=== PATIENT | female | born 1970 | race Two or more races ===

== ENCOUNTER 2021-01-06 11:42 | Outpatient (REF) | payer OTHER, SELFPAY ==
[2021-01-07 08:59] LABS: BV Int Neg Control Negative (Negative); BV Int Pos Control Positive (Positive)
== END 2021-01-06 11:43 | disposition home or self-care (01) ==
LOC: HO.LAB 11:42
PROVIDERS: PCP Internal Medicine; Visit Provider Advanced Practice Midwife
DX: N89.8 Other specified noninflammatory disorders of vagina (principal)
CPT/HCPCS: 87480; 87510; 87660; 99212

== ENCOUNTER 2021-01-19 13:52 | Outpatient (REF) | payer OTHER, SELFPAY ==
--- NOTE | ~2021-01-19 | XR_ITS ---
EXAMINATION: XR LUMBAR SPINE AND LEFT SHOULDER CLINICAL INFORMATION: Low back pain. COMPARISON: None. TECHNIQUE: 3 views lumbar spine and 4 views left shoulder. FINDINGS: LUMBAR SPINE: There is normal lumbar lordosis. The vertebral heights and alignment is normal. There is loss of L5-S1 disc height. The rest the disc heights are normal. No visible acute fracture, dislocation or lytic process seen. The paramidline soft tissues are normal. There is evidence of previous cholecystectomy. LEFT SHOULDER: The glenohumeral joint space is normal. There is mild reduction in left AC joint. The soft tissues are normal. XR/XR lumbar spine 2-3V IMPRESSION: Unremarkable lumbar spine exam. Mild degenerative changes left AC joint.
--- NOTE | ~2021-01-19 | XR_ITS ---
EXAMINATION: XR LUMBAR SPINE AND LEFT SHOULDER CLINICAL INFORMATION: Low back pain. COMPARISON: None. TECHNIQUE: 3 views lumbar spine and 4 views left shoulder. FINDINGS: LUMBAR SPINE: There is normal lumbar lordosis. The vertebral heights and alignment is normal. There is loss of L5-S1 disc height. The rest the disc heights are normal. No visible acute fracture, dislocation or lytic process seen. The paramidline soft tissues are normal. There is evidence of previous cholecystectomy. LEFT SHOULDER: The glenohumeral joint space is normal. There is mild reduction in left AC joint. The soft tissues are normal. XR/XR shoulder LT min 2V IMPRESSION: Unremarkable lumbar spine exam. Mild degenerative changes left AC joint.
[2021-01-19 14:14] LABS: MANUAL DIFF FLAG NO
[2021-01-19 14:22] LABS: Basophils Absolute Auto 0.1 X10*3/uL (0.0-0.2); Basophils Percent Auto 0.9 % (0-2); Eosinophils Absolute Auto 0.1 X10*3/uL (0.0-0.4); Eosinophils Percent Auto 1.7 % (0-4); Hematocrit 39.2 % (37-47); Hemoglobin 13.2 g/dl (12.0-16.0); Imm Gran Abs Auto 0.01 X10*3/uL (0.00-0.03); Imm Gran Pct Auto 0.1 % (0.0-0.4); Lymphocytes Absolute Auto 2.2 X10*3/uL (1.2-4.9); Lymphocytes Percent Auto 28.5 % (20-40); Mean Corpuscular HGB Conc 33.7 g/dl (31.0-35.0); Mean Corpuscular Hemoglobin 31.4 pg (27.0-33.0); Mean Corpuscular Volume 93.3 fL (80-98); Mean Platelet Volume 10.4 fL (9.4-12.3); Monocytes Absolute Auto 0.6 X10*3/uL (0.1-1.2); Monocytes Percent Auto 7.3 % (2-11); Neutrophils Absolute Auto 4.8 X10*3/uL (2.0-8.3); Neutrophils Percent Auto 61.5 % (45-73); Platelet Count 327 X10*3/uL (160-400); Red Cell Distribution Width 12.5 % (11.0-16.0); White Blood Count 7.8 X10*3/uL (4.8-10.8)
[2021-01-19 14:52] LABS: Alanine Aminotransferase 27 U/L (0-31); Albumin Level 4.4 g/dL (3.5-5.0); Alkaline Phosphatase 106 U/L (39-117); Anion Gap 14 (12-20); Aspartate Amino Transferase 21 U/L (5-31); Bilirubin Total 0.3 mg/dL (0.0-1.0); Blood Urea Nitrogen 20 mg/dL (9-16); Calcium 9.5 mg/dL (8.4-10.2); Carbon Dioxide 25 mmol/L (22-29); Chloride 104 mmol/L (96-108); Estimated Glomerular Filt Rate > 60; Glucose Random 146 mg/dL (60-115); Potassium 4.1 mmol/L (3.3-5.1); Sodium 139 mmol/L (135-145); Total Protein 7.8 g/dL (6.5-8.0)
[2021-01-20 12:01] LABS: CA 27.29 18 U/mL (<38)
== END 2021-01-19 13:53 | disposition home or self-care (01) ==
LOC: HO.LAB 13:52
PROVIDERS: Absent Provider Internal Medicine; PCP Internal Medicine; Visit Provider Internal Medicine
DX: C50.919 Malignant neoplasm of unspecified site of unspecified female breast (principal); M25.512 Pain in left shoulder; M54.5 Low back pain
CPT/HCPCS: 36415; 72100; 73030; 80053; 85025; 86300

== ENCOUNTER → 2021-01-28 10:10 | Outpatient (BNVA) | payer OTHER, SELFPAY | PROVIDERS: PCP Internal Medicine; Visit Provider Physician Assistant | DX: M77.8 Other enthesopathies, not elsewhere classified (principal) | CPT/HCPCS: 99202 ==

== ENCOUNTER → 2021-02-21 13:46 | Outpatient (BNVA) | payer OTHER, SELFPAY | PROVIDERS: PCP Internal Medicine; Visit Provider Nurse Practitioner Family | DX: M54.2 Cervicalgia (principal); M77.8 Other enthesopathies, not elsewhere classified; I89.0 Lymphedema, not elsewhere classified | CPT/HCPCS: 99212 ==

== ENCOUNTER 2021-04-14 16:14 | Outpatient (REF) | payer OTHER, SELFPAY ==
--- NOTE | ~2021-04-14 | MR_ITS ---
EXAMINATION: MR CERVICAL SPINE WITHOUT CONTRAST CLINICAL INFORMATION: Spondylosis. Right upper extremity pain, numbness, and weakness. COMPARISON: Cervical spine radiographs 05/25/2020. TECHNIQUE: MRI of the cervical spine was obtained using routine sequences without contrast. FINDINGS: Alignment is normal. Vertebral heights are preserved. No acute bone marrow signal changes. There is slight loss of intervertebral disc height and T2 signal intensity at multiple levels related to disc degeneration. There is no cord compression or abnormal intramedullary signal changes. The cervicomedullary junction is normal. Limited visualization of the intracranial anatomy reveals no abnormal finding. The occipital condyles and lateral C1 masses are intact. The left dental joint is normal. C1-C2 articular facets are unremarkable. At C2-C3 the annular contour is normal. No canal or neuroforaminal compromise. At C3-C4 there is a shallow central protrusion causing indentation of the thecal sac. No canal stenosis. Asymmetric uncovertebral joint spurring causes mild left neuroforaminal encroachment. At C4-C5 there is a slightly bulging disc. No canal stenosis. Uncovertebral joint spurring and facet degenerative change causes mild bilateral neuroforaminal encroachment. At C5-C6 there is a slightly bulging disc. No canal stenosis. Uncovertebral joint spurring and facet degenerative change causes mild bilateral neuroforaminal encroachment. At C6-C7 there is a slightly bulging disc. No canal stenosis. Uncovertebral joint spurring and facet degenerative change causes mild bilateral neuroforaminal encroachment. At C7-T1 the annular contour is normal. Bilateral facet degenerative change. No canal or neuroforaminal compromise. Visualized soft tissues of the neck are normal. MR/MR cervical spine wo con IMPRESSION: There is multilevel degenerative spondylosis of the cervical spine. No canal compromise or cord compression. No abnormal intramedullary signal changes. There is mild neuroforaminal encroachment at multiple levels as described above.
== END 2021-04-14 16:15 | disposition home or self-care (01) ==
LOC: HO.MRI 16:14
PROVIDERS: Visit Provider Anesthesiology
DX: M47.22 Other spondylosis with radiculopathy, cervical region (principal)
CPT/HCPCS: 72141

== ENCOUNTER 2021-05-15 09:04 | Emergency (ER) | payer OTHER, SELFPAY ==
[2021-05-15 09:08] VITALS: BP 189/87; PULSE 72; RESP 18; TEMP 36.7; O2SAT 100; BMI 28.3
--- NOTE | 2021-05-15 10:02 | ED_ITS ---
HPI - Eye Problem General Chief complaint: Eye Problems Stated complaint: sharp pain on left eye Time Seen by Provider: 05/15/21 09:16 Source: patient Mode of arrival: ambulatory Limitations: no limitations History of Present Illness HPI Narrative: patient presents to ED for left eye pain for the past 2 days. Patient states since waking up 2 days ago she states having left eye pain, blurry vision, and photophobia. Patient denies any headache, nausea, vomiting, dizziness, loss of vision, slurred speech, facial droop, or paralysis of extremities. patient denies any recent trauma to the eye or wearing eye co ntact. Related Data Home Medications Medication Instructions Recorded Confirmed bupropion HCl 150 mg 24 hr tablet, 150 mg PO QAM 10/18/20 04/25/21 extended release clonazepam 0.5 mg tablet 0.5 mg PO BEDTIME 10/18/20 04/25/21 furosemide 20 mg tablet 20 mg PO QAM 10/18/20 04/25/21 multivitamin 1 tab PO DAILY 10/18/20 04/25/21 topiramate 25 mg tablet 25 mg PO DAILY 10/18/20 04/25/21 buspirone 15 mg tablet 15 mg PO TID 01/18/21 04/25/21 trazodone 100 mg tablet 150 mg PO BEDTIME PRN tab 04/25/21 04/25/21 Previous Rx's Medication Instructions Recorded ascorbic acid (vitamin C) 500 mg 500 mg PO DAILY #90 tab 08/31/20 tablet amlodipine 5 mg tablet 5 mg PO DAILY #90 tab 09/29/20 miconazole nitrate 2 % vaginal 1 appful VAGINAL BEDTIME 7 Days 01/18/21 cream #45 g diclofenac sodium 75 mg 75 mg PO BID 30 Days #60 tab 01/28/21 tablet,delayed release halobetasol propionate 0.05 % 1 appl TOPICAL DAILY #50 g 02/25/21 topical cream methocarbamol 500 mg tablet 500 mg PO TID PRN 30 Days #90 tab 02/25/21 tizanidine 4 mg tablet 4 mg PO BEDTIME PRN #30 tab 03/04/21 losartan 25 mg tablet 25 mg PO DAILY #30 tab 04/13/21 omeprazole 20 mg capsule,delayed 20 mg PO DAILY 30 Days #30 cap 04/25/21 release oxycodone-acetaminophen [Percocet] 1 tab PO TID PRN #9 tab 05/15/21 prednisolone acetate [Pred Forte] 1 drp OPHTHALMIC (EYE) QID 4 Days 05/15/21 #10 ml Allergies Allergy/AdvReac Type Severity Reaction Status Date / Time lisinopril Allergy Mild Cough Verified 04/25/21 15:02 zolpidem AdvReac Severe sleepwalkin Verified 04/25/21 15:59 g Review of Systems Review of Systems: Yes all other systems are reviewed and are negative Constitutional: Constitutional: Reports as per HPI and Reports no additional constitutional complaints Eyes: Eyes: Reports as per HPI, Reports no additional eye complaints and Reports eye pain ( Left eye) ENT: Reports system reviewed and no additional complaints, except as documented and Reports as per HPI Cardiovascular: Cardiovascular: Reports as per HPI and Reports no additional cardiovascular complaints Respiratory: Respiratory: Reports as per HPI and Reports no additional respiratory complaints Gastrointestinal: Gastrointestinal: Reports as per HPI and Reports no additional gastrointestinal complaints Genitourinary: Genitourinary: Reports no additional female genitourinary complaints and Reports as per HPI Musculoskeletal: Musculoskeletal: Reports no additional musculoskeletal complaints and Reports as per HPI Neurologic: Reports system reviewed and no additional complaints, except as documented and Reports as per HPI Psychiatric: Psychiatric: Reports no additional psychiatric complaints and Reports as per HPI PMF Past Medical History Medical History (Updated 05/15/21 @ 12:15 by CHAN Bacon) Anxiety Benign essential hypertension Cervical disc disease GERD without esophagitis Insomnia Left shoulder pain Lymphedema Myalgia Overweight (BMI 25.0-29.9) Right low back pain Sleep disorder Surgical History H/O bilateral oophorectomy H/O breast biopsy History of breast implant removal History of breast surgery History of cholecystectomy History of tubal ligation Hx of bilateral mastectomy Family History Family History Father Diabetes Mother Low blood pressure Family/Other Breast cancer Diabetes Social History Social History Housing: Apartment Alcohol intake: current Alcohol intake frequency: holidays/special occasions only Patient Tobacco Use Status: Never used Tobacco Second Hand Smoke Exposure: No Use of substances other than those prescribed or required for medical reasons: No Advance Directives: Yes Advance Directives Information Provided: Yes Advance Directives on File: No Patient : No Current occupational status: employed and disabled Gender identity: female Physical Exam Vital Signs: Vital Signs: Last Vital Signs Temp 97.9 F 05/15/21 12:20 Pulse 79 05/15/21 12:20 Resp 18 05/15/21 12:20 BP 134/60 05/15/21 12:20 Pulse Ox 99 05/15/21 12:20 Body Mass Index 28.3 Const: General: cooperative, healthy appearing, comfortable, no acute distress, well developed, alert and awake; No Physically active Orientation/consciousness: oriented to person, oriented to place and patient oriented x3 HENMT: Head: Yes normal to inspection, Yes No palpable skull fracture present, Yes normocephalic, Yes atraumatic, No abrasion, No Acrocyanosis present, No Bojorquez's sign, No contusion, No cranial bruits, No hematoma, No laceration, No occipital foramen tenderness, No palpable skull fracture, No raccoon eyes, No scalp lesion, No scalp tenderness, No Temporal artery tenderness present and No periorbital ecchymosis General nose exam: Normal external nose present and Normal nares present Eyes: Other: left eye : scleral redness, Tonometry pressure is 15. negative for corneal abrasion, corneal ulcer, or foreign body. visual acuity 20/20 Right eye: negative for redness. tonometry Pressure is 9. negative for corneal abrasion, corneal ulcer, or foreign body. Visual acuity 2020 General: appearance normal, both eyes and all related structures Chest: Chest palpation & inspection: normal inspection of the chest and normal palpation of entire chest wall Resp: Effort & Inspection: normal respiratory effort and able to speak in complete sentences Auscultation: clear to auscultation bilaterally Cardio: Jugular venous distension: no JVD Heart sounds: S1 normal heart sound present and S2 normal heart sound present GI: Inspection: Yes normal to inspection and No abdominal wall ecchymosis Palpation (GI): Soft to palpation, not firm, nontender, no guarding and not rigid : General: No CVA tenderness Back/Spine/Pelvis: Back: no CVA tenderness, No CVA tenderness and No back tenderness Skin: General skin exam: no rashes or lesions noted and elasticity normal Neuro: Other: negative facial droop. Negative slurred speech. Negative pronator drift. All extremities equal strength 5+. [id number] rapid head movement tach. Negative on General: oriented to person, oriented to place, patient oriented x3, gait normal and CN's II-XI intact bilaterally Cranial nerves: Yes CN's II-XII intact bilaterally Extrem: General: Yes normal to inspection and Yes full ROM Psych: Appearance: grossly normal, well kempt and not disheveled Course Course Course Narrative: will use tetracaine for anesthesia. Will use denominator to check eye pressure. Will perform fluorescein dye test to check for corneal abrasion. elevated blood pressure due to eye discomfort Reevaluation(s) Reevaluation #1: history physical exam negative for glaucoma, corneal abrasion, corneal ulcer, dendrites, or foreign body. Contact Dr. Beck of Ophthalmology. DR. Stein, ER Attendant, evaluated patient and agrees that this may be some form of iritis or scleritis. Waiting back from Dr. Beck . not suspecting temporal arthritis. Patient does not have headache or left temporal tenderness on palpation. Time: 11:20 Reevaluation #2: spoke with Dr. Beck of Ophthalmology and he was informed of patient's history, physical exam, and diagnostics. He states differential could be iritis, episcleritis, or scleritis. He recommends giving eye steroid ( perforte) drops 4 times a day regardless. Recommends placing phenylephrine 2.5% in the left eye. He states if redness resolved from phenylephrine that most likely is episcleritis. If redness remains any scleritis recommend p.o. oral NSAID. Time: 11:39 Reevaluation #3: Phenyelphrine was placed in patient's left eye and 5 minutes later redness of left eye resolved. Indicating more episcleritis. Will discharge with pre Forte eyedrops. Patient has follow-up with Dr. Beck for sunday. Time: 12:12 MDM - Eye Problem MDM Narrative Medical decision making narrative: episcleritis versus iritis Discharge Plan Discharge Clinical Impression: Episcleritis, Iritis Patient Disposition: Home, Self-Care Instructions: Iritis (ED) Additional Instructions: please follow-up with Dr. Beck this upcoming Sunday. Return to the ED for loss of vision, worsening eye pain, change in vision, headache, dizziness, slurred speech, facial droop, ear pain, paralysis of extremities, or any other concerning symptoms. Prescriptions: New oxycodone-acetaminophen [Percocet] 5-325 mg tablet 1 tab PO TID PRN (Reason: pain) Qty: 9 RF: 0 prednisolone acetate [Pred Forte] 1 % drops,suspension 1 drp ophthalmic (eye) QID 4 Days Qty: 10 RF: 0 No Action ascorbic acid (vitamin C) [Vitamin C] 500 mg tablet 500 mg PO DAILY Qty: 90 RF: 5 amlodipine 5 mg tablet 5 mg PO DAILY Qty: 90 RF: 2 miconazole nitrate [Monistat 7] 2 % cream 1 appful vaginal BEDTIME 7 Days Qty: 45 RF: 0 methocarbamol 500 mg tablet 500 mg PO TID PRN (Reason: muscle pain/low back pain) 30 Days Qty: 90 RF: 0 halobetasol propionate 0.05 % cream 1 appl topical DAILY Qty: 50 RF: 1 tizanidine 4 mg tablet 4 mg PO BEDTIME PRN (Reason: for muscle spasm) Qty: 30 RF: 1 losartan 25 mg tablet 25 mg PO DAILY Qty: 30 RF: 2 omeprazole 20 mg capsule,delayed release(DR/EC) 20 mg PO DAILY 30 Days Qty: 30 RF: 3 clonazepam 0.5 mg tablet 0.5 mg PO BEDTIME RF: 0 bupropion HCl 150 mg tablet extended release 24 hr 150 mg PO QAM RF: 0 multivitamin Tablet 1 tab PO DAILY RF: 0 topiramate 25 mg tablet 25 mg PO DAILY RF: 0 furosemide 20 mg tablet 20 mg PO QAM RF: 0 trazodone 100 mg tablet 150 mg PO BEDTIME PRN (Reason: Insomnia) RF: 0 buspirone 15 mg tablet 15 mg PO TID RF: 0 diclofenac sodium 75 mg tablet,delayed release (DR/EC) 75 mg PO BID 30 Days Qty: 60 RF: 0 Referrals: Yash Beck [Physician] - 2 days (Episcleritis vs Iritis of left eye. Redness of left eye resolved after phenylephrine was placed.) Interventions: ED Discharge Assessment Last Done: 05/15/21 12:39 Discharge Date/Time: 05/15/21 12:40 Print Language: Nepalese
[2021-05-15] MEDS: Tetracaine HCl/PF 0.5% Oph Sol 4 ML DROPS 3 DROP EYE-LEFT (10:28)
[2021-05-15] MEDS: Fluorescein Sodium STRIP 1 STRIP EYE-RIGHT (10:28)
[2021-05-15] MEDS: Fluorescein Sodium STRIP 1 STRIP EYE-LEFT (10:28)
[2021-05-15] MEDS: Phenylephrine HCL 2.5% Oph SoL 2 ML BOTTLE 1 DROP EYE-LEFT (11:59)
[2021-05-15 12:20] VITALS: BP 134/60; PULSE 79; RESP 18; TEMP 36.6; O2SAT 99
== END 2021-05-15 12:40 | disposition home or self-care (01) ==
PROVIDERS: Emergency Provider Emergency Medicine; PCP Internal Medicine
DX: H15.102 Unspecified episcleritis, left eye (principal); H20.9 Unspecified iridocyclitis; I10 Essential (primary) hypertension; Z79.899 Other long term (current) drug therapy
CPT/HCPCS: 99283; 99284

== ENCOUNTER 2021-06-15 13:38 | Emergency (ER) | payer OTHER, SELFPAY ==
[2021-06-15 13:41] VITALS: BP 136/70; PULSE 64; RESP 16; TEMP 36.7; O2SAT 97; BMI 28.1
== END 2021-06-15 15:55 | disposition left against medical advice (07) ==
PROVIDERS: Emergency Provider Emergency Medicine; PCP Internal Medicine
DX: S09.93XA Unspecified injury of face, initial encounter (principal); W01.0XXA Fall on same level from slipping, tripping and stumbling without subsequent striking against object, initial encounter; Y93.9 Activity, unspecified; Y92.9 Unspecified place or not applicable; Y99.9 Unspecified external cause status
CPT/HCPCS: 99281; 99282

== ENCOUNTER 2021-06-18 13:53 | Emergency (ER) | payer OTHER, SELFPAY ==
[2021-06-18 14:08] VITALS: BP 178/99; PULSE 78; RESP 16; TEMP 36.9; O2SAT 98; BMI 28.1
--- NOTE | 2021-06-18 15:33 | ED.FALL ---
HPI - Fall General Chief Complaint: Fall Stated Complaint: Facial bump Time Seen by Provider: 06/18/21 15:33 Source: patient Mode of arrival: ambulatory Limitations: no limitations History of Present Illness HPI Narrative: 51 y/o female presenting with palpable bump on her face after she fell and hit it on a hard object 2 weeks ago. She initially had bruising to the area but it has since resolved. She reports a residual lump on her right cheek that is slightly tender. It is not red or bruised any longer. She has no dentall pain or trauma. MD complaint: fall Onset (ago): week(s) (2) Fall from: standing Fall witnessed: yes, by family Place fall occurred: home Loss of consciousness: none Prolonged down time: no Symptoms prior to fall: none Context: tripped/slipped Location of injury: face Severity: mild Quality: aching Associated symptoms (after fall): denies Related Data Home Medications Medication Instructions Recorded Confirmed bupropion HCl 150 mg 24 hr tablet, 150 mg PO QAM 10/18/20 04/25/21 extended release clonazepam 0.5 mg tablet 0.5 mg PO BEDTIME 10/18/20 04/25/21 furosemide 20 mg tablet 20 mg PO QAM 10/18/20 04/25/21 multivitamin 1 tab PO DAILY 10/18/20 04/25/21 topiramate 25 mg tablet 25 mg PO DAILY 10/18/20 04/25/21 buspirone 15 mg tablet 15 mg PO TID 01/18/21 04/25/21 trazodone 100 mg tablet 150 mg PO BEDTIME PRN tab 04/25/21 04/25/21 Previous Rx's Medication Instructions Recorded ascorbic acid (vitamin C) 500 mg 500 mg PO DAILY #90 tab 08/31/20 tablet (Vitamin C) amlodipine 5 mg tablet 5 mg PO DAILY #90 tab 09/29/20 miconazole nitrate 2 % vaginal 1 appful VAGINAL BEDTIME 7 Days 01/18/21 cream (Monistat 7) #45 g diclofenac sodium 75 mg 75 mg PO BID 30 Days #60 tab 01/28/21 tablet,delayed release halobetasol propionate 0.05 % 1 appl TOPICAL DAILY #50 g 02/25/21 topical cream methocarbamol 500 mg tablet 500 mg PO TID PRN 30 Days #90 tab 02/25/21 tizanidine 4 mg tablet 4 mg PO BEDTIME PRN #30 tab 03/04/21 losartan 25 mg tablet 25 mg PO DAILY #30 tab 04/13/21 omeprazole 20 mg capsule,delayed 20 mg PO DAILY 30 Days #30 cap 04/25/21 release oxycodone-acetaminophen 5 mg-325 1 tab PO TID PRN #9 tab 05/15/21 mg tablet (Percocet) prednisolone acetate 1 % eye 1 drp OPHTHALMIC (EYE) QID 4 Days 05/15/21 drops,suspension (Pred Forte) #10 ml Allergies Allergy/AdvReac Type Severity Reaction Status Date / Time lisinopril Allergy Mild Cough Verified 06/15/21 13:41 zolpidem AdvReac Severe sleepwalkin Verified 06/15/21 13:41 g Review of Systems Review of Systems: Constitutional: No Fever, No Chills ENT/Mouth: No sore throat, No Rhinorrhea, No Swallowing Difficulty, No dental pain Eyes: No Eye Pain, No Swelling, No Redness Gastrointestinal: No Nausea, No Vomiting Musculoskeletal: No joint pain, No Myalgias Skin: + Skin Lesions, No rash Neuro: No Weakness, No Numbness, No Dizziness, No Headache Psych: + Anxiety/Panic, No Depression Heme/Lymph: No Bruising PMFSH Past Medical History Medical History Anxiety Benign essential hypertension Cervical disc disease GERD without esophagitis Insomnia Left shoulder pain Lymphedema Myalgia Overweight (BMI 25.0-29.9) Right low back pain Sleep disorder Surgical History H/O bilateral oophorectomy H/O breast biopsy History of breast implant removal History of breast surgery History of cholecystectomy History of tubal ligation Hx of bilateral mastectomy Family History Family History Father Diabetes Mother Low blood pressure Family/Other Breast cancer Diabetes Social History Social History Housing: Apartment Alcohol intake: current Alcohol intake frequency: holidays/special occasions only Patient Tobacco Use Status: Never used Tobacco Second Hand Smoke Exposure: No Advance Directives: No Advance Directives Information Provided: No Current occupational status: employed and disabled Gender identity: female Physical Exam Vital Signs: Vital Signs: Last Vital Signs Temp 98.5 F 06/18/21 14:08 Pulse 78 06/18/21 14:08 Resp 16 06/18/21 14:08 BP 178/99 H 06/18/21 14:08 Pulse Ox 98 06/18/21 14:08 Body Mass Index 28.1 Const: General: cooperative, healthy appearing, comfortable and no acute distress Nutritional Appearance: average body habitus Orientation/consciousness: patient oriented x3 Limitations: no limitations HENMT: Head: Yes normal to inspection, Yes normocephalic and Yes atraumatic Ears: hearing grossly normal bilaterally and external ears normal General nose exam: Normal external nose present and Normal nares present Face and sinus: Yes Facial tenderness on exam of face and sinuses (palpable 2 x 1 cm mobile soft tissue mass below right maxilla, no erythema ) Mouth: Normal oral and palatal mucosa present, lip normal, tongue normal, oropharynx normal and moist mucous membranes Teeth and gingiva: dentition normal and gingiva normal Throat: Yes posterior oropharynx normal, Yes tonsils normal and Yes uvula midline Eyes: General: appearance normal, both eyes and all related structures Neck: Neck: Yes normal visual inspection Chest: Chest palpation & inspection: normal inspection of the chest Resp: Effort & Inspection: normal respiratory effort and able to speak in complete sentences Skin: General skin exam: no rashes or lesions noted Trauma: no lacerations or abrasions Wounds: no wounds Hair: normal Neuro: General: patient oriented x3 and gait normal Extrem: General: Yes normal to inspection Course Course Course Narrative: 51 y/o female presenting to the ER 2 weeks s/p fall with trauma to the right side of her face now with a palpable small mass below her right maxilla, slightly tender. No erythema or fluctuance to suggest abscess. Possible hematoma vs cystic lesion. Recommend following up with PCP and possible Dermatology if lesion persists. She was reassured against infection. She is in agreement with watchful waiting and outpatient follow up. Stable for d/c. Discharge Plan Discharge Clinical Impression: Soft tissue mass Patient Disposition: Home, Self-Care Instructions: Superficial Mass Needle Biopsy (ED), Soft Tissue Mass (ED) Additional Instructions: Recommend applying ice to the area to see if this helps with swelling. Follow up with your doctor in the next 2 weeks for follow up. Recommend following up with Dermatology if no improvement or resolution in the next few weeks. Prescriptions: No Action ascorbic acid (vitamin C) [Vitamin C] 500 mg tablet 500 mg PO DAILY Qty: 90 RF: 5 amlodipine 5 mg tablet 5 mg PO DAILY Qty: 90 RF: 2 miconazole nitrate [Monistat 7] 2 % cream 1 appful vaginal BEDTIME 7 Days Qty: 45 RF: 0 methocarbamol 500 mg tablet 500 mg PO TID PRN (Reason: muscle pain/low back pain) 30 Days Qty: 90 RF: 0 halobetasol propionate 0.05 % cream 1 appl topical DAILY Qty: 50 RF: 1 tizanidine 4 mg tablet 4 mg PO BEDTIME PRN (Reason: for muscle spasm) Qty: 30 RF: 1 losartan 25 mg tablet 25 mg PO DAILY Qty: 30 RF: 2 oxycodone-acetaminophen [Percocet] 5-325 mg tablet 1 tab PO TID PRN (Reason: pain) Qty: 9 RF: 0 prednisolone acetate [Pred Forte] 1 % drops,suspension 1 drp ophthalmic (eye) QID 4 Days Qty: 10 RF: 0 omeprazole 20 mg capsule,delayed release(DR/EC) 20 mg PO DAILY 30 Days Qty: 30 RF: 3 clonazepam 0.5 mg tablet 0.5 mg PO BEDTIME RF: 0 bupropion HCl 150 mg tablet extended release 24 hr 150 mg PO QAM RF: 0 multivitamin Tablet 1 tab PO DAILY RF: 0 topiramate 25 mg tablet 25 mg PO DAILY RF: 0 furosemide 20 mg tablet 20 mg PO QAM RF: 0 trazodone 100 mg tablet 150 mg PO BEDTIME PRN (Reason: Insomnia) RF: 0 buspirone 15 mg tablet 15 mg PO TID RF: 0 diclofenac sodium 75 mg tablet,delayed release (DR/EC) 75 mg PO BID 30 Days Qty: 60 RF: 0 Referrals: Cristin Garcia PA-C [Physician Electromedical Service Engineer] - 2 weeks (soft tissue right maxillary mass) Interventions: ED Discharge Assessment Last Done: 06/18/21 15:48 Discharge Date/Time: 06/18/21 15:49
== END 2021-06-18 15:49 | disposition home or self-care (01) ==
PROVIDERS: Emergency Provider Emergency Medicine Emergency Medical Services; PCP Internal Medicine
DX: M79.9 Soft tissue disorder, unspecified (principal)
CPT/HCPCS: 99283

== ENCOUNTER 2021-06-26 20:14 | Emergency (ER) | payer OTHER, SELFPAY ==
--- NOTE | ~2021-06-26 | CT_ITS ---
EXAMINATION: CT FACIAL BONES WITHOUT CONTRAST CLINICAL INFORMATION: Fall 3 weeks ago. Continuing deformity and pain right maxilla. COMPARISON: None TECHNIQUE: Axial images obtained through the facial bones. Coronal and sagittal reformatted images are performed at CT scanner This CT examination was performed using dose optimization techniques as appropriate, variously including the following: *Automated exposure control *Adjustment of mA and/or kV according to patient size (this includes techniques or standardized protocols for targeted exams where dose is matched to indication/reason for exam; i.e. extremities or head) *Use of iterative reconstruction technique DLP: 480 mGy-cm FINDINGS: There is no acute maxillofacial fracture. The pterygoid plates are intact. The zygomatic arches are intact. The lamina papyracea are intact. The orbital rims are intact. The paranasal sinuses are well-aerated. No air-fluid levels are seen. The ostiomeatal complexes are clear. The lamina papyracea are intact. The ethmoid roofs are symmetric. The carotid canals are normally covered by bone. The mastoid air cells and visualized middle ear cavities are well-aerated. The orbits are normal. The TMJs are unremarkable. The imaged portions of the brain demonstrate no acute abnormality. CT/CT facial bones wo con IMPRESSION: No acute intracranial process or discrete facial bone fracture.
[2021-06-26 20:32] VITALS: BP 198/114; PULSE 74; RESP 18; O2SAT 100; BMI 28.1
--- NOTE | 2021-06-26 21:55 | ED_ITS ---
HPI - General Adult General Chief complaint: Dental/Oral Stated complaint: Lump on face Time Seen by Provider: 06/26/21 21:36 Source: patient Mode of arrival: ambulatory History of Present Illness HPI narrative: 51-year-old female with history of hypertension presents with persistent pain/deformity/swelling at the right maxilla after having sustained a fall approximately 3 weeks ago. She states that at the time she was not evaluated and simply treated it with ice, but notes that it has not resolved and she continues to have significant pain at the site. She has had bilateral oophorectomy and denies any associated fever, chills, nausea/vomiting, abdominal pain, dizziness/headache. Related Data Home Medications Medication Instructions Recorded Confirmed bupropion HCl 150 mg 24 hr tablet, 150 mg PO QAM 10/18/20 04/25/21 extended release clonazepam 0.5 mg tablet 0.5 mg PO BEDTIME 10/18/20 04/25/21 furosemide 20 mg tablet 20 mg PO QAM 10/18/20 04/25/21 multivitamin 1 tab PO DAILY 10/18/20 04/25/21 topiramate 25 mg tablet 25 mg PO DAILY 10/18/20 04/25/21 buspirone 15 mg tablet 15 mg PO TID 01/18/21 04/25/21 trazodone 100 mg tablet 150 mg PO BEDTIME PRN tab 04/25/21 04/25/21 Previous Rx's Medication Instructions Recorded ascorbic acid (vitamin C) 500 mg 500 mg PO DAILY #90 tab 08/31/20 tablet (Vitamin C) amlodipine 5 mg tablet 5 mg PO DAILY #90 tab 09/29/20 miconazole nitrate 2 % vaginal 1 appful VAGINAL BEDTIME 7 Days 01/18/21 cream (Monistat 7) #45 g diclofenac sodium 75 mg 75 mg PO BID 30 Days #60 tab 01/28/21 tablet,delayed release halobetasol propionate 0.05 % 1 appl TOPICAL DAILY #50 g 02/25/21 topical cream methocarbamol 500 mg tablet 500 mg PO TID PRN 30 Days #90 tab 02/25/21 tizanidine 4 mg tablet 4 mg PO BEDTIME PRN #30 tab 03/04/21 losartan 25 mg tablet 25 mg PO DAILY #30 tab 04/13/21 omeprazole 20 mg capsule,delayed 20 mg PO DAILY 30 Days #30 cap 04/25/21 release oxycodone-acetaminophen 5 mg-325 1 tab PO TID PRN #9 tab 05/15/21 mg tablet (Percocet) prednisolone acetate 1 % eye 1 drp OPHTHALMIC (EYE) QID 4 Days 05/15/21 drops,suspension (Pred Forte) #10 ml Allergies Allergy/AdvReac Type Severity Reaction Status Date / Time lisinopril Allergy Mild Cough Verified 06/15/21 13:41 zolpidem AdvReac Severe sleepwalkin Verified 06/15/21 13:41 g Review of Systems Review of Systems: Pertinent positives and negatives as stated in HPI 10 point review of systems otherwise negative. PMFSH Past Medical History Source: nursing notes reviewed Medical History Anxiety Benign essential hypertension Cervical disc disease GERD without esophagitis Insomnia Left shoulder pain Lymphedema Myalgia Overweight (BMI 25.0-29.9) Right low back pain Sleep disorder Surgical History H/O bilateral oophorectomy H/O breast biopsy History of breast implant removal History of breast surgery History of cholecystectomy History of tubal ligation Hx of bilateral mastectomy Family History Family History Father Diabetes Mother Low blood pressure Family/Other Breast cancer Diabetes Social History Social History Housing: Apartment Alcohol intake: current Alcohol intake frequency: holidays/special occasions only Patient Tobacco Use Status: Never used Tobacco Second Hand Smoke Exposure: No Advance Directives: No Advance Directives Information Provided: No Patient : No Current occupational status: employed and disabled Gender identity: female Physical Exam Vital Signs: Vital Signs: Last Vital Signs Temp 97.4 F 06/26/21 22:20 Pulse 71 06/26/21 23:50 Resp 20 06/26/21 23:50 BP 149/72 H 06/26/21 23:50 Pulse Ox 99 06/26/21 23:50 Body Mass Index 28.1 VITAL SIGNS: Reviewed. GENERAL: Well developed, well nourished, in no acute distress. HEAD: Normocephalic/atraumatic, mobile non adherent approximately 3 cm lump noted at the right maxilla without demonstration when examined intraorally, bilateral TMJs are intact without clicking EYES: PERRLA, EOMI EARS: Ext canals without abnormality, TMs non-bulging and non-erythematous, no masses noted NOSE: Nares patent bilateral, no masses noted OROPHARYNX: no oral lesions noted, posterior pharynx clear and after removal of partial there is no evidence of gum swelling/erythema LUNGS: Normal breath sounds. No adventitious sounds or accessory muscle use. SpO2<100> CARDIOVASCULAR: Regular rate and rhythm without noted murmurs ABDOMEN: Soft, non-tender, non-distended with bowel sounds. SKIN: Inspection of the skin reveals no rashes NEUROLOGIC: Alert and oriented x 4. Course Course Course Narrative: 51-year-old female with history and clinical presentation consistent with likely underlying hematoma but will evaluate for possible occult fracture due to patient's fall, patient will also be treated here for her hypertension as she has not taken her antihypertensive medications all day and she will receive combination analgesics for her pain. Review of all investigations is otherwise negative and on re-evaluation patient's blood pressure has improved and she will be discharged after discussion of her results in stable condition. Discharge Plan Discharge Clinical Impression: Lump on face, Hypertension Patient Disposition: Home, Self-Care Instructions: Hypertension (ED), DASH Eating Plan (ED) Additional Instructions: 1. Follow-up with your primary care provider in the next 1-2 days for re- evaluation. 2. Continue to take your blood pressure medications as directed, and continue to use [id number]-ilefjua Tylenol/ibuprofen as needed for pain control. Return to the ER for acute worsening of symptoms. Prescriptions: No Action ascorbic acid (vitamin C) [Vitamin C] 500 mg tablet 500 mg PO DAILY Qty: 90 RF: 5 amlodipine 5 mg tablet 5 mg PO DAILY Qty: 90 RF: 2 miconazole nitrate [Monistat 7] 2 % cream 1 appful vaginal BEDTIME 7 Days Qty: 45 RF: 0 methocarbamol 500 mg tablet 500 mg PO TID PRN (Reason: muscle pain/low back pain) 30 Days Qty: 90 RF: 0 halobetasol propionate 0.05 % cream 1 appl topical DAILY Qty: 50 RF: 1 tizanidine 4 mg tablet 4 mg PO BEDTIME PRN (Reason: for muscle spasm) Qty: 30 RF: 1 losartan 25 mg tablet 25 mg PO DAILY Qty: 30 RF: 2 oxycodone-acetaminophen [Percocet] 5-325 mg tablet 1 tab PO TID PRN (Reason: pain) Qty: 9 RF: 0 prednisolone acetate [Pred Forte] 1 % drops,suspension 1 drp ophthalmic (eye) QID 4 Days Qty: 10 RF: 0 omeprazole 20 mg capsule,delayed release(DR/EC) 20 mg PO DAILY 30 Days Qty: 30 RF: 3 clonazepam 0.5 mg tablet 0.5 mg PO BEDTIME RF: 0 bupropion HCl 150 mg tablet extended release 24 hr 150 mg PO QAM RF: 0 multivitamin Tablet 1 tab PO DAILY RF: 0 topiramate 25 mg tablet 25 mg PO DAILY RF: 0 furosemide 20 mg tablet 20 mg PO QAM RF: 0 trazodone 100 mg tablet 150 mg PO BEDTIME PRN (Reason: Insomnia) RF: 0 buspirone 15 mg tablet 15 mg PO TID RF: 0 diclofenac sodium 75 mg tablet,delayed release (DR/EC) 75 mg PO BID 30 Days Qty: 60 RF: 0 Referrals: Rod Mathews MD [Primary Care Provider] - 2 days
[2021-06-26 22:20] VITALS: BP 201/110; PULSE 73; RESP 16; TEMP 36.3; O2SAT 99
--- NOTE | 2021-06-26 22:21 | PC.NURSE ---
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
[2021-06-26] MEDS: amLODIPine Besylate 10 MG TABLET PO (22:37)
[2021-06-26] MEDS: Acetaminophen 325 MG TABLET 975 MG PO (22:37)
[2021-06-26] MEDS: Ketorolac Tromethamine 15 MG/ML VIAL IM (22:38)
[2021-06-26 23:50] VITALS: BP 149/72; PULSE 71; RESP 20; O2SAT 99
== END 2021-06-27 00:30 | disposition home or self-care (01) ==
PROVIDERS: Emergency Provider Student in an Organized Health Care Education/Training Program; PCP Internal Medicine
DX: R22.0 Localized swelling, mass and lump, head (principal); G44.309 Post-traumatic headache, unspecified, not intractable; I10 Essential (primary) hypertension; Z79.899 Other long term (current) drug therapy
CPT/HCPCS: 70486; 96372; 99284; J1885

== ENCOUNTER → 2021-07-19 10:56 | Outpatient (BNVA) | payer OTHER, SELFPAY | PROVIDERS: PCP Internal Medicine; Referring Provider Internal Medicine; Visit Provider Psychiatry & Neurology Neurology | DX: G47.00 Insomnia, unspecified (principal); G47.10 Hypersomnia, unspecified; G25.81 Restless legs syndrome; R06.83 Snoring | CPT/HCPCS: 99202 ==

== ENCOUNTER 2021-07-25 12:50 | Outpatient (REF) | payer OTHER, SELFPAY ==
[2021-07-28 06:17] LABS: HPV mRNA E6/E7 rflx Not Detected (Not Detected)
== END 2021-07-25 12:51 | disposition home or self-care (01) ==
LOC: HO.LAB 12:50
PROVIDERS: PCP Internal Medicine; Visit Provider Advanced Practice Midwife
DX: Z01.411 Encounter for gynecological examination (general) (routine) with abnormal findings (principal); Z11.51 Encounter for screening for human papillomavirus (HPV); N89.8 Other specified noninflammatory disorders of vagina; Z87.42 Personal history of other diseases of the female genital tract
CPT/HCPCS: 87624; 88142

== ENCOUNTER → 2021-10-11 20:04 | Outpatient (REF) | payer OTHER, SELFPAY | LOC: HO.SL 20:04 | PROVIDERS: PCP Internal Medicine; Visit Provider Psychiatry & Neurology Neurology | DX: G25.81 Restless legs syndrome (principal); G47.10 Hypersomnia, unspecified; R06.83 Snoring; G47.00 Insomnia, unspecified | CPT/HCPCS: 95810 ==

== ENCOUNTER 2021-10-18 13:27 | Emergency (ER) | payer OTHER, SELFPAY ==
--- NOTE | ~2021-10-18 | XR_ITS ---
EXAMINATION: XR CHEST CLINICAL INFORMATION: Weakness, chest pain COMPARISON: Chest radiographs 06/01/2016, 06/26/2015 TECHNIQUE: 2 views of the chest were obtained. FINDINGS: The lungs are clear. The vascularity is normal. There is no pneumothorax or pneumomediastinum. No airspace consolidation or groundglass opacity or effusion. The heart is normal in size and the hilar and mediastinal contours and visualized bony structures are unremarkable. XR/XR chest 2V IMPRESSION: Unremarkable examination.
--- NOTE | ~2021-10-18 | US_ITS ---
EXAMINATION: US VENOUS WITH DOPPLER UPPER EXTREMITY, LEFT CLINICAL INFORMATION: Left upper extremity swelling. History of DVT. COMPARISON: Left upper extremity DVT study 06/27/2017 TECHNIQUE: Ultrasound of the upper extremity is performed using compression sonography and color and pulse Doppler flow with assessment of augmentation of flow. There is also imaging and Doppler assessment of the jugular and subclavian veins. Spectral analysis with color-flow imaging is performed. FINDINGS: The left internal jugular vein, subclavian vein and axillary vein all demonstrate normal color and spectral flow consistent with patency. The left basilic, brachial and cephalic veins all demonstrate normal compressibility, color and spectral flow consistent with patency. The left radial and ulnar veins demonstrate normal compressibility and color flow consistent with patency. If the patient's symptoms progress, a followup ultrasound in 5 -7 days might be of value to exclude proximal propagation from a nonvisualized distal arm vein. US/US venous duplex UE LT IMPRESSION: No DVT demonstrated in the left upper extremity
[2021-10-18 13:30] VITALS: BP 189/116; PULSE 76; RESP 18; TEMP 36.6; O2SAT 100; BMI 28.1
[2021-10-18 14:23] LABS: MANUAL DIFF FLAG NO
[2021-10-18 14:28] LABS: Basophils Percent Auto 0.5 % (0-2); Eosinophils Absolute Auto 0.1 X10*3/uL (0.0-0.4); Eosinophils Percent Auto 1.6 % (0-4); Hematocrit 39.2 % (37.0-47.0); Hemoglobin 12.8 g/dl (12.0-16.0); Imm Gran Abs Auto 0.01 X10*3/uL (0.00-0.03); Imm Gran Pct Auto 0.1 % (0.0-0.4); Lymphocytes Absolute Auto 1.9 X10*3/uL (1.2-4.9); Lymphocytes Percent Auto 24.9 % (20-40); Mean Corpuscular HGB Conc 32.7 g/dl (31.0-35.0); Mean Corpuscular Hemoglobin 31.3 pg (27.0-33.0); Mean Corpuscular Volume 95.8 fL (80.0-98.0); Mean Platelet Volume 10.3 fL (9.4-12.3); Monocytes Absolute Auto 0.5 X10*3/uL (0.1-1.2); Monocytes Percent Auto 7.1 % (2-11); Neutrophils Percent Auto 65.8 % (45-73); Platelet Count 316 X10*3/uL (160-400); Red Blood Count 4.09 X10*6/uL (4.20-5.50); Red Cell Distribution Width 12.6 % (11.0-16.0); White Blood Count 7.6 X10*3/uL (4.8-10.8)
[2021-10-18 14:34] LABS: D Dimer High Sensitivity < 150 NG/ML
[2021-10-18 14:44] LABS: Anion Gap 11 (12-20); Blood Urea Nitrogen 15 mg/dL (9-16); Calcium 9.7 mg/dL (8.4-10.2); Carbon Dioxide 27 mmol/L (22-29); Chloride 107 mmol/L (96-108); Creatinine Clr Calc Pharmacy 90.4; Estimated Glomerular Filt Rate > 60; Glucose Random 103 mg/dL (60-115); Potassium 4.2 mmol/L (3.3-5.1); Sodium 141 mmol/L (135-145)
[2021-10-18 15:58] VITALS: BP 154/80; PULSE 72; RESP 18; TEMP 37.1; O2SAT 99
--- NOTE | 2021-10-18 16:14 | ECG_ITS ---
Test Reason : SHOULDER PAIN Blood Pressure : / mmHG Vent. Rate : 071 BPM Atrial Rate : 071 BPM P-R Int : 158 ms QRS Dur : 078 ms QT Int : 418 ms P-R-T Axes : 055 041 061 degrees QTc Int : 454 ms Normal sinus rhythm Low voltage QRS Borderline ECG When compared with ECG of 08-FEB-2018 11:25, No significant change was found Referred By: Karon Morrow Electronically Signed By:Luis Carlisle
[2021-10-18] MEDS: Ketorolac Tromethamine 30 MG/ML VIAL IVPUSH (16:36)
[2021-10-18 16:43] LABS: Appearance Urine CLEAR; Color Urine YELLOW; Glucose Urine UA NEG (NEG); Leukocyte Esterase Urine 1+ (NEG); Nitrite Urine NEG (NEG); PH 6.5 (5.0-8.0); Prothrombin Time 11.9 SEC (9.9-13.0); UACC Culture Trigger YES; Urine Blood NEG (NEG); Urine Ketones NEG (NEG); Urine Protein NEG (NEG-TRACE)
--- NOTE | 2021-10-18 16:45 | ED_ITS ---
HPI - Back Pain/Injury General Chief Complaint: Back Pain/Injury Stated Complaint: R SIDE PAIN Time Seen by Provider: 10/18/21 16:14 Source: patient Mode of arrival: ambulatory Limitations: no limitations History of Present Illness HPI Narrative: 51-year-old female with a past medical history of anxiety, hypertension, GERD, chronic left upper extremity lymphedema after a breast surgery, former DVT in left upper extremity not currently on anticoagulation, chronic back and neck pain here with complaints of left upper back pain which radiates into the left shoulder and arm for the last 3-4 days. Patient does not recall any injury or trauma. She denies any lifting injury or fall. She denies any associated shortness of breath, cough, fevers, chills, vomiting, urinary symptoms. Patient does tell me she has had over the last several days some panic attacks which include symptoms of headache, numbness in the hands and feet and around the mouth, shortness of breath and palpitations. Related Data Home Medications Medication Instructions Recorded Confirmed bupropion HCl 150 mg 24 hr tablet, 150 mg PO QAM 10/18/20 07/27/21 extended release clonazepam 0.5 mg tablet 0.5 mg PO BEDTIME 10/18/20 07/27/21 furosemide 20 mg tablet 20 mg PO QAM 10/18/20 07/27/21 topiramate 25 mg tablet 25 mg PO DAILY 10/18/20 07/27/21 buspirone 15 mg tablet 15 mg PO TID 01/18/21 07/27/21 trazodone 100 mg tablet 150 mg PO BEDTIME PRN tab 04/25/21 07/27/21 Previous Rx's Medication Instructions Recorded miconazole nitrate 2 % vaginal 1 appful VAGINAL BEDTIME 7 Days 01/18/21 cream (Monistat 7) #45 g diclofenac sodium 75 mg 75 mg PO BID 30 Days #60 tab 01/28/21 tablet,delayed release halobetasol propionate 0.05 % 1 appl TOPICAL DAILY #50 g 02/25/21 topical cream methocarbamol 500 mg tablet 500 mg PO TID PRN 30 Days #90 tab 02/25/21 tizanidine 4 mg tablet 4 mg PO BEDTIME PRN #30 tab 03/04/21 oxycodone-acetaminophen 5 mg-325 1 tab PO TID PRN #9 tab 07/04/21 mg tablet (Percocet) prednisolone acetate 1 % eye 1 drp OPHTHALMIC (EYE) QID 4 Days 05/15/21 drops,suspension (Pred Forte) #10 ml omeprazole 20 mg capsule,delayed 20 mg PO DAILY #90 cap 07/20/21 release amlodipine 5 mg tablet 5 mg PO DAILY #90 tab 08/04/21 multivitamin with folic acid 400 1 tab PO DAILY #90 tab 09/15/21 mcg tablet (Daily-Sujey (with folic acid)) ascorbic acid (vitamin C) 500 mg 500 mg PO DAILY #90 tab 09/26/21 tablet (Vitamin C) losartan 25 mg tablet 25 mg PO DAILY #90 tab 10/12/21 cyclobenzaprine 10 mg tablet 10 mg PO TID PRN #15 tab 10/18/21 lidocaine 5 % topical patch 1 patch TOPICAL DAILY #15 ea 10/18/21 (Lidoderm) Allergies Allergy/AdvReac Type Severity Reaction Status Date / Time lisinopril Allergy Mild Cough Verified 07/27/21 15:39 zolpidem AdvReac Severe sleepwalkin Verified 07/27/21 15:39 g Review of Systems Review of Systems: Yes all other systems are reviewed and are negative Constitutional: Constitutional: Reports no additional constitutional complaints, Denies body ache(s), Denies chills, Denies fever(s), Denies headache(s) and Denies weakness Eyes: Eyes: Reports no additional eye complaints and Denies change in vision ENT: Reports system reviewed and no additional complaints, except as documented, Denies dizziness, Denies headache(s), Denies nasal congestion, Denies nasal discharge and Denies neck pain Cardiovascular: Cardiovascular: Reports no additional cardiovascular complaints, Denies chest pain, Denies leg edema and Denies dyspnea Respiratory: Respiratory: Reports no additional respiratory complaints, Denies cough and Denies dyspnea Gastrointestinal: Gastrointestinal: Reports no additional gastrointestinal complaints, Denies abdominal pain, Denies diarrhea, Denies nausea and Denies vomiting Genitourinary: Genitourinary: Reports no additional female genitourinary complaints and Denies urinary incontinence Musculoskeletal: Musculoskeletal: Reports no additional musculoskeletal complaints, Reports back pain, Reports arthralgias, Denies joint swelling, Denies neck pain, Denies numbness and Denies tingling Integumentary/Breasts: Skin/Breast: Reports system reviewed and no additional complaints, except as docu and Denies rash Neurologic: Reports system reviewed and no additional complaints, except as documented, Denies Abnormal speech present, Denies dizziness, Denies headache(s), Denies numbness, Denies tingling and Denies weakness PMFSH Past Medical History Attestation statement: The following information was validated with the patient. Source: old records reviewed and nursing notes reviewed Medical History Abnormal Pap smear of anus Anxiety Benign essential hypertension BRCA positive Cervical disc disease GERD without esophagitis Insomnia Left shoulder pain Lymphedema Myalgia Overweight (BMI 25.0-29.9) Right low back pain Sleep disorder Surgical History H/O bilateral oophorectomy H/O breast biopsy History of breast implant removal History of breast surgery History of cholecystectomy History of tubal ligation Hx of bilateral mastectomy Family History Family History Father Diabetes Mother Low blood pressure Family/Other Breast cancer Diabetes Social History Social History Housing: Apartment Alcohol intake: current Alcohol intake frequency: holidays/special occasions only Patient Tobacco Use Status: Never used Tobacco Second Hand Smoke Exposure: No Advance Directives: No Advance Directives Information Provided: Yes Current occupational status: employed and disabled Gender identity: Female Physical Exam Vital Signs: Vital Signs: Last Vital Signs Temp 98.7 F 10/18/21 15:58 Pulse 78 10/18/21 18:30 Resp 18 10/18/21 15:58 BP 154/80 H 10/18/21 15:58 Pulse Ox 99 10/18/21 15:58 BMI result Body Mass Index 28.1 Const: General: cooperative, healthy appearing, comfortable and no acute distress Orientation/consciousness: patient oriented x3 Limitations: no limitations HENMT: Head: Yes normal to inspection Ears: hearing grossly normal bilaterally General nose exam: Normal external nose present Face and sinus: Yes normal facial exam Mouth: Normal oral and palatal mucosa present Throat: Yes posterior oropharynx normal Eyes: General: appearance normal, both eyes and all related structures Pupils: Equal, round and reactive pupils present Neck: Neck: Yes normal visual inspection Chest: Chest palpation & inspection: normal inspection of the chest Resp: Effort & Inspection: normal respiratory effort Auscultation: clear to auscultation bilaterally Cardio: Rate: regular rate Rhythm: regular rhythm Peripheral pulses: Peripheral pulses 2+ throughout GI: Inspection: Yes normal to inspection Palpation (GI): Soft to palpation and nontender Auscultation: normal bowel sounds : General: Yes no CVA tenderness Back/Spine/Pelvis: Other: Tenderness to the left upper thoracic soft tissue area with no midline tenderness, step-offs deformities. There is also tender ness up over the left trapezius and posterior shoulder with a palpable muscle spasm. There is full range of motion of the shoulder. There is some swelling of the entire left upper extremity with no warmth or redness. Distal pulses are palpated. Patient reports pain in the entire arm but has full range of motion of each joint. Back: no CVA tenderness Thoracic/Lumbar Spine: thoracic and lumbar spine normal to inspection Skin: General skin exam: no rashes or lesions noted Neuro: General: patient oriented x3, no focal motor deficits and normal sensation to monofilament Cranial nerves: Yes Equal, round and reactive pupils present Cognition (Neuro): normal cognition Speech: No Abnormal speech present Gait exam (Neuro): Normal gait present Motor exam (neuro): 5/5 motor strength present throughout Extrem: General: Yes normal to inspection, Yes no pedal edema and Yes no calf tenderness Course Course Course Narrative: 51-year-old female with a past medical history of anxiety, hypertension, GERD, chronic left upper extremity lymphedema after a breast surgery, former DVT in left upper extremity not currently on anticoagulation, chronic back and neck pain here with Complaints of left upper back pain with radiation to the left shoulder and arm For the last few days. No known injury or trauma. Also complaining of some acute on chronic swelling of the left upper extremity with a history of both lymphedema of the left upper extremity and a former DVT not on anticoagulation. On exam the patient has tenderness over the soft tissue area of the left upper back as well as of over the trapezius with a palpable muscle spasm. There is no joint abnormality or swelling. There is full range of motion of the left upper extremity. There is some swelling of the arm with no warmth or redness consistent with cellulitis. Will check EKG, chest x-ray, labs, venous ultrasound of the left upper extremity, provide analgesia and re-assess. 1830- Ultrasound is negative for DVT. The D-dimer is negative so less likely PE. EKG and chest x-ray are unremarkable as well as troponin. On exam the patient has more musculoskeletal pain. She has improvement with Toradol. Will recommend she continue ibuprofen at home and will add a low-dose muscle relaxant and medicated patch. In addition her left upper extremity swelling is likely secondary her chronic lymphedema. Reviewed worrisome signs and symptoms of when to return to the emergency department. Comfortable discharge home. MDM - Back Pain/Injury Medical Records Attestation: I reviewed the patient's medical records. Lab Data Attestation: I reviewed the patient's lab results. Result diagrams: 10/18/21 14:14 10/18/21 14:14 Labs: Lab Results 10/18/21 10/18/21 10/18/21 Range/Units 14:14 14:14 14:14 WBC 7.6 (4.8-10.8) X10*3/uL RBC 4.09 L (4.20-5.50) X10*6/uL Hgb 12.8 (12.0-16.0) g/dl Hct 39.2 (37.0-47.0) % MCV 95.8 (80.0-98.0) fL MCH 31.3 (27.0-33.0) pg MCHC 32.7 (31.0-35.0) g/dl RDW 12.6 (11.0-16.0) % Plt Count 316 (160-400) X10*3/uL MPV 10.3 (9.4-12.3) fL Immature Gran % (Auto) 0.1 (0.0-0.4) % Neut % (Auto) 65.8 (45-73) % Lymph % (Auto) 24.9 (20-40) % [place] % (Auto) 7.1 (2-11) % Eos % (Auto) 1.6 (0-4) % Baso % (Auto) 0.5 (0-2) % Lymph # (Auto) 1.9 (1.2-4.9) X10*3/uL Hanson # (Auto) 0.5 (0.1-1.2) X10*3/uL Eos # (Auto) 0.1 (0.0-0.4) X10*3/uL Baso # (Auto) 0.0 (0.0-0.2) X10*3/uL Abs Immat Gran (auto) 0.01 (0.00-0.03) X10*3/uL Absolute Neuts (auto) 5.0 (2.0-8.3) x10*3/uL Absolute Nucleated RBC 0.000 (0.0-0.012) X10*3/uL Nucleated RBC % (auto) 0.0 (0.0-0.2) /100WBC PT (9.9-13.0) SEC INR (0.9-1.1) D-Dimer High Sensitivty < 150 NG/ML Sodium 141 (135-145) mmol/L Potassium 4.2 (3.3-5.1) mmol/L Chloride 107 (96-108) mmol/L Carbon Dioxide 27 (22-29) mmol/L Anion Gap 11 L (12-20) BUN 15 (9-16) mg/dL Creatinine 0.79 (0.5-1.4) mg/dL Estim Creat Clear Calc 90.4 Estimated GFR > 60 Random Glucose 103 (60-115) mg/dL Calcium 9.7 (8.4-10.2) mg/dL Magnesium (1.6-2.6) mg/dL Total Bilirubin (0.0-1.0) mg/dL Direct Bilirubin (0.0-0.5) mg/dL AST (5-31) U/L ALT (0-31) U/L Alkaline Phosphatase (39-117) U/L Troponin I High Sens (<3.5-17.0) ng/L Total Protein (6.5-8.0) g/dL Albumin (3.5-5.0) g/dL Urine Color Urine Appearance Urine pH (5.0-8.0) Ur Specific [place] (1.005-1.025) Urine Protein (NEG-TRACE) MG/DL Urine Glucose (UA) (NEG) MG/DL Urine Ketones (NEG) MG/DL Urine Blood (NEG) Urine Nitrite (NEG) Ur Leukocyte Esterase (NEG) Urine RBC (0) /HPF Urine WBC (0-4) /HPF Ur Squamous Epith Cells /LPF Urine Bacteria /LPF 10/18/21 10/18/21 10/18/21 Range/Units 16:25 16:25 16:25 WBC (4.8-10.8) X10*3/uL RBC (4.20-5.50) X10*6/uL Hgb (12.0-16.0) g/dl Hct (37.0-47.0) % MCV (80.0-98.0) fL MCH (27.0-33.0) pg MCHC (31.0-35.0) g/dl RDW (11.0-16.0) % Plt Count (160-400) X10*3/uL MPV (9.4-12.3) fL Immature Gran % (Auto) (0.0-0.4) % Neut % (Auto) (45-73) % Lymph % (Auto) (20-40) % Hanson % (Auto) (2-11) % Eos % (Auto) (0-4) % Baso % (Auto) (0-2) % Lymph # (Auto) (1.2-4.9) X10*3/uL Hanson # (Auto) (0.1-1.2) X10*3/uL Eos # (Auto) (0.0-0.4) X10*3/uL Baso # (Auto) (0.0-0.2) X10*3/uL Abs Immat Gran (auto) (0.00-0.03) X10*3/uL Absolute Neuts (auto) (2.0-8.3) x10*3/uL Absolute Nucleated RBC (0.0-0.012) X10*3/uL Nucleated RBC % (auto) (0.0-0.2) /100WBC PT 11.9 (9.9-13.0) SEC INR 1.0 (0.9-1.1) D-Dimer High Sensitivty NG/ML Sodium (135-145) mmol/L Potassium (3.3-5.1) mmol/L Chloride (96-108) mmol/L Carbon Dioxide (22-29) mmol/L Anion Gap (12-20) BUN (9-16) mg/dL Creatinine (0.5-1.4) mg/dL Estim Creat Clear Calc Estimated GFR Random Glucose (60-115) mg/dL Calcium (8.4-10.2) mg/dL Magnesium 2.0 (1.6-2.6) mg/dL Total Bilirubin 0.4 (0.0-1.0) mg/dL Direct Bilirubin < 0.2 (0.0-0.5) mg/dL AST 23 (5-31) U/L ALT 30 (0-31) U/L Alkaline Phosphatase 98 (39-117) U/L Troponin I High Sens (<3.5-17.0) ng/L Total Protein 7.5 (6.5-8.0) g/dL Albumin 4.3 (3.5-5.0) g/dL Urine Color YELLOW Urine Appearance CLEAR Urine pH 6.5 (5.0-8.0) Ur Specific [place] 1.020 (1.005-1.025) Urine Protein NEG (NEG-TRACE) MG/DL Urine Glucose (UA) NEG (NEG) MG/DL Urine Ketones NEG (NEG) MG/DL Urine Blood NEG (NEG) Urine Nitrite NEG (NEG) Ur Leukocyte Esterase 1+ H (NEG) Urine RBC 0-2 (0) /HPF Urine WBC 1-4 (0-4) /HPF Ur Squamous Epith Cells 2+ /LPF Urine Bacteria 1+ /LPF 10/18/21 Range/Units 16:25 WBC (4.8-10.8) X10*3/uL RBC (4.20-5.50) X10*6/uL Hgb (12.0-16.0) g/dl Hct (37.0-47.0) % MCV (80.0-98.0) fL MCH (27.0-33.0) pg MCHC (31.0-35.0) g/dl RDW (11.0-16.0) % Plt Count (160-400) X10*3/uL MPV (9.4-12.3) fL Immature Gran % (Auto) (0.0-0.4) % Neut % (Auto) (45-73) % Lymph % (Auto) (20-40) % Hanson % (Auto) (2-11) % Eos % (Auto) (0-4) % Baso % (Auto) (0-2) % Lymph # (Auto) (1.2-4.9) X10*3/uL [place] # (Auto) (0.1-1.2) X10*3/uL Eos # (Auto) (0.0-0.4) X10*3/uL Baso # (Auto) (0.0-0.2) X10*3/uL Abs Immat Gran (auto) (0.00-0.03) X10*3/uL Absolute Neuts (auto) (2.0-8.3) x10*3/uL Absolute Nucleated RBC (0.0-0.012) X10*3/uL Nucleated RBC % (auto) (0.0-0.2) /100WBC PT (9.9-13.0) SEC INR (0.9-1.1) D-Dimer High Sensitivty NG/ML Sodium (135-145) mmol/L Potassium (3.3-5.1) mmol/L Chloride (96-108) mmol/L Carbon Dioxide (22-29) mmol/L Anion Gap (12-20) BUN (9-16) mg/dL Creatinine (0.5-1.4) mg/dL Estim Creat Clear Calc Estimated GFR Random Glucose (60-115) mg/dL Calcium (8.4-10.2) mg/dL Magnesium (1.6-2.6) mg/dL Total Bilirubin (0.0-1.0) mg/dL Direct Bilirubin (0.0-0.5) mg/dL AST (5-31) U/L ALT (0-31) U/L Alkaline Phosphatase (39-117) U/L Troponin I High Sens < 3.5 (<3.5-17.0) ng/L Total Protein (6.5-8.0) g/dL Albumin (3.5-5.0) g/dL Urine Color Urine Appearance Urine pH (5.0-8.0) Ur Specific [place] (1.005-1.025) Urine Protein (NEG-TRACE) MG/DL Urine Glucose (UA) (NEG) MG/DL Urine Ketones (NEG) MG/DL Urine Blood (NEG) Urine Nitrite (NEG) Ur Leukocyte Esterase (NEG) Urine RBC (0) /HPF Urine WBC (0-4) /HPF Ur Squamous Epith Cells /LPF Urine Bacteria /LPF Imaging Data Chest x-ray: Attestation: I personally reviewed and interpreted this imaging study as follows: Radiologist's impression: FINDINGS: The lungs are clear. The vascularity is normal. There is no pneumothorax or pneumomediastinum. No airspace consolidation or groundglass opacity or effusion. The heart is normal in size and the hilar and mediastinal contours and visualized bony structures are unremarkable. XR/XR chest 2V IMPRESSION: Unremarkable examination. Venous US: Attestation: I personally reviewed and interpreted this imaging study as follows: Radiologist's impression: FINDINGS: The left internal jugular vein, subclavian vein and axillary vein all demonstrate normal color and spectral flow consistent with patency. The left basilic, brachial and cephalic veins all demonstrate normal compressibility, color and spectral flow consistent with patency. The left radial and ulnar veins demonstrate normal compressibility and color flow consistent with patency. If the patient's symptoms progress, a followup ultrasound in 5 -7 days might be of value to exclude proximal propagation from a nonvisualized distal arm vein. US/US venous duplex UE LT IMPRESSION: No DVT demonstrated in the left upper extremity ECG Data Attestation: I personally reviewed and interpreted this ECG as follows: ECG interpretation date: 10/18/21 ECG interpretation time: 16:30 Interpretation: normal sinus rhythm with a rate of 71, normal LA, normal QRS, normal QT Discharge Plan Discharge Clinical Impression: Back pain, Lymphedema, Muscle spasm Patient Disposition: Home, Self-Care Instructions: Muscle Spasm (ED), Lymphedema (ED), Warm Compress or Soak (ED) Additional Instructions: heat to the area Gentle stretching Continue the ibuprofen at home Follow-up with her primary care doctor next week for persistent pain your lab work, EKG, chest x-ray and ultrasound are all normal today Prescriptions: New cyclobenzaprine 10 mg tablet 10 mg PO TID PRN (Reason: muscle spasm) Qty: 15 RF: 0 lidocaine [Lidoderm] 5 % adhesive patch,medicated 1 patch topical DAILY Qty: 15 RF: 0 No Action miconazole nitrate [Monistat 7] 2 % cream 1 appful vaginal BEDTIME 7 Days Qty: 45 RF: 0 methocarbamol 500 mg tablet 500 mg PO TID PRN (Reason: muscle pain/low back pain) 30 Days Qty: 90 RF: 0 halobetasol propionate 0.05 % cream 1 appl topical DAILY Qty: 50 RF: 1 tizanidine 4 mg tablet 4 mg PO BEDTIME PRN (Reason: for muscle spasm) Qty: 30 RF: 1 omeprazole 20 mg capsule,delayed release(DR/EC) 20 mg PO DAILY Qty: 90 RF: 1 amlodipine 5 mg tablet 5 mg PO DAILY Qty: 90 RF: 2 multivitamin with folic acid [Daily-Sujey (with folic acid)] 400 mcg tablet 1 tab PO DAILY Qty: 90 RF: 3 ascorbic acid (vitamin C) [Vitamin C] 500 mg tablet 500 mg PO DAILY Qty: 90 RF: 5 losartan 25 mg tablet 25 mg PO DAILY Qty: 90 RF: 0 oxycodone-acetaminophen [Percocet] 5-325 mg tablet 1 tab PO TID PRN (Reason: pain) Qty: 9 RF: 0 prednisolone acetate [Pred Forte] 1 % drops,suspension 1 drp ophthalmic (eye) QID 4 Days Qty: 10 RF: 0 clonazepam 0.5 mg tablet 0.5 mg PO BEDTIME RF: 0 bupropion HCl 150 mg tablet extended release 24 hr 150 mg PO QAM RF: 0 topiramate 25 mg tablet 25 mg PO DAILY RF: 0 furosemide 20 mg tablet 20 mg PO QAM RF: 0 trazodone 100 mg tablet 150 mg PO BEDTIME PRN (Reason: Insomnia) RF: 0 buspirone 15 mg tablet 15 mg PO TID RF: 0 diclofenac sodium 75 mg tablet,delayed release (DR/EC) 75 mg PO BID 30 Days Qty: 60 RF: 0 Referrals: Rod Mathews MD [Primary Care Provider] - 2 days Interventions: ED Discharge Assessment Last Done: 10/18/21 18:36 Discharge Date/Time: 10/18/21 18:37
[2021-10-18 16:55] LABS: Alanine Aminotransferase 30 U/L (0-31); Albumin Level 4.3 g/dL (3.5-5.0); Alkaline Phosphatase 98 U/L (39-117); Aspartate Amino Transferase 23 U/L (5-31); Bilirubin Direct < 0.2 mg/dL (0.0-0.5); Bilirubin Total 0.4 mg/dL (0.0-1.0); RBC Urine 0-2 /HPF (0); Squamous Epithelial Cell Urine 2+ /LPF; Total Protein 7.5 g/dL (6.5-8.0)
[2021-10-18 16:56] LABS: Bacteria Urine 1+ /LPF
[2021-10-18 16:57] LABS: Troponin-I High Sensitivity < 3.5 ng/L (<3.5-17.0)
[2021-10-18 18:30] VITALS: PULSE 78
== END 2021-10-18 18:37 | disposition home or self-care (01) ==
PROVIDERS: Nurse Practitioner Family; Emergency Provider Emergency Medicine Emergency Medical Services; PCP Internal Medicine
DX: M54.50 Low back pain, unspecified (principal); M62.830 Muscle spasm of back; R60.0 Localized edema; I10 Essential (primary) hypertension; Z79.899 Other long term (current) drug therapy
CPT/HCPCS: 36415; 71046; 80048; 80076; 81001; 83735; 84484; 85025; 85379; 85610; 87086; 93005; 93971; 99284; 99285; J1885

== ENCOUNTER 2021-11-10 16:33 | Emergency (ER) | payer OTHER, SELFPAY ==
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
[2021-11-10 16:48] VITALS: BP 170/100; PULSE 63; O2SAT 99
[2021-11-10 16:59] VITALS: BP 175/77; PULSE 76; RESP 18; TEMP 36.4; O2SAT 98; BMI 28.1
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
[2021-11-10] MEDS: oxyCODONE HCl Immed Release 5 MG TABLET PO (17:49)
[2021-11-10 19:07] VITALS: RESP 16
[2021-11-10 21:19] VITALS: BP 162/64; PULSE 64; RESP 16; O2SAT 100
[2021-11-10] MEDS: Ibuprofen 800 MG TABLET PO (21:21)
[2021-11-10] MEDS: HYDROcodone Bit/Acetam 5/325 TABLET 1 TAB PO (21:21)
[2021-11-10] MEDS: Lidocaine 4 % Patch ADH..PATCH 1 PATCH TRANSDERMA (21:22)
== END 2021-11-10 21:28 | disposition home or self-care (01) ==
PROVIDERS: Emergency Provider Emergency Medicine Emergency Medical Services; PCP Internal Medicine
DX: S32.009A Unspecified fracture of unspecified lumbar vertebra, initial encounter for closed fracture (principal); S16.1XXA Strain of muscle, fascia and tendon at neck level, initial encounter; M54.50 Low back pain, unspecified; M79.641 Pain in right hand; V43.52XA Car driver injured in collision with other type car in traffic accident, initial encounter; Y93.9 Activity, unspecified; Y92.410 Unspecified street and highway as the place of occurrence of the external cause; Y99.9 Unspecified external cause status; Z79.899 Other long term (current) drug therapy
CPT/HCPCS: 70450; 72125; 72128; 72131; 99284

== ENCOUNTER → 2021-11-15 19:43 | Outpatient (REF) | payer OTHER, SELFPAY | LOC: HO.SL 19:43 | PROVIDERS: Visit Provider Psychiatry & Neurology Neurology | DX: Z13.89 Encounter for screening for other disorder (principal) ==

== ENCOUNTER 2022-01-27 14:49 | Outpatient (REF) | payer OTHER, SELFPAY ==
[2022-01-27 15:13] LABS: MANUAL DIFF FLAG NO
[2022-01-27 15:41] LABS: Basophils Percent Auto 0.5 % (0-2); Eosinophils Absolute Auto 0.1 X10*3/uL (0.0-0.4); Eosinophils Percent Auto 1.2 % (0-4); Hematocrit 38.7 % (37.0-47.0); Hemoglobin 12.5 g/dl (12.0-16.0); Imm Gran Abs Auto 0.01 X10*3/uL (0.00-0.03); Imm Gran Pct Auto 0.2 % (0.0-0.4); Lymphocytes Absolute Auto 1.9 X10*3/uL (1.2-4.9); Lymphocytes Percent Auto 28.7 % (20-40); Mean Corpuscular HGB Conc 32.3 g/dl (31.0-35.0); Mean Corpuscular Hemoglobin 30.6 pg (27.0-33.0); Mean Corpuscular Volume 94.6 fL (80.0-98.0); Mean Platelet Volume 10.4 fL (9.4-12.3); Monocytes Absolute Auto 0.5 X10*3/uL (0.1-1.2); Monocytes Percent Auto 7.5 % (2-11); Neutrophils Absolute Auto 4.1 x10*3/uL (2.0-8.3); Neutrophils Percent Auto 61.9 % (45-73); Platelet Count 355 X10*3/uL (160-400); Red Blood Count 4.09 X10*6/uL (4.20-5.50); Red Cell Distribution Width 12.6 % (11.0-16.0); White Blood Count 6.6 X10*3/uL (4.8-10.8)
[2022-01-27 16:09] LABS: Alanine Aminotransferase 69 U/L (0-31); Albumin Level 4.3 g/dL (3.5-5.0); Alkaline Phosphatase 96 U/L (39-117); Anion Gap 13 (12-20); Aspartate Amino Transferase 43 U/L (5-31); Bilirubin Total 0.6 mg/dL (0.0-1.0); Blood Urea Nitrogen 15 mg/dL (9-16); C Reactive Protein 1.49 mg/dL (< or = 0.50); Calcium 9.6 mg/dL (8.4-10.2); Carbon Dioxide 28 mmol/L (22-29); Chloride 105 mmol/L (96-108); Estimated Glomerular Filt Rate > 60; Glucose Random 139 mg/dL (60-115); Potassium 3.7 mmol/L (3.3-5.1); Sodium 142 mmol/L (135-145); Total Protein 7.5 g/dL (6.5-8.0)
[2022-01-27 16:20] LABS: Rheumatoid Factor < 15.0 IU/mL (<15.0)
[2022-01-27 16:21] LABS: Appearance Urine CLEAR; Color Urine YELLOW; Glucose Urine UA NEG (NEG); Leukocyte Esterase Urine NEG (NEG); Nitrite Urine NEG (NEG); PH 5.5 (5.0-8.0); Specific Gravity - Urine >= 1.030 (1.005-1.025); Urine Blood NEG (NEG); Urine Ketones NEG (NEG); Urine Protein TRACE MG/DL (NEG-TRACE)
[2022-01-27 16:26] LABS: TSH reflex Free T4 0.43 uIU/mL (0.32-4.0); Vitamin D 25-OH Total 30.4 ng/mL (>30)
[2022-01-27 17:12] LABS: Erythrocyte Sedimentation Rate 21 MM/HR (0-20)
[2022-01-28 22:07] LABS: Lyme Abs Screen <0.90 index
[2022-01-31 23:36] LABS: ANA Pattern 2 Nuclear, Homogeneous; ANA Titer 2 1:40 titer; Anti Nuclear Antibody Screen POSITIVE (NEGATIVE)
== END 2022-01-27 14:50 | disposition home or self-care (01) ==
LOC: HO.LAB 14:49
PROVIDERS: PCP Internal Medicine; Visit Provider Internal Medicine
DX: M54.2 Cervicalgia (principal); M25.511 Pain in right shoulder; M25.512 Pain in left shoulder; E55.9 Vitamin D deficiency, unspecified; M79.7 Fibromyalgia
CPT/HCPCS: 36415; 80053; 81003; 82306; 84443; 85025; 85652; 86038; 86039; 86140; 86431; 86617; 86618

== ENCOUNTER 2022-04-05 07:45 | Outpatient (REF) | payer OTHER, SELFPAY ==
[2022-04-05 08:05] LABS: MANUAL DIFF FLAG NO
[2022-04-05 08:54] LABS: Basophils Percent Auto 0.6 % (0-2); Eosinophils Absolute Auto 0.1 X10*3/uL (0.0-0.4); Eosinophils Percent Auto 1.6 % (0-4); Hematocrit 38.2 % (37.0-47.0); Hemoglobin 12.4 g/dl (12.0-16.0); Imm Gran Abs Auto 0.01 X10*3/uL (0.00-0.03); Imm Gran Pct Auto 0.1 % (0.0-0.4); Lymphocytes Percent Auto 28.9 % (20-40); Mean Corpuscular HGB Conc 32.5 g/dl (31.0-35.0); Mean Corpuscular Hemoglobin 30.8 pg (27.0-33.0); Mean Platelet Volume 10.4 fL (9.4-12.3); Monocytes Absolute Auto 0.5 X10*3/uL (0.1-1.2); Monocytes Percent Auto 6.9 % (2-11); Neutrophils Absolute Auto 4.2 x10*3/uL (2.0-8.3); Neutrophils Percent Auto 61.9 % (45-73); Platelet Count 309 X10*3/uL (160-400); Red Blood Count 4.02 X10*6/uL (4.20-5.50); Red Cell Distribution Width 12.8 % (11.0-16.0); White Blood Count 6.8 X10*3/uL (4.8-10.8)
[2022-04-05 08:57] LABS: Appearance Urine HAZY; Color Urine YELLOW; Glucose Urine UA NEG (NEG); Leukocyte Esterase Urine 2+ (NEG); Nitrite Urine NEG (NEG); Specific Gravity - Urine 1.025 (1.005-1.025); UACC Culture Trigger YES; Urine Blood TRACE (NEG); Urine Ketones NEG (NEG); Urine Protein NEG (NEG-TRACE)
[2022-04-05 09:06] LABS: Alanine Aminotransferase 24 U/L (0-31); Albumin Level 4.1 g/dL (3.5-5.0); Alkaline Phosphatase 96 U/L (39-117); Anion Gap 13 (12-20); Aspartate Amino Transferase 20 U/L (5-31); Bilirubin Total 0.5 mg/dL (0.0-1.0); Blood Urea Nitrogen 10 mg/dL (9-16); Calcium 9.4 mg/dL (8.4-10.2); Carbon Dioxide 27 mmol/L (22-29); Chloride 105 mmol/L (96-108); Cholesterol 176 mg/dL; Estimated Glomerular Filt Rate > 60; Glucose Fasting 103 mg/dL (60-99); HDL Cholesterol 48 mg/dL; LDL Cholesterol Calculated 95 mg/dl; Potassium 4.4 mmol/L (3.3-5.1); Sodium 141 mmol/L (135-145); Total Protein 7.3 g/dL (6.5-8.0); Triglycerides 169 mg/dL
[2022-04-05 09:12] LABS: Squamous Epithelial Cell Urine 3+ /LPF
[2022-04-05 09:13] LABS: Amorphous Sediment Urine 1+ /LPF; Bacteria Urine 1+ /LPF
[2022-04-05 09:14] LABS: RBC Urine 0-2 /HPF (0)
[2022-04-05 09:15] LABS: Erythrocyte Sedimentation Rate 18 MM/HR (0-20)
[2022-04-05 09:27] LABS: TSH reflex Free T4 1.97 uIU/mL (0.32-4.0); Vitamin D 25-OH Total 24.5 ng/mL (>30)
== END 2022-04-05 07:46 | disposition home or self-care (01) ==
LOC: HO.LAB 07:45
PROVIDERS: PCP Internal Medicine; Visit Provider Internal Medicine
DX: Z00.00 Encounter for general adult medical examination without abnormal findings (principal); I10 Essential (primary) hypertension; E55.9 Vitamin D deficiency, unspecified; M79.7 Fibromyalgia; E78.00 Pure hypercholesterolemia, unspecified
CPT/HCPCS: 36415; 80053; 80061; 81001; 82306; 84443; 85025; 85652; 87086; 87147

== ENCOUNTER 2022-05-28 19:05 | Inpatient (IN) | payer OTHER, SELFPAY ==
--- NOTE | ~2022-05-28 | CT_ITS ---
EXAMINATION: CT HEAD WITHOUT CONTRAST (STROKE PROTOCOL) CLINICAL INFORMATION: Altered mental status. COMPARISON: CT head 11/10/2021. TECHNIQUE: Contiguous axial imaging was performed from the skull base to vertex without intravenous administration of contrast. This CT examination was performed using dose optimization techniques as appropriate, variously including the following: *Automated exposure control *Adjustment of mA and/or kV according to patient size (this includes techniques or standardized protocols for targeted exams where dose is matched to indication/reason for exam; i.e. extremities or head) *Use of iterative reconstruction technique DLP: 673 mGy-cm FINDINGS: There is no evidence of acute intracranial hemorrhage or edematous territorial infarction. There is no abnormal attenuation within the brain parenchyma. Santacruz-white matter differentiation is preserved. The ventricles are normal in size and configuration. No evidence for obstructive hydrocephalus. No abnormal mass effect or midline shift. No extra-axial fluid collections. No acute soft tissue or osseous abnormalities. Mild mucosal thickening of the left maxillary sinus. No air-fluid level. The mastoids and middle ear cavities are clear. CT/CT head for stroke IMPRESSION: No evidence of acute intracranial hemorrhage or edematous territorial infarction. This critical result was discussed with Kamila GILES at 05/28/2022 7:36 PM and it was ascertained that the content and urgency of the report was understood at the time of direct communication.
--- NOTE | ~2022-05-28 | XR_ITS ---
EXAMINATION: XR CHEST CLINICAL INFORMATION: Shortness of breath. COMPARISON: 10/18/2021 chest radiographs. TECHNIQUE: Frontal view of the chest was obtained. FINDINGS: No significant abnormality is noted involving the heart, lungs, mediastinum, bony thorax or soft tissues. XR/XR chest 1V IMPRESSION: No acute cardiopulmonary process.
--- NOTE | ~2022-05-28 | CT_ITS ---
EXAMINATION: CT CHEST WITHOUT CONTRAST CLINICAL INFORMATION: Hypoxia. Covid. COMPARISON: None TECHNIQUE: Multidetector volumetric CT imaging of the chest was done. Axial MIP volume rendering provided. Sagittal and coronal reformatted images were obtained. This CT examination was performed using dose optimization techniques as appropriate, variously including the following: *Automated exposure control *Adjustment of mA and/or kV according to patient size (this includes techniques or standardized protocols for targeted exams where dose is matched to indication/reason for exam; i.e. extremities or head) *Use of iterative reconstruction technique DLP: 282 mGy-cm FINDINGS: LUNGS: The lungs are clear with no evidence of inflammation or nodules. Bibasilar dependent subsegmental and platelike atelectasis. MEDIASTINUM: Normal heart size. No pericardial effusion. No mediastinal, hilar or supraclavicular lymphadenopathy. PLEURA: There is no pleural effusion. No pleural mass or thickening. CHEST WALL/AXILLA: Bilateral breast prostheses, retropectoral on the left and prepectoral on the right. No lymphadenopathy. UPPER ABDOMEN: Hepatic steatosis. Cholecystectomy. OSSEOUS STRUCTURES: Unremarkable. CT/CT chest wo con IMPRESSION: * No acute pulmonary pathology. * No potential etiology for the patient's hypoxia is evident from a CT imaging standpoint. * Hepatic steatosis.
--- NOTE | ~2022-05-28 | CT_ITS ---
EXAMINATION: CTA NECK WITH CONTRAST (STROKE) CTA BRAIN WITH CONTRAST (STROKE) CLINICAL INFORMATION: Suspect acute stroke. Assess for major vessel occlusion. Please call report. COMPARISON: Head CT performed earlier the same date 11/10/2021 TECHNIQUE: CTA of the head and neck was performed in the axial plane from the mediastinum to the skull vertex using 70 mL Omnipaque 350 intravenous contrast. Additional reformatted multiplanar images including maximum intensity projection MIP images are generated on the CT workstation. This CT examination was performed using dose optimization techniques as appropriate, variously including the following: *Automated exposure control *Adjustment of mA and/or kV according to patient size (this includes techniques or standardized protocols for targeted exams where dose is matched to indication/reason for exam; i.e. extremities or head) *Use of iterative reconstruction technique DLP: 1498 mGy-cm FINDINGS: The degree of stenosis determined by criteria similar to NASCET. Brain: No intra or extra-axial fluid collection, hemorrhage, or mass. No abnormal meningeal enhancement. Santacruz-white matter differentiation appears maintained. No encephalomalacia. No ventriculomegaly, midline shift, or herniation. Basal cisterns are patent. No calvarial fracture. Mastoid air cells and paranasal sinuses are normally aerated. Neck CTA: Normal caliber aortic arch. Conjoined origin of the innominate and left common carotid arteries noted. Arch origins are widely patent. Subclavian arteries are widely patent. Cervical segments of the vertebral arteries are widely patent bilaterally. No stenosis. Common carotid arteries are widely patent. Carotid bifurcations and cervical segments of the internal carotid arteries are widely patent bilaterally. No stenosis. Minimal focal atherosclerotic calcification of the left carotid bifurcation noted. Brain CTA: Posterior circulation: Intradural segments of the vertebral arteries are patent. Bilateral AICAs are patent. Basilar artery is widely patent. Posterior cerebral arteries are widely patent. No stenosis. Patent small right posterior communicating artery. Left posterior communicating artery not identified. Anterior circulation: The petrous and cavernous internal carotid artery segments are widely patent. Bilateral anterior cerebral arteries and anterior communicating artery are patent. No aneurysm. Bilateral MCAs are widely patent. No aneurysm, stenosis, or vascular malformation. No vascular cut off/occlusion. Major dural venous sinuses and internal jugular veins are patent. Soft tissue findings: Globes and retro-orbital structures are unremarkable. Normal appearance of the parotid and interior assemblies developer prover spaces. Symmetric parapharyngeal fat. No mucosal space mass. Unremarkable some mandibular glands and thyroid gland. No cervical lymphadenopathy. Visualized upper lungs are grossly clear. Bilateral subpectoral breast implants noted. No acute fracture. No suspicious osseous lesion. Mild multilevel cervical spondylosis. CT/CT angio head neck stroke IMPRESSION: 1. No acute edematous territorial infarct identified. 2. No hemodynamically significant stenosis or vascular occlusion/cut off in the intracranial or extracranial arterial circulation.
--- NOTE | ~2022-05-28 | MR_ITS ---
EXAMINATION: MRI BRAIN WITHOUT CONTRAST CLINICAL INFORMATION: Weakness and aphagia. Stroke status post tPA. COMPARISON: CT scan of the head 05/28/2022. TECHNIQUE: Multiplanar MR imaging of the brain was performed without contrast. FINDINGS: There is no acute territorial infarct. No pathological magnetic susceptibility artifact. Intracranial vascular flow voids are maintained. There is no intracranial mass effect or midline shift. Lateral and third ventricles are normal. No hydrocephalus. Midline structures including the cervicomedullary junction are normal. No acute bone marrow signal changes. There is no mastoid or middle ear effusion. There is mild mucosal thickening within the alveolar recess of the left maxillary sinus. Globes and orbits are symmetric. Although not well assessed on this examination there is nonspecific stranding within the subcutaneous soft tissues along the patient's left nasal labial fold. MR/MR head/brain wo con IMPRESSION: Normal brain MRI.
--- NOTE | ~2022-05-28 | CT_ITS ---
EXAMINATION: CT HEAD WITHOUT CONTRAST CLINICAL INFORMATION: Headache after TPA. COMPARISON: CTA head and neck performed earlier today. TECHNIQUE: Contiguous axial imaging was performed from the skull base to vertex without intravenous administration of contrast. This CT examination was performed using dose optimization techniques as appropriate, variously including the following: *Automated exposure control *Adjustment of mA and/or kV according to patient size (this includes techniques or standardized protocols for targeted exams where dose is matched to indication/reason for exam; i.e. extremities or head) *Use of iterative reconstruction technique DLP: 706 mGy-cm FINDINGS: There is no evidence of acute intracranial hemorrhage or edematous territorial infarction. There is no abnormal attenuation within the brain parenchyma. Santacruz-white matter differentiation is preserved. The ventricles are normal in size and configuration. No evidence for obstructive hydrocephalus. No abnormal mass effect or midline shift. No extra-axial fluid collections. No acute soft tissue or osseous abnormalities. The mastoid air cells and paranasal sinuses are clear. CT/CT head/brain wo con IMPRESSION: No evidence of acute intracranial hemorrhage or edematous territorial infarction.
--- NOTE | 2022-05-28 01:26 | ECG_ITS ---
Test Reason : AMS Blood Pressure : / mmHG Vent. Rate : 083 BPM Atrial Rate : 083 BPM P-R Int : 156 ms QRS Dur : 084 ms QT Int : 404 ms P-R-T Axes : 031 020 073 degrees QTc Int : 474 ms Normal sinus rhythm Normal ECG When compared with ECG of 18-OCT-2021 16:30, No significant change was found Referred By: Darin Salter Electronically Signed By:Luis Carlisle
[2022-05-28 19:35] LABS: Glucose, Whole Blood 116 mg/dL (60-115)
[2022-05-28 19:48] VITALS: BP 148/85
--- NOTE | 2022-05-28 19:51 | ED.AMS ---
HPI - Altered Mental Status General Chief Complaint: Stroke Stated Complaint: Stroke Alert Time Seen by Provider: 05/28/22 19:16 Source: EMS Mode of arrival: EMS Limitations: altered mental status History of Present Illness HPI narrative: This is a 51-year-old female history of fibromyalgia, anxiety, breast cancer (received chemotherapy last week) presenting to the emergency department via ambulance for altered mental status, difficulty speaking, weakness. Upon patient's arrival NIH stroke scale of 10, left-sided facial droop and left-sided weakness upper and lower extremities, patient unable to speak in full sentences, aphasia noted. Patient not following commands. Patient vomiting on the EMS stretcher and on the CT scan machine. Per family last known well time 5:00 pm. Patient not anticoagulant. No known trauma or seizure. No seizure hx. Slight delay in obtaining CT head stroke due to a hemorrhagic stroke on the CT table prior to this patient. This patient was brought in by a basic crew. Related Data Home Medications Medication Instructions Recorded Confirmed bupropion HCl 150 mg 24 hr tablet, 150 mg PO QAM 10/18/20 05/12/22 extended release clonazepam 0.5 mg tablet 0.5 mg PO BEDTIME 10/18/20 05/12/22 furosemide 20 mg tablet 20 mg PO QAM 10/18/20 05/12/22 topiramate 25 mg tablet 25 mg PO DAILY 10/18/20 05/12/22 buspirone 15 mg tablet 15 mg PO TID 01/18/21 05/12/22 trazodone 100 mg tablet 150 mg PO BEDTIME PRN Insomnia 04/25/21 05/12/22 eszopiclone 2 mg tablet 2 mg PO BEDTIME PRN 05/12/22 05/12/22 Previous Rx's Medication Instructions Recorded miconazole nitrate 2 % vaginal 1 appful vaginal BEDTIME 7 days 01/18/21 cream (Monistat 7) #45 grams diclofenac sodium 75 mg 75 mg PO BID 30 days #60 tabs 01/28/21 tablet,delayed release halobetasol propionate 0.05 % 1 appl topical DAILY #50 grams 02/25/21 topical cream methocarbamol 500 mg tablet 500 mg PO TID PRN muscle pain/low 02/25/21 back pain 30 days #90 tabs tizanidine 4 mg tablet 4 mg PO BEDTIME PRN for muscle 03/04/21 spasm #30 tabs prednisolone acetate 1 % eye 1 drp ophthalmic (eye) QID 4 days 05/15/21 drops,suspension (Pred Forte) #10 mL omeprazole 20 mg capsule,delayed 20 mg PO DAILY #90 caps 07/20/21 release multivitamin with folic acid 400 1 tab PO DAILY #90 tabs 09/15/21 mcg tablet (Daily-Sujey (with folic acid)) ascorbic acid (vitamin C) 500 mg 500 mg PO DAILY #90 tabs 09/26/21 tablet (Vitamin C) lidocaine 5 % topical patch 1 patch topical DAILY #15 ea 10/18/21 (Lidoderm) cyclobenzaprine 10 mg tablet 10 mg PO TID PRN muscle spasm 30 11/23/21 days #90 tabs hydrocodone 5 mg-acetaminophen 325 1 tab PO BID-TID PRN pain 7 days 11/23/21 mg tablet #10 tabs gabapentin 100 mg capsule 100 mg PO TID 30 days #90 caps 01/27/22 HUMIDIFIER #1 ea 02/28/22 triamcinolone acetonide 0.5 % 1 appl topical BID #45 grams 04/12/22 topical ointment duloxetine 30 mg capsule,delayed 30 mg PO DAILY 30 days #30 caps 04/26/22 release amlodipine 5 mg tablet 5 mg PO DAILY #90 tabs 05/10/22 losartan 25 mg tablet 25 mg PO DAILY #90 tabs 05/11/22 tramadol 50 mg tablet 50 mg PO BID-TID PRN pain #90 tabs 05/12/22 Allergies Allergy/AdvReac Type Severity Reaction Status Date / Time lisinopril Allergy Mild Cough Verified 05/28/22 19:59 zolpidem AdvReac Severe sleepwalkin Verified 05/28/22 19:59 g Review of Systems Review of Systems: Yes Unobtainable due to mental status [facility] Past Medical History Attestation statement: The following information was validated with the patient. Source: old records reviewed and nursing notes reviewed Medical History Abnormal Pap smear of anus Anxiety Benign essential hypertension BRCA positive Cervical disc disease Fibromyalgia GERD without esophagitis Insomnia Left shoulder pain Lymphedema Myalgia Overweight (BMI 25.0-29.9) Psoriasis Right low back pain Sleep disorder Surgical History H/O bilateral oophorectomy H/O breast biopsy History of breast implant removal History of breast surgery History of cholecystectomy History of tubal ligation Hx of bilateral mastectomy Family History Family History Father Diabetes Mother Low blood pressure Family/Other Breast cancer Diabetes Social History Social History Housing: Apartment Alcohol intake: current Alcohol intake frequency: holidays/special occasions only Patient Tobacco Use Status: Never used Tobacco Second Hand Smoke Exposure: No Advance Directives: No Advance Directives Information Provided: No Current occupational status: disabled Gender identity: Female Cognitive needs: No Hearing needs: No Vision needs: Yes Physical Exam ED Vital Signs: Vital Signs - 24 hr 05/28/22 19:48 05/28/22 20:00 05/28/22 19:59 Pulse Rate 100 82 Respiratory Rate 16 20 Blood Pressure 148/85 H 151/71 H Pulse Oximetry 97 96 Oxygen Delivery Method Room Air Room Air 05/28/22 20:47 Pulse Rate 63 Respiratory Rate 21 H Blood Pressure 138/61 Pulse Oximetry 100 Oxygen Delivery Method Room Air BMI result Body Mass Index 28.5 VSS Appearance: Patient awake.? Patient appears uncomfortable and having difficulties with speaking. Head: Normocephalic, atraumatic, no step-offs or deformities Eyes: Pupils equal, round and reactive to light.?EOMI Neck: Normal inspection.? Neck supple.? CVS: Normal heart rate and rhythm.? Pulses normal.? Respiratory: No respiratory distress.? Breath sounds normal.? Abdomen: Soft and nontender.? Skin: Skin warm and dry.? Normal skin color.? Normal skin turgor.? Extremities: No lower extremity edema.? No calf ttp. Global weakness. Neuro: Patient with aphasia. Left sided facial droop, with left sided pronator drift and left sided weakness. ?No sensory deficits. Course Course Course Narrative: This case was also discussed with my attending Dr. Soto. Reevaluation(s) Reevaluation #1: Spoke to Neurology, they recommend tPA. Due to patient's symptoms. Likely posterior stroke. No contraindications to TPA Time: 19:39 Reevaluation #2: Spoke to family, boyfriend who tells me that the last known well time was 17:00. Patient was lying in bed all day. At approximately 17:00 he noticed that her face started drooping and she was having abnormal speech. He waited for a little bit to see if it was going to get better at home. The 911 was called. He tells me that patient is not on anticoagulation. He also tells me that she had breast cancer BRCA 2. I spoke to family about concerns for possible posterior stroke due to patient's presentation. I educated them on tPA, they tell me that they are okay with tPA, I went over risks versus benefits, I also explained these the patient, she nodded her head in understanding. I also had Dr. Soto evaluate this patient who did an exam and history with family at bedside. Agrees likely posterior stroke, and to precced with TPA. Time: 20:00 Reevaluation #3: CT head and CTA head and neck no acute findings. Supporting likley posterior stroke. 3-4 minutes after TPA was started patient speaking intermittently in short sentences. Time: 20:38 Additional Reevaluation(s): CBC within normal limits. Chemistry with no acute findings. Coags unremarkable. Discussed this case with chemical production engineer Dr. Lau who will take patient to ICU. MDM - Altered Mental Status MDM Narrative Medical decision making narrative: 1926 51-year-old female presenting to the emergency department via ambulance by a basic crew for altered mental status, difficulties with speech and weakness starting at 17:00 PE significant for patient with aphasia. Left sided facial droop, with left sided pronator drift and left sided weakness. ?No sensory deficits. NIH stroke scale of 10 Stroke protocol initiated patient PT/INR 11.9/1.0. POC 116 Delay in obtaining an immediate head CT due to the fact that there was a patient in a CT scan with a hemorrhagic bleed. An IV line was placed on patient when she was in the hallway on the EMS stretcher. High suspicion for posterior stroke. Neurology was consulted. 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 Medical Records Attestation: I reviewed the patient's medical records. Lab Data Attestation: I reviewed the patient's lab results. Result diagrams: 05/28/22 20:08 05/28/22 20:08 Labs: Lab Results 05/28/22 05/28/22 05/28/22 Range/Units 19:21 19:31 19:54 WBC (4.8-10.8) X10*3/uL RBC (4.20-5.50) X10*6/uL Hgb (12.0-16.0) g/dl Hct (37.0-47.0) % MCV (80.0-98.0) fL MCH (27.0-33.0) pg MCHC (31.0-35.0) g/dl RDW (11.0-16.0) % Plt Count (160-400) X10*3/uL MPV (9.4-12.3) fL Immature Gran % (Auto) (0.0-0.4) % Neut % (Auto) (45-73) % Lymph % (Auto) (20-40) % Morehouse % (Auto) (2-11) % Eos % (Auto) (0-4) % Baso % (Auto) (0-2) % Lymph # (Auto) (1.2-4.9) X10*3/uL [place]house # (Auto) (0.1-1.2) X10*3/uL Eos # (Auto) (0.0-0.4) X10*3/uL Baso # (Auto) (0.0-0.2) X10*3/uL Abs Immat Gran (auto) (0.00-0.03) X10*3/uL Absolute Neuts (auto) (2.0-8.3) x10*3/uL Absolute Nucleated RBC (0.0-0.012) X10*3/uL Nucleated RBC % (auto) (0.0-0.2) /100WBC PT (10.0-13.1) SEC Whole Blood PT 11.9 (11.1-13.5) sec INR (0.9-1.1) Whole Blood INR 1.0 (0.9-1.1) Sodium (135-145) mmol/L Potassium (3.3-5.1) mmol/L Chloride (96-108) mmol/L Carbon Dioxide (22-29) mmol/L Anion Gap (12-20) BUN (9-16) mg/dL Creatinine (0.5-1.4) mg/dL Estim Creat Clear Calc Estimated GFR POC Glucose 116 H 104 (60-115) mg/dL Random Glucose (60-115) mg/dL Calcium (8.4-10.2) mg/dL Magnesium (1.6-2.6) mg/dL Total Bilirubin (0.0-1.0) mg/dL AST (5-31) U/L ALT (0-31) U/L Alkaline Phosphatase (39-117) U/L Total Protein (6.5-8.0) g/dL Albumin (3.5-5.0) g/dL COVID-19 ([facility]) (Negative) COVID-19 Clin Com 05/28/22 05/28/22 05/28/22 Range/Units 20:08 20:08 20:08 WBC 6.3 (4.8-10.8) X10*3/uL RBC 4.27 (4.20-5.50) X10*6/uL Hgb 13.2 (12.0-16.0) g/dl Hct 39.8 (37.0-47.0) % MCV 93.2 (80.0-98.0) fL MCH 30.9 (27.0-33.0) pg MCHC 33.2 (31.0-35.0) g/dl RDW 12.6 (11.0-16.0) % Plt Count 243 (160-400) X10*3/uL MPV 10.5 (9.4-12.3) fL Immature Gran % (Auto) 0.2 (0.0-0.4) % Neut % (Auto) 62.1 (45-73) % Lymph % (Auto) 27.3 (20-40) % Morehouse % (Auto) 9.9 (2-11) % Eos % (Auto) 0.3 (0-4) % Baso % (Auto) 0.2 (0-2) % Lymph # (Auto) 1.7 (1.2-4.9) X10*3/uL Morehouse # (Auto) 0.6 (0.1-1.2) X10*3/uL Eos # (Auto) 0.0 (0.0-0.4) X10*3/uL Baso # (Auto) 0.0 (0.0-0.2) X10*3/uL Abs Immat Gran (auto) 0.01 (0.00-0.03) X10*3/uL Absolute Neuts (auto) 3.9 (2.0-8.3) x10*3/uL Absolute Nucleated RBC 0.000 (0.0-0.012) X10*3/uL Nucleated RBC % (auto) 0.0 (0.0-0.2) /100WBC PT 12.1 (10.0-13.1) SEC Whole Blood PT (11.1-13.5) sec INR 1.1 (0.9-1.1) Whole Blood INR (0.9-1.1) Sodium 139 (135-145) mmol/L Potassium 3.8 (3.3-5.1) mmol/L Chloride 106 (96-108) mmol/L Carbon Dioxide 23 (22-29) mmol/L Anion Gap 14 (12-20) BUN 11 (9-16) mg/dL Creatinine 0.87 (0.5-1.4) mg/dL Estim Creat Clear Calc 79.9 Estimated GFR > 60 POC Glucose (60-115) mg/dL Random Glucose 116 H (60-115) mg/dL Calcium 8.7 D (8.4-10.2) mg/dL Magnesium 1.9 (1.6-2.6) mg/dL Total Bilirubin 0.6 (0.0-1.0) mg/dL AST 49 H D (5-31) U/L ALT 62 H (0-31) U/L Alkaline Phosphatase 95 (39-117) U/L Total Protein 7.4 (6.5-8.0) g/dL Albumin 4.2 (3.5-5.0) g/dL COVID-19 ([facility]AINE) (Negative) COVID-19 Clin Com 05/28/22 Range/Units 20:08 WBC (4.8-10.8) X10*3/uL RBC (4.20-5.50) X10*6/uL Hgb (12.0-16.0) g/dl Hct (37.0-47.0) % MCV (80.0-98.0) fL MCH (27.0-33.0) pg MCHC (31.0-35.0) g/dl RDW (11.0-16.0) % Plt Count (160-400) X10*3/uL MPV (9.4-12.3) fL Immature Gran % (Auto) (0.0-0.4) % Neut % (Auto) (45-73) % Lymph % (Auto) (20-40) % Morehouse % (Auto) (2-11) % Eos % (Auto) (0-4) % Baso % (Auto) (0-2) % Lymph # (Auto) (1.2-4.9) X10*3/uL [place]house # (Auto) (0.1-1.2) X10*3/uL Eos # (Auto) (0.0-0.4) X10*3/uL Baso # (Auto) (0.0-0.2) X10*3/uL Abs Immat Gran (auto) (0.00-0.03) X10*3/uL Absolute Neuts (auto) (2.0-8.3) x10*3/uL Absolute Nucleated RBC (0.0-0.012) X10*3/uL Nucleated RBC % (auto) (0.0-0.2) /100WBC PT (10.0-13.1) SEC Whole Blood PT (11.1-13.5) sec INR (0.9-1.1) Whole Blood INR (0.9-1.1) Sodium (135-145) mmol/L Potassium (3.3-5.1) mmol/L Chloride (96-108) mmol/L Carbon Dioxide (22-29) mmol/L Anion Gap (12-20) BUN (9-16) mg/dL Creatinine (0.5-1.4) mg/dL Estim Creat Clear Calc Estimated GFR POC Glucose (60-115) mg/dL Random Glucose (60-115) mg/dL Calcium (8.4-10.2) mg/dL Magnesium (1.6-2.6) mg/dL Total Bilirubin (0.0-1.0) mg/dL AST (5-31) U/L ALT (0-31) U/L Alkaline Phosphatase (39-117) U/L Total Protein (6.5-8.0) g/dL Albumin (3.5-5.0) g/dL COVID-19 ([facility]) Positive A (Negative) COVID-19 Clin Com See Note Critical Care Time Critical Care Time Critical Care Time: Yes Total Critical Care Time: 60 Attestation: I attest to this time spent taking care of the patient, obtaining history, physical, reviewing labs, imaging, speaking to my attending, speaking to specialist. Discharge Plan Discharge Clinical Impression: Posterior circulation stroke, Altered mental status Patient Disposition: Admitted As Inpatient
[2022-05-28 19:57] VITALS: BMI 28.5
[2022-05-28 19:58] LABS: Glucose, Whole Blood 104 mg/dL (60-115)
[2022-05-28 19:59] VITALS: BP 151/71; PULSE 82; RESP 20; O2SAT 96
[2022-05-28 20:00] VITALS: PULSE 100; RESP 16; O2SAT 97
[2022-05-28 20:07] LABS: Prothrombin Time Whole Bld POC 11.9 sec (11.1-13.5)
[2022-05-28 20:19] LABS: MANUAL DIFF FLAG NO
[2022-05-28 20:23] LABS: Basophils Percent Auto 0.2 % (0-2); Eosinophils Percent Auto 0.3 % (0-4); Hematocrit 39.8 % (37.0-47.0); Hemoglobin 13.2 g/dl (12.0-16.0); Imm Gran Abs Auto 0.01 X10*3/uL (0.00-0.03); Imm Gran Pct Auto 0.2 % (0.0-0.4); Lymphocytes Absolute Auto 1.7 X10*3/uL (1.2-4.9); Lymphocytes Percent Auto 27.3 % (20-40); Mean Corpuscular HGB Conc 33.2 g/dl (31.0-35.0); Mean Corpuscular Hemoglobin 30.9 pg (27.0-33.0); Mean Corpuscular Volume 93.2 fL (80.0-98.0); Mean Platelet Volume 10.5 fL (9.4-12.3); Monocytes Absolute Auto 0.6 X10*3/uL (0.1-1.2); Monocytes Percent Auto 9.9 % (2-11); Neutrophils Absolute Auto 3.9 x10*3/uL (2.0-8.3); Neutrophils Percent Auto 62.1 % (45-73); Platelet Count 243 X10*3/uL (160-400); Red Blood Count 4.27 X10*6/uL (4.20-5.50); Red Cell Distribution Width 12.6 % (11.0-16.0); White Blood Count 6.3 X10*3/uL (4.8-10.8)
--- NOTE | 2022-05-28 20:25 | PC.NURSE ---
Addendum entered by Garett Montilla 05/28/22 20:54: these observations were made prior to TPA admin. aprox 20:10. a few min after TPA admin, pt able to communicate with family to state she has a restricted right extremity due to edema. pt is asphasic at this time. family at bedside Original Note: pt aphasic, unable to verbalize or communicate. pt mumbling, family at bedside.
[2022-05-28 20:27] LABS: IDNOW Serial# 16C4AD1C
[2022-05-28 20:28] LABS: COVID-19 Test Positive (Negative)
[2022-05-28 20:32] LABS: INTERNATIONAL NORM RATIO 1.1 (0.9-1.1); Prothrombin Time 12.1 SEC (10.0-13.1)
[2022-05-28 20:36] LABS: Alanine Aminotransferase 62 U/L (0-31); Albumin Level 4.2 g/dL (3.5-5.0); Alkaline Phosphatase 95 U/L (39-117); Anion Gap 14 (12-20); Aspartate Amino Transferase 49 U/L (5-31); Bilirubin Total 0.6 mg/dL (0.0-1.0); Blood Urea Nitrogen 11 mg/dL (9-16); Calcium 8.7 mg/dL (8.4-10.2); Carbon Dioxide 23 mmol/L (22-29); Chloride 106 mmol/L (96-108); Creatinine Clr Calc Pharmacy 79.9; Estimated Glomerular Filt Rate > 60; Glucose Random 116 mg/dL (60-115); Magnesium 1.9 mg/dL (1.6-2.6); Potassium 3.8 mmol/L (3.3-5.1); Sodium 139 mmol/L (135-145); Total Protein 7.4 g/dL (6.5-8.0)
[2022-05-28 20:47] VITALS: BP 138/61; PULSE 63; RESP 21; O2SAT 100
--- NOTE | 2022-05-28 20:48 | PC.NURSE ---
pt c/o left side facial pressure/headache. 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
[2022-05-28] MEDS: ondansetron HCL 4 MG/2 ML VIAL IVPUSH (20:49)
[2022-05-28] MEDS: dexAMETHasone sod phosphate 4 MG/ML VIAL IVPUSH (21:52)
[2022-05-28 21:53] VITALS: BP 120/58; PULSE 62; RESP 18; TEMP 37.2; O2SAT 100
--- NOTE | 2022-05-28 21:57 | PC.NURSE ---
Pt resting in bed, family at bedside. pt continues to be aphasic, but is able to understand and follow basic commands. no facial asymmetry noted. 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 pt medicated with Decadron for headache.
[2022-05-28 22:16] VITALS: BP 127/64; PULSE 70; RESP 18; TEMP 37.1; O2SAT 97
--- NOTE | 2022-05-28 22:17 | PC.NURSE ---
pt headache reassessed. pt still c/o left sided pressure headache, no effect from decadron. PA aware. VSS. awaiting ICU call back for report. pt resting, family at bedside.
--- NOTE | 2022-05-28 22:28 | MHC.STROKE ---
190 EMS PRE-NOTIFIED STROKE ALERT . ARRIVED AT 1905. AMS, APHASIA, LEFT SIDED WEAKNESS, NIHSS = 10. CT AND CTA H/N, NO BLEED, NO LVO, CLARIFYING LKW AND ELIGIBILITY FOR TPA-ALTEPLASE, RECENT CHEMOTHERAPY. DTN = 66 ( GREATER THAN 30, 45 AND 60 MIN) BASED ON CLARIFYING LKW, FAMILY INVOLVEMENT, AND DETERMINING ELIGIBILITY BASED ON CURRENT AND PMH. REPEAT CT HEAD D/T FUNES, SEE NOTES, NO BLEED. FAILED SWALLOW SCREEN, NPO. PATIENT WILL BE ADMITTED [facility] ICU. FOLLOW STROKE TPA GIVEN ORDERS, FREQUENT VITALS AND NEURO'S, NO BLOOD THINNERS, NPO, IVF NEEDED, AVOID HYPOTENSION,
--- NOTE | 2022-05-28 22:32 | PM.CCHP ---
History of Present Illness Date of Service: 05/28/22 Attending physician on admission: Jose Lau Chief Complaint: Stroke post Tpa SOURCE OF HISTORY: ?The entire history was obtained from patient's records ? ?HPI: ?51-year-old female with underlying history of breast cancer treated with mastectomy and on chemotherapy treated up until last year, fibromyalgia, hypertension, lymphedema, anxiety, insomnia, restless leg syndrome, and GERD, insomnia, psoriasis, low back pain, obesity who presented to the emergency room with the last well-known time of 05:00 o'clock, she was seen at 1948 via EMS with reported complaints of inability to speak full sentences, on exam she was noted to have aphasia, left-sided facial droop along with left upper extremity pronator drift and overall weakness of the upper and lower extremities, 6 overall NIH score of 10. ?Her point of care was 116 her current INR was 1.0. ?Prior to CT scan the patient had 3 episodes of projectile vomiting. ?Family had reported she had complaining of a little bit of a headache, there is no history of migraines. ?Initial head CT revealed no acute intracranial hemorrhage, CT a of the head and neck revealed no large vessel occlusion, case was consulted with neurologist Dr. Frazier who advised the word tPA and she received tPA at the proximally 20:05. Reportedly 3-4 minutes after tPA administration she has started to speak intermittently in short sentences. ? I was then called for an admission post tPA however it was reported the patient had reported to have a ongoing headache worse after tPA administration, patient was taken to CT a cane rule out the possibility of bleeding but the repeat CT was unchanged from the initial. ?Patient's laboratory workup is significant for being positive for COVID; which according to family patient has been positive for about 1 week.? ? During my evaluation in the ICU patient appeared blunt, unable to speak upon being asked simple questions and shaking her bilateral extremities and an extreme way while able to understand what I was saying and following commands, it was clear that the patient was having a significant anxiety/panic attack which improve with my simple reassurance.? She was then able to tell me that she did not take her clonazepam for anxiety and this medication was ordered to be administered for the patient.? At this point she is not able to speak to me anymore and unable to obtain further history. ? ROS:? Unable to obtain ? Past Medical History:? As above ? Past Surgical History: Bilateral oophorectomy Breast biopsy Breast implant removal Cholecystectomy Tubal ligation Mastectomy ? Family history:? Per records father had diabetes and other family members breast cancer and diabetes. ? Social History: ?Per records patient lives in her apartment, drinks alcohol socially, has never smoked no drug history. ? CODE STATUS: FULL CODE ? Allergies: ?LISINOPRIL (COUGH), ZOLPIDEM (SLEEP WALKING) ? Home Medications: See Med Rec ? PHYSICAL EXAM: VS: ?141/65, 57, 13, O2 sat 94% on room air. General:? Alert and oriented to person unable to determine orientation for time and place, follows commands and answers yes and no questions. ?Appears extremely anxious, shaking her legs, crying in, hyperventilating the but following commands, a lot of all these symptoms improve after significant reassurance and asking her to take deep breaths. She got sulci home that she was even able to tell me that she takes clonazepam but later when asked other questions would not talk. Skin:? Intact, no lesions, edema, erythema, clubbing or cyanosis.? No ulcers. HEENT:? No apparent facial droop, Head is normocephalic, atraumatic, pupils equal round reactive to light accommodation bilaterally.? Extraocular movements appear intact.? Buccal mucosa is moist, tongue protrudes midline without any deviation, patient able to puff her cheeks equally, wrinkles her forehead head without problem, bilateral closure of the eyes against resistance is normal. ?Neck is supple without lymphadenopathy. Cardiac:? Clear S1-S2, no murmurs rubs or gallops. Pulmonary:? Clear to auscultation, no wheezes, rales or rhonchi. Abdomen:? Protuberant, positive bowel sounds in all 4 quadrants.? Soft, nontender, no rebound or guarding.? Musculoskeletal / Neurological:? Patient is moving all extremities on her own, shaking the lower extremities and bilateral upper extremities as above mentioned until reassured and asked to come down. At this point I do not see a pronator drift, when testing for hand vice president digital strategist strength, the patient 10 to pull my finger down words instead of gripping them but at the time the string was equal. The only weakness noted at 3/5 was in the left lower extremity upon asking her to lifted off the stretcher against gravity and to bend the leg at knee level. Equal strength with resistance is on dorsiflexion and plantar flexion. Gait not assessed at this point. Unable to assess for finger to nose testing as the patient with no complaint with my request as well as heel to garcia. As above, cranial nerves 2-12 are grossly intact.? No focal deficits noted. Vascular:? 2+ pulses upper and lower extremities distally. ? SIGNIFICANT LABORATORY DATA: ?As above in addition to: White blood cells 6.3, hemoglobin 13.2, hematocrit 39.8, platelet count 243, INR 1.0.? Sodium 139, potassium 3.8, chloride 106, carbon dioxide 23, anion gap 14, BUN 11, creatinine 0.87, random glucose 116, as 8049, ALT 62. ? REVIEW OF IMAGES: HEAD CT HEAD AND NECK IMPRESSION: 1. No acute edematous territorial infarct identified. 2. No hemodynamically significant stenosis or vascular occlusion/cut off in the intracranial or extracranial arterial circulation. ? HEAD CT IMPRESSION: No evidence of acute intracranial hemorrhage or edematous territorial infarction. ? EKG REVIEW: ?To my view this is a Sinus rhythm study with 83 beats per minute.? No ST elevations, no depressions.? QTC 404.? No comparison available. ? ? ASSESSMENT AND PLAN: 1. Acute ischemic stroke symptoms post tPA ? somatoform d/o vs 2. Acute Anxiety and panic attack 3. Stable essential hypertension 4. Obesity 5. Mild transaminitis ? fatty liver 6. Asymptomatic COVID positive patient 7. Headache and projectile vomiting make said possible that this would be a complex migraine ? PLAN OF CARE: Admit to ICU, I and O's, protocol neuro check and liberalize blood pressure, home medications were reviewed and resumed particularly those for anxiety. After I have seen the anxiety episode 2 with the symptoms noted on exam makes me wonder if she could have a somatoform disorder versus a complex migraine. Patient?s shaking symptoms an even her initial weakness went away after reassurance and the patient was able to speak when I mentioned anxiety medications verbalized garcia that she takes clonazepam. Will continue with neuro checks per protocol, patient had a swallow evaluation she passed with any problems, simvastatin will be given, will check lipid profile in the morning, order an echo, MRI within 24 hours and continue with neurological evaluation. PT OT and speech eval.?If the MRI shows no acute stroke, psych evaluation might be necessary. ? GI PROPHYLAXIS: ?Oral omeprazole DVT PROPHYLAXIS:? Pneumatic stockings only as the patient is post tPA. ? Critical care time used for critical evaluation of this patient, diagnosis, treatment and coordination of care, review her records and documentation TOTAL CRITICAL CARE TIME 90 MIN . Patient's care was discussed in detail with Dr. Lau.? He is aware of all the above as well as the plan of care for this patient. [facility] Past Medical History Medical History Abnormal Pap smear of anus Anxiety Benign essential hypertension BRCA positive Cervical disc disease Fibromyalgia GERD without esophagitis Insomnia Left shoulder pain Lymphedema Myalgia Overweight (BMI 25.0-29.9) Psoriasis Right low back pain Sleep disorder Family History Family History Father Diabetes Mother Low blood pressure Family/Other Breast cancer Diabetes Surgical History Surgical History H/O bilateral oophorectomy H/O breast biopsy History of breast implant removal History of breast surgery History of cholecystectomy History of tubal ligation Hx of bilateral mastectomy Social History Social History Household Members: Significant Other Housing: House Do you presently have visiting nurse or other home services: No Unable to assess alcohol history related to: Unknown Alcohol intake: current Alcohol intake frequency: holidays/special occasions only Patient Tobacco Use Status: Never used Tobacco Second Hand Smoke Exposure: No Use of substances other than those prescribed or required for medical reasons: Unknown Advance Directives: No Advance Directives Information Provided: No Do you have thoughts of harming others: None Do you have a plan to hurt others: No Plan Recently lost weight without trying: No Nutrition Risks: On aspiration precautions Patient : No : No Poor oral hygiene: No Current occupational status: disabled Gender identity: Female Cognitive needs: No Hearing needs: No Vision needs: Yes Meds Allergies Allergy/AdvReac Type Severity Reaction Status Date / Time lisinopril Allergy Mild Cough Verified 05/28/22 19:59 zolpidem AdvReac Severe sleepwalkin Verified 05/28/22 19:59 g Active Medications: Current Medications Pharmacy Consult (Consult Rx Perform Med Rec) 1 each MISCELLANE ONCE PRN PRN Reason: Consult order Sodium Chloride (0.9 % Sodium Chloride Flush 3 Ml Syringe) 3 ml IVFLUSH QSHIFT [facility] Home Medications Medication Instructions Recorded Confirmed Last Taken Type bupropion HCl 150 mg 24 hr tablet, 150 mg PO QAM 10/18/20 05/29/22 Unknown History extended release clonazepam 0.5 mg tablet 0.5 mg PO BEDTIME 10/18/20 05/29/22 Unknown History furosemide 20 mg tablet 20 mg PO QAM 10/18/20 05/29/22 Unknown History topiramate 25 mg tablet 25 mg PO DAILY 10/18/20 05/29/22 Unknown History buspirone 15 mg tablet 15 mg PO TID 01/18/21 05/29/22 Unknown History trazodone 100 mg tablet 150 mg PO BEDTIME PRN Insomnia 04/25/21 05/29/22 Unknown History eszopiclone 2 mg tablet 2 mg PO BEDTIME PRN Insomnia 05/12/22 05/29/22 Unknown History Physical Exam Vital Signs: Vital Signs: Last Vital Signs Temp 98.8 F 05/28/22 22:16 Pulse 70 05/28/22 22:16 Resp 18 05/28/22 22:16 BP 127/64 05/28/22 22:16 Pulse Ox 97 05/28/22 22:16 O2 Del Method 05/28/22 22:16 BMI result Body Mass Index 28.5 Results Labs CBC and Chem 7: 05/29/22 05:29 05/28/22 20:08 Labs: Laboratory Results - last 24 hr 05/28/22 05/28/22 05/28/22 19:21 19:31 19:54 MCV MCH MCHC RDW Plt Count MPV Immature Gran % (Auto) Neut % (Auto) Lymph % (Auto) Delta % (Auto) Eos % (Auto) Baso % (Auto) Lymph # (Auto) Delta # (Auto) Eos # (Auto) Baso # (Auto) Abs Immat Gran (auto) Absolute Neuts (auto) Absolute Nucleated RBC Nucleated RBC % (auto) PT Whole Blood PT 11.9 INR Whole Blood INR 1.0 Anion Gap Estim Creat Clear Calc Estimated GFR POC Glucose 116 H 104 Random Glucose Calcium Magnesium Total Bilirubin AST ALT Alkaline Phosphatase Total Protein Albumin COVID-19 (LORAINE) COVID-19 Clin Com 05/28/22 05/28/22 05/28/22 20:08 20:08 20:08 MCV 93.2 MCH 30.9 MCHC 33.2 RDW 12.6 Plt Count 243 MPV 10.5 Immature Gran % (Auto) 0.2 Neut % (Auto) 62.1 Lymph % (Auto) 27.3 Delta % (Auto) 9.9 Eos % (Auto) 0.3 Baso % (Auto) 0.2 Lymph # (Auto) 1.7 Delta # (Auto) 0.6 Eos # (Auto) 0.0 Baso # (Auto) 0.0 Abs Immat Gran (auto) 0.01 Absolute Neuts (auto) 3.9 Absolute Nucleated RBC 0.000 Nucleated RBC % (auto) 0.0 PT 12.1 Whole Blood PT INR 1.1 Whole Blood INR Anion Gap 14 Estim Creat Clear Calc 79.9 Estimated GFR > 60 POC Glucose Random Glucose 116 H Calcium 8.7 D Magnesium 1.9 Total Bilirubin 0.6 AST 49 H D ALT 62 H Alkaline Phosphatase 95 Total Protein 7.4 Albumin 4.2 COVID-19 (LORAINE) COVID-19 Clin Com 05/28/22 20:08 MCV MCH MCHC RDW Plt Count MPV Immature Gran % (Auto) Neut % (Auto) Lymph % (Auto) Delta % (Auto) Eos % (Auto) Baso % (Auto) Lymph # (Auto) Delta # (Auto) Eos # (Auto) Baso # (Auto) Abs Immat Gran (auto) Absolute Neuts (auto) Absolute Nucleated RBC Nucleated RBC % (auto) PT Whole Blood PT INR Whole Blood INR Anion Gap Estim Creat Clear Calc Estimated GFR POC Glucose Random Glucose Calcium Magnesium Total Bilirubin AST ALT Alkaline Phosphatase Total Protein Albumin COVID-19 (LORAINE) Positive A COVID-19 Clin Com See Note Imaging Radiologist's Impressions: Impressions Head CT 05/28/22 19:25 IMPRESSION: No evidence of acute intracranial hemorrhage or edematous territorial infarction. This critical result was discussed with Kamila GILES at 05/28/2022 7:36 PM and it was ascertained that the content and urgency of the report was understood at the time of direct communication. Head/Neck CTA 05/28/22 19:44 IMPRESSION: 1. No acute edematous territorial infarct identified. 2. No hemodynamically significant stenosis or vascular occlusion/cut off in the intracranial or extracranial arterial circulation. Head CT 05/28/22 21:36
--- NOTE | 2022-05-28 22:43 | PC.NURSE ---
family updating this RN that pt was scheduled for a ? surgery on sunday to identify if there is a nerve issue r/t neck pain x months but pt cancelled d/t +covid dx
[2022-05-28] MEDS: Atorvastatin Calcium 80 MG TABLET PO (23:25)
[2022-05-28] MEDS: 0.9 % Sodium Chloride Flush 3 ML SYRINGE IVFLUSH (23:25)
[2022-05-28] MEDS: Acetaminophen 325 MG TABLET 975 MG PO (23:25)
[2022-05-29] VITALS (29 sets, daily range): BP systolic 110–161; BP diastolic 57–81; PULSE 46–73; RESP 13–20; TEMP 36.4–37.1; O2SAT 93–99
[2022-05-29] MEDS: clonazePAM 0.5 MG TABLET PO ×2 (00:02→20:29)
[2022-05-29 05:36] LABS: MANUAL DIFF FLAG NO
[2022-05-29 05:42] LABS: Basophils Percent Auto 0.2 % (0-2); Hematocrit 40.3 % (37.0-47.0); Hemoglobin 13.4 g/dl (12.0-16.0); Imm Gran Abs Auto 0.01 X10*3/uL (0.00-0.03); Imm Gran Pct Auto 0.2 % (0.0-0.4); Lymphocytes Absolute Auto 0.9 X10*3/uL (1.2-4.9); Lymphocytes Percent Auto 14.9 % (20-40); Mean Corpuscular HGB Conc 33.3 g/dl (31.0-35.0); Mean Corpuscular Hemoglobin 30.6 pg (27.0-33.0); Mean Platelet Volume 10.5 fL (9.4-12.3); Monocytes Absolute Auto 0.1 X10*3/uL (0.1-1.2); Monocytes Percent Auto 1.9 % (2-11); Neutrophils Absolute Auto 5.1 x10*3/uL (2.0-8.3); Neutrophils Percent Auto 82.8 % (45-73); Platelet Count 264 X10*3/uL (160-400); Red Blood Count 4.38 X10*6/uL (4.20-5.50); Red Cell Distribution Width 12.5 % (11.0-16.0); White Blood Count 6.2 X10*3/uL (4.8-10.8)
[2022-05-29 06:01] LABS: Anion Gap 13 (12-20); Blood Urea Nitrogen 10 mg/dL (9-16); Calcium 9.2 mg/dL (8.4-10.2); Carbon Dioxide 24 mmol/L (22-29); Chloride 106 mmol/L (96-108); Cholesterol 170 mg/dL; Creatinine Clr Calc Pharmacy 89.1; Estimated Glomerular Filt Rate > 60; Glucose Random 164 mg/dL (60-115); HDL Cholesterol 47 mg/dL; LDL Cholesterol Calculated 99 mg/dl; Potassium 4.3 mmol/L (3.3-5.1); Sodium 139 mmol/L (135-145); Triglycerides 124 mg/dL
--- NOTE | 2022-05-29 07:00 | CA_ITS ---
Transthoracic Echocardiogram Patient (Last, First, Middle): Macie Sorto, Gender: Female Date of : 1970 Age: 51 Procedure Date: 05/30/2022 Procedure Type: Transthoracic Echocardiogram [place] [facility] [place]: 167.64 cm Weight: 80.29 kg BSA: 1.90 m2 Heart Rate: 63 bpm BP: 136 / 77 mmHg Stopper Grinder: Referring MD: Jerson GILES Symptoms: stroke post tpa Study Quality: Adequate/Contrast ECG Rhythm: Sinus Conclusions: - Normal left ventricular size, thickness, and systolic function. The visually estimated ejection fraction is between 55-60%. Diastolic function is normal for age. - Normal right ventricular cavity size and systolic function. - The left atrium is normal in size. There is no evidence of interatrial shunt by color Doppler. Findings Procedure Information Contrast agent, definity, is being given per protocol without apparent complications. Left Ventricle Normal left ventricular size, thickness, and systolic function. The visually estimated ejection fraction is between 55-60%. Diastolic function is normal for age. Right Ventricle Normal right ventricular cavity size and systolic function. Atria The left atrium is normal in size. There is no evidence of interatrial shunt by color Doppler. Aortic Valve Normal aortic valve structure and function. There is no aortic valve stenosis. There is no aortic valve regurgitation. Mitral Valve The mitral valve appears normal. There is no mitral valve regurgitation. There is no mitral valve stenosis. Pulmonic Valve Normal pulmonic valve structure and function. There is trace pulmonic valve regurgitation. Tricuspid Valve Normal tricuspid valve structure and function. There is trace tricuspid valve regurgitation. Normal right atrial pressure. There is no evidence of pulmonary hypertension. Great Vessels The visualized portions of the pulmonary artery and branches are normal. Venous The inferior vena cava is normal in size and collapses greater than 50% with inspiration. Pericardium/Pleural There is no evidence of pericardial effusion. Prior Study Comparison No prior study available for comparison. Measurements 2D Linear Measurements IVSd: 0.93 0.6-0.9/0.6-1.0 cm LVIDd: 5.08 3.9-5.3/4.2-5.9 cm LVIDd Index: 2.67 2.4-3.2/2.2-3.1 cm/m2 LVIDs: 2.84 2.0-3.6 cm LVPWd: 0.86 0.7-1.1 cm LA Diam: 3.60 2.7-3.8/3.0-4.0 cm LAIDs Index: 1.89 1.5-2.3 cm/m2 LV Mass: 200.58 67-162/88-224 g LV Mass Index: 105.57 43-95/49-115 g/m2 LVOT Diam: 2.20 3.0+(-)1.3 cm Mitral Valve MV Pk E: 0.87 MV PK A: 0.60 MV Decel Time: 196.00 E/A: 1.40 E'Lateral: 13.40 E'Medial: 8.16 E/E' Med: 10.70 E/E' Lat: 6.50 PHT: 57.00 MVA PHT: 3.86 Decel Camp: 4.45 Aortic Valve AoV Pk Jovanni: 1.63 AoV Mn Jovanni: 1.08 AoV VTI: 0.34 AoV Pk Grad: 11.00 Aov Mn Grad: 6.00 DEYA Cont.VTI: 2.75 LVOT LVOT Pk Jovanni: 1.19 LVOT Mn Jovanni: 0.72 LVOT VTI: 0.24 LVOT Pk Grad: 6.00 LVOT Mn Grad: 3.00 LVOT Diam: 2.20 LVOT Area: 3.80 Diastolic Function MV Pk E: 0.87 MV Pk A: 0.60 E/A: 1.40 E'Medial: 8.16 E/E' Med: 10.70 E' Laterial: 13.40 E/E' Lat: 6.50 Right Ventricle TAPSE (mm): 25.80 TVS' Joavnni: 10.70 Tricuspid Valve TR Pk Jovanni: 1.48 TR Pk Grad: 9.00 RA Press: 3.00 RVSP: 12.00 Great Vessels Aorta Sinus of Valsalva: 2.50 2.0-3.5 cm Ao Asc: 2.40 2.1-3.4 cm Pulmonary Valve PV Pk Jovanni: 1.13 Peak PV Grad: 5.00 Updated in Other Vendor System with Status of Final Luis Carlisle MD electronically signed on 05/30/2022 9:57:44 PM with status of Final
[2022-05-29] MEDS: 0.9 % Sodium Chloride Flush 3 ML SYRINGE IVFLUSH ×3 (07:08→23:59)
[2022-05-29 07:23] LABS: Glucose, Whole Blood 141 mg/dL (60-115)
--- NOTE | 2022-05-29 07:25 | PC.NURSE ---
Addendum entered by Luther Richardson RN 05/29/22 17:20: MRI and Chest CT completed. 1700 Neuro Assessment noted decreased LT arm and leg weakness, no LT arm drift noted, speech improvement with no slurring. Addendum entered by Luther Richardson RN 05/29/22 11:07: MD ordered and administered Diludid 0.5 mg IVP x1 for pain. 15 minutes after O2 Sat noted to be 88% on RA, Patient encouraged to take deep breaths, O2 remained Low 90's, 2L [place] applied. Current O2 98%. Addendum entered by Luther Richardson RN 05/29/22 08:26: 0800 Neuro Assessment noted increased LT arm and leg weakness, LT eye unable to fully open, Increase in jaw pain beginning to radiate to eye and forming headache. MD notified, Neuro MD and Nerissa Tuttle contacted, awaiting further instructions. Original Note: first neuro assessment - PT complained of LT jaw pain cramping 08/21, MD notified. No further orders at this time.
[2022-05-29] MEDS: Omeprazole 20 MG CAPSULE.DR PO (10:32)
[2022-05-29] MEDS: Topiramate 25 MG TABLET PO (10:32)
[2022-05-29] MEDS: Gabapentin 100 MG CAPSULE PO ×3 (10:32→20:29)
[2022-05-29] MEDS: DULoxetine HCl 30 MG CAPSULE.DR PO (10:32)
[2022-05-29] MEDS: Lidocaine 4 % Patch ADH..PATCH 1 PATCH TRANSDERMA (10:33)
[2022-05-29] MEDS: Multivitamin TABLET 1 TAB PO (10:33)
[2022-05-29] MEDS: HYDROmorphone HCl 0.5 MG/0.5 ML SYRINGE IVPUSH (10:45)
--- NOTE | 2022-05-29 11:05 | PHA.MEDREC ---
Pharmacy Consult ? Medication Reconciliation Pharmacy has reviewed the medication reconciliation completed by Nerissa. Spoke with patient's signifcant other Peter. Patient no longer taking topiramate. He reports patient take tizandine 2 mg prn instead of 4 mg. I left a message for Dr. Horner on the changes on ordered medications. Additional OTC medicatiosn were added to home list. Jennifer Meng, NateD
[2022-05-29] MEDS: dexAMETHasone sod phosphate 4 MG/ML VIAL 6 MG IVPUSH (11:45)
[2022-05-29 12:57] LABS: D Dimer High Sensitivity 595 NG/ML
[2022-05-29 13:26] LABS: Erythrocyte Sedimentation Rate 10 MM/HR (0-20)
[2022-05-29 13:28] LABS: Ferritin 482 ng/mL (10-250)
--- NOTE | 2022-05-29 13:46 | MHC.CM.PN ---
Addendum entered by Shari Cast 05/29/22 14:57: Meet with patient. She was able to communicate she does not want information shared with sister Maye if she calls [facility] [place]. Macie was able to complete HCP- She named her sister Roberto as HCP agent. Completed and copy placed in chart. Original Note: Called patient's significant other to discuss discharge planning needs. See CM assessment for details. Family open to VNA/Acute Rehab/STR pending PT/OT evals when medically stable. Patient does not have HCP on file. Call placed to [facility] also does not have HCP on file. Peter request we not share information to Maye.
[2022-05-29] MEDS: prednisoLONE Acetate 1 % Oph Susp 5 ML DRPBTL 1 DROP EYE-BOTH ×3 (14:16→20:29)
--- NOTE | 2022-05-29 15:14 | P.CNNE_ITS ---
History of Present Illness Data of Consult Service Date: 05/29/22 Primary Care Provider: Rod Mathews MD HPI Reason for consult: Stroke 51 years old woman with underlying history of breast cancer and fibromyalgia who came to hospital yesterday with new onset of left-sided weakness facial droop nausea and vomiting. Her speech was not normal and reported to be aphasic. He came within an hour to of onset of symptoms, was evaluated for possible acute stroke, and treated with intravenous tPA for suspected posterior circulation infarct. Last night her head CT and CTA did not reveal any significant abnor mality. This morning I was asked to see her stat when ptosis was noted on left side of her face and she was complaining of pain on left side of her face. Review of Systems Review of Systems: No recent trauma or seizure-like episode PMFSH Past Medical History Medical History Abnormal Pap smear of anus Anxiety Benign essential hypertension BRCA positive Cervical disc disease Fibromyalgia GERD without esophagitis Insomnia Left shoulder pain Lymphedema Myalgia Overweight (BMI 25.0-29.9) Psoriasis Right low back pain Sleep disorder Family History Family History Father Diabetes Mother Low blood pressure Family/Other Breast cancer Diabetes Surgical History Surgical History H/O bilateral oophorectomy H/O breast biopsy History of breast implant removal History of breast surgery History of cholecystectomy History of tubal ligation Hx of bilateral mastectomy Social History Social History Household Members: Significant Other Housing: House Do you presently have visiting nurse or other home services: No Unable to assess alcohol history related to: Unknown Alcohol intake: current Alcohol intake frequency: holidays/special occasions only Patient Tobacco Use Status: Never used Tobacco Second Hand Smoke Exposure: No Use of substances other than those prescribed or required for medical reasons: Unknown Currently Displaying Signs/Symptoms of Drug Intoxication Withdrawal: No Advance Directives: No Advance Directives Information Provided: No Do you have thoughts of harming others: None Do you have a plan to hurt others: No Plan Recently lost weight without trying: No Nutrition Risks: On aspiration precautions Patient : No : No Poor oral hygiene: No service: No Current occupational status: unemployed and disabled Gender identity: Female Cognitive needs: No Hearing needs: No Vision needs: Yes Meds Allergies Allergy/AdvReac Type Severity Reaction Status Date / Time lisinopril Allergy Mild Cough Verified 05/28/22 19:59 zolpidem AdvReac Severe sleepwalkin Verified 05/28/22 19:59 g Active Medications: Current Medications Ascorbic Acid (Ascorbic Acid 500 Mg Tablet) 500 mg PO DAILY [facility] Last Admin: 05/29/22 10:23 Dose: Not Given Atorvastatin Calcium (Atorvastatin Calcium 80 Mg Tablet) 80 mg PO BEDTIME [facility] Last Admin: 05/28/22 23:25 Dose: 80 mg Bupropion HCl (Bupropion Hcl Xl 150 Mg Tab.Er.24h) 150 mg PO DAILY [facility] Last Admin: 05/29/22 03:29 Dose: Not Given Buspirone HCl (Buspirone Hcl 5 Mg Tablet) 15 mg PO TID [facility] Last Admin: 05/29/22 10:23 Dose: Not Given Clonazepam (Clonazepam 0.5 Mg Tablet) 0.5 mg PO BEDTIME [facility] Clotrimazole (Clotrimazole 1 % Vaginal Cream 45 Gm Tube) 1 appl VAGINAL BEDTIME [facility] Cyclobenzaprine HCl (Cyclobenzaprine Hcl 5 Mg Tablet) 5 mg PO TID PRN PRN Reason: muscle spasm Dexamethasone Sodium Phosphate (Dexamethasone Sod Phosphate 4 Mg/Ml Vial) 6 mg IVPUSH DAILY [facility] Last Admin: 05/29/22 11:45 Dose: 6 mg Duloxetine HCl (Duloxetine Hcl 30 Mg Capsule.) 30 mg PO DAILY [facility] Last Admin: 05/29/22 10:32 Dose: 30 mg Gabapentin (Gabapentin 100 Mg Capsule) 100 mg PO TID [facility] Last Admin: 05/29/22 10:32 Dose: 100 mg Lidocaine (Lidocaine 4 % Patch Adh..Patch) 1 patch TRANSDERMA DAILY [facility] Last Admin: 05/29/22 10:33 Dose: 1 patch Multivitamins/Vitamin C (Multivitamin Tablet) 1 tab PO DAILY [facility] Last Admin: 05/29/22 10:33 Dose: 1 tab Non-Formulary Medication (Eszopiclone) 2 mg PO BEDTIME PRN PRN Reason: Insomnia Omeprazole (Omeprazole 20 Mg Capsule.) 20 mg PO DAILY [facility] Last Admin: 05/29/22 10:32 Dose: 20 mg Pharmacy Consult (Consult Rx Perform Med Rec) 1 each MISCELLANE ONCE PRN PRN Reason: Consult order Prednisolone Acetate (Prednisolone Acetate 1 % Oph Susp 5 Ml Drpbtl) 1 drop EYE-BOTH QID [facility] Last Admin: 05/29/22 14:16 Dose: 1 drop Sodium Chloride (0.9 % Sodium Chloride Flush 3 Ml Syringe) 3 ml IVFLUSH QSHIFT [facility] Last Admin: 05/29/22 07:08 Dose: 3 ml Tizanidine HCl (Tizanidine Hcl 4 Mg Tablet) 2 mg PO BEDTIME PRN PRN Reason: for muscle spasm Triamcinolone Acetonide (Triamcinolone Acet 0.5 % Oint 15 Gm Tube) 1 appl TOPICAL BID [facility] Last Admin: 05/29/22 10:36 Dose: Not Given Home Medications Medication Instructions Recorded Confirmed Last Taken Type bupropion HCl 150 mg 24 hr tablet, 150 mg PO QAM 10/18/20 05/29/22 Unknown Histo ry extended release clonazepam 0.5 mg tablet 0.5 mg PO BEDTIME 10/18/20 05/29/22 Unknown History furosemide 20 mg tablet 20 mg PO QAM PRN swelling 10/18/20 05/29/22 Unknown History buspirone 15 mg tablet 15 mg PO TID 01/18/21 05/29/22 Unknown History trazodone 100 mg tablet 150 mg PO BEDTIME PRN Insomnia 04/25/21 05/29/22 Unknown History eszopiclone 2 mg tablet 2 mg PO BEDTIME PRN Insomnia 05/12/22 05/29/22 Unknown History cholecalciferol (vitamin D3) 25 25 mcg PO DAILY 05/29/22 05/29/22 Unknown History mcg (1,000 unit) tablet diphenhydramine 25 1 tab PO BEDTIME PRN Pain 05/29/22 05/29/22 Unknown History mg-acetaminophen 500 mg tablet (Tylenol PM Extra Strength) [id number]-acetaminophen 7.5 30 ml PO BEDTIME PRN Cold Symptoms 05/29/22 05/29/22 Unknown History mg-60 [id number] oral liqd ibuprofen 200 mg tablet (Advil) 400 mg PO Q6H PRN Pain 05/29/22 05/29/22 Unknown History tizanidine 2 mg tablet 2 mg PO BEDTIME PRN Muscle Spasm 05/29/22 05/29/22 Unknown History Physical Exam Vital Signs: Vital Signs: Last Vital Signs Temp 98.7 F 05/29/22 08:00 Pulse 55 05/29/22 15:00 Resp 14 05/29/22 15:00 BP 132/65 05/29/22 15:00 Pulse Ox 96 05/29/22 15:00 O2 Del Method 05/29/22 15:00 O2 Flow Rate 2 05/29/22 15:00 BMI result Body Mass Index 28.5 Neuro: Other: She was laying with eyes closed but was able to open eyes when I asked her to do so. Her eyes were fluttering and she was trying to keep them closed. Even with forceful maneuver I could barely see her pupils. Pupils were 3 mm round reactive to light. Eyes were moving. Visual charles were difficult to determine. Face seems symmetrical. When asked to lift each arm and leg up against gravity, she struggles significantly and could barely so do so. Deep tendon reflexes were trace with flat plantars. Results Labs CBC & Chem 7: 05/29/22 05:29 05/29/22 05:29 Labs: Short CBC 05/28/22 05/29/22 Range/Units 20:08 05:29 WBC 6.3 6.2 (4.8-10.8) X10*3/uL Hgb 13.2 13.4 (12.0-16.0) g/dl Hct 39.8 40.3 (37.0-47.0) % Plt Count 243 264 (160-400) X10*3/uL BMP 05/28/22 05/29/22 20:08 05:29 Sodium 139 139 Potassium 3.8 4.3 Chloride 106 106 Carbon Dioxide 23 24 BUN 11 10 Creatinine 0.87 0.78 Calcium 8.7 D 9.2 Liver Function 05/28/22 Range/Units 20:08 Total Bilirubin 0.6 (0.0-1.0) mg/dL AST 49 H D (5-31) U/L ALT 62 H (0-31) U/L Alkaline Phosphatase 95 (39-117) U/L Albumin 4.2 (3.5-5.0) g/dL Her noncontrast head CT yesterday and CTA of brain and neck and MRI of brain without contrast this morning did not reveal any significant pathology. Assessment and Plan (1) Conversion disorder: Status: Acute 51 years old woman who was treated last night for possible posterior circulation infarct and then this morning I was asked to see her stat for left-sided ptosis. Her examination today was clearly indicated above psycho genetic illness. Her brain MRI has not reveal any abnormality, which was unusual even if she had an ischemic lesion. Overall clinical impression is of conversion disorder. I recommend reassurance and education and follow-up with a counselor and therapist. Procedures Date of Service Date of Service: 05/29/22
--- NOTE | 2022-05-29 16:06 | P.PNCC_ITS ---
Subjective Subjective Date of Service: 05/29/22 Interval History: At 51-year-old female with significant psychiatric history on multiple medications for both bipolar disorder depression as well as of fibromyalgia and at 1 time back in January did there was a positive SHAUNA at 1-80 dilution and my sent off another 1 as a repeat but the sed rate is extremely normal and the D- dimer is just a borderline elevation but minimal and the ferritin is also a borderline increase as well and I did this because of the recent COVID diagnosis She was briefly hypoxic requiring nasal O2 and at the CT scan of the chest I did today was negative for any infiltrate and when she presented she was somewhat a ltered complaining of predominant weakness on the on the left side with a very curious examination is this seemed to be some associated histrionic. So was not quite making sense and the and then there was an increased complaint of a after tPA was given that she had new drop in in her left eye laid but there was no ophthalmoplegia there was no diplopia and there was also some new left-sided facial pain that she had had in the long and the short is MRI without contrast failed to demonstrate anything clean brain hazel matter white matter clean brainstem no lesions what so ever so in retrospect tPA was probably unnecessary but uncomplicated at this point No metabolic issues lab work was otherwise okay Critical Care Time (minutes): 60 Physical Exam Vital Signs: Vital Signs: Last Vital Signs Temp 98.7 F 05/29/22 08:00 Pulse 55 05/29/22 15:00 Resp 14 05/29/22 15:00 BP 132/65 05/29/22 15:00 Pulse Ox 96 05/29/22 15:00 O2 Del Method 05/29/22 15:00 O2 Flow Rate 2 05/29/22 15:00 BMI result Body Mass Index 28.5 Neurologically did she the clearly looked like she was somaticizing with some left-sided weakness Quick bedside echo showed no wall motion abnormalities doubtful as a source and there was no paroxysmal atrial fib and had a normal baseline EKG Lungs clear to exam and to CT scan Abdomen soft with no organomegaly Objective Data Labs CBC & Chem 7: 05/29/22 05:29 05/29/22 05:29 Labs: Laboratory Results - last 24 hr 05/28/22 05/28/22 05/28/22 19:21 19:31 19:54 WBC RBC Hgb Hct MCV MCH MCHC RDW Plt Count MPV Immature Gran % (Auto) Neut % (Auto) Lymph % (Auto) [place] % (Auto) Eos % (Auto) Baso % (Auto) Lymph # (Auto) [place] # (Auto) Eos # (Auto) Baso # (Auto) Abs Immat Gran (auto) Absolute Neuts (auto) Absolute Nucleated RBC Nucleated RBC % (auto) ESR PT Whole Blood PT 11.9 INR Whole Blood INR 1.0 D-Dimer High Sensitivty Sodium Potassium Chloride Carbon Dioxide Anion Gap BUN Creatinine Estim Creat Clear Calc Estimated GFR POC Glucose 116 H 104 Random Glucose Calcium Magnesium Ferritin Total Bilirubin AST ALT Alkaline Phosphatase Total Protein Albumin Triglycerides Cholesterol LDL Cholesterol, Calc HDL Cholesterol COVID-19 (LORAINE) COVID-19 Intrapace 05/28/22 05/28/22 05/28/22 20:08 20:08 20:08 WBC 6.3 RBC 4.27 Hgb 13.2 Hct 39.8 MCV 93.2 MCH 30.9 MCHC 33.2 RDW 12.6 Plt Count 243 MPV 10.5 Immature Gran % (Auto) 0.2 Neut % (Auto) 62.1 Lymph % (Auto) 27.3 [place] % (Auto) 9.9 Eos % (Auto) 0.3 Baso % (Auto) 0.2 Lymph # (Auto) 1.7 [place] # (Auto) 0.6 Eos # (Auto) 0.0 Baso # (Auto) 0.0 Abs Immat Gran (auto) 0.01 Absolute Neuts (auto) 3.9 Absolute Nucleated RBC 0.000 Nucleated RBC % (auto) 0.0 ESR PT 12.1 Whole Blood PT INR 1.1 Whole Blood INR D-Dimer High Sensitivty Sodium 139 Potassium 3.8 Chloride 106 Carbon Dioxide 23 Anion Gap 14 BUN 11 Creatinine 0.87 Estim Creat Clear Calc 79.9 Estimated GFR > 60 POC Glucose Random Glucose 116 H Calcium 8.7 D Magnesium 1.9 Ferritin Total Bilirubin 0.6 AST 49 H D ALT 62 H Alkaline Phosphatase 95 Total Protein 7.4 Albumin 4.2 Triglycerides Cholesterol LDL Cholesterol, Calc HDL Cholesterol COVID-19 (LORAINE) COVID-19 Intrapace 05/28/22 05/29/22 05/29/22 20:08 05:29 05:29 WBC 6.2 RBC 4.38 Hgb 13.4 Hct 40.3 MCV 92.0 MCH 30.6 MCHC 33.3 RDW 12.5 Plt Count 264 MPV 10.5 Immature Gran % (Auto) 0.2 Neut % (Auto) 82.8 H Lymph % (Auto) 14.9 L [place] % (Auto) 1.9 L Eos % (Auto) 0.0 Baso % (Auto) 0.2 Lymph # (Auto) 0.9 L [place] # (Auto) 0.1 Eos # (Auto) 0.0 Baso # (Auto) 0.0 Abs Immat Gran (auto) 0.01 Absolute Neuts (auto) 5.1 Absolute Nucleated RBC 0.000 Nucleated RBC % (auto) 0.0 ESR PT Whole Blood PT INR Whole Blood INR D-Dimer High Sensitivty Sodium 139 Potassium 4.3 Chloride 106 Carbon Dioxide 24 Anion Gap 13 BUN 10 Creatinine 0.78 Estim Creat Clear Calc 89.1 Estimated GFR > 60 POC Glucose Random Glucose 164 H Calcium 9.2 Magnesium Ferritin Total Bilirubin AST ALT Alkaline Phosphatase Total Protein Albumin Triglycerides 124 Cholesterol 170 LDL Cholesterol, Calc 99 HDL Cholesterol 47 COVID-19 (LORAINE) Positive A COVID-19 Clin Com See Note 05/29/22 05/29/22 05/29/22 07:17 12:41 12:41 WBC RBC Hgb Hct MCV MCH MCHC RDW Plt Count MPV Immature Gran % (Auto) Neut % (Auto) Lymph % (Auto) [place] % (Auto) Eos % (Auto) Baso % (Auto) Lymph # (Auto) [place] # (Auto) Eos # (Auto) Baso # (Auto) Abs Immat Gran (auto) Absolute Neuts (auto) Absolute Nucleated RBC Nucleated RBC % (auto) ESR 10 PT Whole Blood PT INR Whole Blood INR D-Dimer High Sensitivty 595 Sodium Potassium Chloride Carbon Dioxide Anion Gap BUN Creatinine Estim Creat Clear Calc Estimated GFR POC Glucose 141 H Random Glucose Calcium Magnesium Ferritin Total Bilirubin AST ALT Alkaline Phosphatase Total Protein Albumin Triglycerides Cholesterol LDL Cholesterol, Calc HDL Cholesterol COVID-19 (LORAINE) COVID-19 Clin Com 05/29/22 12:41 WBC RBC Hgb Hct MCV MCH MCHC RDW Plt Count MPV Immature Gran % (Auto) Neut % (Auto) Lymph % (Auto) [place] % (Auto) Eos % (Auto) Baso % (Auto) Lymph # (Auto) [place] # (Auto) Eos # (Auto) Baso # (Auto) Abs Immat Gran (auto) Absolute Neuts (auto) Absolute Nucleated RBC Nucleated RBC % (auto) ESR PT Whole Blood PT INR Whole Blood INR D-Dimer High Sensitivty Sodium Potassium Chloride Carbon Dioxide Anion Gap BUN Creatinine Estim Creat Clear Calc Estimated GFR POC Glucose Random Glucose Calcium Magnesium Ferritin 482 H Total Bilirubin AST ALT Alkaline Phosphatase Total Protein Albumin Triglycerides Cholesterol LDL Cholesterol, Calc HDL Cholesterol COVID-19 (LORAINE) COVID-19 Clin Com Progress Note: A&P Assessment and plan (1) Conversion disorder: Status: Acute (2) Altered mental status: Status: Acute (3) COVID-19: Status: Acute (4) Shoulder pain, bilateral: Status: Acute (5) Neck pain: Status: Acute (6) Acute lumbar myofascial strain: Status: Acute (7) Cervical myofascial strain: Status: Acute (8) Restless legs syndrome: Status: Acute (9) Hypersomnia: Status: Acute (10) Snoring: Status: Acute (11) Overweight (BMI 25.0-29.9): Status: Acute (12) GERD without esophagitis: Status: Acute (13) Spondylosis of cervical spine with radiculopathy: Status: Acute (14) Breast cancer: Status: Acute (15) Anxiety: Status: Acute (16) Benign essential hypertension: Status: Acute Plan So there was no neurological sense made of her complaint the MRI is negative so clearly no complication from tPA no evidence of infarct so in retrospect tPA probably unnecessary and will await the official echo of the hospital and will a wait for the SHAUNA to return but the sed rate is extremely normal and I do not see that there is any evidence of a complication related to COVID Quality Stroke Does the patient have a stroke diagnosis?: No VTE Prior VTE?: No VTE Risk Level:: Medical - moderate - high VTE Device Contraindication: N/A - Device Ordered VTE Drug Contraindication: Treatment Not Indicated
[2022-05-29] MEDS: Atorvastatin Calcium 80 MG TABLET PO (20:29)
[2022-05-29] MEDS: Clotrimazole 1 % Vaginal Cream 45 GM TUBE 1 APPL VAGINAL (20:30)
[2022-05-29] MEDS: Triamcinolone Acet 0.5 % Oint 15 GM TUBE 1 APPL TOPICAL (20:30)
[2022-05-30] VITALS (8 sets, daily range): BP systolic 114–132; BP diastolic 58–75; PULSE 52–74; RESP 15–20; TEMP 36.2–37.2; O2SAT 94–99; BMI 30.6
--- NOTE | 2022-05-30 04:16 | PC.NURSE ---
Received report from ANSELMO Lazaro in the ICU around 01:55. Pt arrived on the unit around 02:58. Pt oriented to room and staff. Assessment complete. Pt displays some mild weakness to left side and is aphasic. Oriented X4. Bed alarm on for safety. Patient +covid-precautions maintained. Will continue to monitor.
[2022-05-30] MEDS: busPIRone HCl 5 MG TABLET 15 MG PO ×3 (08:09→22:55)
[2022-05-30] MEDS: Lidocaine 4 % Patch ADH..PATCH 1 PATCH TRANSDERMA (08:09)
[2022-05-30] MEDS: Gabapentin 100 MG CAPSULE PO ×3 (08:09→22:56)
[2022-05-30] MEDS: buPROPion HCl XL 150 MG TAB.ER.24H PO (08:09)
[2022-05-30] MEDS: Ascorbic Acid 500 MG TABLET PO (08:09)
[2022-05-30] MEDS: Omeprazole 20 MG CAPSULE.DR PO (08:09)
[2022-05-30] MEDS: Multivitamin TABLET 1 TAB PO (08:09)
[2022-05-30] MEDS: DULoxetine HCl 30 MG CAPSULE.DR PO (08:09)
[2022-05-30] MEDS: dexAMETHasone sod phosphate 4 MG/ML VIAL 6 MG IVPUSH (08:10)
[2022-05-30] MEDS: 0.9 % Sodium Chloride Flush 3 ML SYRINGE IVFLUSH ×3 (08:10→23:01)
--- NOTE | 2022-05-30 10:17 | P.PNIM_ITS ---
Subjective Subjective Date of Service: 05/30/22 Interval History: f/u on left sided weakness, admitted through icu and got tpa, MRI was normal, she recently had covid, doesn't appear to be post covid complication, sed rate is normal, neuro thinks this is likely conversion desorder. She has persistent weakness on the left side. PT is recommending STR vs acuet inpatient rehab Review of Systems no fever left sided arm and leg weakness Physical Exam Vital Signs: Vital Signs: Last Vital Signs Temp 97.6 F 05/30/22 07:31 Pulse 65 05/30/22 08:07 Resp 18 05/30/22 07:31 BP 116/65 05/30/22 08:07 Pulse Ox 99 05/30/22 08:07 O2 Del Method 05/30/22 07:31 O2 Flow Rate 2 05/30/22 04:00 BMI result Body Mass Index 28.5 Const: Other: General: AO X 3, no acute distress Resp: CTA bilateral CVS: S1,S2,RRR GI: +BS, NT, no distention Skin: No rash Neuro: weak on left side not able to raise arm or leg Psych: appropriate affect Objective Data Active Medications Ascorbic Acid (Ascorbic Acid 500 Mg Tablet) 500 mg PO DAILY [facility] Last Admin: 05/30/22 08:09 Dose: 500 mg Documented By: BEAU Atorvastatin Calcium (Atorvastatin Calcium 80 Mg Tablet) 80 mg PO BEDTIME [facility] Last Admin: 05/29/22 20:29 Dose: 80 mg Documented By: LENARD Bupropion HCl (Bupropion Hcl Xl 150 Mg Tab.Er.24h) 150 mg PO DAILY [facility] Last Admin: 05/30/22 08:09 Dose: 150 mg Documented By: BEAU Buspirone HCl (Buspirone Hcl 5 Mg Tablet) 15 mg PO TID [facility] Last Admin: 05/30/22 08:09 Dose: 15 mg Documented By: BEAU Clonazepam (Clonazepam 0.5 Mg Tablet) 0.5 mg PO BEDTIME [facility] Last Admin: 05/29/22 20:29 Dose: 0.5 mg Documented By: LENARD Clotrimazole (Clotrimazole 1 % Vaginal Cream 45 Gm Tube) 1 appl VAGINAL BEDTIME [facility] Last Admin: 05/29/22 20:30 Dose: 1 appl Documented By: LENARD Cyclobenzaprine HCl (Cyclobenzaprine Hcl 5 Mg Tablet) 5 mg PO TID PRN PRN Reason: muscle spasm Dexamethasone Sodium Phosphate (Dexamethasone Sod Phosphate 4 Mg/Ml Vial) 6 mg IVPUSH DAILY [facility] Last Admin: 05/30/22 08:10 Dose: 6 mg Documented By: BEAU Duloxetine HCl (Duloxetine Hcl 30 Mg Capsule.) 30 mg PO DAILY [facility] Last Admin: 05/30/22 08:09 Dose: 30 mg Documented By: BEAU Gabapentin (Gabapentin 100 Mg Capsule) 100 mg PO TID [facility] Last Admin: 05/30/22 08:09 Dose: 100 mg Documented By: BEAU Lidocaine (Lidocaine 4 % Patch Adh..Patch) 1 patch TRANSDERMA DAILY [facility] Last Admin: 05/30/22 08:09 Dose: 1 patch Documented By: BEAU Multivitamins/Vitamin C (Multivitamin Tablet) 1 tab PO DAILY [facility] Last Admin: 05/30/22 08:09 Dose: 1 tab Documented By: BEAU Non-Formulary Medication (Eszopiclone) 2 mg PO BEDTIME PRN PRN Reason: Insomnia Omeprazole (Omeprazole 20 Mg Capsule.) 20 mg PO DAILY [facility] Last Admin: 05/30/22 08:09 Dose: 20 mg Documented By: BEAU Pharmacy Consult (Consult Rx Perform Med Rec) 1 each MISCELLANE ONCE PRN PRN Reason: Consult order Prednisolone Acetate (Prednisolone Acetate 1 % Oph Susp 5 Ml Drpbtl) 1 drop EYE-BOTH QID [facility] Last Admin: 05/29/22 20:29 Dose: 1 drop Documented By: LENARD Sodium Chloride (0.9 % Sodium Chloride Flush 3 Ml Syringe) 3 ml IVFLUSH QSHIFT [facility] Last Admin: 05/30/22 08:10 Dose: 3 ml Documented By: BEAU Tizanidine HCl (Tizanidine Hcl 4 Mg Tablet) 2 mg PO BEDTIME PRN PRN Reason: for muscle spasm Triamcinolone Acetonide (Triamcinolone Acet 0.5 % Oint 15 Gm Tube) 1 appl TOPICAL BID [facility] Last Admin: 05/29/22 20:30 Dose: 1 appl Documented By: LENARD Labs CBC & Chem 7: 05/29/22 05:29 05/29/22 05:29 Labs: Laboratory Results - last 24 hr 05/29/22 05/29/22 05/29/22 12:41 12:41 12:41 ESR 10 D-Dimer High Sensitivty 595 Ferritin 482 H Assessment and Plan (1) Conversion disorder: Status: Acute Plan 51/F with Biplar, depression on multiple Psych meds, Fibromyagia admitted through ICU with left sided weakness s/p tpa, unremarkable MRI of brain--diagnosis of coversion desorder made, she still has weakness of left side. PT is recommending STR/acute inpatient rehab. continue chronic meds from home Quality Stroke Does the patient have a stroke diagnosis?: No VTE Prior VTE?: No VTE Risk Level:: Medical - moderate - high VTE Device Contraindication: N/A - Device Ordered VTE Drug Contraindication: Treatment Not Indicated
[2022-05-30] MEDS: prednisoLONE Acetate 1 % Oph Susp 5 ML DRPBTL 1 DROP EYE-BOTH ×3 (12:29→22:56)
[2022-05-30] MEDS: oxyCODONE HCl Immed Release 5 MG TABLET PO (12:51)
--- NOTE | 2022-05-30 13:16 | PC.NURSE ---
held 1300 dose of prednisone eyedrops as previous dose was given at 1229. Was unable to locate drops for administration at 0900.
--- NOTE | 2022-05-30 13:28 | MHC.CM.PN ---
Addendum entered by Toshia Forman RN 05/30/22 15:28: [facility] CAN TAKE PT 10 DAYS OUT FROM DATE PT TESTED COVID +, PER PT SHE DID NOT TEST POSITIVE PRIOR TO ADMISSION. Addendum entered by Toshia Forman RN 05/30/22 13:32: [facility] WILL FOLLOW HOWEVER DO NOT HAVE ANY COVID+ BEDS AT THIS TIME. Original Note: EMR REVIEWED, CM MET W/PT TO DISCUSS DISPO, PT RECOMMENDING ACUTE VS STR, PT RPEORTS HER PREFERRED FACILITY WOULD BE [facility] OR ANY SNF IN [place] SHE WOULD LIKE TO BE CLOSE TO HOME.
[2022-05-30] MEDS: Atorvastatin Calcium 80 MG TABLET PO (22:56)
[2022-05-30] MEDS: clonazePAM 0.5 MG TABLET PO (22:56)
[2022-05-31 03:56] VITALS: BP 111/63; PULSE 56; RESP 18; TEMP 36.2; O2SAT 99
[2022-05-31 06:00] VITALS: BMI 30.6
[2022-05-31 07:26] VITALS: BP 114/62; PULSE 60; RESP 20; TEMP 36.3; O2SAT 99
[2022-05-31] MEDS: busPIRone HCl 5 MG TABLET 15 MG PO ×2 (07:56→14:10)
[2022-05-31] MEDS: oxyCODONE HCl Immed Release 5 MG TABLET PO (07:57)
[2022-05-31] MEDS: Omeprazole 20 MG CAPSULE.DR PO (07:57)
[2022-05-31] MEDS: Ascorbic Acid 500 MG TABLET PO (07:57)
[2022-05-31] MEDS: buPROPion HCl XL 150 MG TAB.ER.24H PO (07:58)
[2022-05-31] MEDS: Multivitamin TABLET 1 TAB PO (07:58)
[2022-05-31] MEDS: Gabapentin 100 MG CAPSULE PO ×2 (07:58→14:11)
[2022-05-31] MEDS: DULoxetine HCl 30 MG CAPSULE.DR PO (07:58)
[2022-05-31] MEDS: dexAMETHasone sod phosphate 4 MG/ML VIAL 6 MG IVPUSH (07:59)
[2022-05-31] MEDS: Lidocaine 4 % Patch ADH..PATCH 1 PATCH TRANSDERMA (08:01)
[2022-05-31 08:05] VITALS: BP 114/62; PULSE 60; O2SAT 99
--- NOTE | 2022-05-31 10:53 | PM.DS ---
DS: Providers Provider Date of Service: 05/31/22 Date of admission: 05/28/22 21:25 Primary care physician: Rod Mathews MD Consults: 05/28/22 21:25 Consult to Neurology Routine Consulting Provider: Kristin Frazier Reason for consultation: stroke Has provider been notified: Yes DS: Diagnosis Discharge Diagnosis (1) Conversion disorder: Status: Inactive DS: Summary Hospital Course Hospital Course: Admission HPI ? ?HPI: ?51-year-old female with underlying history of breast cancer treated with mastectomy and on chemotherapy treated up until last year, fibromyalgia, hypertension, lymphedema, anxiety, insomnia, restless leg syndrome, and GERD, insomnia, psoriasis, low back pain, obesity who presented to the emergency room with the last well-known time of 05:00 o'clock, she was seen at 1948 via EMS with reported complaints of inability to speak full sentences, on exam she was noted to have aphasia, left-sided facial droop along with left upper extremity pronator drift and overall weakness of the upper and lower extremities, 6 overall NIH score of 10. ?Her point of care was 116 her current INR was 1.0. ?Prior to CT scan the patient had 3 episodes of projectile vomiting. ?Family had reported she had complaining of a little bit of a headache, there is no history of migraines. ?Initial head CT revealed no acute intracranial hemorrhage, CT a of the head and neck revealed no large vessel occlusion, case was consulted with neurologist Dr. Frazier who advised the word tPA and she received tPA at the proximally 20:05. Reportedly 3-4 minutes after tPA administration she has started to speak intermittently in short sentences. ? I was then called for an admission post tPA however it was reported the patient had reported to have a ongoing headache worse after tPA administration, patient was taken to CT a cane rule out the possibility of bleeding but the repeat CT was unchanged from the initial. ?Patient's laboratory workup is significant for being positive for COVID; which according to family patient has been positive for about 1 week.? ? During my evaluation in the ICU patient appeared blunt, unable to speak upon being asked simple questions and shaking her bilateral extremities and an extreme way while able to understand what I was saying and following commands, it was clear that the patient was having a significant anxiety/panic attack which improve with my simple reassurance.? She was then able to tell me that she did not take her clonazepam for anxiety and this medication was ordered to be administered for the patient.? At this point she is not able to speak to me anymore and unable to obtain further history. Hospital course: Following tPA patient was admitted to the ICU and closely observed, repeat CT showed no bleed, MRI showed no acute finding. She was seen by Neurology with the following assessment: ?Her examination today was clearly indicated psychogenic illness.? Her brain MRI has not reveal any abnormality, which was unusual even if she had an ischemic lesion.? Overall clinical impression is of conversion disorder.? I recommend reassurance and education and follow-up with a counselor and therapist. PT has been working with her an recommend STR rehab but she prefers going home Overall better today Time Spent with Patient Time attestation: Total time spent providing and/or coordinating discharge services: Discharge coordination time: Greater than 30 minutes Quality: Safe Use of Opioids Does Pt have an Active Cancer Diagnosis on the Problem List?: No Quality: Stroke Does the patient have a stroke diagnosis?: No Physical Exam Vital Signs: Vital Signs: Last Vital Signs Temp 97.3 F 05/31/22 07:26 Pulse 60 05/31/22 08:05 Resp 20 05/31/22 07:26 BP 114/62 05/31/22 08:05 Pulse Ox 99 05/31/22 08:05 O2 Del Method 05/31/22 07:26 O2 Flow Rate 2 05/31/22 07:26 BMI result Body Mass Index 30.6 Const: Other: General: AO X 3, no acute distress Resp: CTA bilateral CVS: S1,S2,RRR GI: +BS, NT, no distention Skin: No rash Neuro: motor grossly intact Psych: appropriate affect Discharge Plan Discharge Anticipated Discharge Date/Time: 05/31/22 10:46 Patient Disposition: Home Health Service Discharge Diagnosis: Conversion desorder Referrals: [facility] [Other] - 1 Week (PT from [facility] will be out to see you on Tuesday 06/05) [facility] [Outside] - 1 Week (For RN services. Please call them if you do not hear from them tomorrow morning. ) Rod Mathews MD [Primary Care Provider] - 1 Week Discharge Medications: New (DME) Ultra-Light Rollator Misc See Rx Instructions .Route Qty: 1 0RF Rx Instructions: As directed Continued omeprazole 20 mg capsule,delayed release(DR/EC) 20 mg PO DAILY Qty: 90 1RF multivitamin with folic acid [Daily-Sujey (with folic acid)] 400 mcg tablet 1 tab PO DAILY Qty: 90 3RF ascorbic acid (vitamin C) [Vitamin C] 500 mg tablet 500 mg PO DAILY Qty: 90 5RF triamcinolone acetonide 0.5 % ointment 1 appl topical BID Qty: 45 0RF duloxetine 30 mg capsule,delayed release(DR/EC) 30 mg PO DAILY 30 Days Qty: 30 2RF amlodipine 5 mg tablet 5 mg PO DAILY Qty: 90 2RF losartan 25 mg tablet 25 mg PO DAILY Qty: 90 1RF lidocaine [Lidoderm] 5 % adhesive patch,medicated 1 patch topical DAILY Qty: 15 0RF Rx Instructions: leave on most painful area for up to 12 hrs tizanidine 2 mg Tablet 2 mg PO BEDTIME PRN (Reason: Muscle Spasm) cholecalciferol (vitamin D3) 25 mcg (1,000 unit) Tablet 25 mcg PO DAILY ibuprofen [Advil] 200 mg Tablet 400 mg PO Q6H PRN (Reason: Pain) diphenhydramine-acetaminophen [Tylenol PM Extra Strength] 25-500 mg Tablet 1 tab PO BEDTIME PRN (Reason: Pain) clonazepam 0.5 mg tablet 0.5 mg PO BEDTIME Rx Instructions: administer 30 minutes before bedtime bupropion HCl 150 mg tablet extended release 24 hr 150 mg PO QAM furosemide 20 mg tablet 20 mg PO QAM PRN (Reason: swelling) buspirone 15 mg tablet 15 mg PO TID gabapentin 100 mg capsule 100 mg PO TID 30 Days Qty: 90 2RF hydrocodone-acetaminophen 5-325 mg tablet 1 tab PO BID-TID PRN (Reason: pain) 7 Days Qty: 10 0RF Rx Instructions: TAKE ONLY NEEDED FOR SEVERE PAIN cyclobenzaprine 10 mg tablet 10 mg PO TID PRN (Reason: muscle spasm) 30 Days Qty: 90 0RF (DME) HUMIDIFIER See Rx Instructions .Route .MEDSUPPLY Qty: 1 0RF Rx Instructions: As directed eszopiclone 2 mg tablet 2 mg PO BEDTIME PRN (Reason: Insomnia) tramadol 50 mg tablet 50 mg PO BID-TID PRN (Reason: pain) Qty: 90 0RF diclofenac sodium 75 mg tablet,delayed release (DR/EC) 75 mg PO BID 30 Days Qty: 60 0RF No Action (DME) arm rest for toilet See Rx Instructions .Route .MEDSUPPLY Qty: 1 0RF Rx Instructions: As directed (DME) CPAP Device See Rx Instructions .ROUTE Rx Instructions: As directed Discharge Orders: Discharge Order (Routine); Ordered 05/31/22 Ordered By: Blue Trinidad Diet: Advance to usual diet Activity on Discharge: As tolerated Stand Alone Forms: Patient Portal Discharge page Care Plan Goals: Full recovery from left sided weakness Health Concerns: left sided weakness Plan of Treatment: Physical therapy Assessment: as above Discharge Date/Time: 05/31/22 17:30
[2022-05-31] MEDS: prednisoLONE Acetate 1 % Oph Susp 5 ML DRPBTL 1 DROP EYE-BOTH ×2 (11:34→14:12)
[2022-05-31 12:00] VITALS: BP 116/60; PULSE 61; RESP 18; TEMP 36.3; O2SAT 99
--- NOTE | 2022-05-31 13:04 | MHC.CM.PN ---
Patient is reporting she wants to return home instead of going to STR. Referral placed to [facility].
[2022-05-31] MEDS: 0.9 % Sodium Chloride Flush 3 ML SYRINGE IVFLUSH ×2 (14:10→14:13)
--- NOTE | 2022-05-31 14:53 | W.MHC.F2F ---
Service Date Service Date: 05/31/22 Encounter Date of encounter: 05/31/22 Reasons for Services Signs and symptoms assessed: left sided weakness Reason for detention: teach disease management Reason for physical therapy: therapeutic exercises and gait/transfer training Reason for occupational therapy: home safety and mobility, therapeutic exercises and gait/transfer training Homebound: Leaving the home is medically contraindicated at this time without the asist of a device and/or another person due th the listed conditions above and below. Reason homebound: leg weakness Certification: Based on the above findings, I certify that this patient is confined to the home and needs intermittent detention care, physical therapy and/or speech therapy, or continues to need occupational therapy. The patient is under my care, and I have initiated the establishment of the plan of care. The patient will be followed by a physician who will periodically review the plan of care.
[2022-05-31 15:04] VITALS: BP 121/66; PULSE 57; RESP 18; TEMP 36.8; O2SAT 97
--- NOTE | 2022-05-31 15:31 | MHC.CM.PN ---
Plan for patient to D/C today home w/ home PT via [facility], and RN services via [facility]. pt to transport home w/ ambulance. Spoke with patient and she is agreeable with plan.
[2022-06-01 22:12] LABS: Anti Nuclear Antibody Screen POSITIVE (NEGATIVE); Anti Nuclear Antibody Titer 1:40 titer
== END 2022-05-31 17:30 | disposition home health service (06) | DRG 880 ==
LOC: HO.ED 20:53 → HO.EDOVER 21:49 → HO.ICU 22:19 → HO.IMC 05-30 01:07
PROVIDERS: Internal Medicine Cardiovascular Disease; Physician Assistant; Admitting Provider Physician Assistant Medical; Emergency Provider Emergency Medicine; PCP Internal Medicine; Visit Provider Internal Medicine
DX: F44.4 Conversion disorder with motor symptom or deficit (principal); U07.1 COVID-19; R29.810 Facial weakness; C50.919 Malignant neoplasm of unspecified site of unspecified female breast; E66.9 Obesity, unspecified; K76.0 Fatty (change of) liver, not elsewhere classified; F31.9 Bipolar disorder, unspecified; F41.0 Panic disorder [episodic paroxysmal anxiety]; Z68.30 Body mass index [BMI] 30.0-30.9, adult; K21.9 Gastro-esophageal reflux disease without esophagitis; G25.81 Restless legs syndrome; Z90.13 Acquired absence of bilateral breasts and nipples; Z98.51 Tubal ligation status; Z15.01 Genetic susceptibility to malignant neoplasm of breast; Z88.8 Allergy status to other drugs, medicaments and biological substances; Z79.899 Other long term (current) drug therapy
CPT/HCPCS: 36415; 70450; 70496; 70498; 70551; 71045; 71250; 80048; 80053; 80061; 82728; 82947; 83735; 85025; 85379; 85610; 85652; 86038; 86039; 87635; 93005; 93306; 96374; 96375; 97116; 97162; 97166; 97530; 99285; J1100; J1170; J2405; J2997; Q9957

== ENCOUNTER 2022-06-20 06:16 | Outpatient (REF) | payer OTHER, SELFPAY | END 2022-06-20 06:17 | disposition home or self-care (01) | LOC: HO.RADIR 06:16 | PROVIDERS: Visit Provider Anesthesiology | DX: Z13.89 Encounter for screening for other disorder (principal) ==

== ENCOUNTER → 2022-07-10 09:36 | Outpatient (BNVA) | payer OTHER, SELFPAY | PROVIDERS: Visit Provider Nurse Practitioner Family | DX: G47.33 Obstructive sleep apnea (adult) (pediatric) (principal); Z99.89 Dependence on other enabling machines and devices | CPT/HCPCS: Q3014 ==

== ENCOUNTER → 2022-10-13 10:16 | Outpatient (BNVA) | payer OTHER, SELFPAY | PROVIDERS: PCP Internal Medicine; Visit Provider Nurse Practitioner Family | DX: G47.33 Obstructive sleep apnea (adult) (pediatric) (principal); Z99.89 Dependence on other enabling machines and devices | CPT/HCPCS: Q3014 ==

== ENCOUNTER → 2023-01-08 13:02 | Outpatient (BNVA) | payer OTHER, SELFPAY | PROVIDERS: PCP Internal Medicine; Visit Provider Anesthesiology | DX: M54.2 Cervicalgia (principal); M77.8 Other enthesopathies, not elsewhere classified; M79.7 Fibromyalgia; M47.812 Spondylosis without myelopathy or radiculopathy, cervical region; I89.0 Lymphedema, not elsewhere classified | CPT/HCPCS: 99212 ==

== ENCOUNTER 2023-06-19 16:48 | Outpatient (AMB) | payer OTHER, SELFPAY ==
[2023-06-19 16:53] VITALS: BP 146/82; PULSE 77; O2SAT 96; BMI 29.9
--- NOTE | 2023-06-19 16:53 | MHC.PC.OV ---
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 Accompanied by: Self / Same As Patient Allergies lisinopril Allergy (Mild, Verified 06/20/23 02:34) Cough zolpidem Adverse Reaction (Severe, Verified 06/20/23 02:34) sleepwalking Medication List - Last Reconciled 06/20/23 by oRd Mathews MD amlodipine 5 mg PO DAILY [arm rest for toilet As directed] ascorbic acid (vitamin C) (Vitamin C) 500 mg PO DAILY bupropion HCl 150 mg PO QAM buspirone 15 mg PO TID calcipotriene 0.005% 1 appl topical BID cholecalciferol (vitamin D3) 50 mcg PO DAILY 90 days clonazepam 0.5 mg PO BEDTIME CPAP As directed cyclobenzaprine 10 mg PO TID PRN 30 days diclofenac sodium 75 mg PO BID 30 days diphenhydramine-acetaminophen 25-500 mg (Tylenol PM Extra Strength) 1 tab PO BEDTIME PRN duloxetine 30 mg PO DAILY 30 days eszopiclone 2 mg PO BEDTIME PRN furosemide 20 mg PO QAM PRN gabapentin 100 mg PO TID 30 days [HUMIDIFIER As directed] hydrocodone-acetaminophen 5-325 mg 1 tab PO BID-TID PRN 7 days ibuprofen 400 mg PO Q8H PRN 30 days lidocaine 5% (Lidoderm) 1 patch topical DAILY losartan 25 mg PO DAILY multivitamin with folic acid 400 mcg (Daily-Sujey (with folic acid)) 1 tab PO DAILY omeprazole 20 mg PO DAILY tramadol 50 mg PO BID-TID PRN triamcinolone acetonide 0.5% 1 appl topical BID walker (Ultra-Light Rollator misc) As directed Tobacco use date assessed: 06/19/23 Dental Screening Dental Screen Date: 06/19/23 Did you have a dental visit in the last 12 months?: No Did you have a dental problem in the last 6 months where you did not have access to dental care?: No Was dental information given to patient?: Patient has dentist HPI Annual Exam HPI Details Patient comes in today for her annual physical examination Reports that she has been experiencing increased pain diffusely again lately States that she was down in [place] for a few weeks earlier this summer Recalls that she often felt swollen overall when she was in [place] as the weather there was so hot and humid Has noticed that her blood pressure has also been elevated lately She denies any headaches or dizziness Denies any chest pains, no SOB No nausea/vomiting, no abdominal pain No change in bowel habits noted Denies any acute urinary symptoms Needs a couple of her Rx refilled Had her screening colonoscopy done back [place] [address] 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 in October 2023 States that she was advised that as she is S/P bilateral masectomy with implants, she no longer has to get her mammogram done yearly [facility] Medical History Abnormal Pap smear of cervix Acute lumbar myofascial strain Anxiety Benign essential hypertension BRCA positive Breast cancer Cervical disc disease Cervical myofascial strain Conversion disorder COVID-19 Fibromyalgia GERD without esophagitis Hypersomnia Insomnia Left shoulder pain Lymphedema Myalgia Neck pain Overweight (BMI 25.0-29.9) Posterior circulation stroke Psoriasis Restless legs syndrome Right low back pain Shoulder pain, bilateral Sleep disorder Snoring Spondylosis of cervical spine with radiculopathy Surgical History H/O bilateral oophorectomy H/O breast biopsy History of breast implant removal History of breast surgery History of cholecystectomy History of tubal ligation Hx of bilateral mastectomy Hx of colonoscopy (~01/07/20) Family History Father Diabetes Mother Low blood pressure Family/Other Breast cancer Diabetes Sister Atrial fibrillation Social History Household Members: Significant Other Housing: House Do you presently have visiting nurse or other home services: No Alcohol intake: current Alcohol intake frequency: holidays/special occasions only Patient Tobacco Use Status: Never used Tobacco e-Cigarette/Vaping Use: Never Used Second Hand Smoke Exposure: No service: No Current occupational status: unemployed and disabled Gender identity: Female Cognitive needs: Yes (cane, walker) Hearing needs: No Vision needs: Yes Female Reproductive History Menstrual Age of Menarche: 10 Questionnaire PHQ-9 Over the last 2 weeks, how often have you been bothered by any of the following problems? 1. Little interest or pleasure in doing things: several days 2. Feeling down, depressed, or hopeless: several days 3. Trouble falling or staying asleep, or sleeping too much: several days 4. Feeling tired or having little energy: several days 5. Poor appetite or overeating: several days 6. Feeling bad about yourself - or that you are a failure or have let yourself or your family down: not at all 7. Trouble concentrating on things, such as reading the newspaper or watching television: not at all 8. Moving or speaking so slowly that other people could have noticed. Or the opposite - being so fidgety or restless that you have been moving around a lot more than usual: not at all 9. Thoughts that you would be better off or of hurting yourself in some way: not at all Total score: 5 Depression Screening Interpretation: Positive Depression Screening Follow-up: Existing condition and In treatment 15472 - PHQ-9 Billing: Yes Source: Developed by Drs. Edouard Madrigal, Ginny Oliveira, Giovanni Escalante and colleagues, with an educational shayne from [employer] ([place]). Thrive Questionnaire Date Thrive assessed: 06/19/23 I am a: Patient What is your living situation today?: I have a steady place to live Within the past 12 months, did the food you bought not last and you didn't have the money to get more?: Never true Within the past 12 months, did you worry whether your food would run out before you got money to buy more?: Never true Do you have trouble paying for medicines?: No Do you have trouble getting transportation to medical appointments?: No Do you have trouble paying your heating and electricity bill?: No Do you have trouble taking care of your child, family member or friend?: No Do you have trouble with day-to-day activities such as bathing, preparing meals, shopping, managing finances, etc.?: No Are you currently unemployed and looking for a job?: No Are you interested in more education?: No Please select the resources that you would like help with: None Currently or been in a relationship where the following occur: no concerns reported AUDIT C Alcohol Use Questionnaire (AUDIT-C) 1. How often do you have a drink containing alcohol?: Monthly or less 2. How many drinks containing alcohol do you have on a typical day when you are drinking?: 1 or 2 3. How often do you have six or more drinks on one occasion?: Never Total Score: 1 Score Reviewed/Action Taken: Yes BRYAN-7 AMB Questionnaire BRYAN-7 Date BRYAN - 7 assessed: 06/19/23 Feeling nervous, anxious, or on edge: 2 = More than half the days Not being able to stop or control worryin = More than half the days Worrying too much about different things: 2 = More than half the days Trouble relaxin = More than half the days Being so restless that it is hard to sit still: 2 = More than half the days Becoming easily annoyed or irritable: 2 = More than half the days Feeling afraid as if something awful might happen: 2 = More than half the days Total BRYAN-7 score (0-4 normal; 5-9 mild; 10-14 moderate; 15-21 severe): 14 Source: Developed by Drs. Edouard Madrigal, Ginny Oliveira, Giovanni Escalante and colleagues, with an educational shayne from [employer] ([place]). Review of Systems Const Reports body aches (diffuse), Denies chills, Reports fatigue, Denies fever(s), Denies headache(s) and Denies malaise Eyes Denies blurry vision, Denies change in vision, Denies irritation and Denies itchy eyes ENT Denies dysphagia, Denies dizziness, Denies otalgia, Denies headache(s), Denies nasal congestion, Denies neck pain, Denies odynophagia, Denies sinus pain and Denies sore throat Card Denies chest pain, Denies rapid heart rate, Denies irregular heart rhythm, Denies palpitations and Denies dyspnea Resp Denies chest congestion, Denies cough, Denies dyspnea and Denies wheezing GI Denies abdominal pain, Denies bloating, Denies constipation, Denies dysphagia, Denies heartburn, Denies diarrhea, Denies nausea, Denies odynophagia and Denies vomiting Denies hematuria, Denies urinary frequency, Denies dysuria, Denies urinary incontinence and Denies urinary urgency Musc Denies back pain, Reports myalgias, Reports arthralgias (involving multiple joints), Denies joint swelling, Denies muscle weakness and Denies neck pain Skin/Breast Denies breast pain, Denies breast mass, Denies change in pigmentation, Denies lesions, Denies rash and Denies unusual bruising Neuro Denies dizziness, Denies headache(s) and Denies paresthesias Psych Denies anxiety and Denies depression Endo Reports fatigue and Denies palpitations Manish/Lymph Denies easy bruising Aller/Immun Denies itchy eyes and Denies wheezing Physical exam (Primary Care) Vital Signs: Last Vital Signs Pulse 77 06/19/23 16:53 BP 146/82 H 06/19/23 16:53 Pulse Ox 96 06/19/23 16:53 Oxygen Delivery Method Room Air 06/19/23 16:53 BMI result Body Mass Index 29.9 Tobacco/Smoking Status: Tobacco use Status Tobacco use date assessed 06/19/23 06/19/23 17:00 Patient Tobacco Use Status Never used Tobacco 06/19/23 17:00 e-Cigarette/Vaping Use Never Used 06/19/23 17:00 PHQ-9: PHQ-9 Score PHQ-9: Total score 5 06/20/23 03:51 Depression Screening Interpretation: Positive Depression Screening Follow-up: Existing condition and In treatment Thrive Assessment: Date of Thrive Assessment Date Thrive assessed 06/19/23 06/19/23 17:00 Currently or been in a relationship where the following occur: no concerns reported Const General: no acute distress, alert and awake Orientation/consciousness: patient oriented x3 HENMT Head: Yes normocephalic and Yes atraumatic Ears: external ears normal, TM's normal bilaterally and EAC's normal General nose exam: No nasal discharge present Face and sinus: Yes normal facial exam and Yes sinuses nontender Teeth and gingiva: dentition normal Throat: Yes posterior oropharynx normal and Yes tonsils normal (no TP congestion) Eyes Eyelids: Yes eyelids normal Conjunctivae: conjunctivae normal Pupils: Equal, round and reactive pupils present EOM: EOMs intact bilaterally Neck Neck: Yes no lymphadenopathy and Yes supple Thyroid: Thyroid normal Resp Auscultation: clear to auscultation bilaterally, no rales and no wheezes Cardio Rate: regular rate Rhythm: regular rhythm Heart sounds: no murmurs GI Palpation (GI): Soft to palpation, nontender and No hepatosplenomegaly present Auscultation: normal bowel sounds General: Yes no CVA tenderness Back/Spine/Pelvis Back: no CVA tenderness Cervical Spine: cervical muscular tenderness (involving the trapezius muscles bilaterally) and Cervical spine tenderness Thoracic/Lumbar Spine: paraspinal muscle tenderness bilaterally (over the cervical and thoracolumbar areas (diffuse)) and lumbar spinal tenderness Skin Lesions: no lesions Rashes: no rashes Neuro General: patient oriented x3, moves all extremities, no focal motor deficits and CN's II-XI intact bilaterally Cranial nerves: Yes Equal, round and reactive pupils present Cognition (Neuro): normal cognition Gait exam (Neuro): Normal gait present Extrem General: Yes no clubbing, cyanosis or edema Right upper extremity: shoulder/upper arm Details: tenderness (diffusely over the scapular area) Left upper extremity: shoulder/upper arm Details: tenderness (diffusely over the scapular areas) Assessment and Plan Assessment & Plan (1) Annual physical exam: Code(s): Z00.00 - Encounter for general adult medical examination without abnormal findings Plan: Check labs She is up-to-date with her breast and cervical cancer screenings; will be due for repeat colonoscopy next year (2023) (2) Cervical disc disease: Code(s): M50.90 - Cervical disc disorder, unspecified, unspecified cervical region Plan: Cervical spine CT done in 10/2021 revealed (+) multilevel degenerative cervical disc changes /spondylosis with mild neural foraminal encroachment at multiple levels but no canal compromise or cord compression and no abnormal intramedullary signal changes are noted Follow up with Pain Management as scheduled Recalls that she was being set up for a trial of nerve block sometime last year but her appointment ended up getting cancelled (3) Sleep disorder: Code(s): G47.9 - Sleep disorder, unspecified Plan: (+) VERNON; is currently using a CPAP/autoPAP device when sleeping at night Follow up with Sleep Medicine as scheduled (4) Benign essential hypertension: Code(s): I10 - Essential (primary) hypertension Plan: Reinforced low sodium diet - goal is systolic BP of 120 mm or less Continue Losartan 25 mg QD and Amlodipine 5 mg QD (5) GERD without esophagitis: Code(s): K21.9 - Gastro-esophageal reflux disease without esophagitis Plan: Dietary restrictions reinforced Continue Omeprazole 20 mg QD (6) Psoriasis: Code(s): L40.9 - Psoriasis, unspecified Plan: Was seen by dermatology (Dr. Ambrosio) previously and was diagnosed with plaque psoriasis Is presently maintained on topical Calcipotriene cream and some steroid cream Was also referred to rheumatology for evaluation of joint involvement and she was scheduled to be seen at [facility] sometime in January 2023 but we have not received any report from rheumatology so far; patient is not sure if she went for her appt then or not (7) Lymphedema: Code(s): I89.0 - Lymphedema, not elsewhere classified Plan: Patient currently has no edema noted on exam of her lower extremities Continue Furosemide 20 mg Q AM PRN Patient is encouraged again to continue to elevate her lower extremities as often as she can throughout the day; patient also wears compression stockings as needed to help manage her edema (8) Myalgia: Code(s): M79.10 - Myalgia, unspecified site Plan: Most likely due to her fibromyalgia Continue Methocarbamol 750 mg TID PRN Encouraged again to try exercising regularly to help manage her symptoms better (9) Arthralgia: Code(s): M25.50 - Pain in unspecified joint Qualifiers: Joint pain location: unspecified Qualified Code(s): M25.50 - Pain in unspecified joint Plan: Will send her for some additional labs PARAS for further evaluation of her arthralgias and myalgia (10) History of breast cancer in female: Code(s): Z85.3 - Personal history of malignant neoplasm of breast Plan: S/P bilateral mastectomy and breast implants; she no longer needs annual mammography subsequentlt She used to see Dr. Boyle for oncology follow up but has not been back to see her since her last visit in October 2020 - is encouraged to call up Dr. Boyle's office to schedule a follow up appt and for continuing surveillance (11) Insomnia: Code(s): G47.00 - Insomnia, unspecified Qualifiers: Insomnia type: unspecified Qualified Code(s): G47.00 - Insomnia, unspecified Plan: Sleep hygiene reinforced Continue Trazodone 150 mg QHS (12) Anxiety: Code(s): F41.9 - Anxiety disorder, unspecified Plan: Continue Bupropion ER 150 mg QD. Buspirone 15 mg TID and Clonazepam 0.5 mg QD PRN Follow-up with Psychiatry as scheduled (13) Overweight (BMI 25.0-29.9): Code(s): E66.3 - Overweight Plan: Reinforced diet/exercise as tolerated /lose weight (14) Osteoporosis screening: Code(s): Z13.820 - Encounter for screening for osteoporosis Plan: Will send patient for BMD for osteoporosis screening Plan Follow up in 4 months Orders: Orders XR DEXA axial skeleton 06/19/23 Z78.0 - Asymptomatic menopausal state Comprehensive [place]. Panel Fast 06/19/23 E78.00 - Pure hypercholesterolemia, unspecified, Z00.00 - Encounter for general adult medical examination without abnormal findings Lipid Panel 06/19/23 E78.00 - Pure hypercholesterolemia, unspecified, Z00.00 - Encounter for general adult medical examination without abnormal findings TSH reflex Free T4 06/19/23 E78.00 - Pure hypercholesterolemia, unspecified, Z00.00 - Encounter for general adult medical examination without abnormal findings Vitamin D 25-OH Total 06/19/23 E55.9 - Vitamin D deficiency, unspecified, Z00.00 - Encounter for general adult medical examination without abnormal findings Complete Blood Count Auto Diff 06/19/23 I10 - Essential (primary) hypertension, Z00.00 - Encounter for general adult medical examination without abnormal findings UA CC w/rflx Micro + Cult 06/19/23 R30.0 - Dysuria, Z00.00 - Encounter for general adult medical examination without abnormal findings B Type Natriuretic Peptide 06/19/23 R60.9 - Edema, unspecified C Reactive Protein 06/19/23 M25.50 - Pain in unspecified joint Rheumatoid Factor 06/19/23 M25.50 - Pain in unspecified joint Erythrocyte Sedimentation Rate 06/19/23 M25.50 - Pain in unspecified joint, M79.7 - Fibromyalgia SHAUNA Reflex Titer and Pattern 06/19/23 M25.50 - Pain in unspecified joint Medications: Changed From ibuprofen (Advil) Take with food as needed for pain 400 mg (2 x 200 mg) PO Q6-8H 30 days PRN 100 tabs 1RF Pain To ibuprofen Take with food as needed for pain 400 mg PO Q8H 30 days PRN 90 tabs 1RF Pain Refilled tramadol 50 mg PO BID-TID PRN 90 tabs 0RF pain Coding Level of Care Code Est Pt Prev Care 40-64y(87699) Diagnoses Annual physical exam Z00.00 Cervical disc disease M50.90 Sleep disorder G47.9 Benign essential hypertension I10 GERD without esophagitis K21.9 Psoriasis L40.9 Lymphedema I89.0 Myalgia M79.10 Arthralgia M25.50 Joint pain location: unspecified History of breast cancer in female Z85.3 Insomnia G47.00 Insomnia type: unspecified Anxiety F41.9 Overweight (BMI 25.0-29.9) E66.3 Osteoporosis screening Z13.820
== END 2023-06-19 17:54 | disposition home or self-care (01) ==
PROVIDERS: Visit Provider Internal Medicine
DX: Z00.00 Encounter for general adult medical examination without abnormal findings (principal); F41.9 Anxiety disorder, unspecified; I10 Essential (primary) hypertension; Z85.3 Personal history of malignant neoplasm of breast; K21.9 Gastro-esophageal reflux disease without esophagitis; M50.90 Cervical disc disorder, unspecified, unspecified cervical region; G47.9 Sleep disorder, unspecified; L40.9 Psoriasis, unspecified; I89.0 Lymphedema, not elsewhere classified; M79.10 Myalgia, unspecified site; M25.50 Pain in unspecified joint; G47.00 Insomnia, unspecified
CPT/HCPCS: 99396

== ENCOUNTER 2023-06-25 10:40 | Outpatient (REF) | payer OTHER, SELFPAY ==
[2023-06-25 10:56] LABS: MANUAL DIFF FLAG NO
[2023-06-25 13:48] LABS: Basophils Absolute Auto 0.1 X10*3/uL (0.0-0.2); Basophils Percent Auto 0.9 % (0-2); Eosinophils Absolute Auto 0.1 X10*3/uL (0.0-0.4); Hematocrit 41.1 % (37.0-47.0); Hemoglobin 13.1 g/dl (12.0-16.0); Imm Gran Abs Auto 0.04 X10*3/uL (0.00-0.03); Imm Gran Pct Auto 0.6 % (0.0-0.4); Lymphocytes Percent Auto 31.7 % (20-40); Mean Corpuscular HGB Conc 31.9 g/dl (31.0-35.0); Mean Corpuscular Hemoglobin 31.2 pg (27.0-33.0); Mean Corpuscular Volume 97.9 fL (80.0-98.0); Monocytes Absolute Auto 0.5 X10*3/uL (0.1-1.2); Neutrophils Absolute Auto 3.6 x10*3/uL (2.0-8.3); Neutrophils Percent Auto 56.8 % (45-73); Platelet Count 243 X10*3/uL (160-400); Red Cell Distribution Width 13.1 % (11.0-16.0); White Blood Count 6.4 X10*3/uL (4.8-10.8)
[2023-06-25 14:13] LABS: B Type Natriuretic Peptide 19 pg/mL (<100)
[2023-06-25 14:26] LABS: Appearance Urine Clear; Color Urine Yellow; Glucose Urine UA Negative (Negative); Leukocyte Esterase Urine Small (1+) (Negative); Nitrite Urine Negative (Negative); PH 5.5 (5.0-9.0); Specific Gravity - Urine 1.015 (1.005-1.025); UMIC TRIGGER UACC YES; Urine Blood Negative (Negative); Urine Ketones Negative (Negative); Urine Protein Negative (Neg-Trace)
[2023-06-25 14:32] LABS: Erythrocyte Sedimentation Rate 18 MM/HR (0-20)
[2023-06-25 14:50] LABS: Bacteria Urine None Seen (None Seen); Hyaline Casts Urine 0-2 /LPF (0-2); RBC Urine 0-2 /HPF (0-2); Squamous Epithelial Cell Urine 0-2 /HPF (0-2); UACC Culture Trigger YES; WBC Urine 0-5 /HPF (0-5)
[2023-06-26 02:06] LABS: Alanine Aminotransferase 19 U/L (0-31); Albumin Level 4.1 g/dL (3.5-5.0); Alkaline Phosphatase 89 U/L (39-117); Anion Gap 13 (12-20); Aspartate Amino Transferase 20 U/L (5-31); Bilirubin Total 0.5 mg/dL (0.0-1.0); Blood Urea Nitrogen 16 mg/dL (9-16); C Reactive Protein 2.36 mg/dL (< or = 0.50); Calcium 9.2 mg/dL (8.4-10.2); Carbon Dioxide 24 mmol/L (22-29); Chloride 105 mmol/L (96-108); Cholesterol 189 mg/dL; Estimated Glomerular Filt Rate > 60; Glucose Fasting 82 mg/dL (60-99); HDL Cholesterol 57 mg/dL; LDL Cholesterol Calculated 87 mg/dl; Potassium 4.1 mmol/L (3.3-5.1); Sodium 138 mmol/L (135-145); TSH reflex Free T4 2.09 uIU/mL (0.32-4.0); Total Protein 7.9 g/dL (6.5-8.0); Triglycerides 229 mg/dL; Vitamin D 25-OH Total 39.6 ng/mL (>30)
[2023-06-26 02:07] LABS: Rheumatoid Factor < 13.0 IU/mL (<15.0)
[2023-06-26 06:25] LABS: CT PCR NOT DETECTED (Not Detect.); NG PCR NOT DETECTED (Not Detect.)
[2023-06-29 13:18] LABS: Anti Nuclear Antibody Screen NEGATIVE (NEGATIVE)
== END 2023-06-25 10:41 | disposition home or self-care (01) ==
LOC: HO.LAB 10:40
PROVIDERS: Advanced Practice Midwife; PCP Internal Medicine; Visit Provider Internal Medicine
DX: Z00.00 Encounter for general adult medical examination without abnormal findings (principal); I10 Essential (primary) hypertension; M25.50 Pain in unspecified joint; E78.00 Pure hypercholesterolemia, unspecified; E55.9 Vitamin D deficiency, unspecified; M79.7 Fibromyalgia; R60.9 Edema, unspecified; N89.8 Other specified noninflammatory disorders of vagina; R30.0 Dysuria
CPT/HCPCS: 0353U; 36415; 80053; 80061; 81001; 82306; 83880; 84443; 85025; 85652; 86038; 86140; 86431; 87086; 99212

== ENCOUNTER 2023-06-25 10:59 | Outpatient (AMB) | payer OTHER, SELFPAY ==
[2023-06-25 11:13] VITALS: BP 112/70; BMI 30.2
--- NOTE | 2023-06-25 11:13 | A.OFFVIS_ITS ---
Intake Vital Signs 06/25/23 11:13 Height 5 ft 6 in Weight 187 lb BMI 30.2 BP 112/70 Intake Visit Reasons: ? 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 (Nikole) Allergies lisinopril Allergy (Mild, Verified 06/25/23 11:14) Cough zolpidem Adverse Reaction (Severe, Verified 06/25/23 11:14) sleepwalking Medication List - Last Reconciled 06/25/23 by Domonique El CNM amlodipine 5 mg PO DAILY [arm rest for toilet As directed] ascorbic acid (vitamin C) (Vitamin C) 500 mg PO DAILY bupropion HCl 150 mg PO QAM buspirone 15 mg PO TID calcipotriene 0.005% 1 appl topical BID cholecalciferol (vitamin D3) 50 mcg PO DAILY 90 days clonazepam 0.5 mg PO BEDTIME CPAP As directed cyclobenzaprine 10 mg PO TID PRN 30 days diclofenac sodium 75 mg PO BID 30 days diphenhydramine-acetaminophen 25-500 mg (Tylenol PM Extra Strength) 1 tab PO BEDTIME PRN duloxetine 30 mg PO DAILY 30 days eszopiclone 2 mg PO BEDTIME PRN furosemide 20 mg PO QAM PRN gabapentin 100 mg PO TID 30 days [HUMIDIFIER As directed] hydrocodone-acetaminophen 5-325 mg 1 tab PO BID-TID PRN 7 days ibuprofen 400 mg PO Q8H PRN 30 days lidocaine 5% (Lidoderm) 1 patch topical DAILY losartan 25 mg PO DAILY multivitamin with folic acid 400 mcg (Daily-Sujey (with folic acid)) 1 tab PO DAILY omeprazole 20 mg PO DAILY tramadol 50 mg PO BID-TID PRN triamcinolone acetonide 0.5% 1 appl topical BID walker (Ultra-Light Rollator misc) As directed HPI ? yeast HPI Details Patient is here for vaginal burning she thinks she has a yeast infection she has been using vaginal probiotics which have been working well for her keeping her vagina in a good state for her. Then she did have intercourse and her partner's condom broke but he route did replace it and did not come inside her but ever since then she has had vaginal itching and burning with a white discharge and she thinks it is yeast. She had tried the metronidazole gel that she had had for BV and that did not help. She does not have diabetes though she is getting holes set of fasting blood work done for her primary today she has a history of ovarian cancer and had her ovaries removed. She sees Dr. Mathews and usually Leelee Galloway for annuals, and has an appointment next month with her. [facility] Medical History Abnormal Pap smear of cervix Acute lumbar myofascial strain Anxiety Benign essential hypertension BRCA positive Breast cancer Cervical disc disease Cervical myofascial strain Conversion disorder COVID-19 Fibromyalgia GERD without esophagitis Hypersomnia Insomnia Left shoulder pain Lymphedema Myalgia Neck pain Overweight (BMI 25.0-29.9) Posterior circulation stroke Psoriasis Restless legs syndrome Right low back pain Shoulder pain, bilateral Sleep disorder Snoring Spondylosis of cervical spine with radiculopathy Surgical History H/O bilateral oophorectomy H/O breast biopsy History of breast implant removal History of breast surgery History of cholecystectomy History of tubal ligation Hx of bilateral mastectomy Hx of colonoscopy (~01/07/20) Family History Father Diabetes Mother Low blood pressure Family/Other Breast cancer Diabetes Sister Atrial fibrillation Social History Household Members: Significant Other Housing: House Do you presently have visiting nurse or other home services: No Alcohol intake: current Alcohol intake frequency: holidays/special occasions only Patient Tobacco Use Status: Never used Tobacco e-Cigarette/Vaping Use: Never Used Second Hand Smoke Exposure: No service: No Current occupational status: unemployed and disabled Gender identity: Female Cognitive needs: Yes (cane, walker) Hearing needs: No Vision needs: Yes Female Reproductive History Menstrual Age of Menarche: 10 Physical Exam Vital Signs: Last Vital Signs BP 112/70 06/25/23 11:13 BMI result Body Mass Index 30.2 Other: Labia minora are reddened consistent with mild yeast infection and there is a white discharge that is consistent with yeast as well. Cervix parous pink smooth is healthy appearing. External Female Exam: normal external appearance and normal appearance of the urethra Speculum Exam - Vagina: normal appearance of the vagina and normal vaginal discharge Speculum Exam - Cervix: normal appearance of the cervix and Cervical os closed Assessment & Plan Assessment & Plan (1) Vaginal irritation: Code(s): N89.8 - Other specified noninflammatory disorders of vagina Plan ---I reviewed her symptoms we reviewed what she may have done alleviate symptoms. I reviewed contributing factors to yeast infection including clothing that may be a little tight or does not permit air to pass to the vulva well, including non cotton underwear, nylon and polyester type workout clothes and yoga pants, use of panty liners pads for periods etc. My recommendations include use of the medication that we decided upon, allowing air to her vulva as much as possible including wearing cotton underwear and possibly no underwear at night when possible. Any other contributing factors were explored. I encouraged her not to scratch. I reviewed what to do when she feels symptoms first starting, (re-double her efforts at allowing air to the area.) She does appears red consistent with yeast. Monistat 7 has worked well for her in the past so I am prescribing it for her with a refill. She may use it for a day or 2 after improvement of her symptoms. If when she puts the cream there she experiences too much burning to tolerate she may instead choose to take the Diflucan tablet and repeat the dose in 3 days if she is still symptomatic. She will keep her appointment for July. Discussed the role of friction and adding anything else to her vaginal environment for upsetting a rhett. Also discussed underwear choice at great length she does go without undies at night and th at is good. Orders: Orders Bacterial Vaginosis Panel Today N89.8 - Other specified noninflammatory disorders of vagina CT NG by PCR Today N89.8 - Other specified noninflammatory disorders of vagina Medications: New miconazole nitrate 2% (Miconazole-7) 1 appful vaginal BEDTIME 45 grams 0RF 7 days fluconazole may repeat second dose 72 hrs after first dose if symptoms persist 150 mg PO Q3D 2 tabs 0RF 2 doses Coding Level of Care Code Est Pt Level 3 (53222) Diagnoses Vaginal irritation N89.8
== END 2023-06-25 12:21 | disposition home or self-care (01) ==
LOC: HO.HWS 10:59
PROVIDERS: PCP Internal Medicine; Visit Provider Advanced Practice Midwife
DX: N89.8 Other specified noninflammatory disorders of vagina (principal)
CPT/HCPCS: 99213

== ENCOUNTER 2023-06-25 12:13 | Outpatient (REF) | payer OTHER, SELFPAY ==
[2023-06-26 15:26] LABS: BV Int Neg Control Negative (Negative); BV Int Pos Control Positive (Positive)
== END 2023-06-25 12:14 | disposition home or self-care (01) ==
LOC: HO.LNP 12:13
PROVIDERS: Visit Provider Advanced Practice Midwife
DX: N89.8 Other specified noninflammatory disorders of vagina (principal)
CPT/HCPCS: 87480; 87510; 87660

== ENCOUNTER 2023-07-10 13:30 | Outpatient (REF) | payer OTHER, SELFPAY ==
--- NOTE | ~2023-07-10 | MM_ITS ---
EXAMINATION: BONE DENSITOMETRY CLINICAL INDICATION: Menopause. COMPARISON: This is the patient's baseline examination. TECHNIQUE: Using a [employer] Select DXA System (software version: 13.1) manufactured by [employer], dual-energy x-ray absorptiometry was performed of the lumbar spine and left hip. The images are of good technical quality. Summary results are attached. FINDINGS: LEFT FEMUR, NECK: BMD 0.904 g/cm2, Z-score -0.4, T-score -1.0, normal. LEFT FEMUR, TOTAL: BMD 0.910 g/cm2, Z-score -0.6, T-score -0.8, normal. AP SPINE L1-L4: BMD 0.973 g/cm2, Z-score -1.5, T-score -1.7, osteopenia. IDENTIFIED RISK FACTORS: Menopause, hysterectomy, history of fracture (adult), bilateral oophorectomy, alcohol (3 or more units per day). HISTORY OF FRACTURE: Spine, other. MEDICATIONS: Multivitamin, vitamin D. MM/XR DEXA axial skeleton IMPRESSION: 1. DIAGNOSIS: Osteopenia based on the lowest T-score value of -1.7 in the lumbar spine applying World Health Organization criteria. 2. 10-YEAR FRACTURE RISK PREDICTION, FRAX: Major osteoporotic fracture (clinical spine, forearm, hip or shoulder) 11.7%. Hip fracture 0.8%. 3. Treatment Recommendations: NOF guidelines recommend consideration for treatment in postmenopausal women and men age 50 and older presenting with the following: -A hip or vertebral (clinical or morphometric) fracture. -T-score less than or equal to -2.5 at the femoral neck or spine after appropriate evaluation to exclude secondary causes. -Low bone mass at the hip or spine and a 10-year fracture probability by FRAX of greater than or equal to 3% for hip fracture or greater than or equal to 20% for major osteoporotic fracture based on the [place] adapted WHO algorithm. 4. Other Recommendations: All treatment decisions require clinical judgment and consideration of individual patient factors, including patient preferences, comorbidities, previous drug use, risk factors not captured in the FRAX model (e.g. frailty, falls, vitamin D deficiency, increased bone turnover, interval significant decline in bone density) and possible under or overestimation of fracture risk by FRAX. Additional medical evaluation for secondary cause of low bone mineral density may be appropriate. FUTURE SCAN RECOMMENDATION: People with diagnosed cases of osteoporosis or at high risk for fracture should have regular bone mineral density tests. For patients eligible for Medicare, routine testing is allowed once every 2 years. The testing frequency can be increased to one year for patients who have rapidly progressing disease, those who are receiving or discontinuing medical therapy to restore bone mass, or have additional risk factors.
== END 2023-07-10 13:31 | disposition home or self-care (01) ==
LOC: HO.MAMMO 13:30
PROVIDERS: PCP Internal Medicine; Visit Provider Internal Medicine
DX: Z13.820 Encounter for screening for osteoporosis (principal); Z78.0 Asymptomatic menopausal state
CPT/HCPCS: 77080

== ENCOUNTER → 2023-07-10 14:00 | Outpatient (BNV) | payer OTHER, SELFPAY | PROVIDERS: PCP Internal Medicine; Visit Provider Radiology Diagnostic Radiology | DX: M85.88 Other specified disorders of bone density and structure, other site (principal) | CPT/HCPCS: 77080 ==

== ENCOUNTER 2023-10-16 12:43 | Outpatient (AMB) | payer OTHER, SELFPAY ==
[2023-10-16 12:59] VITALS: BP 122/76; BMI 28.7
--- NOTE | 2023-10-16 12:59 | MHC.OFFVIS ---
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 She is doing well with no concerns. Attempting to eat a healthy diet with calcium and vitamin D and limited exercise since her stroke and due to her chronic pain. Currently not sexually active. Denies any vaginal dryness or irritation. She reports an occasional odor and current discharge, recently used treatment for BV and yeast from a previous prescription. STI testing offered; she accepts. History of BRCA positive, she no longer needs her mammograms done yearly due to her reconstructive status post breast cancer surgery and implants. She has been discharged from care from her oncologist. Colonoscopy is UTD. [facility] Medical History (Updated 10/16/23 @ 13:16 by Leelee Galloway CNM) Abnormal Pap smear of cervix Conversion disorder COVID-19 Posterior circulation stroke Psoriasis Fibromyalgia Shoulder pain, bilateral Neck pain Acute lumbar myofascial strain Cervical myofascial strain BRCA positive Restless legs syndrome Hypersomnia Snoring Overweight (BMI 25.0-29.9) GERD without esophagitis Cervical disc disease Sleep disorder Spondylosis of cervical spine with radiculopathy Right low back pain Left shoulder pain Breast cancer Anxiety Insomnia Lymphedema Myalgia Benign essential hypertension Surgical History Hx of colonoscopy (~01/07/20) History of breast surgery History of breast implant removal H/O bilateral oophorectomy Hx of bilateral mastectomy History of tubal ligation History of cholecystectomy H/O breast biopsy Family History (Updated 10/16/23 @ 13:01 by NIKOLAI Harman) Father Diabetes Mother Low blood pressure Family/Other Breast cancer Diabetes Sister Atrial fibrillation Social History Household Members: Significant Other Housing: House Do you presently have visiting nurse or other home services: No Alcohol intake: current Alcohol intake frequency: holidays/special occasions only Patient Tobacco Use Status: Never used Tobacco e-Cigarette/Vaping Use: Never Used Second Hand Smoke Exposure: No service: No Current occupational status: unemployed and disabled Gender identity: Female Cognitive needs: Yes (cane, walker) Hearing needs: No Vision needs: Yes Female Reproductive History Menstrual Age of Menarche: 10 control method: permanent sterilization Permanent Sterilization: BTL Total pregnancies: 3 Full term: 2 Number of Living Children: 2 Ab induced: 1 Date of last pap smear: 07/25/21 (neg pap and hpv) History of abnormal pap smear: Yes (10/29 +hpv 03/30 colpo alonzo 1) History of abnormal mammogram: Yes Review of Systems Const All systems reviewed & are unremarkable except as noted in HPI and below Reports as per HPI Eyes Reports no additional complaints ENT Reports no additional complaints Card Reports no additional complaints Resp Reports no additional complaints GI Reports as per HPI and Reports no additional complaints Reports as per HPI Musc Reports no additional complaints Skin/Breast Reports as per HPI Neuro Reports no additional complaints Psych Reports no additional complaints Endo Reports no additional complaints Manish/Lymph Reports no additional complaints Aller/Immun Reports no additional complaints Physical Exam Vital Signs: Last Vital Signs BP 122/76 10/16/23 12:59 BMI result Body Mass Index 28.7 Const General: cooperative, healthy appearing, no acute distress, well developed and alert Orientation/consciousness: patient oriented x3 HEENT Head: Yes normal to inspection Eyes General: appearance normal, both eyes and all related structures Neck Neck: Yes normal visual inspection Thyroid: Thyroid normal Chest Other: Bilateral reconstructive surgery and implants and tattooed nipple area. Chest palpation & inspection: normal inspection of the chest and other (no puckering, dimpling, peau de orange, retraction, discharge, masses) Breast/axilla inspection: normal inspection of the breasts Breast/axilla palpation: normal palpation of the breasts Resp Effort & Inspection: normal respiratory effort GI Inspection: Yes normal to inspection Palpation (GI): Soft to palpation Rectal Exam - Female: deferred General: Yes bladder normal to palpation External Female Exam: normal external appearance and normal appearance of the urethra Speculum Exam - Vagina: normal appearance of the vagina, normal palpation and normal vaginal discharge Speculum Exam - Cervix: normal appearance of the cervix and normal palpation Bimanual exam- vagina & uterus: normal bimanual exam, normal palpation, uterine size normal, bladder normal to palpation, normal palpation and non-tender Bimanual Exam- Adnexa, other: no masses Skin General skin exam: no rashes or lesions noted Rashes: no rashes Neuro General: patient oriented x3 Cognition (Neuro): normal cognition Extrem General: Yes normal to inspection Psych Attitude: cooperative Thought process: Normal thought process present Assessment & Plan Assessment & Plan (1) Encounter for well woman exam with routine gynecological exam: Code(s): Z01.419 - Encounter for gynecological examination (general) (routine) without abnormal findings (2) Vaginal discharge: Code(s): N89.8 - Other specified noninflammatory disorders of vagina Plan Discussed: Current recommendations for pap smears per ASCCP guidelines. Breast awareness, periodic self breast exam. Maintain a healthy lifestyle, well balanced diet including Calcium 1,200 mg and Vitamin D 600 IU daily, and routine exercise. Use of condoms for STI if indicated. Contact the office with any postmenopausal bleeding. Discussed vaginal health use of probiotics, boric acid suppository option, await BV panel for plan and care. All of her questions and concerns were addressed to the best of my ability. RTO in 1 year for annual pacs administrator exam. Orders: Orders Hepatitis C Antibody Today Z20.2 - Contact with and (suspected) exposure to infections with a predominantly sexual mode of transmission HIV Ab/Ag Today Z20.2 - Contact with and (suspected) exposure to infections with a predominantly sexual mode of transmission Bacterial Vaginosis Panel Today N89.8 - Other specified noninflammatory disorders of vagina Pap Smear Today Z.419 - Encounter for gynecological examination (general) (routine) without abnormal findings Hepatitis B Core Antibody Today Z20.2 - Contact with and (suspected) exposure to infections with a predominantly sexual mode of transmission Syphilis Screen Today Z20.2 - Contact with and (suspected) exposure to infections with a predominantly sexual mode of transmission CT NG by PCR Today N89.8 - Other specified noninflammatory disorders of vagina, Z20.2 - Contact with and (suspected) exposure to infections with a predominantly sexual mode of transmission Coding Level of Care Code Est Pt Prev Care 40-64y([id number]) Diagnoses Encounter for well woman exam with routine gynecological exam Z. Vaginal discharge N89.8
== END 2023-10-16 13:58 | disposition home or self-care (01) ==
LOC: HO.HWS 12:43
PROVIDERS: PCP Internal Medicine; Visit Provider Advanced Practice Midwife
DX: Z01.419 Encounter for gynecological examination (general) (routine) without abnormal findings (principal); N89.8 Other specified noninflammatory disorders of vagina
CPT/HCPCS: 99396

== ENCOUNTER 2023-10-16 12:43 | Outpatient (REF) | payer OTHER, SELFPAY ==
[2023-10-17 10:54] LABS: CT PCR NOT DETECTED (Not Detect.); NG PCR NOT DETECTED (Not Detect.)
[2023-10-17 14:22] LABS: BV Int Neg Control Negative (Negative); BV Int Pos Control Positive (Positive)
== END 2023-10-16 12:44 | disposition home or self-care (01) ==
LOC: HO.LAB 12:43
PROVIDERS: PCP Internal Medicine; Visit Provider Advanced Practice Midwife
DX: Z01.419 Encounter for gynecological examination (general) (routine) without abnormal findings (principal); N89.8 Other specified noninflammatory disorders of vagina; Z20.2 Contact with and (suspected) exposure to infections with a predominantly sexual mode of transmission
CPT/HCPCS: 0353U; 87480; 87510; 87660

== ENCOUNTER 2023-10-16 13:28 | Outpatient (REF) | payer OTHER, SELFPAY ==
[2023-10-22 22:44] LABS: HPV 16 RNA NOT DETECTED (NOT DETECTED); HPV mRNA E6/E7 rflx Detected (Not Detected)
== END 2023-10-16 13:29 | disposition home or self-care (01) ==
LOC: HO.LNP 13:28
PROVIDERS: Visit Provider Advanced Practice Midwife
DX: Z01.419 Encounter for gynecological examination (general) (routine) without abnormal findings (principal); Z11.51 Encounter for screening for human papillomavirus (HPV)
CPT/HCPCS: 87624; 87625; 88142

== ENCOUNTER 2023-12-21 13:46 | Outpatient (AMB) | payer OTHER, SELFPAY ==
[2023-12-21 13:50] VITALS: BP 152/96; PULSE 77; O2SAT 97; BMI 28.8
--- NOTE | 2023-12-21 13:50 | A.OFFPC_ITS ---
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 Accompanied by: Self / Same As Patient Allergies lisinopril Allergy (Mild, Verified 12/21/23 14:40) Cough zolpidem Adverse Reaction (Severe, Verified 12/21/23 14:40) sleepwalking Medication List - Last Reconciled 12/21/23 by Rod Mathews MD amlodipine 5 mg PO DAILY [arm rest for toilet As directed] ascorbic acid (vitamin C) (Vitamin C) 500 mg PO DAILY bupropion HCl 150 mg PO QAM buspirone 15 mg PO TID calcipotriene 0.005% 1 appl topical BID cholecalciferol (vitamin D3) 50 mcg PO DAILY 90 days clonazepam 0.5 mg PO BEDTIME CPAP As directed cyclobenzaprine 10 mg PO TID PRN 30 days diclofenac sodium 75 mg PO BID 30 days diphenhydramine-acetaminophen 25-500 mg (Tylenol PM Extra Strength) 1 tab PO BEDTIME PRN duloxetine 30 mg PO DAILY 30 days eszopiclone 2 mg PO BEDTIME PRN fluconazole 150 mg PO Q3D 2 doses furosemide 20 mg PO QAM PRN gabapentin 100 mg PO TID 30 days [HUMIDIFIER As directed] hydrocodone-acetaminophen 5-325 mg 1 tab PO BID-TID PRN 7 days ibuprofen 400 mg PO Q8H PRN 30 days lidocaine 5% (Lidoderm) 1 patch topical DAILY losartan 25 mg PO DAILY miconazole nitrate 2% (Miconazole-7) 1 appful vaginal BEDTIME 7 days multivitamin with folic acid 400 mcg (Daily-Sujey (with folic acid)) 1 tab PO DAILY omeprazole 20 mg PO DAILY tramadol 50 mg PO BID-TID PRN triamcinolone acetonide 0.5% 1 appl topical BID walker (Ultra-Light Rollator misc) As directed Tobacco use date assessed: 12/21/23 Dental Screening Dental Screen Date: 12/21/23 Did you have a dental visit in the last 12 months?: No Did you have a dental problem in the last 6 months where you did not have access to dental care?: No Was dental information given to patient?: Patient has dentist HPI 4 month f/u (fibromyalgia,HTN, GERD) 2 HPI Details Patient comes in today for her follow up visit She continues to experience increased pain diffusely Is also still experiencing on and off pain over her distal left lower leg recently - is attributing that to the cellulitis of the same area that she had a few months ago Relates (+) fatigue but she denies any headaches or dizziness Denies any chest pains, no SOB No nausea/vomiting, no abdominal pain No change in bowel habits noted Would like to know how she did on her labs done back in June 2023 [facility] Medical History Abnormal Pap smear of cervix Conversion disorder COVID-19 Posterior circulation stroke Psoriasis Fibromyalgia Shoulder pain, bilateral Neck pain Acute lumbar myofascial strain Cervical myofascial strain BRCA positive Restless legs syndrome Hypersomnia Snoring Overweight (BMI 25.0-29.9) GERD without esophagitis Cervical disc disease Sleep disorder Spondylosis of cervical spine with radiculopathy Right low back pain Left shoulder pain Breast cancer Anxiety Insomnia Lymphedema Myalgia Benign essential hypertension Surgical History Hx of colonoscopy (~01/07/20) History of breast surgery History of breast implant removal H/O bilateral oophorectomy Hx of bilateral mastectomy History of tubal ligation History of cholecystectomy H/O breast biopsy Family History Father Diabetes Mother Low blood pressure Family/Other Breast cancer Diabetes Sister Atrial fibrillation Social History Household Members: Significant Other Housing: House Do you presently have visiting nurse or other home services: No Alcohol intake: current Alcohol intake frequency: holidays/special occasions only Patient Tobacco Use Status: Never used Tobacco e-Cigarette/Vaping Use: Never Used Second Hand Smoke Exposure: No service: No Current occupational status: unemployed and disabled Gender identity: Female Cognitive needs: Yes (cane, walker) Hearing needs: No Vision needs: Yes Female Reproductive History Menstrual Age of Menarche: 10 Questionnaire PHQ-9 Over the last 2 weeks, how often have you been bothered by any of the following problems? 1. Little interest or pleasure in doing things: several days 2. Feeling down, depressed, or hopeless: several days 3. Trouble falling or staying asleep, or sleeping too much: several days 4. Feeling tired or having little energy: several days 5. Poor appetite or overeating: several days 6. Feeling bad about yourself - or that you are a failure or have let yourself or your family down: not at all 7. Trouble concentrating on things, such as reading the newspaper or watching television: not at all 8. Moving or speaking so slowly that other people could have noticed. Or the opposite - being so fidgety or restless that you have been moving around a lot more than usual: not at all 9. Thoughts that you would be better off or of hurting yourself in some way: not at all Total score: 5 Depression Screening Interpretation: Positive Depression Screening Follow-up: Existing condition and In treatment Depression Screening Done: Yes 07339 - PHQ-9 Billing: Yes Source: Developed by Drs. Edouard Madrigal, Ginny Oliveira, Giovanni Escalante and colleagues, with an educational shayne from [employer]. Thrive Questionnaire Date Thrive assessed: 12/21/23 I am a: Patient What is your living situation today?: I have a steady place to live Within the past 12 months, did the food you bought not last and you didn't have the money to get more?: Never true Within the past 12 months, did you worry whether your food would run out before you got money to buy more?: Never true Do you have trouble paying for medicines?: No Do you have trouble getting transportation to medical appointments?: No Do you have trouble paying your heating and electricity bill?: No Do you have trouble taking care of your child, family member or friend?: No Do you have trouble with day-to-day activities such as bathing, preparing meals, shopping, managing finances, etc.?: No Are you currently unemployed and looking for a job?: No Are you interested in more education?: No Please select the resources that you would like help with: None Currently or been in a relationship where the following occur: no concerns reported THRIVE Score: 0 AUDIT C Alcohol Use Questionnaire (AUDIT-C) 1. How often do you have a drink containing alcohol?: Monthly or less 2. How many drinks containing alcohol do you have on a typical day when you are drinking?: 1 or 2 3. How often do you have six or more drinks on one occasion?: Never Total Score: 1 Score Reviewed/Action Taken: Yes BRYAN-7 AMB Questionnaire BRYAN-7 Date BRYAN - 7 assessed: 12/21/23 Feeling nervous, anxious, or on edge: 2 = More than half the days Not being able to stop or control worryin = More than half the days Worrying too much about different things: 2 = More than half the days Trouble relaxin = More than half the days Being so restless that it is hard to sit still: 2 = More than half the days Becoming easily annoyed or irritable: 2 = More than half the days Feeling afraid as if something awful might happen: 2 = More than half the days Total BRYAN-7 score (0-4 normal; 5-9 mild; 10-14 moderate; 15-21 severe): 14 Source: Developed by Drs. Edouard Madrigal, Ginny Oliveira, Giovanni Escalante and colleagues, with an educational shayne from [employer]. Review of Systems Const Reports body aches (diffuse), Denies chills, Reports fatigue, Denies fever(s) and Denies headache(s) ENT Denies dysphagia, Denies dizziness, Denies otalgia, Denies headache(s), Denies neck pain, Denies odynophagia and Denies sore throat Card Denies chest pain, Denies rapid heart rate, Denies irregular heart rhythm, Denies palpitations and Denies dyspnea Resp Denies chest congestion, Denies cough, Denies dyspnea and Denies wheezing GI Denies abdominal pain, Denies constipation, Denies dysphagia, Denies heartburn, Denies diarrhea, Denies nausea, Denies odynophagia and Denies vomiting Denies hematuria, Denies urinary frequency, Denies dysuria and Denies urinary urgency Musc Denies back pain, Reports myalgias, Reports arthralgias (involving multiple joints), Denies joint swelling and Denies neck pain Skin/Breast Denies rash Neuro Denies dizziness, Denies headache(s) and Denies paresthesias Psych Denies anxiety and Denies depression Endo Reports fatigue and Denies palpitations Manish/Lymph Denies easy bruising Aller/Immun Denies wheezing Physical exam (Primary Care) Vital Signs: Last Vital Signs Pulse 77 12/21/23 13:50 BP 152/96 H 12/21/23 13:50 Pulse Ox 97 12/21/23 13:50 Oxygen Delivery Method Room Air 12/21/23 13:50 BMI result Body Mass Index 28.8 Tobacco/Smoking Status: Tobacco use Status Tobacco use date assessed 12/21/23 12/21/23 13:52 Patient Tobacco Use Status Never used Tobacco 12/21/23 13:52 e-Cigarette/Vaping Use Never Used 12/21/23 13:52 PHQ-9: PHQ-9 Score PHQ-9: Total score 5 12/21/23 14:44 Depression Screening Interpretation: Positive Depression Screening Follow-up: Existing condition and In treatment Thrive Assessment: Date of Thrive Assessment Date Thrive assessed 12/21/23 12/21/23 13:52 Currently or been in a relationship where the following occur: no concerns r eported Const General: no acute distress and alert HENMT Ears: TM's normal bilaterally and EAC's normal Throat: Yes posterior oropharynx normal and Yes tonsils normal (no TP congestion) Neck Neck: Yes no lymphadenopathy and Yes supple Thyroid: Thyroid normal Resp Auscultation: clear to auscultation bilaterally, no rales and no wheezes Cardio Rate: regular rate Rhythm: regular rhythm Heart sounds: no murmurs GI Palpation (GI): Soft to palpation and nontender Auscultation: normal bowel sounds General: Yes no CVA tenderness Back/Spine/Pelvis Back: no CVA tenderness Cervical Spine: cervical muscular tenderness (involving the trapezius muscles bilaterally) and Cervical spine tenderness Thoracic/Lumbar Spine: paraspinal muscle tenderness bilaterally (over the cervical and thoracolumbar areas (diffuse)) and lumbar spinal tenderness Skin Rashes: no rashes Extrem General: Yes no clubbing, cyanosis or edema Right upper extremity: shoulder/upper arm Details: tenderness (diffusely over the scapular area) Left upper extremity: shoulder/upper arm Details: tenderness (diffusely over the scapular areas) Results Reviewed Results Reviewed: Laboratory Tests 06/25/23 06/25/23 06/25/23 10:54 10:54 10:54 WBC 6.4 Hgb 13.1 Hct 41.1 Plt Count 243 ESR 18 Sodium 138 Potassium 4.1 Creatinine 0.85 Estimated GFR > 60 Fasting Glucose 82 Calcium 9.2 AST 20 ALT 19 C-Reactive Protein 2.36 H Triglycerides 229 Cholesterol 189 LDL Cholesterol, Calc 87 HDL Cholesterol 57 25-OH Vitamin D Total 39.6 TSH 2.09 Ur Specific Sanders Urine Protein Urine Glucose (UA) Urine Blood Urine Nitrite Ur Leukocyte Esterase Rheumatoid Factor < 13.0 SHAUNA Screen NEGATIVE 06/25/23 06/25/23 12:28 12:28 WBC Hgb Hct Plt Count ESR Sodium Potassium Creatinine Estimated GFR Fasting Glucose Calcium AST ALT C-Reactive Protein Triglycerides Cholesterol LDL Cholesterol, Calc HDL Cholesterol 25-OH Vitamin D Total TSH Ur Specific Sanders 1.015 Urine Protein Negative Urine Glucose (UA) Negative Urine Blood Negative Urine Nitrite Negative Ur Leukocyte Esterase Small (1+) H Rheumatoid Factor SHAUNA Screen Assessment and Plan Assessment & Plan (1) Cervical disc disease: Code(s): M50.90 - Cervical disc disorder, unspecified, unspecified cervical region Plan: Cervical spine CT done in 10/2021 revealed (+) multilevel degenerative cervical disc changes /spondylosis with mild neural foraminal encroachment at multiple levels but no canal compromise or cord compression and no abnormal intramedullary signal changes are noted Recalls that she was being set up for a trial of nerve block sometime last year but her appointment ended up getting cancelled Follow up with Pain Management as scheduled (2) Sleep disorder: Code(s): G47.9 - Sleep disorder, unspecified Plan: (+) VERNON; is currently using a CPAP/autoPAP device when sleeping at night Follow up with Sleep Medicine as scheduled (3) Benign essential hypertension: Code(s): I10 - Essential (primary) hypertension Plan: Reinforced low sodium diet - goal is systolic BP of 120 mm or less Continue Losartan 25 mg QD and Amlodipine 5 mg QD Results of her labs done back in June 2023 reviewed and discussed with patient (4) GERD without esophagitis: Code(s): K21.9 - Gastro-esophageal reflux disease without esophagitis Plan: Dietary restrictions reinforced Continue Omeprazole 20 mg QD (5) Psoriasis: Code(s): L40.9 - Psoriasis, unspecified Plan: Was seen by dermatology (Dr. Ambrosio) previously and was diagnosed with plaque psoriasis Is presently maintained on topical Calcipotriene cream and some steroid cream Was also referred to rheumatology for evaluation of joint involvement and she was scheduled to be seen at [facility] sometime in January 2023 but we have not received any report from rheumatology so far (6) Lymphedema: Code(s): I89.0 - Lymphedema, not elsewhere classified Plan: Patient currently has no edema noted on exam of her lower extremities Continue Furosemide 20 mg Q AM PRN Patient is encouraged again to continue to elevate her lower extremities as often as she can throughout the day; patient also wears compression stockings as needed to help manage her edema (7) Myalgia: Code(s): M79.10 - Myalgia, unspecified site Plan: This is most likely due to her fibromyalgia Continue Methocarbamol 750 mg TID PRN Encouraged again to try exercising regularly to help manage her symptoms better (8) History of breast cancer in female: Code(s): Z85.3 - Personal history of malignant neoplasm of breast Plan: S/P bilateral mastectomy and breast implants; she no longer needs annual mammography subsequently She used to see Dr. Boyle for oncology follow up but has not been back to see her since her last visit in October 2020 - she is again encouraged to and reminded to call up Dr. Boyle's office to schedule a follow up appt and for continuing surveillance (9) Insomnia: Code(s): G47.00 - Insomnia, unspecified Qualifiers: Insomnia type: unspecified Qualified Code(s): G47.00 - Insomnia, unspecified Plan: Sleep hygiene reinforced Continue Trazodone 150 mg QHS (10) Anxiety: Code(s): F41.9 - Anxiety disorder, unspecified Plan: Continue Bupropion ER 150 mg QD. Buspirone 15 mg TID and Clonazepam 0.5 mg QD PRN Follow-up with Psychiatry as scheduled (11) Overweight (BMI 25.0-29.9): Code(s): E66.3 - Overweight Plan: Reinforced diet/exercise as tolerated /lose weight Plan Follow up in 4 months Orders: Orders Lipid Panel 4 Months E78.00 - Pure hypercholesterolemia, unspecified Complete Blood Count Auto Diff 4 Months D64.9 - Anemia, unspecified Comprehensive [place]. Panel Fast 4 Months E78.00 - Pure hypercholesterolemia, unspecified Coding Level of Care Code Est Pt Level 4 (03040) Diagnoses Cervical disc disease M50.90 Sleep disorder G47.9 Benign essential hypertension I10 GERD without esophagitis K21.9 Psoriasis L40.9 Lymphedema I89.0 Myalgia M79.10 History of breast cancer in female Z85.3 Insomnia, unspecified type G47.00 Insomnia type: unspecified Anxiety F41.9 Overweight (BMI 25.0-29.9) E66.3
== END 2023-12-21 14:52 | disposition home or self-care (01) ==
PROVIDERS: PCP Internal Medicine; Visit Provider Internal Medicine
DX: M50.90 Cervical disc disorder, unspecified, unspecified cervical region (principal); G47.9 Sleep disorder, unspecified; I10 Essential (primary) hypertension; K21.9 Gastro-esophageal reflux disease without esophagitis; L40.9 Psoriasis, unspecified; I89.0 Lymphedema, not elsewhere classified; M79.10 Myalgia, unspecified site; Z85.3 Personal history of malignant neoplasm of breast; G47.00 Insomnia, unspecified; F41.9 Anxiety disorder, unspecified; E66.3 Overweight
CPT/HCPCS: 99214

== ENCOUNTER 2024-01-09 12:30 | Outpatient (REF) | payer OTHER, SELFPAY ==
[2024-01-10 15:43] LABS: BV Int Neg Control Negative (Negative); BV Int Pos Control Positive (Positive)
== END 2024-01-09 12:31 | disposition home or self-care (01) ==
LOC: HO.LAB 12:30
PROVIDERS: PCP Internal Medicine; Visit Provider Advanced Practice Midwife
DX: Z20.2 Contact with and (suspected) exposure to infections with a predominantly sexual mode of transmission (principal)
CPT/HCPCS: 87480; 87510; 87660; 99212

== ENCOUNTER 2024-01-09 12:30 | Outpatient (AMB) | payer OTHER, SELFPAY ==
--- NOTE | 2024-01-09 12:48 | MHC.OFFVIS ---
Intake Vital Signs 01/09/24 12:52 Height 5 ft 6 in Intake Visit Reasons: STD testing Cylinder Loader: Cylinder Loader Present (Nikole) Allergies lisinopril Allergy (Mild, Verified 01/09/24 12:50) Cough zolpidem Adverse Reaction (Severe, Verified 01/09/24 12:50) sleepwalking HPI HPI Comments History of Present Illness Details And is here today for STD testing. She reports 2 weeks ago she was having intimacy when the condom broke. She is not feeling any symptoms, no pelvic pain, no urinary symptoms. [facility] Medical History Abnormal Pap smear of cervix Conversion disorder COVID-19 Posterior circulation stroke Psoriasis Fibromyalgia Shoulder pain, bilateral Neck pain Acute lumbar myofascial strain Cervical myofascial strain BRCA positive Restless legs syndrome Hypersomnia Snoring Overweight (BMI 25.0-29.9) GERD without esophagitis Cervical disc disease Sleep disorder Spondylosis of cervical spine with radiculopathy Right low back pain Left shoulder pain Breast cancer Anxiety Insomnia Lymphedema Myalgia Benign essential hypertension Surgical History Hx of colonoscopy (~01/07/20) History of breast surgery History of breast implant removal H/O bilateral oophorectomy Hx of bilateral mastectomy History of tubal ligation History of cholecystectomy H/O breast biopsy Family History Father Diabetes Mother Low blood pressure Family/Other Breast cancer Diabetes Sister Atrial fibrillation Social History Household Members: Significant Other Housing: House Do you presently have visiting nurse or other home services: No Alcohol intake: current Alcohol intake frequency: holidays/special occasions only Patient Tobacco Use Status: Never used Tobacco e-Cigarette/Vaping Use: Never Used Second Hand Smoke Exposure: No service: No Current occupational status: unemployed and disabled Gender identity: Female Cognitive needs: Yes (cane, walker) Hearing needs: No Vision needs: Yes Female Reproductive History Menstrual Age of Menarche: 10 Review of Systems Const All systems reviewed & are unremarkable except as noted in HPI and below Physical Exam Const General: cooperative, healthy appearing and no acute distress Orientation/consciousness: patient oriented x3 GI Inspection: Yes normal to inspection Palpation (GI): Soft to palpation and Other GI palpation findings present (Nontender) Rectal Exam - Female: visual inspection normal General: Yes bladder normal to palpation External Female Exam: normal appearance of the urethra Speculum Exam - Vagina: normal appearance of the vagina, normal palpation and normal vaginal discharge Speculum Exam - Cervix: normal appearance of the cervix and normal palpation Bimanual exam- vagina & uterus: normal bimanual exam, normal palpation, uterine size normal, bladder normal to palpation, normal palpation, uterine shape normal and non-tender Bimanual Exam- Adnexa, other: normal adnexae Neuro General: patient oriented x3 Assessment & Plan Assessment & Plan (1) Possible exposure to STD: Code(s): Z20.2 - Contact with and (suspected) exposure to infections with a predominantly sexual mode of transmission Plan GC chlamydia and BV panel obtained, await results for plan of care. She reports using Metrogel after intimacy usually and may need a refill in the future. Continue use of condoms. Plan STD blood work today. All of her questions and concerns were addressed to the best of my ability and shared decision making. She is agreeable to the plan of care. This note is constructed using voice recognition software. While every effort has been made to ensure accuracy, director of student life errors may have been included. Orders: Orders Hepatitis C Antibody Reflex Today Z20.2 - Contact with and (suspected) exposure to infections with a predominantly sexual mode of transmission Hepatitis B Core Antibody Today Z20.2 - Contact with and (suspected) exposure to infections with a predominantly sexual mode of transmission Syphilis Screen Today Z20.2 - Contact with and (suspected) exposure to infections with a predominantly sexual mode of transmission Bacterial Vaginosis Panel Today Z20.2 - Contact with and (suspected) exposure to infections with a predominantly sexual mode of transmission HIV Ab/Ag Today Z20.2 - Contact with and (suspected) exposure to infections with a predominantly sexual mode of transmission CT NG by PCR Today Z20.2 - Contact with and (suspected) exposure to infections with a predominantly sexual mode of transmission Coding Level of Care Code Est Pt Level 3 (39491) Diagnoses Possible exposure to STD Z20.2
== END 2024-01-09 13:29 | disposition home or self-care (01) ==
PROVIDERS: PCP Internal Medicine; Visit Provider Advanced Practice Midwife
DX: Z20.2 Contact with and (suspected) exposure to infections with a predominantly sexual mode of transmission (principal)
CPT/HCPCS: 99213

== ENCOUNTER 2024-01-09 13:05 | Outpatient (REF) | payer OTHER, SELFPAY | END 2024-01-09 13:06 | disposition home or self-care (01) | LOC: HO.LNP 13:05 | PROVIDERS: Visit Provider Advanced Practice Midwife | DX: Z13.89 Encounter for screening for other disorder (principal) ==

== ENCOUNTER 2024-01-09 13:15 | Outpatient (REF) | payer OTHER, SELFPAY ==
[2024-01-09 17:51] LABS: CT PCR NOT DETECTED (Not Detect.); NG PCR NOT DETECTED (Not Detect.)
[2024-01-10 04:10] LABS: Syphilis Screen Nonreactive (Nonreactive)
[2024-01-10 04:29] LABS: HBc Num1 0.08 S/CO (0.00-0.79); HIV AB/AG Nonreactive (Nonreactive); Hepatitis B Core Antibody Nonreactive (Nonreactive); ~HepC Num1 0.14 S/CO (0.00-0.79); ~Hepatitis C Antibody Nonreactive (Nonreactive)
== END 2024-01-09 13:16 | disposition home or self-care (01) ==
LOC: HO.LAB 13:15
PROVIDERS: PCP Internal Medicine; Visit Provider Advanced Practice Midwife
DX: Z11.4 Encounter for screening for human immunodeficiency virus [HIV] (principal); Z20.2 Contact with and (suspected) exposure to infections with a predominantly sexual mode of transmission
CPT/HCPCS: 0353U; 86704; 86780; 86803; 87389

== ENCOUNTER 2024-04-22 13:13 | Outpatient (AMB) | payer OTHER, SELFPAY ==
--- NOTE | 2024-04-22 13:15 | A.OFFPC_ITS ---
Vital Signs 04/22/24 13:16 04/22/24 14:03 Height 5 ft 6 in Weight 179 lb 0.8 oz BMI 28.9 BP 144/68 H 120/74 Blood Pressure Location Lt femoral Lt brachial Position Sitting Sitting Pulse 69 Pulse Source Pulse Oximeter Pulse Oximetry (%) 96 Oxygen Delivery Method Room Air Intake Visit Reasons: fibromyalgia, HTN, VERNON, mixed hyperlipidemia Javascript Front End Developer Required: No Allergies lisinopril Allergy (Mild, Verified 04/22/24 13:53) Cough zolpidem Adverse Reaction (Severe, Verified 04/22/24 13:53) sleepwalking Medication List - Last Reconciled 04/22/24 by Rod Mathews MD amlodipine 5 mg PO DAILY [arm rest for toilet As directed] ascorbic acid (vitamin C) (Vitamin C) 500 mg PO DAILY bupropion HCl XL 150 mg PO QAM buspirone 15 mg PO TID calcipotriene 0.005% 1 appl topical BID cholecalciferol (vitamin D3) 50 mcg PO DAILY 90 days clonazepam 0.5 mg PO BEDTIME CPAP As directed cyclobenzaprine 10 mg PO TID PRN 30 days diclofenac sodium 75 mg PO BID 30 days diphenhydramine-acetaminophen 25-500 mg (Tylenol PM Extra Strength) 1 tab PO BEDTIME PRN duloxetine 30 mg PO DAILY 30 days eszopiclone 2 mg PO BEDTIME PRN furosemide 20 mg PO QAM PRN gabapentin 100 mg PO TID 30 days [HUMIDIFIER As directed] hydrocodone-acetaminophen 5-325 mg 1 tab PO BID-TID PRN 7 days ibuprofen 400 mg PO Q8H PRN 30 days lidocaine 5% (Lidoderm) 1 patch topical DAILY losartan 25 mg PO DAILY metronidazole 0.75%(37.5mg/5gram) 1 appful vaginal BEDTIME 5 days multivitamin with folic acid 400 mcg (Daily-Sujey (with folic acid)) 1 tab PO DAILY omeprazole 20 mg PO DAILY tramadol 50 mg PO BID-TID PRN triamcinolone acetonide 0.5% 1 appl topical BID walker (Ultra-Light Rollator misc) As directed Tobacco use date assessed: 04/22/24 Dental Screening Dental Screen Date: 12/21/23 HPI fibromyalgia, HTN, VERNON, mixed hyperlipidemia HPI Details Patient comes in today for her follow up visit States that she has been experiencing recurrent dizziness over the past few days Notes that her symptoms feel worse when she is lying down and when she tried to get up - feels that her entire surrounding is spinning around and she can hardly find her balance or even walk at times Also relates (+) nausea sometimes when her dizziness increases States that she has on and off headaches as well since this morning and is wondering if her headaches are related to her dizziness She continues to experience increased pain diffusely, especially over both sides of her neck - feels that her neck is presently swollen She denies any chest pains, no increased SOB No vomiting, no abdominal pain and no change in bowel habits noted She did not get her follow up labs done prior to her appointment today - states that she was not aware that she had to have some labs done but can go and do them after her visit today as she has not yet eaten anything since waking up this morning REPLACED BY [facility] Medical History Abnormal Pap smear of cervix Conversion disorder COVID-19 Posterior circulation stroke Psoriasis Fibromyalgia Shoulder pain, bilateral Neck pain Acute lumbar myofascial strain Cervical myofascial strain BRCA positive Restless legs syndrome Hypersomnia Snoring Overweight (BMI 25.0-29.9) GERD without esophagitis Cervical disc disease Sleep disorder Spondylosis of cervical spine with radiculopathy Right low back pain Left shoulder pain Breast cancer Anxiety Insomnia Lymphedema Myalgia Benign essential hypertension Surgical History Hx of colonoscopy (~01/07/20) History of breast surgery History of breast implant removal H/O bilateral oophorectomy Hx of bilateral mastectomy History of tubal ligation History of cholecystectomy H/O breast biopsy Family History Father Diabetes Mother Low blood pressure Family/Other Breast cancer Diabetes Sister Atrial fibrillation Social History Household Members: Significant Other Housing: House Do you presently have visiting nurse or other home services: No Alcohol intake: current Alcohol intake frequency: holidays/special occasions only Patient Tobacco Use Status: Never used Tobacco e-Cigarette/Vaping Use: Never Used Second Hand Smoke Exposure: No service: No Current occupational status: unemployed and disabled Gender identity: Female Cognitive needs: Yes (cane, walker) Hearing needs: No Vision needs: Yes Female Reproductive History Menstrual Age of Menarche: 10 Questionnaire Thrive Questionnaire Date Thrive assessed: 12/21/23 AUDIT C Alcohol Use Questionnaire (AUDIT-C) 1. How often do you have a drink containing alcohol?: Monthly or less 2. How many drinks containing alcohol do you have on a typical day when you are drinking?: 1 or 2 3. How often do you have six or more drinks on one occasion?: Never Total Score: 1 Score Reviewed/Action Taken: Yes BRYAN-7 AMB Questionnaire BRYAN-7 Date BRYAN - 7 assessed: 12/21/23 Source: Developed by Drs. Edouard Madrigal, Ginny Oliveira, Giovanni Escalante and colleagues, with an educational shayne from [employer]. Review of Systems Const Reports body aches (diffuse), Denies chills, Reports fatigue, Denies fever(s) and Reports headache(s) (on and off) ENT Denies dysphagia, Reports dizziness (vertigo - see HPI), Denies otalgia, Reports headache(s) (on and off), Denies neck pain, Denies odynophagia and Denies sore throat Card Denies chest pain, Denies rapid heart rate, Denies irregular heart rhythm, Denies palpitations and Denies dyspnea Resp Denies chest congestion, Denies cough, Denies dyspnea and Denies wheezing GI Denies abdominal pain, Denies constipation, Denies dysphagia, Denies heartburn, Denies diarrhea, Reports nausea (at times, when her dizziness increases), Denies odynophagia and Denies vomiting Denies hematuria, Denies urinary frequency, Denies dysuria and Denies urinary urgency Musc Denies back pain, Reports myalgias, Reports arthralgias (involving multiple joints), Denies joint swelling and Denies neck pain Skin/Breast Denies rash Neuro Reports dizziness (vertigo - see HPI), Reports headache(s) (on and off) and Denies paresthesias Psych Denies anxiety and Denies depression Endo Reports fatigue and Denies palpitations Manish/Lymph Denies easy bruising Aller/Immun Denies wheezing Physical exam (Primary Care) Vital Signs: Last Vital Signs Pulse 69 04/22/24 13:16 BP 144/68 H 04/22/24 13:16 Pulse Ox 96 04/22/24 13:16 Oxygen Delivery Method Room Air 04/22/24 13:16 BMI result Body Mass Index 28.9 Tobacco/Smoking Status: Tobacco use Status Tobacco use date assessed 04/22/24 04/22/24 13:17 Patient Tobacco Use Status Never used Tobacco 04/22/24 13:17 e-Cigarette/Vaping Use Never Used 04/22/24 13:17 Thrive Assessment: Date of Thrive Assessment Date Thrive assessed 12/21/23 04/22/24 13:17 Const General: no acute distress and alert HENMT Ears: TM's normal bilaterally and EAC's normal Throat: Yes posterior oropharynx normal and Yes tonsils normal (no TP congestion) Neck Neck: Yes no lymphadenopathy and Yes supple Thyroid: Thyroid normal Resp Auscultation: clear to auscultation bilaterally, no rales and no wheezes Cardio Rate: regular rate Rhythm: regular rhythm Heart sounds: no murmurs GI Palpation (GI): Soft to palpation and nontender Auscultation: normal bowel sounds General: Yes no CVA tenderness Back/Spine/Pelvis Back: no CVA tenderness Cervical Spine: cervical muscular tenderness (involving the trapezius muscles bilaterally) and Cervical spine tenderness Thoracic/Lumbar Spine: paraspinal muscle tenderness bilaterally (over the cervical and thoracolumbar areas (diffuse)) and lumbar spinal tenderness Skin Rashes: no rashes Extrem General: Yes no clubbing, cyanosis or edema Right upper extremity: shoulder/upper arm Details: tenderness (diffusely over the scapular area) Left upper extremity: shoulder/upper arm Details: tenderness (diffusely over the scapular areas) Assessment and Plan Assessment & Plan (1) Benign paroxysmal vertigo: Code(s): H81.10 - Benign paroxysmal vertigo, unspecified ear Qualifiers: Laterality: unspecified laterality Qualified Code(s): H81.10 - Benign paroxysmal vertigo, unspecified ear Plan: Will refer her to physical therapy for Canalith positioning (2) Benign essential hypertension: Code(s): I10 - Essential (primary) hypertension Plan: Reinforced low sodium diet - goal is systolic BP of 120 mm or less Continue Losartan 25 mg QD and Amlodipine 5 mg QD She is advised to try to get her follow up labs done PARAS (3) Cervical disc disease: Code(s): M50.90 - Cervical disc disorder, unspecified, unspecified cervical region Plan: Cervical spine CT done in 10/2021 revealed (+) multilevel degenerative cervical disc changes /spondylosis with mild neural foraminal encroachment at multiple levels but no canal compromise or cord compression and no abnormal intramedull anahy signal changes are noted Recalls that she was being set up for a trial of nerve block sometime last year but her appointment ended up getting cancelled She is advised to continue following up with Pain Management as scheduled (4) Sleep disorder: Code(s): G47.9 - Sleep disorder, unspecified Plan: (+) VERNON and she is currently using a CPAP/autoPAP device when sleeping at night Follow up with Sleep Medicine as scheduled (5) GERD without esophagitis: Code(s): K21.9 - Gastro-esophageal reflux disease without esophagitis Plan: Dietary restrictions reinforced Continue Omeprazole 20 mg QD (6) Psoriasis: Code(s): L40.9 - Psoriasis, unspecified Plan: Was seen by dermatology (Dr. Ambrosio) previously and was diagnosed with plaque psoriasis She is presently maintained on topical Calcipotriene cream and some steroid cream She was also referred to rheumatology for evaluation of joint involvement and she was supposedly seen at [facility] sometime in January 2023 but we have not received any report from rheumatology so far (7) Lymphedema: Code(s): I89.0 - Lymphedema, not elsewhere classified Plan: Continue Furosemide 20 mg Q AM PRN Patient is encouraged again to continue to elevate her lower extremities as often as she can throughout the day; patient also wears compression stockings as needed to help manage her edema (8) Myalgia: Code(s): M79.10 - Myalgia, unspecified site Plan: This is most likely due to her fibromyalgia Continue Methocarbamol 750 mg TID PRN Encouraged again to try exercising regularly to help manage her symptoms better Per request, will also try referring her for acupuncture therapy - states that she was recently advised by her insurance that they will cover acupuncture therapy as an alternative form of treatment (9) History of breast cancer in female: Code(s): Z85.3 - Personal history of malignant neoplasm of breast Plan: S/P bilateral mastectomy and breast implants; she no longer needs annual mammography subsequently She used to see Dr. Boyle for oncology follow up but has not been back to see her since her last visit in October 2020 - she is again encouraged to and hector adarshd to call up Dr. Boyle's office to schedule a follow up appt and for continuing surveillance (10) Insomnia: Code(s): G47.00 - Insomnia, unspecified Qualifiers: Insomnia type: unspecified Qualified Code(s): G47.00 - Insomnia, un specified Plan: Sleep hygiene reinforced Continue Trazodone 150 mg QHS (11) Anxiety: Code(s): F41.9 - Anxiety disorder, unspecified Plan: Continue Bupropion ER 150 mg QD. Buspirone 15 mg TID and Clonazepam 0.5 mg QD PRN Follow-up with Psychiatry as scheduled (12) Overweight (BMI 25.0-29.9): Code(s): E66.3 - Overweight Plan: Reinforced diet/exercise as tolerated /lose weight Plan Follow up in 4 months Orders: Orders PT Evaluation and Treatment Today H81.10 - Benign paroxysmal vertigo, unspecified ear Referrals Acupuncture Referral M50.90 - Cervical disc disorder, unspecified, unspecified cervical region, M79.10 - Myalgia, unspecified site, M79.7 - Fibromyalgia Coding Level of Care Code Est Pt Level 4 (83424) Complex EM visit Add On G2211 Diagnoses Benign paroxysmal vertigo, unspecified laterality H81.10 Laterality: unspecified laterality Benign essential hypertension I10 Cervical disc disease M50.90 Sleep disorder G47.9 GERD without esophagitis K21.9 Psoriasis L40.9 Lymphedema I89.0 Myalgia M79.10 History of breast cancer in female Z85.3 Insomnia, unspecified type G47.00 Insomnia type: unspecified Anxiety F41.9 Overweight (BMI 25.0-29.9) E66.3
[2024-04-22 13:16] VITALS: BP 144/68; PULSE 69; O2SAT 96; BMI 28.9
[2024-04-22 14:03] VITALS: BP 120/74
== END 2024-04-22 14:10 | disposition home or self-care (01) ==
PROVIDERS: PCP Internal Medicine; Visit Provider Internal Medicine
DX: H81.10 Benign paroxysmal vertigo, unspecified ear (principal); I10 Essential (primary) hypertension; M50.90 Cervical disc disorder, unspecified, unspecified cervical region; G47.9 Sleep disorder, unspecified; K21.9 Gastro-esophageal reflux disease without esophagitis; L40.9 Psoriasis, unspecified; I89.0 Lymphedema, not elsewhere classified; M79.10 Myalgia, unspecified site; Z85.3 Personal history of malignant neoplasm of breast; G47.00 Insomnia, unspecified; F41.9 Anxiety disorder, unspecified; E66.3 Overweight
CPT/HCPCS: 99214; G2211

== ENCOUNTER 2024-04-22 14:42 | Outpatient (REF) | payer OTHER, SELFPAY ==
[2024-04-22 15:06] LABS: MANUAL DIFF FLAG NO
[2024-04-22 15:22] LABS: Basophils Absolute Auto 0.1 X10*3/uL (0.0-0.2); Basophils Percent Auto 0.8 % (0-2); Eosinophils Absolute Auto 0.1 X10*3/uL (0.0-0.4); Eosinophils Percent Auto 1.1 % (0-4); Hematocrit 38.7 % (37.0-47.0); Hemoglobin 12.7 g/dl (12.0-16.0); Imm Gran Abs Auto 0.02 X10*3/uL (0.00-0.03); Imm Gran Pct Auto 0.3 % (0.0-0.4); Lymphocytes Absolute Auto 2.2 X10*3/uL (1.2-4.9); Lymphocytes Percent Auto 30.5 % (20-40); Mean Corpuscular HGB Conc 32.8 g/dl (31.0-35.0); Mean Corpuscular Hemoglobin 31.1 pg (27.0-33.0); Mean Corpuscular Volume 94.9 fL (80.0-98.0); Mean Platelet Volume 10.3 fL (9.4-12.3); Monocytes Absolute Auto 0.5 X10*3/uL (0.1-1.2); Monocytes Percent Auto 7.4 % (2-11); Neutrophils Absolute Auto 4.3 x10*3/uL (2.0-8.3); Neutrophils Percent Auto 59.9 % (45-73); Platelet Count 303 X10*3/uL (160-400); Red Blood Count 4.08 X10*6/uL (4.20-5.50); Red Cell Distribution Width 13.1 % (11.0-16.0); White Blood Count 7.2 X10*3/uL (4.8-10.8)
[2024-04-22 15:44] LABS: Alanine Aminotransferase 19 U/L (0-31); Albumin Level 4.1 g/dL (3.5-5.0); Alkaline Phosphatase 97 U/L (39-117); Anion Gap 13 (12-20); Aspartate Amino Transferase 17 U/L (5-31); Bilirubin Total 0.6 mg/dL (0.0-1.0); Blood Urea Nitrogen 15 mg/dL (9-16); Calcium 9.8 mg/dL (8.4-10.2); Carbon Dioxide 29 mmol/L (22-29); Chloride 104 mmol/L (96-108); Cholesterol 196 mg/dL (<200); Estimated Glomerular Filt Rate > 60; Glucose Fasting 104 mg/dL (60-99); HDL Cholesterol 51 mg/dL (>40); LDL Cholesterol Calculated 106 mg/dL (<100); Potassium 4.5 mmol/L (3.3-5.1); Sodium 141 mmol/L (135-145); Total Protein 7.7 g/dL (6.5-8.0); Triglycerides 198 mg/dL (<150)
== END 2024-04-22 14:43 | disposition home or self-care (01) ==
LOC: HO.LAB 14:42
PROVIDERS: PCP Internal Medicine; Visit Provider Internal Medicine
DX: E78.00 Pure hypercholesterolemia, unspecified (principal); D64.9 Anemia, unspecified
CPT/HCPCS: 36415; 80053; 80061; 85025

== ENCOUNTER 2024-05-22 13:00 | Outpatient (RCR) | payer OTHER, SELFPAY ==
[2024-05-21 14:14] VITALS: BP 183/86
== END 2024-08-15 12:56 | disposition home or self-care (01) ==
LOC: HO.PT 13:00
PROVIDERS: PCP Internal Medicine; Visit Provider Internal Medicine
DX: H81.10 Benign paroxysmal vertigo, unspecified ear (principal)
CPT/HCPCS: 95992; 97140; 97162; 97535

== ENCOUNTER 2024-06-20 16:28 | Outpatient (AMB) | payer OTHER, SELFPAY ==
--- NOTE | 2024-06-20 16:50 | A.OFFPC_ITS ---
Vital Signs 06/20/24 17:01 Height 5 ft 6 in Weight 176 lb BMI 28.4 BP 112/62 Blood Pressure Location Lt brachial Position Sitting Pulse 72 Pulse Source Pulse Oximeter Pulse Oximetry (%) 99 Oxygen Delivery Method Room Air Intake Visit Reasons: pe Intake Note: Patient is here today for a physical. Nurse Administrator Required: No Accompanied by: Self / Same As Patient Allergies lisinopril Allergy (Mild, Verified 06/20/24 17:28) Cough zolpidem Adverse Reaction (Severe, Verified 06/20/24 17:28) sleepwalking Medication List - Last Reconciled 06/20/24 by Rod Mathews MD amlodipine 5 mg PO DAILY [arm rest for toilet As directed] ascorbic acid (vitamin C) (Vitamin C) 500 mg PO DAILY bupropion HCl XL 150 mg PO QAM buspirone 15 mg PO TID calcipotriene 0.005% 1 appl topical BID cholecalciferol (vitamin D3) 50 mcg PO DAILY 90 days clonazepam 0.5 mg PO BEDTIME CPAP As directed cyclobenzaprine 10 mg PO TID PRN 30 days diclofenac sodium 75 mg PO BID 30 days diphenhydramine-acetaminophen 25-500 mg (Tylenol PM Extra Strength) 1 tab PO BEDTIME PRN duloxetine 30 mg PO DAILY 30 days eszopiclone 2 mg PO BEDTIME PRN furosemide 20 mg PO QAM PRN gabapentin 100 mg PO TID 30 days [HUMIDIFIER As directed] hydrocodone-acetaminophen 5-325 mg 1 tab PO BID-TID PRN 7 days ibuprofen 400 mg PO Q8H PRN 30 days lidocaine 5% (Lidoderm) 1 patch topical DAILY losartan 25 mg PO DAILY multivitamin with folic acid 400 mcg (Daily-Sujye (with folic acid)) 1 tab PO DAILY omeprazole 20 mg PO DAILY tramadol 50 mg PO BID-TID PRN triamcinolone acetonide 0.5% 1 appl topical BID walker (Ultra-Light Rollator misc) As directed Tobacco use date assessed: 04/22/24 Dental Screening Dental Screen Date: 12/21/23 HPI pe HPI Details Patient comes in today for her annual physical examination States that she feels okay She denies any headaches States that she was going to physical therapy for canalith positioning but as her dizziness appears to have subsided recently, she was advised to just see them on an as-needed basis for now She denies any chest pains, no increased SOB No nausea/vomiting, no abdominal pain No change in bowel habits noted She denies any acute urinary symptoms She continues to experience frequent diffuse pain, especially over both sides of her neck, due to her fibromyalgia but she is learning how to better manage her fibromyalgia pain lately She had her follow up labs done a couple of months ago - to discuss her results She has a history of bilateral mastectomy so she does not need to go for her annual mammogram She is up-to-date with her annual gynecology exam and pap smear - had them last done in October 2023 She had her colonoscopy last done with Dr. Zapata in 2019 and is now due for her 5 year recall BMD was done last year (2022) - (+) osteopenia PFSH Medical History Abnormal Pap smear of cervix Conversion disorder COVID-19 Posterior circulation stroke Psoriasis Fibromyalgia Shoulder pain, bilateral Neck pain Acute lumbar myofascial strain Cervical myofascial strain BRCA positive Restless legs syndrome Hypersomnia Snoring Overweight (BMI 25.0-29.9) GERD without esophagitis Cervical disc disease Sleep disorder Spondylosis of cervical spine with radiculopathy Right low back pain Left shoulder pain Breast cancer Anxiety Insomnia Lymphedema Myalgia Benign essential hypertension Surgical History Hx of colonoscopy (~01/07/20) History of breast surgery History of breast implant removal H/O bilateral oophorectomy Hx of bilateral mastectomy History of tubal ligation History of cholecystectomy H/O breast biopsy Family History Father Diabetes Mother Low blood pressure Family/Other Breast cancer Diabetes Sister Atrial fibrillation Social History Household Members: Significant Other Housing: House Do you presently have visiting nurse or other home services: No Alcohol intake: current Alcohol intake frequency: holidays/special occasions only Patient Tobacco Use Status: Never used Tobacco e-Cigarette/Vaping Use: Never Used Second Hand Smoke Exposure: No service: No Current occupational status: unemployed and disabled Gender identity: Female Cognitive needs: Yes (reece, walker) Hearing needs: No Vision needs: Yes Female Reproductive History Menstrual Age of Menarche: 10 Questionnaire Thrive Questionnaire Date Thrive assessed: 12/21/23 BRYAN-7 AMB Questionnaire BRYAN-7 Date BRYAN - 7 assessed: 12/21/23 Source: Developed by Drs. Edouard Madrigal, Ginny Oliveira, Giovanni Escalante and colleagues, with an educational shayne from [employer]. Review of Systems Const Denies chills, Reports fatigue, Denies fever(s) and Denies headache(s) Eyes Denies blurry vision, Denies change in vision, Denies irritation and Denies itchy eyes ENT Denies dysphagia, Denies dizziness (not recently), Denies otalgia, Denies headache(s), Reports neck pain, Denies odynophagia, Denies sinus pain and Denies sore throat Card Denies chest pain, Denies palpitations and Denies dyspnea Resp Denies cough, Denies dyspnea and Denies wheezing GI Denies abdominal pain, Denies constipation, Denies dysphagia, Denies heartburn, Denies diarrhea, Denies nausea, Denies odynophagia and Denies vomiting Denies difficulty voiding, Denies nocturia, Denies dysuria and Denies urinary urgency Musc Reports back pain, Reports myalgias (diffuse), Reports arthralgias (multiple joints), Reports neck pain and Reports stiffness Skin/Breast Denies breast pain, Denies breast mass, Denies change in pigmentation, Denies lesions, Denies rash and Denies unusual bruising Neuro Denies dizziness (not recently) and Denies headache(s) Psych Denies anxiety and Denies depression Endo Reports fatigue and Denies palpitations Manish/Lymph Denies easy bruising Aller/Immun Denies itchy eyes and Denies wheezing Physical exam (Primary Care) Vital Signs: Last Vital Signs Pulse 72 06/20/24 17:01 BP 112/62 06/20/24 17:01 Pulse Ox 99 06/20/24 17:01 Oxygen Delivery Method Room Air 06/20/24 17:01 BMI result Body Mass Index 28.4 Tobacco/Smoking Status: Tobacco use Status Tobacco use date assessed 04/22/24 06/20/24 16:50 Patient Tobacco Use Status Never used Tobacco 06/20/24 16:50 e-Cigarette/Vaping Use Never Used 06/20/24 16:50 Thrive Assessment: Date of Thrive Assessment Date Thrive assessed 12/21/23 06/20/24 16:50 Const General: no acute distress and alert Orientation/consciousness: [facility]: Yes normocephalic and Yes atraumatic Ears: TM's normal bilaterally and EAC's normal General nose exam: No nasal discharge present Face and sinus: Yes normal facial exam and Yes sinuses nontender Teeth and gingiva: dentition normal Throat: Yes posterior oropharynx normal and Yes tonsils normal (no TP congestion noted) Eyes Eyelids: Yes eyelids normal Conjunctivae: conjunctivae normal Pupils: Equal, round and reactive pupils present EOM: EOMs intact bilaterally Neck Neck: Yes no lymphadenopathy and Yes tender (over the cervical spine and paraspinal areas bilaterally) Thyroid: Thyroid normal Resp Auscultation: clear to auscultation bilaterally, no rales and no wheezes Cardio Rate: regular rate Rhythm: regular rhythm Heart sounds: no murmurs GI Palpation (GI): Soft to palpation, nontender and No hepatosplenomegaly present Auscultation: normal bowel sounds General: Yes no CVA tenderness Back/Spine/Pelvis Back: no CVA tenderness Thoracic/Lumbar Spine: paraspinal muscle tenderness bilaterally (over the cervical and thoracolumbar spine (diffuse)) and lumbar spinal tenderness Skin Lesions: no lesions Rashes: no rashes Neuro General: patient oriented x3, moves all extremities, no focal motor deficits and CN's II-XI intact bilaterally Cranial nerves: Yes Equal, round and reactive pupils present Cognition (Neuro): normal cognition Gait exam (Neuro): Normal gait present Extrem General: Yes no clubbing, cyanosis or edema Right upper extremity: shoulder/upper arm Details: tenderness (diffusely over the scapular area) Left upper extremity: shoulder/upper arm Details: tenderness (diffusely over the scapular areas) Results Reviewed Results Reviewed: Laboratory Tests 04/22/24 15:03 WBC 7.2 Hgb 12.7 Hct 38.7 Plt Count 303 Sodium 141 Potassium 4.5 Creatinine 0.79 Estimated GFR > 60 Fasting Glucose 104 H Calcium 9.8 D AST 17 ALT 19 Triglycerides 198 H Cholesterol 196 LDL Cholesterol, Calc 106 H HDL Cholesterol 51 Assessment and Plan Assessment & Plan (1) Annual physical exam: Code(s): Z00.00 - Encounter for general adult medical examination without abnormal findings Plan: Results of her labs done a couple of months ago reviewed and discussed with patient She is up-to-date with her annual pap smear and gynecology exam as well as her BMD She does not need annual mammography - s/p bilateral mastectomy She is due for repeat colonscopy (last done in 2019) (2) Benign essential hypertension: Code(s): I10 - Essential (primary) hypertension Plan: Reinforced low sodium diet - goal is systolic BP of 120 mm or less Continue Losartan 25 mg QD and Amlodipine 5 mg QD (3) Cervical disc disease: Code(s): M50.90 - Cervical disc disorder, unspecified, unspecified cervical region Plan: Cervical spine CT done in 10/2021 revealed (+) multilevel degenerative cervical disc changes /spondylosis with mild neural foraminal encroachment at multiple levels but no canal compromise or cord compression and no abnormal intramedullary signal changes are noted Recalls that she was being set up for a trial of nerve block sometime last year but her appointment ended up getting cancelled She is advised to continue following up with Pain Management as scheduled (4) Sleep disorder: Code(s): G47.9 - Sleep disorder, unspecified Plan: (+) VERNON and she is currently using a CPAP/autoPAP device when sleeping at night Follow up with Sleep Medicine as scheduled (5) Benign paroxysmal vertigo: Code(s): H81.10 - Benign paroxysmal vertigo, unspecified ear Qualifiers: Laterality: unspecified laterality Qualified Code(s): H81.10 - Benign paroxysmal vertigo, unspecified ear Plan: Controlled/stable lately Follow up with physical therapy as needed for Canalith positioning (6) GERD without esophagitis: Code(s): K21.9 - Gastro-esophageal reflux disease without esophagitis Plan: Dietary restrictions reinforced Continue Omeprazole 20 mg QD (7) Psoriasis: Code(s): L40.9 - Psoriasis, unspecified Plan: She was seen by dermatology (Dr. Ambrosio) previously and was diagnosed with plaque psoriasis She is presently maintained on topical Calcipotriene cream and some steroid cream She was also referred to rheumatology for evaluation of joint involvement and she was supposedly seen at the [facility] sometime in January 2023 (8) Lymphedema: Code(s): I89.0 - Lymphedema, not elsewhere classified Plan: Continue Furosemide 20 mg Q AM PRN Patient is encouraged again to continue to elevate her lower extremities as often as she can throughout the day; patient also wears compression stockings as needed to help manage her edema (9) Myalgia: Code(s): M79.10 - Myalgia, unspecified site Plan: This is most likely due to her fibromyalgia Continue Methocarbamol 750 mg TID PRN Encouraged again to try exercising regularly to help manage her symptoms better Per request, we also referred her for acupuncture therapy - she was supposedly advised by her insurance that they will cover acupuncture therapy as an alternative form of treatment (10) History of breast cancer in female: Code(s): Z85.3 - Personal history of malignant neoplasm of breast Plan: S/P bilateral mastectomy and breast implants; she no longer needs annual mammography subsequently She used to see Dr. Boyle for oncology follow up but has not been back to see her since her last visit in October 2020 - she is again encouraged to and reminded to call up Dr. Boyle's office to schedule a follow up appt and for continuing surveillance (11) Insomnia: Code(s): G47.00 - Insomnia, unspecified Qualifiers: Insomnia type: unspecified Qualified Code(s): G47.00 - Insomnia, unspecified Plan: Sleep hygiene reinforced Continue Trazodone 150 mg QHS (12) Anxiety: Code(s): F41.9 - Anxiety disorder, unspecified Plan: Continue Bupropion ER 150 mg QD. Buspirone 15 mg TID and Clonazepam 0.5 mg QD PRN Follow-up with Psychiatry as scheduled (13) Overweight (BMI 25.0-29.9): Code(s): E66.3 - Overweight Plan: Reinforced diet/exercise as tolerated /lose weight Plan Follow up in 4 months Orders: Orders Comprehensive [place]. Panel Fast 4 Months E78.00 - Pure hypercholesterolemia, unspecified TSH reflex Free T4 4 Months E78.00 - Pure hypercholesterolemia, unspecified Complete Blood Count Auto Diff 4 Months D64.9 - Anemia, unspecified Lipid Panel 4 Months E78.00 - Pure hypercholesterolemia, unspecified UA CC w/rflx Micro + Cult 4 Months R30.0 - Dysuria Vitamin D 25-OH Total 4 Months E55.9 - Vitamin D deficiency, unspecified Referrals Gastroenterology Referral Z12.11 - Encounter for screening for malignant neoplasm of colon Medications: Refilled tramadol 50 mg PO BID-TID PRN 90 tabs 0RF pain Coding Level of Care Code Est Pt Prev Care 40-64y(44828) Diagnoses Annual physical exam Z00.00 Benign essential hypertension I10 Cervical disc disease M50.90 Sleep disorder G47.9 Benign paroxysmal vertigo, unspecified laterality H81.10 Laterality: unspecified laterality GERD without esophagitis K21.9 Psoriasis L40.9 Lymphedema I89.0 Myalgia M79.10 History of breast cancer in female Z85.3 Insomnia, unspecified type G47.00 Insomnia type: unspecified Anxiety F41.9 Overweight (BMI 25.0-29.9) E66.3
[2024-06-20 17:01] VITALS: BP 112/62; PULSE 72; O2SAT 99; BMI 28.4
== END 2024-06-20 17:40 | disposition home or self-care (01) ==
PROVIDERS: PCP Internal Medicine; Visit Provider Internal Medicine
DX: Z00.00 Encounter for general adult medical examination without abnormal findings (principal); I10 Essential (primary) hypertension; M50.90 Cervical disc disorder, unspecified, unspecified cervical region; G47.9 Sleep disorder, unspecified; H81.10 Benign paroxysmal vertigo, unspecified ear; K21.9 Gastro-esophageal reflux disease without esophagitis; L40.9 Psoriasis, unspecified; I89.0 Lymphedema, not elsewhere classified; M79.10 Myalgia, unspecified site; Z85.3 Personal history of malignant neoplasm of breast; G47.00 Insomnia, unspecified; F41.9 Anxiety disorder, unspecified; E66.3 Overweight
CPT/HCPCS: 99396

== ENCOUNTER 2024-06-26 10:23 | Outpatient (AMB) | payer OTHER, SELFPAY ==
[2024-06-26 10:42] VITALS: BP 120/70; BMI 28.4
--- NOTE | 2024-06-26 10:42 | A.OFFVIS_ITS ---
Vital Signs 06/26/24 10:42 Height 5 ft 6 in Weight 176 lb BMI 28.4 BP 120/70 Intake Visit Reasons: STD testing System Development Manager Required: No Information Interpreted: clinical only Business Objects Analyst: Business Objects Analyst Present Allergies lisinopril Allergy (Mild, Verified 06/26/24 10:42) Cough zolpidem Adverse Reaction (Severe, Verified 06/26/24 10:42) sleepwalking Medication List - Last Reconciled 06/26/24 by Domonique El CNM amlodipine 5 mg PO DAILY [arm rest for toilet As directed] ascorbic acid (vitamin C) (Vitamin C) 500 mg PO DAILY bupropion HCl XL 150 mg PO QAM buspirone 15 mg PO TID calcipotriene 0.005% 1 appl topical BID cholecalciferol (vitamin D3) 50 mcg PO DAILY 90 days clonazepam 0.5 mg PO BEDTIME CPAP As directed cyclobenzaprine 10 mg PO TID PRN 30 days diphenhydramine-acetaminophen 25-500 mg (Tylenol PM Extra Strength) 1 tab PO BEDTIME PRN duloxetine 30 mg PO DAILY 30 days eszopiclone 2 mg PO BEDTIME PRN furosemide 20 mg PO QAM PRN [HUMIDIFIER As directed] hydrocodone-acetaminophen 5-325 mg 1 tab PO BID-TID PRN 7 days ibuprofen 400 mg PO Q8H PRN 30 days lidocaine 5% (Lidoderm) 1 patch topical DAILY losartan 25 mg PO DAILY multivitamin with folic acid 400 mcg (Daily-Sujey (with folic acid)) 1 tab PO DAILY omeprazole 20 mg PO DAILY tramadol 50 mg PO BID-TID PRN triamcinolone acetonide 0.5% 1 appl topical BID walker (Ultra-Light Rollator misc) As directed Post menopausal: Yes (2013) HPI HPI STD testing: Details: Patient is here for an STI check she has the 1 partner and they use condoms but a few months ago 1 broke and then recently she had some irritation after intercourse she does not have a problem with lubrication despite having had her both ovaries removed. But she did feel dry when they finished and something just did not feel right so she used some of the Metrogel she had on hand for 1 night. But she just wants to be checked just to be sure. She has an extensive medical history. She will be seeing Oncology at [facility] for follow-up for the 1st time in a while on July 01 next week.. She has her annual exams with Leelee Galloway and her primary care doctor is Dr. Mathews. COUNT INCLUDES [facility] Medical History (Updated 06/26/24 @ 11:33 by Domonique El CNM) Abnormal Pap smear of cervix Conversion disorder COVID-19 Posterior circulation stroke Psoriasis Fibromyalgia Shoulder pain, bilateral Neck pain Acute lumbar myofascial strain Cervical myofascial strain BRCA positive Restless legs syndrome Hypersomnia Snoring Overweight (BMI 25.0-29.9) GERD without esophagitis Cervical disc disease Sleep disorder Spondylosis of cervical spine with radiculopathy Right low back pain Left shoulder pain Breast cancer Anxiety Insomnia Lymphedema Myalgia Benign essential hypertension Surgical History (Updated 06/26/24 @ 11:33 by Domonique El CNM) Hx of colonoscopy (~01/07/20) History of breast surgery History of breast implant removal H/O bilateral oophorectomy Hx of bilateral mastectomy History of tubal ligation History of cholecystectomy H/O breast biopsy Family History Father Diabetes Mother Low blood pressure Family/Other Breast cancer Diabetes Sister Atrial fibrillation Social History Household Members: Significant Other Housing: House Do you presently have visiting nurse or other home services: No Alcohol intake: current Alcohol intake frequency: holidays/special occasions only Patient Tobacco Use Status: Never used Tobacco e-Cigarette/Vaping Use: Never Used Second Hand Smoke Exposure: No service: No Current occupational status: unemployed and disabled Gender identity: Female Cognitive needs: Yes (cane, walker) Hearing needs: No Vision needs: Yes Female Reproductive History Menstrual Age of Menarche: 10 Duration of menses: 3-5 days control method: permanent sterilization Date of last pap smear: 10/17/23 (neg.) History of abnormal pap smear: Yes (2019,abn. LIZ I) Physical Exam Vital Signs: Last Vital Signs BP 120/70 06/26/24 10:42 BMI result Body Mass Index 28.4 Other: External exam within normal limits vagina pink and moist scant white discharge that appears consistent with normal cervix multiparous pink round smooth cervix tightly closed consistent with status post LEEP.. External Female Exam: normal external appearance and normal appearance of the urethra Speculum Exam - Vagina: normal appearance of the vagina and normal vaginal discharge Speculum Exam - Cervix: normal appearance of the cervix and Cervical os closed Assessment & Plan Assessment & Plan (1) History of breast cancer in female: Code(s): Z85.3 - Personal history of malignant neoplasm of breast Category: Medical (2) Vaginal irritation: Comment: Desires screening for STIs. Code(s): N89.8 - Other specified noninflammatory disorders of vagina Category: Medical Plan Reviewed her history in some detail and it is good that she is going to be get ting to see oncology. The doctor she had seeing before has left but they will have her records there so it is good that she is staying in the same facility for care. Discussed that Gardnerella or BV shows up in most Women's vagina is and only needs to be treated if it is present but we are screening for other entities as well including gonorrhea chlamydia trichomoniasis but if the BV shows up she may want to accept a prescription for Metrogel so she has it on hand for future use but it is up to her her exam looked normal and consistent with status post LEEP or other procedure to cervix. Orders: Orders CT NG by PCR Today Z20.2 - Contact with and (suspected) exposure to infections with a predominantly sexual mode of transmission Bacterial Vaginosis Panel Today N89.8 - Other specified noninflammatory disorders of vagina Coding Level of Care Code Est Pt Level 3 ([id number]) Diagnoses History of breast cancer in female Z85.3 Vaginal irritation N89.8
== END 2024-06-26 11:33 | disposition home or self-care (01) ==
LOC: HO.HWSM 10:23
PROVIDERS: PCP Internal Medicine; Visit Provider Advanced Practice Midwife
DX: Z85.3 Personal history of malignant neoplasm of breast (principal); N89.8 Other specified noninflammatory disorders of vagina
CPT/HCPCS: 99213

== ENCOUNTER 2024-06-26 10:23 | Outpatient (REF) | payer OTHER, SELFPAY ==
[2024-06-27 05:12] LABS: CT PCR NOT DETECTED (Not Detect.); NG PCR NOT DETECTED (Not Detect.)
[2024-06-27 11:35] LABS: Bacterial Vaginosis PCR NEGATIVE (Negative); Candida Group PCR NOT DETECTED (Not Detect); Candida glab krusei PCR NOT DETECTED (Not Detect); Trichomonas vaginalis PCR NOT DETECTED (Not Detect)
== END 2024-06-26 10:24 | disposition home or self-care (01) ==
LOC: HO.LAB 10:23
PROVIDERS: PCP Internal Medicine; Visit Provider Advanced Practice Midwife
DX: Z20.2 Contact with and (suspected) exposure to infections with a predominantly sexual mode of transmission (principal); N89.8 Other specified noninflammatory disorders of vagina; Z85.3 Personal history of malignant neoplasm of breast
CPT/HCPCS: 0352U; 87491; 87591; 99212

== ENCOUNTER → 2024-07-09 13:53 | Outpatient (RCR) | payer OTHER, SELFPAY ==
--- NOTE | 2020-10-27 16:35 | P.PNHO_ITS ---
Medical Summary - Medical Summary Date of Service: 10/27/20 Chief complaint: Follow-up Medical Summary: DIAGNOSIS: RIGHT BREAST CANCER. CURRENT THERAPY: S/P CHEMOTHERAPY WITH TAXOTERE & CYTOXAN. Ms. Sorto felt a lump in her right breast in April 2016. Her last mammography was in 2011, which was reportedly normal. She has not had any mammograms in between. She underwent mammography and ultrasound on April 27, 2016, which demonstrated heterogeneously dense breast, spiculated mass in the region of abnormality 1 o'clock position in the right breast. On ultrasound, it measured 1.1 x 2 cm hypoechoic mass, 6 cm from the nipple. Core biopsy performed, May 02, 2016 revealed invasive ductal carcinoma, ER positive 51 to 100%, KS positive 51 to 100%, HER-2/bran negative 1+ by FISH. The patient underwent lumpectomy and sentinel lymph node biopsy on May 09, 2016, which demonstrated invasive ductal carcinoma, tumor size 2.4 cm, nuclear pleomorphism 2 of 3, grade 2, mitotic rate 2 of 3. There was perineural invasion, but no lymphovascular invasion. Total of 5 lymph nodes excised were negative. Final stage, pT2, pN0(i-) stage IIA. Started adjuvant chemotherapy Taxotere/Cytoxan on 06/28/16. Extended my Risk panel testing was performed. Tested heterozygous positive for BRCA2 mutation: [id number]) Interpretation, high cancer risk. She developed infection of right breast whipped topping mixer, this was removed in April 2017. She has had whipped topping mixer reimplanted, she had definitive surgery with silicone implant in April 2018. Interval History Interval history: This is scheduled follow-up for patient. She is doing well and has no new issues today. She was diagnosed with tendinitis and has developed some shoulder pain. She is finding it difficult to sleep at night. She denies any complaints pertaining to her chest wall. There is no arm swelling. No fever or chills. Review of Systems - Constitutional Reports as per HPI, Reports difficulty sleeping, Reports fatigue - Cardiovascular Reports no additional cardiovascular complaints - Respiratory Reports no additional respiratory complaints [facility] Medical History: Medical History (Last Updated 10/19/20 @ 00:14 by Rod Mathews MD) Anxiety Benign essential hypertension Insomnia Lymphedema Myalgia Family History: Family History (Last Reviewed 10/18/20 @ 18:11 by Rod Mathews MD) Father Diabetes Mother Low blood pressure Family/Other Breast cancer Diabetes Surgical History: Surgical History (Last Reviewed 10/18/20 @ 18:11 by Rod Mathews MD) H/O bilateral oophorectomy H/O breast biopsy History of breast implant removal History of breast surgery History of cholecystectomy History of tubal ligation Hx of bilateral mastectomy Home Medications and Allergies Home Medications Medication Instructions Recorded Confirmed Type bupropion HCl 150 mg 24 hr tablet, 150 mg PO QAM 10/18/20 10/27/20 History extended release clonazepam 0.5 mg tablet 0.5 mg PO BEDTIME 10/18/20 10/27/20 History furosemide 20 mg tablet 20 mg PO QAM 10/18/20 10/27/20 History lisinopril 2.5 mg tablet 2.5 mg PO DAILY 10/18/20 10/27/20 History multivitamin 1 tab PO DAILY 10/18/20 10/27/20 History topiramate 25 mg tablet 25 mg PO DAILY 10/18/20 10/27/20 History trazodone 100 mg tablet 100 mg PO BEDTIME PRN 10/18/20 10/27/20 History zolpidem 5 mg tablet 5 mg PO BEDTIME PRN 10/18/20 10/27/20 History Allergies Allergy/AdvReac Type Severity Reaction Status Date / Time hydrocodone [Vicodin] AdvReac Unknown rash? Verified 10/18/20 18:11 tachycardia? Progress Note: A/P (1) Breast cancer Status: Acute Assessment and plan: 1. This is a 50-year-old woman, BRCA2 positive with history of stage II right breast cancer, invasive ductal carcinoma, pT2N0, ER/KS positive and HER-2/bran negative diagnosed in 2015. Completed adjuvant chemotherapy Taxotere/Cytoxan from 06/28/16to August 2016. Was on tamoxifen for a few months, discontinued because of DVT as well as having had bilateral mastectomies. She has undergone bilateral prophylactic mastectomies in November 2016. She remains in remission with no evidence of recurrence. 2. Genetic risk evaluation for inherited cancer syndrome with BRCA mutation testing. Tested heterozygous positive for BRCA2 mutation: [id number].[id number]) Interpretation, high cancer risk. Pt has inherited breast ovarian cancer syndrome. She underwent prophylactic BSO Nov 2016, and b/l mastectomies with silicone implants at [facility]. Today we also discussed pancreatic cancer surveillance. There is no family history of pancreatic cancer. Based on current recommendations, there is no role of routine screening for pancreatic cancer with MRI or EUS unless there is first-degree relative with pancreatic cancer. She is followed by genetic supervisor at [facility]. 3. 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 Now off lovenox. Labs to be performed on the next visit. - Time Spent With Patient Total time spent is greater than 50% in coordination of care (as documented) at patient's floor/unit and/or counseling patient: 15 - 24 minutes
== END | disposition home or self-care (01) ==
LOC: HO.ONC 10-27 16:35
PROVIDERS: PCP Internal Medicine; Visit Provider Internal Medicine
DX: Z85.3 Personal history of malignant neoplasm of breast (principal); Z86.718 Personal history of other venous thrombosis and embolism; Z15.01 Genetic susceptibility to malignant neoplasm of breast; Z92.21 Personal history of antineoplastic chemotherapy; Z90.13 Acquired absence of bilateral breasts and nipples
CPT/HCPCS: 99213

== ENCOUNTER 2024-10-21 12:42 | Outpatient (REF) | payer OTHER, SELFPAY ==
[2024-10-21 16:57] LABS: Bacterial Vaginosis PCR NEGATIVE (Negative); Candida Group PCR NOT DETECTED (Not Detect); Candida glab krusei PCR NOT DETECTED (Not Detect); Trichomonas vaginalis PCR NOT DETECTED (Not Detect)
[2024-10-21 17:29] LABS: CT PCR NOT DETECTED (Not Detect.); NG PCR NOT DETECTED (Not Detect.)
[2024-10-22 11:15] LABS: HPV 16,18/45 See PAP report
== END 2024-10-21 12:43 | disposition home or self-care (01) ==
LOC: HO.LNP 12:42
PROVIDERS: PCP Internal Medicine; Visit Provider Advanced Practice Midwife
DX: Z01.411 Encounter for gynecological examination (general) (routine) with abnormal findings (principal); R87.619 Unspecified abnormal cytological findings in specimens from cervix uteri; R10.2 Pelvic and perineal pain; N89.8 Other specified noninflammatory disorders of vagina
CPT/HCPCS: 0352U; 81003; 86704; 86780; 86803; 87086; 87389; 87491; 87591; 87624; 88175; 99396; 99459

== ENCOUNTER 2024-10-21 12:42 | Outpatient (AMB) | payer OTHER, SELFPAY ==
--- NOTE | 2024-10-21 12:55 | A.OFFVIS_ITS ---
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 She is doing well with concerns: pelvic cramping, no urinary symptoms, reports a fishy odor and discharge. Admits to recent antibiotics x2 due to dental procedures, infection. Currently sexually active, using condoms. Denies any vaginal dryness or irritation. STI testing offered; she accepts. Attempting to eat a healthy diet with calcium and vitamin D and stays active with exercise. She reports losing weight this year. Last pap smear; 2022, history of HPV positive, LIZ. Last mammogram; history of breast cancer with bilateral mastectomies and silicone implants. Colonoscopy is UTD, is planning to schedule the next soon. [facility] Medical History Abnormal Pap smear of cervix Conversion disorder COVID-19 Posterior circulation stroke Psoriasis Fibromyalgia Shoulder pain, bilateral Neck pain Acute lumbar myofascial strain Cervical myofascial strain BRCA positive Restless legs syndrome Hypersomnia Snoring Overweight (BMI 25.0-29.9) GERD without esophagitis Cervical disc disease Sleep disorder Spondylosis of cervical spine with radiculopathy Right low back pain Left shoulder pain Breast cancer Anxiety Insomnia Lymphedema Myalgia Benign essential hypertension Surgical History Hx of colonoscopy (~01/07/20) History of breast surgery History of breast implant removal H/O bilateral oophorectomy Hx of bilateral mastectomy History of tubal ligation History of cholecystectomy H/O breast biopsy Family History Father Diabetes Mother Low blood pressure Family/Other Breast cancer Diabetes Sister Atrial fibrillation Sister Thyroid disease Social History Household Members: Significant Other Housing: House Do you presently have visiting nurse or other home services: No Alcohol intake: current Alcohol intake frequency: holidays/special occasions only Patient Tobacco Use Status: Never used Tobacco e-Cigarette/Vaping Use: Never Used Second Hand Smoke Exposure: No service: No Current occupational status: unemployed and disabled Gender identity: Female Cognitive needs: Yes (cane, walker) Hearing needs: No Vision needs: Yes Female Reproductive History Menstrual Age of Menarche: 10 control method: permanent sterilization Permanent Sterilization: BTL Total pregnancies: 3 Full term: 2 Number of Living Children: 2 Ab induced: 1 Date of last pap smear: 10/16/23 (neg pap +hpv) History of abnormal pap smear: Yes (10/29 +hpv 03/30 colpo liz 1 08/02 neg,neg) History of abnormal mammogram: Yes Date of last Bone Density Screenin07/10/23 Other: colonoscopy 12/2018 Review of Systems Const All systems reviewed & are unremarkable except as noted in HPI and below Reports as per HPI Eyes Reports no additional complaints ENT Reports no additional complaints Card Reports no additional complaints Resp Reports no additional complaints GI Reports as per HPI and Reports no additional complaints Reports as per HPI Musc Reports no additional complaints Skin/Breast Reports as per HPI Neuro Reports no additional complaints Psych Reports no additional complaints Endo Reports no additional complaints Manish/Lymph Reports no additional complaints Aller/Immun Reports no additional complaints Physical Exam Vital Signs: BMI result Body Mass Index 27.9 Const General: cooperative, healthy appearing, no acute distress, well developed and alert Orientation/consciousness: patient oriented x3 HEENT Head: Yes normal to inspection Eyes General: appearance normal, both eyes and all related structures Neck Neck: Yes normal visual inspection Thyroid: Thyroid normal Chest Other: Bilateral implants and reconstructive surgery, tattoo nipples Chest palpation & inspection: normal inspection of the chest Breast/axilla inspection: normal inspection of the breasts (See above note) Breast/axilla palpation: normal palpation of the breasts Resp Effort & Inspection: normal respiratory effort GI Inspection: Yes normal to inspection Palpation (GI): Soft to palpation Rectal Exam - Female: deferred General: Yes bladder normal to palpation External Female Exam: normal external appearance and normal appearance of the urethra Speculum Exam - Vagina: normal appearance of the vagina, normal palpation, normal vaginal discharge, vagina atrophic and erythematous (Significant atrophy and irritation with friable vaginal wall) Speculum Exam - Cervix: normal appearance of the cervix and normal palpation Bimanual exam- vagina & uterus: normal bimanual exam, normal palpation, uterine size normal, bladder normal to palpation, normal palpation and non-tender Bimanual Exam- Adnexa, other: no masses Skin General skin exam: no rashes or lesions noted Rashes: no rashes Neuro General: patient oriented x3 Cognition (Neuro): normal cognition Extrem General: Yes normal to inspection Psych Attitude: cooperative Thought process: Normal thought process present Results AMB Urinalysis, Automated UA Leukoctes 1 Erik/uL Last Edit by Umu Duvall Ti on 10/21/24 13:11 UA Nitrite Negative Last Edit by Umu Duvall [facility] on 10/21/24 13:11 UA Urobilinogen 0 mg/dL Last Edit by Umu Duvall [facility] on 10/21/24 13:1 1 UA Protein 0.5 mg/dL Last Edit by Umu Duvall [facility] on 10/21/24 13:11 UA pH 5.5 Last Edit by Uum Duvall [facility] on 10/21/24 13:11 UA Blood 0 Abraham/uL Last Edit by Umu Duvall [facility] on 10/21/24 13:11 UA Specific Marion 1.025 Last Edit by Umu Duvall [facility] on 10/21/24 13:11 UA Ketone Negative Last Edit by Umu Duvall [facility] on 10/21/24 13:11 UA Bilirubin 0 mg/dL Last Edit by Umu Duvall [facility] on 10/21/24 13:11 UA Glucose 0 mg/dL Last Edit by Umu Duvall [facility] on 10/21/24 13:11 Results Reviewed Results Reviewed: Laboratory Last Values Urine pH (Auto) 5.5 10/21/24 13:10 Specific Marion (Auto) 1.025 10/21/24 13:10 Urine Protein (Auto) 0.5 mg/dL 10/21/24 13:10 Glucose (UA)(Auto) 0 mg/dL 10/21/24 13:10 Urine Ketones (Auto) Negative 10/21/24 13:10 Urine Blood (Auto) 0 Abraham/uL 10/21/24 13:10 Urine Nitrite (Auto) Negative 10/21/24 13:10 Urine Bilirubin (Auto) 0 mg/dL 10/21/24 13:10 Urine Urobilinogen (Auto) 0 mg/dL 10/21/24 13:10 Leukocyte Esterase (Auto) 1 Erik/uL 10/21/24 13:10 Assessment & Plan Assessment & Plan (1) Encounter for well woman exam with routine gynecological exam: Code(s): Z01.419 - Encounter for gynecological examination (general) (routine) without abnormal findings Category: Medical (2) History of breast cancer: Code(s): Z85.3 - Personal history of malignant neoplasm of breast (3) History of abnormal cervical Pap smear: Code(s): Z87.42 - Personal history of other diseases of the female genital tract (4) Vaginal odor: Code(s): N89.8 - Other specified noninflammatory disorders of vagina Category: Medical Plan Discussed: Current recommendations for pap smears per ASCCP guidelines. Pap smear obtained today. Follow up with oncologist for breast care. Maintain a healthy lifestyle, well balanced diet including Calcium 1,200 mg and Vitamin D 600 IU daily, and routine exercise. Use of condoms for STI prevention if indicated. The role of probiotics and got health. GC chlamydia, urine culture, and BV panel obtained await results for plan of care. Replens moisturizer and lubricant use. Contact the office with any postmenopausal bleeding. Patient verbalizes understanding and agrees to the plan of care. She was given opportunity to ask questions and all questions were answered to the best of my ability. RTO in 1 year for annual anodic operator exam. This note is constructed using voice recognition software. While every effort has been made to ensure accuracy, vp talent management errors may have been included. Orders: Orders AMB Urinalysis Automated Today R10.2 - Pelvic and perineal pain HPV High risk Today R87.619 - Unspecified abnormal cytological findings in specimens from cervix uteri, Z01.419 - Encounter for gynecological examination (general) (routine) without abnormal findings Pap Smear Today R87.619 - Unspecified abnormal cytological findings in specimens from cervix uteri, Z01.419 - Encounter for gynecological examination (general) (routine) without abnormal findings HIV Ab/Ag Today Z20.2 - Contact with and (suspected) exposure to infections with a predominantly sexual mode of transmission Hepatitis B Core Antibody Today Z20.2 - Contact with and (suspected) exposure to infections with a predominantly sexual mode of transmission Syphilis Screen Today Z20.2 - Contact with and (suspected) exposure to infections with a predominantly sexual mode of transmission Bacterial Vaginosis Panel Today N89.8 - Other specified noninflammatory disorders of vagina CT NG by PCR Today N89.8 - Other specified noninflammatory disorders of vagina Hepatitis C Antibody Reflex Today Z20.2 - Contact with and (suspected) exposure to infections with a predominantly sexual mode of transmission Coding Level of Care Code Est Pt Prev Care 40-64y(61706) Diagnoses Encounter for well woman exam with routine gynecological exam Z01.419 History of breast cancer Z85.3 History of abnormal cervical Pap smear Z87.42 Vaginal odor N89.8
[2024-10-21 12:58] VITALS: BMI 27.9
== END 2024-10-21 13:41 | disposition home or self-care (01) ==
PROVIDERS: PCP Internal Medicine; Visit Provider Advanced Practice Midwife
DX: Z01.419 Encounter for gynecological examination (general) (routine) without abnormal findings (principal); Z85.3 Personal history of malignant neoplasm of breast; Z87.42 Personal history of other diseases of the female genital tract; N89.8 Other specified noninflammatory disorders of vagina; R10.2 Pelvic and perineal pain
CPT/HCPCS: 99396

== ENCOUNTER 2024-10-21 13:30 | Outpatient (REF) | payer OTHER, SELFPAY ==
[2024-10-22 07:59] LABS: Syphilis Screen Nonreactive (Nonreactive)
[2024-10-22 08:16] LABS: HBc Num1 0.11 S/CO (0.00-0.79); HIV AB/AG Nonreactive (Nonreactive); HIV Num 1 0.08 S/CO (0.00-0.99); Hepatitis B Core Antibody Nonreactive (Nonreactive); ~HepC Num1 0.23 S/CO (0.00-0.79); ~Hepatitis C Antibody Nonreactive (Nonreactive)
== END 2024-10-21 13:31 | disposition home or self-care (01) ==
LOC: HO.LAB 13:30
PROVIDERS: PCP Internal Medicine; Visit Provider Advanced Practice Midwife
DX: Z13.89 Encounter for screening for other disorder (principal)
CPT/HCPCS: 86704; 86780; 86803; 87389

== ENCOUNTER 2024-11-10 13:44 | Outpatient (AMB) | payer OTHER, SELFPAY ==
[2024-11-10 13:46] VITALS: BP 120/72; PULSE 60; O2SAT 98; BMI 28.0
--- NOTE | 2024-11-10 13:46 | A.OFFVIS_ITS ---
Vital Signs 11/10/24 13:46 Height 5 ft 6 in Weight 173 lb 4.533 oz BMI 28.0 BP 120/72 Blood Pressure Location Lt brachial Position Sitting Pulse 60 Pulse Source Pulse Oximeter Pulse Oximetry (%) 98 Oxygen Delivery Method Room Air Intake Visit Reasons: Seminary consult - Recall x5 yrs ([facility]) Intake Note: NEW PATIENT Macie presents in office today for a scheduled recall consult Prior hx of colo/egd? x5 years w/ [facility]ata Meds and Allergies reviewed? Y Any significant concerns or questions? Pt reports that their sx are adequately controlled with few breakthroughs of GERD. Pt controls with diet and lifestyle. Pharmacy verified? [facility] Required: No Allergies lisinopril Allergy (Mild, Verified 11/10/24 13:47) Cough zolpidem Adverse Reaction (Severe, Verified 11/10/24 13:47) sleepwalking HPI HPI Seminary consult - Recall x5 yrs ([facility]): Details: 54 year old? female with past medical history of oophorectomy, fibromyalgia, breast CA, VERNON, psoriasis, insomnia, lymphedema is here today for pre colonoscopy screening.? Last colonoscopy in December of 2018.? Hyperplastic polyp found. Family history of CRC maternal grandfather. Denies history of difficulty with sedation or anesthesia in the past.? History of sleep apnea uses CPAP at times. Patient reports uncomfortable and sometimes when she moves the machine falls off.? Denies any history of cardiac, renal, pulmonary, or hepatic disease.?? No history of infectious? diseases like hepatitis A, B, C, HIV or tuberculosis.? Patient is not on any anticoagulation [facility] Medical History Abnormal Pap smear of cervix Conversion disorder COVID-19 Posterior circulation stroke Psoriasis Fibromyalgia Shoulder pain, bilateral Neck pain Acute lumbar myofascial strain Cervical myofascial strain BRCA positive Restless legs syndrome Hypersomnia Snoring Overweight (BMI 25.0-29.9) GERD without esophagitis Cervical disc disease Sleep disorder Spondylosis of cervical spine with radiculopathy Right low back pain Left shoulder pain Breast cancer Anxiety Insomnia Lymphedema Myalgia Benign essential hypertension Surgical History Hx of colonoscopy (~01/07/20) History of breast surgery History of breast implant removal H/O bilateral oophorectomy Hx of bilateral mastectomy History of tubal ligation History of cholecystectomy H/O breast biopsy Family History Father Diabetes Mother Low blood pressure Family/Other Breast cancer Diabetes Sister Atrial fibrillation Sister Thyroid disease Social History Household Members: Significant Other Housing: House Do you presently have visiting nurse or other home services: No Alcohol intake: current Alcohol intake frequency: holidays/special occasions only Patient Tobacco Use Status: Never used Tobacco e-Cigarette/Vaping Use: Never Used Second Hand Smoke Exposure: No service: No Current occupational status: unemployed and disabled Gender identity: Female Cognitive needs: Yes (canmarcel sáncehz) Hearing needs: No Vision needs: Yes Female Reproductive History Menstrual Age of Menarche: 10 Physical Exam Vital Signs: Last Vital Signs Pulse 60 11/10/24 13:46 BP 120/72 11/10/24 13:46 Pulse Ox 98 11/10/24 13:46 Oxygen Delivery Method Room Air 11/10/24 13:46 BMI result Body Mass Index 28.0 Assessment & Plan Assessment & Plan (1) Screen for colon cancer: Code(s): Z12.11 - Encounter for screening for malignant neoplasm of colon Plan Patient denies any GI, cardiac or respiratory symptoms.? Denies any issues with anesthesia in the past.? History of sleep apnea? No history infectious diseases in the past or present.? Not on any anticoagulation therapy.? No family or personal history of colon cancer or polyps.? Patient denies melena, hematochezia, unintentional weight loss or ribbon like stools.? Discussed at length the pre-procedure,? prep, diet & medications as well as what to expect prior, during and after the procedure.?? Stressed the importance of good bowel prep.? Recommended the use of Vaseline or Calmoseptine OTC & baby wipes with bowel movements to promote comfort.? ?Patient verbalizes understanding and a grees to plan of care.? She was given the opportunity to ask questions and all questions answered.? We will see her after the procedure.? Medications: New bisacodyl (Dulcolax (bisacodyl)) take 4 tabs at noon the day before your colonoscopy 20 mg (4 x 5 mg) PO ONCE 4 tabs 0RF 1 day Z12.11 - Encounter for screening for malignant neoplasm of colon polyethylene glycol 3350 (Miralax) As directed by gastroenterology department at [facility] 238 gr ams PO ONCE 238 grams 0RF Z12.11 - Encounter for screening for malignant neoplasm of colon Coding Level of Care Code New Pt Level 3 (70647) Diagnoses Screen for colon cancer Z12.11 Time Spent (min) 40 Comment 30 minutes spent with patient and additional 10 minutes spent reviewing her records
== END 2024-11-10 14:37 | disposition home or self-care (01) ==
PROVIDERS: PCP Internal Medicine; Visit Provider Nurse Practitioner Family
DX: Z01.818 Encounter for other preprocedural examination (principal); Z12.11 Encounter for screening for malignant neoplasm of colon
CPT/HCPCS: 99024

== ENCOUNTER → 2024-11-10 13:44 | Outpatient (BNVA) | payer OTHER, SELFPAY | PROVIDERS: PCP Internal Medicine; Visit Provider Nurse Practitioner Family | DX: Z12.11 Encounter for screening for malignant neoplasm of colon (principal) | CPT/HCPCS: 99212 ==

== ENCOUNTER 2024-12-23 14:22 | Outpatient (AMB) | payer OTHER, SELFPAY ==
--- NOTE | 2024-12-23 14:36 | A.OFFPC_ITS ---
Vital Signs 12/23/24 14:37 Height 5 ft 6 in Weight 175 lb 6 oz BMI 28.3 BP 124/82 Blood Pressure Location Lt femoral Position Sitting Pulse 94 Pulse Source Pulse Oximeter Pulse Oximetry (%) 98 Oxygen Delivery Method Room Air Intake Visit Reasons: 4mof\u Certified Phlebotomy Technician Required: No Accompanied by: Self / Same As Patient Allergies lisinopril Allergy (Mild, Verified 12/29/24 02:41) Cough zolpidem Adverse Reaction (Severe, Verified 12/29/24 02:41) sleepwalking Medication List - Last Reconciled 12/29/24 by Rod Mathews MD amlodipine 5 mg PO DAILY 90 days [arm rest for toilet As directed] ascorbic acid (vitamin C) (Vitamin C) 500 mg PO DAILY bisacodyl (Dulcolax (bisacodyl)) 20 mg (4 x 5 mg) PO ONCE 1 day bupropion HCl XL 150 mg PO QAM buspirone 15 mg PO TID calcipotriene 0.005% 1 appl topical BID cholecalciferol (vitamin D3) 50 mcg PO DAILY 90 days clonazepam 0.5 mg PO BEDTIME CPAP As directed cyclobenzaprine 10 mg PO TID PRN 30 days diphenhydramine-acetaminophen 25-500 mg (Tylenol PM Extra Strength) 1 tab PO BEDTIME PRN duloxetine 30 mg PO DAILY 30 days eszopiclone 2 mg PO BEDTIME PRN furosemide 20 mg PO QAM PRN [HUMIDIFIER As directed] hydrocodone-acetaminophen 5-325 mg 1 tab PO BID-TID PRN 7 days ibuprofen 400 mg PO Q8H PRN 30 days lidocaine 5% (Lidoderm) 1 patch topical DAILY losartan 25 mg PO DAILY multivitamin with folic acid 400 mcg (Daily-Sujey (with folic acid)) 1 tab PO DAILY polyethylene glycol 3350 (Miralax) 238 grams PO ONCE tramadol 50 mg PO BID-TID PRN triamcinolone acetonide 0.5% 1 appl topical BID walker (Ultra-Light Rollator misc) As directed Tobacco use date assessed: 12/23/24 Dental Screening Dental Screen Date: 12/23/24 Did you have a dental visit in the last 12 months?: Yes Did you have a dental problem in the last 6 months where you did not have access to dental care?: No Was dental information given to patient?: Patient has dentist HPI 4mof\u HPI Details Patient comes in today for her follow-up visit States that she feels okay She denies any headaches or dizziness Denies any chest pains, no increased shortness of breath No nausea/vomiting, no abdominal pain No change in bowel habits noted Relates that she has been experiencing increased pain over her left knee lately She does not recall any recent injury or trauma to her knee She continues to experience frequent diffuse pain, especially over both sides of her neck, due to her fibromyalgia but she has learned how to better manage her fibromyalgia pain now Needs a couple of her Rx refilled She also was not able to get her follow-up labs done prior to her appointment today [facility] Medical History Overweight (BMI 25.0-29.9) GERD without esophagitis Anxiety Benign essential hypertension Abnormal Pap smear of cervix Conversion disorder COVID-19 Posterior circulation stroke Psoriasis Fibromyalgia Shoulder pain, bilateral Neck pain Acute lumbar myofascial strain Cervical myofascial strain BRCA positive Restless legs syndrome Hypersomnia Snoring Cervical disc disease Sleep disorder Spondylosis of cervical spine with radiculopathy Right low back pain Left shoulder pain Breast cancer Insomnia Lymphedema Myalgia Surgical History Hx of colonoscopy (~01/07/20) History of breast surgery History of breast implant removal H/O bilateral oophorectomy Hx of bilateral mastectomy History of tubal ligation History of cholecystectomy H/O breast biopsy Family History Father Diabetes Mother Low blood pressure Family/Other Breast cancer Diabetes Sister Atrial fibrillation Sister Thyroid disease Social History Household Members: Significant Other Housing: House Do you presently have visiting nurse or other home services: No Alcohol intake: current Alcohol intake frequency: holidays/special occasions only Patient Tobacco Use Status: Never used Tobacco e-Cigarette/Vaping Use: Never Used Second Hand Smoke Exposure: No service: No Current occupational status: unemployed and disabled Gender identity: Female Cognitive needs: Yes (cane, walker) Hearing needs: No Vision needs: Yes Female Reproductive History Menstrual Age of Menarche: 10 Questionnaire PHQ-9 Over the last 2 weeks, how often have you been bothered by any of the following problems? 1. Little interest or pleasure in doing things: several days 2. Feeling down, depressed, or hopeless: several days 3. Trouble falling or staying asleep, or sleeping too much: several days 4. Feeling tired or having little energy: several days 5. Poor appetite or overeating: several days 6. Feeling bad about yourself - or that you are a failure or have let yourself or your family down: not at all 7. Trouble concentrating on things, such as reading the newspaper or watching television: not at all 8. Moving or speaking so slowly that other people could have noticed. Or the opposite - being so fidgety or restless that you have been moving around a lot more than usual: not at all 9. Thoughts that you would be better off or of hurting yourself in some way: not at all Total score: 5 Depression Screening Interpretation: Positive Depression Screening Follow-up: Existing condition and In treatment Depression Screening Done: Yes 61195 - PHQ-9 Billing: Yes Source: Developed by Drs. Edouard Madrigal, Ginny Oliveira, Giovanni Escalante and colleagues, with an educational shayne from [employer]. Thrive Questionnaire Date Thrive assessed: 12/23/24 I am a: Patient What is your living situation today?: I have a steady place to live Within the past 12 months, did the food you bought not last and you didn't have the money to get more?: Never true Within the past 12 months, did you worry whether your food would run out before you got money to buy more?: Never true Do you have trouble paying for medicines?: No Do you have trouble getting transportation to medical appointments?: No Do you have trouble paying your heating and electricity bill?: No Do you have trouble taking care of your child, family member or friend?: No Do you have trouble with day-to-day activities such as bathing, preparing meals, shopping, managing finances, etc.?: No Are you currently unemployed and looking for a job?: No Are you interested in more education?: No Please select the resources that you would like help with: None Currently or been in a relationship where the following occur: No concerns reported THRIVE Score: 0 AUDIT C Alcohol Use Questionnaire (AUDIT-C) 1. How often do you have a drink containing alcohol?: Monthly or less 2. How many drinks containing alcohol do you have on a typical day when you are drinking?: 1 or 2 3. How often do you have six or more drinks on one occasion?: Never Total Score: 1 Score Reviewed/Action Taken: Yes BRYAN-7 AMB Questionnaire BRYAN-7 Date BRYAN - 7 assessed: 12/23/24 Feeling nervous, anxious, or on edge: 0 = Not at all Not being able to stop or control worryin = Not at all Worrying too much about different things: 0 = Not at all Trouble relaxin = Not at all Being so restless that it is hard to sit still: 0 = Not at all Becoming easily annoyed or irritable: 0 = Not at all Feeling afraid as if something awful might happen: 0 = Not at all Total BRYAN-7 score (0-4 normal; 5-9 mild; 10-14 moderate; 15-21 severe): 0 Source: Developed by Drs. Edouard Madrigal, Ginny Oliveira, Giovanni Escalante and colleagues, with an educational shayne from [employer]. Review of Systems Const Denies chills, Reports fatigue, Denies fever(s) and Denies headache(s) ENT Denies dysphagia, Denies dizziness, Denies otalgia, Denies headache(s), Reports neck pain, Denies odynophagia and Denies sore throat Card Denies chest pain, Denies palpitations and Denies dyspnea Resp Denies cough, Denies dyspnea and Denies wheezing GI Denies abdominal pain, Denies constipation, Denies dysphagia, Denies heartburn, Denies diarrhea, Denies nausea, Denies odynophagia and Denies vomiting Denies difficulty voiding, Denies nocturia, Denies dysuria and Denies urinary urgency Musc Reports back pain, Reports myalgias (diffuse), Reports arthralgias (multiple joints), Reports neck pain and Reports stiffness Skin/Breast Denies rash Neuro Denies dizziness and Denies headache(s) Psych Denies anxiety and Denies depression Endo Reports fatigue and Denies palpitations Manish/Lymph Denies easy bruising Aller/Immun Denies wheezing Physical exam (Primary Care) Vital Signs: Last Vital Signs Pulse 94 12/23/24 14:37 BP 124/82 12/23/24 14:37 Pulse Ox 98 12/23/24 14:37 Oxygen Delivery Method Room Air 12/23/24 14:37 BMI result Body Mass Index 28.3 Tobacco/Smoking Status: Tobacco use Status Tobacco use date assessed 12/23/24 12/23/24 14:49 Patient Tobacco Use Status Never used Tobacco 12/23/24 14:49 e-Cigarette/Vaping Use Never Used 12/23/24 14:49 PHQ-9: PHQ-9 Score PHQ-9: Total score 5 12/23/24 15:11 Depression Screening Interpretation: Positive Depression Screening Follow-up: Existing condition and In treatment Thrive Assessment: Date of Thrive Assessment Date Thrive assessed 12/23/24 12/23/24 14:49 Currently or been in a relationship where the following occur: No concerns reported Const General: no acute distress and alert HENMT Ears: TM's normal bilaterally and EAC's normal Throat: Yes posterior oropharynx normal and Yes tonsils normal (no TP congestion noted) Neck Neck: Yes no lymphadenopathy and Yes tender (over the cervical spine and paraspinal areas bilaterally) Thyroid: Thyroid normal Resp Auscultation: clear to auscultation bilaterally, no rales and no wheezes Cardio Rate: regular rate Rhythm: regular rhythm Heart sounds: no murmurs GI Palpation (GI): Soft to palpation and nontender Auscultation: normal bowel sounds General: Yes no CVA tenderness Back/Spine/Pelvis Back: no CVA tenderness Thoracic/Lumbar Spine: paraspinal muscle tenderness bilaterally (over the cervical and thoracolumbar spine (diffuse)) and lumbar spinal tenderness Skin Rashes: no rashes Extrem General: Yes no clubbing, cyanosis or edema Right upper extremity: shoulder/upper arm Details: tenderness (diffusely over the scapular area) Left upper extremity: shoulder/upper arm Details: tenderness (diffusely over the scapular areas) Coding Level of Care Code Est Pt Level 4 (18806) Diagnoses Left knee pain, unspecified chronicity M25.562 Chronicity: unspecified Benign essential hypertension I10 Cervical disc disease M50.90 VERNON on CPAP G47.33; Z99.89 Benign paroxysmal vertigo, unspecified laterality H81.10 Laterality: unspecified laterality GERD without esophagitis K21.9 Psoriasis L40.9 Lymphedema I89.0 Fibromyalgia M79.7 History of breast cancer in female Z85.3 Insomnia, unspecified type G47.00 Insomnia type: unspecified Anxiety F41.9 Overweight (BMI 25.0-29.9) E66.3 Additional Codes PHQ-9 - 69741 - PHQ-9 Billing: Yes ([id number]) Assessment & Plan Assessment & Plan (1) Left knee pain: Code(s): M25.562 - Pain in left knee Category: Medical Qualifiers: Chronicity: unspecified Qualified Code(s): M25.562 - Pain in left knee Plan: Will send patient for x-rays of the left knee for further evaluation (2) Benign essential hypertension: Code(s): I10 - Essential (primary) hypertension Category: Medical Plan: Reinforced low sodium diet - goal is systolic BP of 120 mm or less Continue Losartan 25 mg QD and Amlodipine 5 mg QD Will recheck her labs in 6 months for follow-up (3) Cervical disc disease: Code(s): M50.90 - Cervical disc disorder, unspecified, unspecified cervical region Category: Medical Plan: Cervical spine CT done in 10/2021 revealed (+) multilevel degenerative cervical disc changes /spondylosis with mild neural foraminal encroachment at multiple levels but no canal compromise or cord compression and no abnormal intramedullary signal changes are noted Recalls that she was being set up for a trial of nerve block sometime last year but her appointment ended up getting cancelled Follow up with Pain Management as scheduled (4) VERNON on CPAP: Comment: The total AHI 7/hr, REM AHI was 29/hr with oxygen dalila was 85% Code(s): G47.33 - Obstructive sleep apnea (adult) (pediatric); Z99.89 - Dependence on other enabling machines and devices Category: Medical Plan: She is currently using a CPAP/autoPAP device when sleeping at night regularly Follow up with Sleep Medicine as scheduled (5) Benign paroxysmal vertigo: Code(s): H81.10 - Benign paroxysmal vertigo, unspecified ear Category: Medical Qualifiers: Laterality: unspecified laterality Qualified Code(s): H81.10 - Benign paroxysmal vertigo, unspecified ear Plan: Controlled/stable lately with no recent recurrence of symptoms Follow up with physical therapy as needed for Canalith positioning (6) GERD without esophagitis: Code(s): K21.9 - Gastro-esophageal reflux disease without esophagitis Category: Medical Plan: Dietary restrictions reinforced Continue Omeprazole 20 mg QD (7) Psoriasis: Code(s): L40.9 - Psoriasis, unspecified Category: Medical Plan: She was seen by dermatology (Dr. Ambrosio) previously and was diagnosed with plaque psoriasis She is presently maintained on topical Calcipotriene cream and some steroid cream She was also referred to rheumatology for evaluation of joint involvement and she was supposedly seen at [facility] sometime in January 2023 (8) Lymphedema: Code(s): I89.0 - Lymphedema, not elsewhere classified Category: Medical Plan: Continue Furosemide 20 mg Q AM PRN Patient is encouraged again to continue to elevate her lower extremities as often as she can throughout the day; patient also wears compression stockings as needed to help manage her edema (9) Fibromyalgia: Code(s): M79.7 - Fibromyalgia Category: Medical Plan: Continue Methocarbamol 750 mg TID PRN She is encouraged again to exercise regularly to help manage her symptoms better Per request, she was also referred previously for acupuncture therapy - she was supposedly advised by her insurance that they will cover acupuncture therapy as an alternative form of treatment (10) History of breast cancer in female: Code(s): Z85.3 - Personal history of malignant neoplasm of breast Category: Medical Plan: S/P bilateral mastectomy and breast implants; she no longer needs annual mammography subsequently She used to see Dr. Boyle for oncology follow up but has not been back to see her since her last visit in October 2020 - she is again encouraged to and reminded to call up Dr. Boyle's office to schedule a follow up appt and for continuing surveillance (11) Insomnia: Code(s): G47.00 - Insomnia, unspecified Category: Medical Qualifiers: Insomnia type: unspecified Qualified Code(s): G47.00 - Insomnia, unspecified Plan: Sleep hygiene reinforced Continue Trazodone 150 mg QHS (12) Anxiety: Code(s): F41.9 - Anxiety disorder, unspecified Category: Medical Plan: Continue Bupropion ER 150 mg QD, Buspirone 15 mg TID and Clonazepam 0.5 mg QD PRN Follow-up with Psychiatry as scheduled (13) Overweight (BMI 25.0-29.9): Code(s): E66.3 - Overweight Category: Medical Plan: Reinforce diet/exercise as tolerated/lose weight Plan To return as scheduled in June 2025 for her next annual physical examination Orders: Orders Lipid Panel 06/13/25 E78.00 - Pure hypercholesterolemia, unspecified, Z00.00 - Encounter for general adult medical examination without abnormal findings Comprehensive [place]. Panel Fast 06/13/25 E78.00 - Pure hypercholesterolemia, unspecified, Z00.00 - Encounter for general adult medical examination without abnormal findings TSH reflex Free T4 06/13/25 E78.00 - Pure hypercholesterolemia, unspecified, Z00.00 - Encounter for general adult medical examination without abnormal findings Vitamin D 25-OH Total 06/13/25 E55.9 - Vitamin D deficiency, unspecified, Z00.00 - Encounter for general adult medical examination without abnormal findings Vitamin B12 and Folate 06/13/25 E53.8 - Deficiency of other specified B group vitamins, Z00.00 - Encounter for general adult medical examination without abnormal findings XR knee LT 4V 12/23/24 M25.562 - Pain in left knee Complete Blood Count Auto Diff 06/13/25 D64.9 - Anemia, unspecified, Z00.00 - Encounter for general adult medical examination without abnormal findings UA CC w/rflx Micro + Cult 06/13/25 R30.0 - Dysuria, Z00.00 - Encounter for general adult medical examination without abnormal findings Medications: Changed From amlodipine 5 mg PO DAILY 90 tabs 2RF To amlodipine 5 mg PO DAILY 90 days 90 tabs 1RF Refilled tramadol 50 mg PO BID-TID PRN 90 tabs 0RF pain
[2024-12-23 14:37] VITALS: BP 124/82; PULSE 94; O2SAT 98; BMI 28.3
--- OUTSIDE RECORDS SUMMARY | 2024-12-23 15:17 | XMS_ITS | Encounter Summary ---
Author Organization [employer] [facility] Address [address] [place] [address] Care Team Providers Care Securities Clerk Name Role Phone Unavailable Primary Care Provider Unavailabl e Reason for Visit * Reason Comments Dental Exam Encounter Details Date Type Department Care Team (Late st Contact Info) Description 11/27/2024 3:00 PM EST Office Visit [facility] ADULT [facility]ENTAL [address] [place] [address] Lindsay Murcia DDS [address] [place] [address] Periapical abscess without sinus (Primary Dx); Closed fracture of tooth, initial encounter Social History Tobacco Use Types Packs/Day Years Used Date Smoking Tobacco: Never Smokeless Tobacco: Never Comments Unknown Sex and Gender Information Value Date Recorded Sex Assigned at Female 09/11/2022 10:14 AM EDT Legal Sex Female 10:14 AM EDT Gender Identity Female 09/11/2022 10:14 AM EDT Sexual Orientation Straight 09/11/2022 10 :14 AM EDT documented as of this encounter Progress Notes * Lindsay Murcia DDS - 11/27/2024 3:00 PM EST Dental procedures in this visit [id number] - LIMITED ORAL EVALUATION - PROBLEM FOCUSED (Completed) Service provider: Lindsay Murcia DDS Billing provider: Lindsay Murcia DDS [id number] - INTRAORAL - PERIAPICAL FIRST RADIOGRAPHIC IMAGE (Completed) Service provider: Lindsay Murcia DDS Billing provider: Lindsay Murcia DDS [id number] - ADJUNCTIVE GENERAL SERVICES - PROFESSIONAL VISITS - CASE PRESENTATION, SUBSEQUENT TO DETAILED AND EXTENSIVE TREATMENT PLANNING (Completed) Service provider: Lindsay Murcia DDS Billing provider: Lindsay Murcia DDS Patient ID: Macie Sorto is a 54 y.o. female. Time Out: Timeout Date: 11/27/24, Timeout Time: 1437 (exam) Location: [facility] Tooth: #13 Procedure: limited exam Verified the above with patient, clinical data assistant, and provider. Confirmed via patient's chart, intraorally and by radiographs. Teletype Or Varitype Keyboard Operator: not applicable Chief Complaint Patient presents with Dental Exam Medical Hx: Vitals: There were no vitals taken for this visit. Past Medical History: Diagnosis Date Hypertension Stroke ([facility]) Medications: Outpatient Encounter Medications as of 11/27/2024 Medication Sig Dispense Refill amLODIPine (Norvasc) 5 MG tablet Take 5 mg by mouth Once per day. Ascorbic Acid (vitamin C) 500 MG tablet Take 500 mg by mouth Once per day. buPROPion XL (Wellbutrin XL) 150 MG 24 hr tablet chlorhexidine (Peridex) 0.12 % solution USE 15 ML IN THE MOUTH OR THROAT IF NEEDED (FOR MOUTHWASH 15 ML FOR 30 SECONDS, SWISH AND SPIT) FOR UP TO 14 DAYS. SPIT OUT DO NOT RINSE 473 mL 0 cholecalciferol (Vitamin D-3) 50 MCG (2000 UT) tablet Take 50 mcg by mouth Once per day. clonazePAM (KlonoPIN) 0.5 MG tablet Take 0.5 mg by mouth 2 times daily. eszopiclone (Lunesta) 2 MG tablet No facility-administered encounter medications on file as of 11/27/2024. Subjective: Pt in office because tooth that was recently retreated, just fractured. Objective: Tooth: #13 Radiographs Taken: PA(s) Radiographic Findings: PARL present, still in healing process, asymptomatic. Fracture noticed on M.Cotton replaced and composite build up fabricated. Pt to apply for SFA for coverage on Post and crowns, not recently covered by the insurance. Diagnosis: Periapical abscess w/sinus; fractured tooth Assessment/Plan: POC and crown prep [place] #13 Pt tolerated procedure well, all questions answered. Dismissed in good condition. NV: POC and crown prep Manager Disaster Recovery: Rand Carrizales Dentist: Lindsaysantiago Murcia DDS documented in this encounter Plan of Treatment Not on file documented as of this encounter Procedures Procedure Name Priority Date/Time Associated Diagnosis Comments LIMITED ORAL EVALUATION - PROBLEM FOCUSED Routine 11/27/2024 3:00 PM EST Periapical abscess without sinus INTRAORAL - PERIAPICAL FIRST RADIOGRAPHIC IMAGE Routine 11/27/2024 3:00 PM EST Periapical abscess without sinus ADJUNCTIVE GENERAL SERVICES - PROFESSIONAL VISITS - CASE PRESENTATION, SUBSEQUENT TO DETAILED AND EXTENSIVE TREATMENT PLANNING Routine 11/27/2024 3:00 PM EST Periapical abscess without sinus documented in this encounter Visit Diagnoses Diagnosis Periapical abscess without sinus- Primary Closed fracture of tooth, initial encounter documented in this encounter
--- OUTSIDE RECORDS SUMMARY | 2024-12-23 15:17 | XMS_ITS | Encounter Summary ---
Author Organization [employer] [facility] Address [address] [place] [address] Care Team Providers Care Jewelry Appraiser Name Role Phone Unavailable Primary Care Provider Unavailabl e Reason for Visit * Reason Onset Date Comments appt 01/23/2024 Encounter Details Date Type Department Care Team (Late st Contact Info) Description 01/23/2024 Telephone [facility] ADULT DENT[facility] [address] [place] [address] CherylMichelle sánchez [address] [place] [address] appt Social History Tobacco Use Types Packs/Day Years Used Date Smoking Tobacco: Never Assessed Comments Unknown Sex and Gender Information Value Date Recorded Sex Assigned at Female 09/11/2022 10:14 AM EDT Legal Sex Female 10:14 AM EDT Gender Identity Female 09/11/2022 10:14 AM EDT Sexual Orientation Straight 09/11/2022 10 :14 AM EDT documented as of this encounter Miscellaneous Notes * Telephone Encounter - Merle Hui - 01/23/2024 11:47 AM EDT Appt was requested for patient in [facility] as new patient with Dr. Pritchard. It was requested incorrectly. I corrected it. It should be with Michelle. She is checking in on status of appt DR documented in this encounter Plan of Treatment Not on file documented as of this encounter Visit Diagnoses Not on filedocumented in this encounter
--- OUTSIDE RECORDS SUMMARY | 2024-12-23 15:17 | XMS_ITS | Encounter Summary ---
Author Organization [employer] [facility] Address [address] [place] [address] Care Team Providers Care Clinic Manager Name Role Phone Unavailable Primary Care Provider Unavailabl e Reason for Visit * Reason Onset Date Comments mouth wash 05/27/2024 Encounter Details Date Type Department Care Team ([facility] st Contact Info) Description 05/27/2024 Telephone [facility] ADULT DENTAL [address] [place] [address] Lindsay Murcia DDS [address] [place] [address] mouth wash Social History Tobacco Use Types Packs/Day Years [...] encounter Miscellaneous Notes * Telephone Encounter - Lindsay Murcia DDS - 05/27/2024 2:31 PM EDT Please inform the pt that it has been sent. Thanks, Dr. Mallory * Telephone Encounter - Merle Hui - 05/27/2024 1:03 PM EDT Patient states that mouth wash script was to be sent to pharmacy but nothing at pharmacy as of yet documented in this encounter Plan of Treatment Not on file documented as of this encounter Visit Diagnoses Not on filedocumented in this encounter
--- OUTSIDE RECORDS SUMMARY | 2024-12-23 15:17 | XMS_ITS | Encounter Summary ---
Author Organization [employer] [facility] Address [address] [facility] [address] [place] [address] Care Team Providers Care Manager Cardiology Name Role Phone Unavailable Primary Care Provider Unavailabl e Reason for Visit * Reason Comments Med Refill Encounter Details Date Type Department Care Team (Late st Contact Info) Description 10/30/2024 Refill [facility] ADULT [facility] [address] [place] [address] Lindsay Murcia DDS [address] [place] [address] Social History Tobacco Use Types Packs/Day Years [...] Telephone Encounter - Lindsay Murcia DDS - 10/30/2024 12:49 PM EST Approving, but needs appt for additional refills. documented in this encounter Plan of Treatment Not on file documented as of this encounter Visit Diagnoses Not on filedocumented in this encounter
--- OUTSIDE RECORDS SUMMARY | 2024-12-23 15:17 | XMS_ITS | Clinical Summary ---
Author Organization [facility] Address [id number] [place] [id number] Care Team Providers Care Ctc Operator Name Role Phone Rod Mathews MD Primary Care Provider Medical History Medical History Date Comments Anxiety state DX:Anxiety state Arthritis DX:Arthritis Lymphedema DX:Lymphedema Social History Tobacco Use Types Packs/Day Years Used Date Smoking Tobacco: Never Smokeless Tobacco: Never Comments Unknown Sex and Gender Information Value Date Recorded Sex Assigned at Not on file Legal Sex Female 9:12 AM EST Gender Identity Not on file Sexual Orientation Not on file Obstetrics History Last Filed Vital Signs Vital Sign Reading Time Taken Comments Blood Pressure - - Pulse - - Temperature - - Respiratory Rate - - Oxygen Saturation - - Inhaled Oxygen Concentration - - Weight 83 kg (183 lb) 04/20/2022 1:48 PM EDT Height 170.2 cm (5' 7 ) 04/20/2022 1:48 PM EDT Body Mass Index 28.66 04/20/2022 1:48 PM EDT Plan of Treatment Health Maintenance Due Date Last Done Comments Breast Cancer Screening 1968 DTaP,Tdap,and Td Vaccines (1 - Tdap) 1987 Hepatitis B Vaccines (1 of 3 - 19+ 3-dose series) 1987 Cervical Cancer Screening: P ap Smear 1989 Zoster Vaccines (1 of 2) 2018 Colorectal Cancer Screening: Colonoscopy 10/15/2022 Depression Screening 10/15/2022 HIV Screening 10/15/2022 Hepatitis C Screening 10/15/2022 Social Influencers of Health Screening 10/15/2022 COVID-19 Vaccine ( - 2023-2 5 season) 2024 Influenza Vaccine (#1) 2024 HIB Vaccines Aged Out No longer eligi ble based on patient's age to complete this topic HPV Vaccines Aged Out No longer eligi ble based on patient's age to complete this topic Hepatitis A Vaccines Aged Out No long er eligible based on patient's age to complete this topic IPV Vaccines Aged Out No longer eligi ble based on patient's age to complete this topic MMR Vaccines Aged Out No longer eligi ble based on patient's age to complete this topic Meningococcal ACWY Vaccine Aged Out N o longer eligible based on patient's age to complete this topic Pneumococcal Vaccine: Pediat rics (0 to 5 Years) and At-Risk Patients (6 to 64 Years) Aged Out No longer eligible b ased on patient's age to complete this topic RSV Immunization Patients Un denzel 20 months Aged Out No longer eligible b ased on patient's age to complete this topic Varicella Vaccines Aged Out No longer eligible based on patient's age to complete this topic Care Teams Ctc Operator Relationship Specialty Start Date End Date Rod Mathews MD [address] [place] [address] [address] [place] PCP - General Internal Medicine 04/13/22
--- OUTSIDE RECORDS SUMMARY | 2024-12-23 15:17 | XMS_ITS | Clinical Summary ---
Author Organization [facility] Address [address] [facility] 7[address] [place] [address] Care Team Providers Care Passenger Solicitor Name Role Phone Unavailable Primary Care Provider Unavailabl e Allergies Active Allergy Reactions Criticality Noted Date Comments Gabapentin Palpitations Low 05/23/2024 Lorazepam Anxiety Low 05/23/2024 Medications amLODIPine (Norvasc) 5 MG tablet Take 5 mg by mouth Once per day. Active Ascorbic Acid (vitamin C) 500 MG tablet Take 500 mg by mouth Once per day. 4 Active buPROPion XL (Wellbutrin XL) 150 MG 24 hr tablet 4 Active cholecalciferol (Vitamin D-3) 50 MCG (2000 UT) tablet Take 50 mcg by mouth Once per day. 4 Active eszopiclone (Lunesta) 2 MG tablet 4 Active clonazePAM (KlonoPIN) 0.5 MG tablet Take 0.5 mg by mouth 2 times daily. Active chlorhexidine (Peridex) 0.12 % solution USE 15 ML IN THE MOUTH OR THROAT IF NEEDED (FOR MOUTHWASH 15 ML FOR 30 SECONDS, SWISH AND SPIT) FOR UP TO 14 DAYS. SPIT OUT DO NOT RINSE 473 mL 4 Active Encounters Date Type Department Care Team Description 11/27/2024 3:00 PM EST Office Visit [facility] ADULT DENTAL [address] [place] [address] Lindsay Murcia, DDS Periapical abscess without sinus (Primary Dx); Closed fracture of tooth, initial encounter 10/30/2024 Refill [facility] ADULT DENTAL [address] [place], [place] [id number] Lindsay Murcia, DDS from Last 3 Months Social History Tobacco Use Types Packs/Day Years Used Date Smoking Tobacco: Never Smokeless Tobacco: Never Tobacco Cessation:Counseling Given: Not Answered Comments Unknown Sex and Gender Information Value Date Recorded Sex Assigned at Female 09/11/2022 10:14 AM EDT Legal Sex Female 10:14 AM EDT Gender Identity Female 09/11/2022 10:14 AM EDT Sexual Orientation Straight 09/11/2022 10 :14 AM EDT Last Filed Vital Signs Vital Sign Reading Time Taken Comments Blood Pressure 132/84 05/23/2024 1:31 PM EDT Pulse - - Temperature - - Respiratory Rate - - Oxygen Saturation - - Inhaled Oxygen Concentration - - Weight - - Height - - Body Mass Index - - Plan of Treatment Health Maintenance Due Date Last Done Comments CT Colonography 1968 Colonoscopy 1968 Colorectal Cancer Screening 1968 Depression Screening 1968 FIT DNA/Cologuard 1968 FIT 1968 FOBT 1968 HIV Screening 1968 SDOH Screening 1968 Sigmoidoscopy 1968 Alcohol/Substance Use Screening 1980 Hepatitis C Screening 1986 DTaP/Tdap/Td Vaccines (1 - Tdap) 1987 Hepatitis B Vaccines (1 of 3 - 19+ 3-dose series) 1987 Pap Smear 1989 Cervical Cancer Screening 1998 HPV/Cotest 1998 Pneumococcal Vaccine: 50+ Years (1 of 1 - PCV) 2018 Zoster Vaccines (1 of 2) 2018 COVID-19 Vaccine (3 - 2023- season) 2024 03/05/2021, 02/11/2021 Influenza Vaccine (#1) 2024 , 09/30/2019, 11/27/2018, Additional history exists Dental Prophylaxis 10/10/2024 04/08/2024, 0 03/16/2022, 01/04/2021 Dental Oral Exam 10/29/2024 04/28/2024, , 12/09/2019, Additional history exists Dental X-Ray: Bitewings 04/09/2025 04/08/20 24, 06/02/2022, 01/04/2021, Additional history exists Tobacco Screening 07/17/2025 07/17/2024 Dental X-Ray: Full Mouth 04/09/2027 024, 01/04/2021, 11/30/2016 RSV Patients and Patients Aged 60 years or older (1 - 1-dose 75+ series) 2043 HIB Vaccines Aged Out No longer eligi [...] patient's age to complete this topic Meningococcal Vaccine Aged Out No braeden rebecca eligible based on patient's age to complete this topic Pneumococcal Vaccine: Pediatrics (0 to 5 Years) and At-Risk Patients (6 to 49) Years) Aged Out No longer eligible based on patient's age to complete this topic RSV under 20 months Aged Out No longe r eligible based on patient's age to complete this topic Rotavirus Vaccines Aged Out No longer eligible based on patient's age to complete this topic Procedures Procedure Name Priority Date/Time Associated Diagnosis Comments ADJUNCTIVE GENERAL SERVICES - PROFESSIONAL VISITS - CASE PRESENTATION, SUBSEQUENT TO DETAILED AND EXTENSIVE TREATMENT PLANNING Routine 11/27/2024 3:00 PM EST Periapical abscess without sinus INTRAORAL - PERIAPICAL FIRST RADIOGRAPHIC IMAGE Routine 11/27/2024 3:00 PM EST Periapical abscess without sinus LIMITED ORAL EVALUATION - PROBLEM FOCUSED Routine 11/27/2024 3:00 PM EST Periapical abscess without sinus PERIODIC ORAL EVALUATION - ESTABLISHED PATIENT Routine 04/28/2024 1:30 PM EDT Encounter for dental examination Periapical abscess without sinus PROPHYLAXIS - ADULT Routine 04/08/2024 1 :00 PM EDT Dental calculus Subgingival dental calculus Dental plaque DIAGNOSTIC - DIAGNOSTIC IMAGING - INTRAORAL - COMPREHENSIVE SERIES OF RADIOGRAPHIC IMAGES Routine 04/08/2024 1:00 PM EDT from Last 3 Months or Most Recently Relevant to Health Maintenance Insurance DANIEL Dexter [id number] DENTAL - [facility]
--- OUTSIDE RECORDS SUMMARY | 2024-12-23 15:17 | XMS_ITS | Encounter Summary ---
Author Organization [employer] [facility] Address [address] [place] [address] [address] [place] [address] Care Team Providers Care Tank Truck Operator Name Role Phone Unavailable Primary Care Provider Unavailabl e Encounter Details Date Type Department Care Team (Latest Contact Info) Description 01/04/2021 Abstract C CONVERSIONS Dental, Provider, DDS Social History Tobacco Use Types Packs/Day Years Used Date Smoking Tobacco: Never Assessed Comments Unknown Sex and Gender Information Value Date Recorded Sex Assigned at Female 09/11/2022 10:14 AM EDT Legal Sex Female 10:14 AM EDT Gender Identity Female 09/11/2022 10:14 AM EDT Sexual Orientation Straight 09/11/2022 10 :14 AM EDT documented as of this encounter Plan of Treatment Not on file documented as of this encounter Visit Diagnoses Not on filedocumented in this encounter
== END 2024-12-23 15:14 | disposition home or self-care (01) ==
PROVIDERS: PCP Internal Medicine; Visit Provider Internal Medicine
DX: M25.562 Pain in left knee (principal); I10 Essential (primary) hypertension; M50.90 Cervical disc disorder, unspecified, unspecified cervical region; G47.33 Obstructive sleep apnea (adult) (pediatric); Z99.89 Dependence on other enabling machines and devices; H81.10 Benign paroxysmal vertigo, unspecified ear; K21.9 Gastro-esophageal reflux disease without esophagitis; L40.9 Psoriasis, unspecified; I89.0 Lymphedema, not elsewhere classified; M79.7 Fibromyalgia; Z85.3 Personal history of malignant neoplasm of breast; G47.00 Insomnia, unspecified; F41.9 Anxiety disorder, unspecified; E66.3 Overweight

== ENCOUNTER → 2024-12-23 14:22 | Outpatient (BNVA) | payer OTHER, SELFPAY | PROVIDERS: PCP Internal Medicine; Visit Provider Internal Medicine | DX: M25.562 Pain in left knee (principal); I10 Essential (primary) hypertension; M50.90 Cervical disc disorder, unspecified, unspecified cervical region; G47.33 Obstructive sleep apnea (adult) (pediatric); Z99.89 Dependence on other enabling machines and devices; H81.10 Benign paroxysmal vertigo, unspecified ear; K21.9 Gastro-esophageal reflux disease without esophagitis; L40.9 Psoriasis, unspecified; I89.0 Lymphedema, not elsewhere classified; M79.7 Fibromyalgia; G47.00 Insomnia, unspecified; F41.9 Anxiety disorder, unspecified; E66.3 Overweight; Z85.3 Personal history of malignant neoplasm of breast | CPT/HCPCS: 96127; 99212 ==

== ENCOUNTER 2025-01-27 09:39 | Outpatient (AMB) | payer OTHER, SELFPAY ==
--- NOTE | 2025-01-27 09:48 | MHC.OFFVIS ---
Intake Visit Reasons: menopause Intake Note: pt c/o vaginal dryness even with Replens, having some vaginal bleeding and irritation with intercourse Senior Mechanical Project Manager: Senior Mechanical Project Manager Present (Nikole) Allergies lisinopril Allergy (Mild, Verified 01/27/25 09:49) Cough zolpidem Adverse Reaction (Severe, Verified 01/27/25 09:49) sleepwalking HPI Comments Details: Patient is here today with concerns that she has had vaginal dryness inside and redness on the outside. She used in Metrogel 3 days ago. She is prone to bacterial vaginosis. She also said she spotted slightly with intimacy due to the dryness. Currently using Replens 1 to 2 times a week for the last month. She also has bought in a special soap with more natural ingredients for cleaning. Takes an oral probiotic. Declined Gc/CT testing. [facility] Medical History Overweight (BMI 25.0-29.9) GERD without esophagitis Anxiety Benign essential hypertension Abnormal Pap smear of cervix Conversion disorder COVID-19 Posterior circulation stroke Psoriasis Fibromyalgia Shoulder pain, bilateral Neck pain Acute lumbar myofascial strain Cervical myofascial strain BRCA positive Restless legs syndrome Hypersomnia Snoring Cervical disc disease Sleep disorder Spondylosis of cervical spine with radiculopathy Right low back pain Left shoulder pain Breast cancer Insomnia Lymphedema Myalgia Surgical History Hx of colonoscopy (~01/07/20) History of breast surgery History of breast implant removal H/O bilateral oophorectomy Hx of bilateral mastectomy History of tubal ligation History of cholecystectomy H/O breast biopsy Family History Father Diabetes Mother Low blood pressure Family/Other Breast cancer Diabetes Sister Atrial fibrillation Sister Thyroid disease Social History Household Members: Significant Other Housing: House Do you presently have visiting nurse or other home services: No Alcohol intake: current Alcohol intake frequency: holidays/special occasions only Patient Tobacco Use Status: Never used Tobacco e-Cigarette/Vaping Use: Never Used Second Hand Smoke Exposure: No service: No Current occupational status: unemployed and disabled Gender identity: Female Cognitive needs: Yes (cane, walker) Hearing needs: No Vision needs: Yes Female Reproductive History Menstrual Age of Menarche: 10 Review of Systems Const All systems reviewed & are unremarkable except as noted in HPI and below Physical Exam Const General: cooperative, healthy appearing and no acute distress Orientation/consciousness: patient oriented x3 GI Inspection: Yes normal to inspection Palpation (GI): Soft to palpation and Other GI palpation findings present (Nontender) Rectal Exam - Female: visual inspection normal Other: Shaven and dry appearing vulva, slight erythema of bilateral labia minora General: Yes bladder normal to palpation External Female Exam: normal appearance of the urethra Speculum Exam - Vagina: normal appearance of the vagina, normal palpation, abnormal vaginal discharge (Yellow clumping noted, w/possible medication residual) and vagina atrophic Speculum Exam - Cervix: normal appearance of the cervix and normal palpation Bimanual exam- vagina & uterus: normal bimanual exam, normal palpation, uterine size normal, bladder normal to palpation, normal palpation, uterine shape normal and non-tender Bimanual Exam- Adnexa, other: normal adnexae Neuro General: patient oriented x3 Assessment & Plan Assessment & Plan (1) Vulvovaginal dryness: Code(s): N90.89 - Other specified noninflammatory disorders of vulva and perineum; N89.8 - Other specified noninflammatory disorders of vagina (2) Atrophic vaginitis: Code(s): N95.2 - Postmenopausal atrophic vaginitis Plan Discussed: Skin care, avoiding harsh chemicals, sent it products. Avoid shaving with a razor. Continue use of Replens per manufacture's recommendation twice a week, advised it will take up to 12 weeks to see benefits at times. PH balancing, bacterial vaginosis. Continue with probiotics. Mild pH balanced soap. Await BV culture for plan of care. Observe if fishy odor appears the day after having fish in her diet. Follow up p.r.n. The patient expressed understanding and agreement with the plan of care. All of her questions and concerns were addressed to the best of my ability. This note is constructed using voice recognition software. While every effort has been made to ensure accuracy, financial planning adviser errors may have been included. Orders: Orders Bacterial Vaginosis Panel Today N89.8 - Other specified noninflammatory disorders of vagina Coding Level of Care Code Est Pt Level 3 (42006) Diagnoses Vulvovaginal dryness N90.89; N89.8 Atrophic vaginitis N95.2
== END 2025-01-27 12:07 | disposition home or self-care (01) ==
LOC: HO.HWS 09:39
PROVIDERS: PCP Internal Medicine; Visit Provider Advanced Practice Midwife
DX: N90.89 Other specified noninflammatory disorders of vulva and perineum (principal); N95.2 Postmenopausal atrophic vaginitis
CPT/HCPCS: 99213

== ENCOUNTER 2025-01-27 09:39 | Outpatient (REF) | payer OTHER, SELFPAY ==
[2025-01-28 11:15] LABS: Bacterial Vaginosis PCR NEGATIVE (Negative); Candida Group PCR NOT DETECTED (Not Detect); Candida glab krusei PCR NOT DETECTED (Not Detect); Trichomonas vaginalis PCR NOT DETECTED (Not Detect)
== END 2025-01-27 09:40 | disposition home or self-care (01) ==
LOC: HO.LAB 09:39
PROVIDERS: PCP Internal Medicine; Visit Provider Advanced Practice Midwife
DX: N90.89 Other specified noninflammatory disorders of vulva and perineum (principal); N95.2 Postmenopausal atrophic vaginitis
CPT/HCPCS: 81515; 99212; 99459

== ENCOUNTER 2025-04-09 15:50 | Outpatient (REF) | payer OTHER, SELFPAY ==
--- NOTE | ~2025-04-09 | XR_ITS ---
CLINICAL HISTORY: M25.562 - Pain in left knee Radiographs of the left knee, 4 views Comparison: None Findings: There is no fracture or dislocation. Mild medial tibiofemoral compartment joint space narrowing. Mild osteophytosis in the medial tibiofemoral and patellofemoral compartments. Bone mineralization is normal. No knee joint effusion. No soft tissue swelling. Impression: No acute findings. Mild degenerative change. This document has been electronically signed by: Breanna King MD on 04/09/2025 17:00:25
--- OUTSIDE RECORDS SUMMARY | 2025-04-09 15:53 | XMS_ITS | Clinical Summary ---
Author Organization [employer] [facility] Address [address] [place] [address] [address] [place] [address] Care Team Providers Care Bag Machine Operator Helper Name Role Phone Unavailable Primary Care Provider [...] DO NOT RINSE 473 mL 4 Active Active Problems Problem Noted Date Diagnosed Date Absence of breast 02/20/2025 BRCA2 positive 02/20/2025 Deep vein thrombosis (DVT) 02/20/2025 Malignant neoplasm of upper-inner quadrant of fe male breast 02/20/2025 Encounters Date Type Department Care Team Description 02/20/2025 9:30 AM EDT Office Visit [facility] ADULT DENTAL [address] [place] [address] Lindsay Murcia DDS Full coverage crown needed for root canal-treated tooth (Primary Dx) 02/05/2025 9:00 AM EDT Office Visit [facility] ADULT DENTAL [address] [place] [address] Lindsay Murcia DDS Full coverage crown needed for root canal-treated tooth (Primary Dx) from Last 3 Months Social History Tobacco [...] Sign Reading Time Taken Comments Blood Pressure 124/80 02/20/2025 9:20 AM EDT Pulse 70 02/20/2025 9:20 AM EDT Temperature - - Respiratory Rate - - Oxygen Saturation - - Inhaled Oxygen Concentration - - Weight - - Height - - Body Mass Index - - Plan of Treatment Upcoming Encounters Date Type Department Care Team (Late st Contact Info) Description 04/28/2025 2:00 PM EDT Office Visit [facility] ADULT DENTAL [address] [place] [address] Michelle Luna [address] [place] [address] Health Maintenance Due Date Last Done Comments CT Colonography 1968 Colonoscopy 1968 Colorectal Cancer Screening 1968 Depression Screening 1968 FIT DNA/Cologuard 1968 FIT 1968 FOBT 1968 HIV Screening 1968 Mammogram 1968 SDOH Screening 1968 Sigmoidoscopy 1968 Disability Screening 1968 Alcohol/Substance Use Screening 1980 Hepatitis C Screening 1986 DTaP/Tdap/Td Vaccines (1 - Tdap) 1987 Hepatitis B Vaccines (1 of 3 - 19+ 3-dose series) 1987 Pap Smear 1989 Cervical Cancer Screening 1998 HPV/Cotest 1998 Pneumococcal Vaccine: 50+ Years (1 of 1 - PCV) 2018 Zoster Vaccines (1 of 2) 2018 COVID-19 Vaccine (3 - season) 2024 03/05/2021, 02/11/2021 Influenza Vaccine (#1) 2024 , 09/30/2019, 11/27/2018, Additional history exists Dental Prophylaxis 10/10/2024 04/08/2024, 0 03/16/2022, 01/04/2021 Dental Oral Exam 10/29/2024 04/28/2024, , 12/09/2019, Additional history exists Dental X-Ray: Bitewings 02/06/2026 02/06/20, 04/08/2024, 06/02/2022, Additional history exists Tobacco Screening 02/20/2026 02/20/2025 Dental X-Ray: Full Mouth 04/09/2027 024, 01/04/2021, [...] patient's age to complete this topic Meningococcal B Vaccine Aged Out No l onger eligible based on patient's age to complete [...] Procedure Name Priority Date/Time Associated Diagnosis Comments CASE PRESENTATION, DETAILED AND EXTENSIVE TREATMENT PLANNING Routine 02/20/2025 9:30 AM EDT Full coverage crown needed for root canal-treated tooth 13 CROWN - PORCELAIN/CERAMIC Routine 02/20/2025 9:30 AM EDT Full coverage crown needed for root canal-treated tooth INTRAORAL - PERIAPICAL FIRST RADIOGRAPHIC IMAGE Routine 02/20/2025 9:30 AM EDT Full coverage crown needed for root canal-treated tooth BITEWING - SINGLE RADIOGRAPHIC IMAGE Routine 02/05/2025 9:00 AM EDT Full coverage crown needed for root canal-treated tooth CASE PRESENTATION, DETAILED AND EXTENSIVE TREATMENT PLANNING Routine 02/05/2025 9:00 AM EDT Full coverage crown needed for root canal-treated tooth CROWN PREP Routine 02/05/2025 9:00 AM EDT Full coverage crown needed for root canal-treated tooth 13 PREFABRICATED POST AND CORE IN ADDITION TO CROWN Routine 02/05/2025 9:00 AM EDT Full coverage crown needed for root canal-treated tooth PERIODIC ORAL EVALUATION - ESTABLISHED PATIENT Routine 04/28/2024 1:30 PM EDT Encounter for dental examination Periapical abscess without sinus PROPHYLAXIS - ADULT Routine 04/08/2024 1 :00 PM EDT Dental calculus Subgingival dental calculus Dental plaque INTRAORAL - COMPLETE SERIES OF RADIOGRAPHIC IMAGES Routine 04/08/2024 1:00 PM EDT from Last 3 Months or Most Recently Relevant to Health Maintenance Insurance [facility]
[2025-04-09 17:15] LABS: Appearance Urine Clear; Color Urine Yellow; Glucose Urine UA Negative (Negative); Leukocyte Esterase Urine Moderate (2+) (Negative); Nitrite Urine Negative (Negative); PH 5.5 (5.0-9.0); Specific Gravity - Urine 1.015 (1.005-1.025); UMIC TRIGGER UACC YES; Urine Blood Trace (Negative); Urine Ketones Negative (Negative); Urine Protein Negative (Neg-Trace)
[2025-04-09 17:20] LABS: Bacteria Urine None Seen (None Seen); Hyaline Casts Urine 0-2 /LPF (0-2); Squamous Epithelial Cell Urine 0-2 /HPF (0-2); UACC Culture Trigger YES; WBC Urine 21-50 /HPF (0-5)
== END 2025-04-09 15:51 | disposition home or self-care (01) ==
LOC: HO.XRAY 15:50
PROVIDERS: PCP Internal Medicine; Visit Provider Internal Medicine
DX: I10 Essential (primary) hypertension (principal); M25.562 Pain in left knee; R39.9 Unspecified symptoms and signs involving the genitourinary system
CPT/HCPCS: 73564; 81001; 87086; 87088; 87147; 87186

== ENCOUNTER → 2025-04-09 16:16 | Outpatient (BNV) | payer OTHER, SELFPAY | PROVIDERS: PCP Internal Medicine; Visit Provider Radiology Diagnostic Radiology | DX: M25.562 Pain in left knee (principal) | CPT/HCPCS: 73564 ==

== ENCOUNTER 2025-07-03 16:57 | Outpatient (AMB) | payer OTHER, SELFPAY ==
--- NOTE | 2025-07-03 17:07 | MHC.PC.OV ---
Vital Signs 07/03/25 17:08 Height 5 ft 6 in Weight 175 lb 2 oz BMI 28.3 BP 110/60 Blood Pressure Location Lt brachial Position Sitting Respiration 18 Pulse 78 Pulse Source Pulse Oximeter Temp 97.3 F Temp Source Temporal Artery Scan Pulse Oximetry (%) 99 Oxygen Delivery Method Room Air Intake Visit Reasons: physical Pearl Hand Required: No Accompanied by: Self / Same As Patient Allergies lisinopril Allergy (Mild, Verified 07/03/25 17:36) Cough zolpidem Adverse Reaction (Severe, Verified 07/03/25 17:36) sleepwalking Medication List - Last Reconciled 07/03/25 by Rod Mathews MD amlodipine 5 mg PO DAILY 90 days [arm rest for toilet As directed] ascorbic acid (vitamin C) (Vitamin C) 500 mg PO DAILY bisacodyl (Dulcolax (bisacodyl)) 20 mg (4 x 5 mg) PO ONCE 1 day blood pressure test kit-large As directed bupropion HCl XL 150 mg PO QAM buspirone 15 mg PO TID calcipotriene 0.005% 1 appl topical BID cholecalciferol (vitamin D3) 50 mcg PO DAILY 90 days clonazepam 0.5 mg PO BEDTIME CPAP As directed cyclobenzaprine 10 mg PO TID PRN 30 days diphenhydramine-acetaminophen 25-500 mg (Tylenol PM Extra Strength) 1 tab PO BEDTIME PRN duloxetine 30 mg PO DAILY 30 days eszopiclone 2 mg PO BEDTIME PRN furosemide 20 mg PO QAM PRN [HUMIDIFIER As directed] hydrocodone-acetaminophen 5-325 mg 1 tab PO BID-TID PRN 7 days ibuprofen 400 mg PO Q8H PRN 30 days lidocaine 5% (Lidoderm) 1 patch topical DAILY losartan 25 mg PO DAILY multivitamin with folic acid 400 mcg (Daily-Sujey (with folic acid)) 1 tab PO DAILY nitrofurantoin monohyd/m-cryst 100 mg (Macrobid) 100 mg PO Q12H 7 days polyethylene glycol 3350 (Miralax) 238 grams PO ONCE tramadol 50 mg PO BID-TID PRN triamcinolone acetonide 0.5% 1 appl topical BID walker (Ultra-Light Rollator misc) As directed Tobacco use date assessed: 07/03/25 Dental Screening Dental Screen Date: 07/03/25 Did you have a dental visit in the last 12 months?: Yes Did you have a dental problem in the last 6 months where you did not have access to dental care?: No Was dental information given to patient?: Patient has dentist HPI physical HPI Details Patient comes in today for her annual physical examination States that she feels okay except for increased pain in her left knee, which has been bothering for several months now Notes that she feels the pain in her knee more often when she is going up stairs and not as much otherwise when she is going down the stairs or walking She denies any recent injury or trauma to her knee and denies any knee swelling She denies any headaches or dizziness Denies any chest pains, no increased SOB No nausea/vomiting, no abdominal pain No change in bowel habits noted She denies any acute urinary symptoms She was not able to get her follow up labs done prior to her appointment today - states that she will try to get these done PARAS Patient states that she does not have to keep up with her annual mammography as she had prophylactic bilateral mastectomy back in 2016 and currently has silicone breast implants Her last screening colonoscopy was done with Dr. Zapata back in 2018 and she is past due for repeat colonoscopy now She is up-to-date with her yearly gynecology exam and pap smear and her next exam is in October 2025 She will be due for repeat BMD next year [facility] Medical History Overweight (BMI 25.0-29.9) GERD without esophagitis Anxiety Benign essential hypertension Abnormal Pap smear of cervix Conversion disorder COVID-19 Posterior circulation stroke Psoriasis Fibromyalgia Shoulder pain, bilateral Neck pain Acute lumbar myofascial strain Cervical myofascial strain BRCA positive Restless legs syndrome Hypersomnia Snoring Cervical disc disease Sleep disorder Spondylosis of cervical spine with radiculopathy Right low back pain Left shoulder pain Breast cancer Insomnia Lymphedema Myalgia Surgical History Hx of colonoscopy (~01/07/20) History of breast surgery History of breast implant removal H/O bilateral oophorectomy Hx of bilateral mastectomy History of tubal ligation History of cholecystectomy H/O breast biopsy Family History Father Diabetes Mother Low blood pressure Family/Other Breast cancer Diabetes Sister Atrial fibrillation Sister Thyroid disease Social History Household Members: Significant Other Housing: House Do you presently have visiting nurse or other home services: No Alcohol intake: current Alcohol intake frequency: holidays/special occasions only Patient Tobacco Use Status: Never used Tobacco e-Cigarette/Vaping Use: Never Used Second Hand Smoke Exposure: No service: No Current occupational status: unemployed and disabled Gender identity: Female Cognitive needs: Yes (cane, walker) Hearing needs: No Vision needs: Yes Female Reproductive History Menstrual Age of Menarche: 10 Questionnaire PHQ-9 Over the last 2 weeks, how often have you been bothered by any of the following problems? 1. Little interest or pleasure in doing things: several days 2. Feeling down, depressed, or hopeless: several days 3. Trouble falling or staying asleep, or sleeping too much: several days 4. Feeling tired or having little energy: several days 5. Poor appetite or overeating: several days 6. Feeling bad about yourself - or that you are a failure or have let yourself or your family down: not at all 7. Trouble concentrating on things, such as reading the newspaper or watching television: not at all 8. Moving or speaking so slowly that other people could have noticed. Or the opposite - being so fidgety or restless that you have been moving around a lot more than usual: not at all 9. Thoughts that you would be better off or of hurting yourself in some way: not at all Total score: 5 Depression Screening Interpretation: Positive Depression Screening Follow-up: Existing condition and In treatment Depression Screening Done: Yes 39533 - PHQ-9 Billing: Yes Source: Developed by Drs. Edouard Madrigal, Ginny Oliveira, Giovanni Escalante and colleagues, with an educational shayne from [employer]. Thrive Questionnaire Date Thrive assessed: 07/03/25 I am a: Patient What is your living situation today?: I have a steady place to live Within the past 12 months, did the food you bought not last and you didn't have the money to get more?: Never true Within the past 12 months, did you worry whether your food would run out before you got money to buy more?: Never true Do you have trouble paying for medicines?: No Do you have trouble getting transportation to medical appointments?: No Do you have trouble paying your heating and electricity bill?: No Do you have trouble taking care of your child, family member or friend?: No Do you have trouble with day-to-day activities such as bathing, preparing meals, shopping, managing finances, etc.?: No Are you currently unemployed and looking for a job?: No Are you interested in more education?: No Please select the resources that you would like help with: None Currently or been in a relationship where the following occur: No concerns reported THRIVE Score: 0 AUDIT C Alcohol Use Questionnaire (AUDIT-C) 1. How often do you have a drink containing alcohol?: Monthly or less 2. How many drinks containing alcohol do you have on a typical day when you are drinking?: 1 or 2 3. How often do you have six or more drinks on one occasion?: Never Total Score: 1 Score Reviewed/Action Taken: Yes BRYAN-7 AMB Questionnaire BRYAN-7 Date BRYAN - 7 assessed: 07/03/25 Feeling nervous, anxious, or on edge: 0 = Not at all Not being able to stop or control worryin = Not at all Worrying too much about different things: 0 = Not at all Trouble relaxin = Not at all Being so restless that it is hard to sit still: 0 = Not at all Becoming easily annoyed or irritable: 0 = Not at all Feeling afraid as if something awful might happen: 0 = Not at all Total BRYAN-7 score (0-4 normal; 5-9 mild; 10-14 moderate; 15-21 severe): 0 Source: Developed by Drs. Edouard Madrigal, Ginny Oliveira, Giovanni Escalante and colleagues, with an educational shayne from [employer]. Review of Systems Const Denies chills, Denies fatigue, Denies fever(s), Denies headache(s) and Denies malaise Eyes Denies blurry vision, Denies change in vision, Denies irritation and Denies itchy eyes ENT Denies dysphagia, Denies dizziness, Denies otalgia, Denies headache(s), Denies nasal congestion, Denies neck pain, Denies odynophagia, Denies sinus pain and Denies sore throat Card Denies chest pain, Denies rapid heart rate, Denies irregular heart rhythm, Denies palpitations and Denies dyspnea Resp Denies chest congestion, Denies cough, Denies dyspnea and Denies wheezing GI Denies abdominal pain, Denies bloating, Denies constipation, Denies dysphagia, Denies heartburn, Denies diarrhea, Denies nausea, Denies odynophagia and Denies vomiting Denies hematuria, Denies urinary frequency, Denies dysuria, Denies urinary incontinence and Denies urinary urgency Musc Denies back pain, Reports myalgias (diffuse, on and off), Reports arthralgias (in the left knee - see HPI), Denies joint swelling, Denies muscle weakness and Denies neck pain Skin/Breast Denies breast pain, Denies breast mass, Denies change in pigmentation, Denies lesions, Denies rash and Denies unusual bruising Neuro Denies dizziness, Denies headache(s) and Denies paresthesias Psych Denies anxiety and Denies depression Endo Denies fatigue and Denies palpitations Manish/Lymph Denies easy bruising Aller/Immun Denies itchy eyes and Denies wheezing Physical exam (Primary Care) Vital Signs: Last Vital Signs Temp 97.3 F 07/03/25 17:08 Pulse 78 07/03/25 17:08 Resp 18 07/03/25 17:08 BP 110/60 07/03/25 17:08 Pulse Ox 99 07/03/25 17:08 Oxygen Delivery Method Room Air 07/03/25 17:08 BMI result Body Mass Index 28.3 Tobacco/Smoking Status: Tobacco use Status Tobacco use date assessed 07/03/25 07/03/25 17:17 Patient Tobacco Use Status Never used Tobacco 07/03/25 17:17 e-Cigarette/Vaping Use Never Used 07/03/25 17:17 PHQ-9: PHQ-9 Score PHQ-9: Total score 5 07/03/25 17:43 Depression Screening Interpretation: Positive Depression Screening Follow-up: Existing condition and In treatment Thrive Assessment: Date of Thrive Assessment Date Thrive assessed 07/03/25 07/03/25 17:17 Currently or been in a relationship where the following occur: No concerns reported Const General: no acute distress, alert and awake Orientation/consciousness: patient oriented x3 HENMT Head: Yes normocephalic and Yes atraumatic Ears: external ears normal, TM's normal bilaterally and EAC's normal General nose exam: No nasal discharge present Face and sinus: Yes normal facial exam and Yes sinuses nontender Teeth and gingiva: dentition normal Throat: Yes posterior oropharynx normal and Yes tonsils normal (no TP congestion) Eyes Eyelids: Yes eyelids normal Conjunctivae: conjunctivae normal Pupils: Equal, round and reactive pupils present EOM: EOMs intact bilaterally Neck Neck: Yes no lymphadenopathy and Yes supple Thyroid: Thyroid normal Resp Auscultation: clear to auscultation bilaterally, no rales and no wheezes Cardio Rate: regular rate Rhythm: regular rhythm Heart sounds: no murmurs GI Palpation (GI): Soft to palpation, nontender and No hepatosplenomegaly present Auscultation: normal bowel sounds General: Yes no CVA tenderness Back/Spine/Pelvis Back: no CVA tenderness Thoracic/Lumbar Spine: thoracic and lumbar spine normal to inspection Skin Lesions: no lesions Rashes: no rashes Neuro General: patient oriented x3, moves all extremities, no focal motor deficits and CN's II-XI intact bilaterally Cranial nerves: Yes Equal, round and reactive pupils present Cognition (Neuro): normal cognition Gait exam (Neuro): Normal gait present Extrem General: Yes no clubbing, cyanosis or edema Left lower extremity: knee Details: tenderness; no swelling Coding Level of Care Code Est Pt Prev Care 40-64y(90624) Diagnoses Annual physical exam Z00.00 Left knee pain, unspecified chronicity M25.562 Chronicity: unspecified Benign essential hypertension I10 Cervical disc disease M50.90 VERNON on CPAP G47.33; Z99.89 Benign paroxysmal vertigo, unspecified laterality H81.10 Laterality: unspecified laterality GERD without esophagitis K21.9 Psoriasis L40.9 Lymphedema I89.0 Fibromyalgia M79.7 Osteopenia, unspecified location M85.80 Osteopenia location: unspecified History of breast cancer in female Z85.3 Insomnia, unspecified type G47.00 Insomnia type: unspecified Anxiety F41.9 Overweight (BMI 25.0-29.9) E66.3 Colon cancer screening Z12.11 Additional Codes PHQ-9 - 56256 - PHQ-9 Billing: Yes ([id number]) Assessment & Plan Assessment & Plan (1) Annual physical exam: Code(s): Z00.00 - Encounter for general adult medical examination without abnormal findings Category: Medical Plan: Patient is advised to try to get her previously ordered labs done PARAS to complete her annual exam She does not have to keep up with her annual mammogram as she had prophylactic bilateral mastectomy back in 2017 and currently has silicone breast implants Her last screening colonoscopy was done with Dr. Zapata back in 2018 and she is past due for repeat colonoscopy now She is up-to-date with her yearly gynecology exam and pap smear and her next exam is in October 2025 She will be due for repeat BMD next year (2) Left knee pain: Code(s): M25.562 - Pain in left knee Category: Medical Qualifiers: Chronicity: unspecified Qualified Code(s): M25.562 - Pain in left knee Plan: This is likely due to bursitis and/or asthritis of the knee X-rays of the left knee done back in March 2025 revealed (+) mild degenerative changes with no acute findings Will also refer her to orthopedics for further evaluation and management of her left knee pain (3) Benign essential hypertension: Code(s): I10 - Essential (primary) hypertension Category: Medical Plan: Reinforced low sodium diet - goal is systolic BP of 120 mm or less Continue Losartan 25 mg QD and Amlodipine 5 mg QD (4) Cervical disc disease: Code(s): M50.90 - Cervical disc disorder, unspecified, unspecified cervical region Category: Medical Plan: Cervical spine CT done in 10/2021 revealed (+) multilevel degenerative cervical disc changes /spondylosis with mild neural foraminal encroachment at multiple levels but no canal compromise or cord compression and no abnormal intramedullary signal changes are noted Recalls that she was being set up for a trial of nerve block sometime last year but her appointment ended up getting cancelled Follow up with Pain Management as scheduled (5) VERNON on CPAP: Comment: The total AHI 7/hr, REM AHI was 29/hr with oxygen dalila was 85% Code(s): G47.33 - Obstructive sleep apnea (adult) (pediatric); Z99.89 - Dependence on other enabling machines and devices Category: Medical Plan: She is currently using a CPAP/autoPAP device when sleeping at night regularly Follow up with Sleep Medicine as scheduled (6) Benign paroxysmal vertigo: Code(s): H81.10 - Benign paroxysmal vertigo, unspecified ear Category: Medical Qualifiers: Laterality: unspecified laterality Qualified Code(s): H81.10 - Benign paroxysmal vertigo, unspecified ear Plan: Controlled/stable lately with no recent recurrence of symptoms Follow up with physical therapy as needed for Canalith positioning (7) GERD without esophagitis: Code(s): K21.9 - Gastro-esophageal reflux disease without esophagitis Category: Medical Plan: Dietary restrictions reinforced Continue Omeprazole 20 mg QD (8) Psoriasis: Code(s): L40.9 - Psoriasis, unspecified Category: Medical Plan: She was seen by dermatology (Dr. Ambrosio) previously and was diagnosed with plaque psoriasis She is presently maintained on topical Calcipotriene cream and some steroid cream She was also referred to rheumatology for evaluation of joint involvement and she was supposedly seen at [facility] sometime in January 2023 (9) Lymphedema: Code(s): I89.0 - Lymphedema, not elsewhere classified Category: Medical Plan: Continue Furosemide 20 mg Q AM PRN Patient is encouraged again to continue to elevate her lower extremities as often as she can throughout the day; patient also wears compression stockings as needed to help manage her edema (10) Fibromyalgia: Code(s): M79.7 - Fibromyalgia Category: Medical Plan: Continue Methocarbamol 750 mg TID PRN She is encouraged again to exercise regularly to help manage her symptoms better Per request, she was also referred previously for acupuncture therapy - she was supposedly advised by her insurance that they will cover acupuncture therapy as an alternative form of treatment (11) Osteopenia: Code(s): M85.80 - Other specified disorders of bone density and structure, unspecified site Category: Medical Qualifiers: Osteopenia location: unspecified Qualified Code(s): M85.80 - Other specified disorders of bone density and structure, unspecified site Plan: Her BMD in 2022 revealed (+) osteopenia Reinforced to patient that she needs to continue on her daily oral calcium and vitamin D intake and to continue exercising regularly and staying active Will need repeat BMD again next year for follow up (12) History of breast cancer in female: Code(s): Z85.3 - Personal history of malignant neoplasm of breast Category: Medical Plan: S/P bilateral mastectomy and breast implants; she no longer needs annual mammography subsequently She used to see Dr. Boyle for oncology follow up but has not been back to see her since her last visit in October 2020 - she is again encouraged to and reminded to call up Dr. Boyle's office to schedule a follow up appt and for continuing surveillance (13) Insomnia: Code(s): G47.00 - Insomnia, unspecified Category: Medical Qualifiers: Insomnia type: unspecified Qualified Code(s): G47.00 - Insomnia, unspecified Plan: Sleep hygiene reinforced Continue Trazodone 150 mg Q HS PRN (14) Anxiety: Code(s): F41.9 - Anxiety disorder, unspecified Category: Medical Plan: Continue Bupropion ER 150 mg QD, Buspirone 15 mg TID and Clonazepam 0.5 mg QD PRN Follow-up with Psychiatry as scheduled (15) Overweight (BMI 25.0-29.9): Code(s): E66.3 - Overweight Category: Medical Plan: Reinforced diet/exercise as tolerated/lose weight (16) Colon cancer screening: Code(s): Z12.11 - Encounter for screening for malignant neoplasm of colon Category: Medical Plan: Will refer patient to GI for repeat colonoscopy Plan Follow up in 4 months Orders: Referrals Orthopedics Referral M25.562 - Pain in left knee Gastroenterology Referral Z12.11 - Encounter for screening for malignant neoplasm of colon
[2025-07-03 17:08] VITALS: BP 110/60; PULSE 78; RESP 18; TEMP 36.3; O2SAT 99; BMI 28.3
== END 2025-07-03 17:46 | disposition home or self-care (01) ==
LOC: HO.HMCH 16:58
PROVIDERS: PCP Internal Medicine; Visit Provider Internal Medicine
DX: Z00.00 Encounter for general adult medical examination without abnormal findings (principal); M25.562 Pain in left knee; I10 Essential (primary) hypertension; M50.90 Cervical disc disorder, unspecified, unspecified cervical region; G47.33 Obstructive sleep apnea (adult) (pediatric); Z99.89 Dependence on other enabling machines and devices; H81.10 Benign paroxysmal vertigo, unspecified ear; K21.9 Gastro-esophageal reflux disease without esophagitis; L40.9 Psoriasis, unspecified; I89.0 Lymphedema, not elsewhere classified; M79.7 Fibromyalgia; M85.80 Other specified disorders of bone density and structure, unspecified site; Z85.3 Personal history of malignant neoplasm of breast; G47.00 Insomnia, unspecified; F41.9 Anxiety disorder, unspecified; E66.3 Overweight; Z12.11 Encounter for screening for malignant neoplasm of colon

== ENCOUNTER → 2025-07-03 16:57 | Outpatient (BNVA) | payer OTHER, SELFPAY | PROVIDERS: PCP Internal Medicine; Visit Provider Internal Medicine | DX: Z00.00 Encounter for general adult medical examination without abnormal findings (principal); M25.562 Pain in left knee; I10 Essential (primary) hypertension; M50.90 Cervical disc disorder, unspecified, unspecified cervical region; G47.33 Obstructive sleep apnea (adult) (pediatric); H81.10 Benign paroxysmal vertigo, unspecified ear; K21.9 Gastro-esophageal reflux disease without esophagitis; L40.9 Psoriasis, unspecified; I89.0 Lymphedema, not elsewhere classified; M79.7 Fibromyalgia; M85.80 Other specified disorders of bone density and structure, unspecified site; G47.00 Insomnia, unspecified; F41.9 Anxiety disorder, unspecified; E66.3 Overweight; Z68.28 Body mass index [BMI] 28.0-28.9, adult; Z99.89 Dependence on other enabling machines and devices; Z85.3 Personal history of malignant neoplasm of breast | CPT/HCPCS: 96127; 99396 ==

== ENCOUNTER 2025-07-08 12:37 | Outpatient (REF) | payer OTHER, SELFPAY ==
--- OUTSIDE RECORDS SUMMARY | 2025-07-08 13:03 | XMS_ITS | Encounter Summary ---
Author Organization [facility] Address [address] [place] [address] Care Team Providers Care Plumber Maintenance Name Role Phone Unavailable Primary Care Provider Unavailabl e Reason for Visit * Reason Onset Date Comments appt 01/23/2024 Encounter Details Date Type Department Care Team (Late st Contact Info) Description 01/23/2024 Telephone [facility] ADULT D[facility] [address] [place] [address] CherylMichelle sánchez [address] [place] [address] appt Social History Tobacco Use Types Packs/Day [...] EDT Appt was requested for patient in [facility] as new patient with Dr. Pritchard. It was requested incorrectly. I corrected it. It should be with Michelle. She is checking in on status of appt DR documented in this encounter Plan of Treatment Not on file documented as of this encounter Visit Diagnoses Not on filedocumented in this encounter
--- OUTSIDE RECORDS SUMMARY | 2025-07-08 13:03 | XMS_ITS | Clinical Summary ---
Author Organization [facility] Address [address] [place] [address] [address] [place] [address] Care Team Providers Care Tobacco Grower Name Role Phone Unavailable Primary Care Provider [...] DO NOT RINSE 473 mL 4 Active Additional Information Patient not taking.Reason: Other (Pt finished RX), Reported on 04/22/2025 Active Problems Problem Noted Date Diagnosed Date Advanced periodontitis 04/22/2025 Gingival bleeding 04/22/2025 Subgingival dental calculus 04/22/2025 Localized gingival recession, moderate 5 Missing teeth, acquired 04/22/2025 Extruded tooth 04/22/2025 Absence of breast 02/20/2025 BRCA2 positive 02/20/2025 Deep vein thrombosis (DVT) 02/20/2025 Malignant neoplasm of upper-inner quadrant of fe male breast 02/20/2025 Encounters Date Type Department Care Team Description 04/22/2025 10:00 AM EDT Office Visit [facility] ADULT DENT[facility] [address] [place] [address] Michelle Luna Advanced periodontitis (Primary Dx); Gingival bleeding; Subgingival dental calculus; Missing teeth, acquired; Localized gingival recession, moderate; Extruded tooth from Last 3 Months Social History Tobacco [...] season) 2024 03/05/2021, 02/11/2021 Influenza Vaccine (#1) 2025 , 09/30/2019, 11/27/2018, Additional history exists Dental Oral Exam 10/23/2025 04/22/2025, , 01/04/2021, Additional history exists Dental Prophylaxis 10/23/2025 04/22/2025, 0 04/08/2024, 03/16/2022, Additional history exists Tobacco Screening 04/22/2026 04/22/2025 Dental X-Ray: Bitewings 04/23/2026 04/22/20 25, 02/05/2025, 04/08/2024, Additional history exists Dental X-Ray: Full Mouth 04/09/2027 024, 01/04/2021, [...] Procedure Name Priority Date/Time Associated Diagnosis Comments PERIODIC ORAL EVALUATION - ESTABLISHED PATIENT Routine 04/22/2025 10:00 AM EDT 24,25 INTRAORAL - PERIAPICAL EACH ADDITIONAL RADIOGRAPHIC IMAGE Routine 04/22/2025 10:00 AM EDT Advanced periodontitis Gingival bleeding Subgingival dental calculus Missing teeth, acquired Localized gingival recession, moderate 8,9 INTRAORAL - PERIAPICAL FIRST RADIOGRAPHIC IMAGE Routine 04/22/2025 10:00 AM EDT Advanced periodontitis Gingival bleeding Subgingival dental calculus Missing teeth, acquired Localized gingival recession, moderate ORAL HYGIENE INSTRUCTIONS Routine 04/22/2025 10:00 AM EDT Advanced periodontitis Gingival bleeding Subgingival dental calculus Missing teeth, acquired Localized gingival recession, moderate BITEWINGS - 4 RADIOGRAPHIC IMAGES Routine 04/22/2025 10:00 AM EDT Advanced periodontitis Gingival bleeding Subgingival dental calculus Missing teeth, acquired Localized gingival recession, moderate Full PROPHYLAXIS - ADULT Routine 025 10:00 AM EDT Advanced periodontitis Gingival bleeding Subgingival dental calculus Missing teeth, acquired Localized gingival recession, moderate 17 EXTRACTION Routine 04/22/2025 12:00 AM EDT INTRAORAL - COMPLETE SERIES OF RADIOGRAPHIC IMAGES Routine 04/08/2024 1:00 PM EDT from Last 3 Months or Most Recently Relevant to Health Maintenance Insurance [facility]
--- OUTSIDE RECORDS SUMMARY | 2025-07-08 13:03 | XMS_ITS | Encounter Summary ---
Author Organization [facility] Address [address] [place] [address] [address] [place] [address] Care Team Providers Care Developing Machine Operator Name Role Phone Unavailable Primary Care [...]
--- OUTSIDE RECORDS SUMMARY | 2025-07-08 13:04 | XMS_ITS | Encounter Summary ---
Author Organization [facility] Address [address] [place] [address] Care Team Providers Care Sheet Cutter Name Role Phone Unavailable Primary Care Provider Unavailabl e Reason for Visit * Reason Comments Med Refill Encounter Details Date Type Department Care Team (Late st Contact Info) Description 10/30/[address] [facility] ADULT DENTAL [address] [place] [address] Lindsay Murcia DDS [address] [place] [address] Social History Tobacco Use Types Packs/Day Years [...]
--- OUTSIDE RECORDS SUMMARY | 2025-07-08 13:04 | XMS_ITS | Clinical Summary ---
Author Organization [employer] [facility] Address [address] [place] [id number] Care Team Providers Care Test Engineering Manager Name Role Phone Rod Mathews MD Primary [...] Cervical Cancer Screening: P ap Smear 1989 Pneumococcal Vaccine: 50+ Ye ars (1 of 1 - PCV) 2018 Zoster Vaccines (1 of 2) 2018 COVID-19 Vaccine ( - 2023-2 5 season) 2024 Depression Screening 11/12/2024 Influenza Vaccine (#1) 2025 HIB Vaccines Aged Out No longer eligi [...] age to complete this topic Care Teams Test Engineering Manager Relationship Specialty Start Date End Date Rod Mathews MD [address] [place] [address] Dr [address] [place] PCP - General Internal Medicine 04/13/22
[2025-07-08 13:34] LABS: MANUAL DIFF FLAG NO
[2025-07-08 14:00] LABS: Hematocrit 40.4 % (37.0-47.0); Hemoglobin 13.3 g/dl (12.0-16.0); Imm Gran Abs Auto 0.02 X10*3/uL (0.00-0.03); Imm Gran Pct Auto 0.3 % (0.0-0.4); Lymphocytes Absolute Auto 2.1 X10*3/uL (1.2-4.9); Mean Corpuscular HGB Conc 32.9 g/dl (31.0-35.0); Mean Corpuscular Hemoglobin 31.1 pg (27.0-33.0); Mean Corpuscular Volume 94.4 fL (80.0-98.0); NRBC Abs Auto 0.000 X10*3/uL (0.0-0.012); NRBC Pct Auto 0.0 /100WBC (0.0-0.2); Platelet Count 328 X10*3/uL (160-400); Red Blood Count 4.28 X10*6/uL (4.20-5.50); White Blood Count 7.2 X10*3/uL (4.8-10.8)
[2025-07-08 14:00] LABS: Appearance Urine Clear; Glucose Urine UA Negative (Negative); PH 5.5 (5.0-9.0); Specific Gravity - Urine 1.020 (1.005-1.025); UMIC TRIGGER UACC YES
[2025-07-08 14:18] LABS: UACC Culture Trigger YES
[2025-07-08 14:49] LABS: Alanine Aminotransferase 19 U/L (0-31); Albumin Level 4.5 g/dL (3.5-5.0); Alkaline Phosphatase 108 U/L (39-117); Anion Gap 12 (12-20); Aspartate Amino Transferase 23 U/L (5-31); Blood Urea Nitrogen 15 mg/dL (9-16); Calcium 9.8 mg/dL (8.4-10.2); Carbon Dioxide 27 mmol/L (22-29); Chloride 103 mmol/L (96-108); Cholesterol 220 mg/dL (<200); Estimated Glomerular Filt Rate > 60; HDL Cholesterol 54 mg/dL (>40); Potassium 4.6 mmol/L (3.3-5.1); Sodium 137 mmol/L (135-145); Total Protein 8.1 g/dL (6.5-8.0); Triglycerides 208 mg/dL (<150)
[2025-07-08 15:13] LABS: Folate 12.6 ng/mL (> or = 4.0); Vitamin B12 627 pg/mL (200-900)
== END 2025-07-08 12:38 | disposition home or self-care (01) ==
LOC: HO.LAB 12:37
PROVIDERS: PCP Internal Medicine; Visit Provider Internal Medicine
DX: Z00.00 Encounter for general adult medical examination without abnormal findings (principal); E53.8 Deficiency of other specified B group vitamins; E55.9 Vitamin D deficiency, unspecified; D64.9 Anemia, unspecified; E78.00 Pure hypercholesterolemia, unspecified; R30.0 Dysuria; R39.9 Unspecified symptoms and signs involving the genitourinary system
CPT/HCPCS: 36415; 80053; 80061; 81001; 82306; 82607; 82746; 84443; 85025; 87086

== ENCOUNTER 2025-07-16 13:18 | Outpatient (REF) | payer OTHER, SELFPAY ==
[2025-07-16 14:25] LABS: Appearance Urine Clear; Glucose Urine UA Negative (Negative); PH 6.5 (5.0-9.0); Specific Gravity - Urine 1.020 (1.005-1.025); UMIC TRIGGER UACC YES
--- OUTSIDE RECORDS SUMMARY | 2025-07-16 14:34 | XMS_ITS | Clinical Summary ---
Author Organization [employer] [facility] Address [address] [place] [address] 7t [place] [address] Care Team Providers Care Manager Food Safety Name Role Phone Unavailable Primary Care Provider [...] Description 04/22/2025 10:00 AM EDT Office Visit [facility] [address] [place] [address] Michelle Luna Advanced periodontitis (Primary Dx); Gingival [...] 2) 2018 COVID-19 Vaccine (3 - season) 2025 03/05/2021, 02/11/2021 Influenza Vaccine (#1) 2025 , [...] Most Recently Relevant to Health Maintenance Insurance [facility]
--- OUTSIDE RECORDS SUMMARY | 2025-07-16 14:34 | XMS_ITS | Encounter Summary ---
Author Organization [employer] [facility] Address [address] [place] [address] 7t [place] [address] Care Team Providers Care Portfolio Management Marketing Name Role Phone Unavailable Primary Care Provider [...]
--- OUTSIDE RECORDS SUMMARY | 2025-07-16 14:34 | XMS_ITS | Encounter Summary ---
Author Organization [employer] [facility] Address [address] [facility] 7t [place] [address] Care Team Providers Care Umbrella Cutter Name Role Phone Unavailable Primary Care Provider Unavailabl e Reason for Visit * Reason Comments Med Refill Encounter Details Date Type Department Care Team (Late st Contact Info) Description 10/30/2024 Refill [facility] ADULT D[facility]AL [address] [place] [address] Lindsay Murcia DDS [address] [place] [address] Social History Tobacco Use Types Packs/Day Years [...]
--- OUTSIDE RECORDS SUMMARY | 2025-07-16 14:34 | XMS_ITS | Clinical Summary ---
Author Organization [employer] [facility] Address [id number] [place] [id number] Care Team Providers Care Edge Inker Name Role Phone Rod Mathews MD Primary [...] 2018 Zoster Vaccines (1 of 2) 2018 Depression Screening 11/12/2024 COVID-19 Vaccine (1 - 2023-2 5 season) 2025 Influenza Vaccine (#1) 2025 HIB Vaccines Aged [...] age to complete this topic Care Teams Edge Inker Relationship Specialty Start Date End Date Rod Mathews MD [address] [place] [address] Dr [address] [place] PCP - General Internal Medicine 04/13/22
--- OUTSIDE RECORDS SUMMARY | 2025-07-16 14:34 | XMS_ITS | Encounter Summary ---
Author Organization [employer] [facility] Address [address] [facility] 7t [place] [address] Care Team Providers Care Rubber Down Name Role Phone Unavailable Primary Care Provider Unavailabl e Reason for Visit * Reason Onset Date Comments appt 01/23/2024 Encounter Details Date Type Department Care Team (Late st Contact Info) Description 01/23/[address] [facility] ADULT DENTAL [address] [place] [address] CherylMichelle sánchez [address] [place] [address] appt Social History Tobacco Use Types Packs/Day [...] EDT Appt was requested for patient in [facility] as new patient with Dr. Pritchard. It was requested incorrectly. I corrected it. It should be with Michelle. She is checking in on status of appt DR documented in this encounter Plan of Treatment Not on file documented as of this encounter Visit Diagnoses Not on filedocumented in this encounter
[2025-07-16 14:50] LABS: UACC Culture Trigger YES
== END 2025-07-16 13:19 | disposition home or self-care (01) ==
LOC: HO.LAB 13:18
PROVIDERS: PCP Internal Medicine; Visit Provider Internal Medicine
DX: R30.0 Dysuria (principal)
CPT/HCPCS: 81001; 81003; 87086; 87147

== ENCOUNTER 2025-09-18 08:00 | Day surgery (SDC) | payer OTHER, SELFPAY ==
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
[2025-09-16 12:41] VITALS: BMI 28.0
[2025-09-18 09:43] VITALS: BMI 27.9
[2025-09-18 10:00] VITALS: BP 122/76; PULSE 53; RESP 16; TEMP 36.8; O2SAT 98
--- NOTE | 2025-09-18 10:31 | P.HPSUR_ITS ---
Pre-Procedural Eval Section A - 24 Hr Update-Section A only Date of Service: 09/18/25 The patient is an INPATIENT: No The patient has been examined within 24 hours of the surgical procedure. The History & Physical has been completed within 30 days and I have reviewed it.: No Section B - Complete if H&P > 30 days Chief Complaint: screening Relevant Family History (Specify if Yes): Yes Relevant Social History: None Present Medications: see Short Stay Collaborative assessment Medical History: Significant History (Psoriasis Fibromyalgia Shoulder pain, ame ateral Neck pain Acute lumbar myofascial strain Cervical myofascial strain BRCA positive Restless legs syndrome Hypersomnia Snoring Overweight (BMI 25.0-29.9) GERD without esophagitis) History of Previous Operations: Relevant previous surgery/procedure and date(s) (Hx of colonoscopy (~01/07/20) History of breast surgery History of breast implant removal H/O bilateral oophorectomy Hx of bilateral mastectomy History of tubal ligation History of cholecystectomy H/O breast biopsy) Allergies: Allergies Allergy/AdvReac Type Severity Reaction Status Date / Time lisinopril Allergy Mild Cough Verified 07/03/25 17:36 zolpidem AdvReac Severe sleepwalkin Verified 07/03/25 17:36 g Review of Systems Sugical H&P ROS: Negative: Constitution, Cardiovascular, Respiratory and Gastrointestinal Exam Surgical H&P Exam: Normal: Heart, Normal: Lungs, Normal: Extremities and Normal: Abdomen Plan Diagnosis/Plan: Unchanged I have reviewed the history and physical and performed a pertinent physical examination on my patient. No changes have occurred unless specified. Time Spent With Patient Time: Total time managing care of this patient today ____ minutes.
--- NOTE | 2025-09-18 12:14 | HO.OPN-COLON ---
Colonoscopy Operative Note Operative Note Date of Service: 09/18/25 Narrative: COLONOSCOPY TILL CECUM Pre-op diagnosis: Colon cancer screening (2nd colon). Post-op diagnosis:? Diverticulosis, hemorrhoids Endoscopist:? Dewey Roque MD Anesthesia:?MAC Consent: Indications for the procedure and potential complications of bleeding, perforation, reaction to medications and missed diagnosis were discussed with the patient and informed consent was obtained. Instrument: Olympus PCF H 190 L variable stiffness pediatric colonoscope Monitoring: Vital signs and clinical assessment, intermittent blood pressure monitoring, continuous EKG monitoring, Pulse oximetry and Carbon Dioxide monitoring were done throughout the procedure. Please see anesthesia flowsheet. Colon withdrawl time was 11 minutes. Procedure: The patient was placed in the left lateral decubitis position and pre-procedure medications were administered. After a digital rectal examination of the ano-rectum, the video colonoscope was inserted into the rectum and advanced through the colon to the cecum. The colonoscope was slowly withdrawn in a retrograde panoramic fashion and the colon mucosa was carefully examined including a retroflexed view of the rectum. Findings and interventions are described below. Procedure Difficulty: without difficulty Findings: Terminal Ileum: Not evaluated Cecum: Normal Ascending Colon: Normal Transverse Colon: Normal Descending Colon: Normal Sigmoid Colon: Moderate diverticulosis Rectum: Normal Ano-rectum: Small internal hemorrhoids Colon preparation: Good after some irrigation. [place] Bowel Preparation Scale Right colon; 2 Transverse colon: 2 Left colon; 2 (0 = Unprepared colon segment with mucosa not seen due to solid stool that cannot be cleared. 1 = Portion of mucosa of the colon segment seen, but other areas of the colon segment not well seen due to staining, residual stool and/or opaque liquid. 2 = Minor amount of residual staining, small fragments of stool and/or opaque liquid, but mucosa of colon segment seen well. 3 = Entire mucosa of colon segment seen well with no residual staining, small fragments of stool or opaque liquid) Impression and Post Procedure Diagnosis: Colonoscopy Findings: No polyps were detected Moderate diverticulosis seen in the sigmoid colon small hemorrhoids on retroflexed exam. Plan: Repeat Colonoscopy in 10 years since pt has had two negative colonoscopies (earlier if pt develops a change in bowel habits or rectal bleeding) Above findings were reviewed with the patient and relevant handouts were given and the discharge area. Patient was placed on the recall list for repeat colonoscopy in 10 years.
[2025-09-18 12:15] VITALS: BP 100/45; PULSE 78; RESP 19; TEMP 36.1; O2SAT 96
[2025-09-18 12:30] VITALS: BP 135/59; PULSE 89; RESP 16; TEMP 36.1; O2SAT 100
== END 2025-09-18 13:30 | disposition home or self-care (01) ==
PROVIDERS: PCP Internal Medicine; Visit Provider Internal Medicine Gastroenterology
PROC: 0DJD8ZZ Inspection of Lower Intestinal Tract, Via Natural or Artificial Opening Endoscopic (ICD-10-PCS; CPT 45378; principal; 2025-09-18 10:20)
DX: Z12.11 Encounter for screening for malignant neoplasm of colon (principal); Z86.0102 Personal history of hyperplastic colon polyps; K64.8 Other hemorrhoids; K57.30 Diverticulosis of large intestine without perforation or abscess without bleeding
CPT/HCPCS: G0121; J2003; J2704; J3010

== ENCOUNTER → 2025-09-18 08:00 | Outpatient (BNV) | payer OTHER, SELFPAY | PROVIDERS: PCP Internal Medicine; Visit Provider Internal Medicine Gastroenterology | DX: Z12.11 Encounter for screening for malignant neoplasm of colon (principal); Z86.0102 Personal history of hyperplastic colon polyps; K57.30 Diverticulosis of large intestine without perforation or abscess without bleeding; K64.8 Other hemorrhoids | CPT/HCPCS: G0105 ==

== ENCOUNTER 2025-09-28 09:09 | Outpatient (REF) | payer OTHER, SELFPAY ==
--- NOTE | ~2025-09-28 | XR_ITS ---
EXAMINATION: XR KNEE AP STANDING CLINICAL INFORMATION: M25.561 - Pain in right knee COMPARISON: None available. TECHNIQUE: AP bilateral standing view of the knees was obtained. FINDINGS: Right knee: Alignment is anatomic. Medial and lateral compartment joint space is maintained. No visible acute findings. No abnormal soft tissue calcification. Left knee: Alignment is anatomic. Medial and lateral compartment joint space is maintained. No visible acute findings. No abnormal soft tissue calcification. XR/XR knee standing BI IMPRESSION: No acute findings Electronically signed by: Ari Leal MD 09/28/2025 02:08 PM [facility]
== END 2025-09-28 09:10 | disposition home or self-care (01) ==
LOC: HO.HOSX 09:09
PROVIDERS: Visit Provider Physician Assistant
DX: M22.2X2 Patellofemoral disorders, left knee (principal); M25.561 Pain in right knee
CPT/HCPCS: 73565

== ENCOUNTER 2025-09-28 10:34 | Outpatient (AMB) | payer OTHER, SELFPAY ==
--- NOTE | 2025-09-28 10:47 | MHC.OFFVIS ---
Vital Signs 09/28/25 10:58 Height 5 ft 6 in Weight 172 lb BMI 27.8 Intake Visit Reasons: RECORDS SPECIALIST-Pain in left knee Intake Note: Macie is a 55 year old female who presents today as a new patient for an evaluation of left knee pain. Patient [place] [facility], per note patients pain has been present the past few months and has increased knee pain. She states that she has had a few falls with the last fall about a month ago. Patient has attended physical therapy however this did not help. Her most discomfort comes with going up stairs, stating she feels a pulling sensation in her knee. Her pain is located at the anterior aspect of knee and radiates toward her medial side. Allergies lisinopril Allergy (Mild, Verified 07/03/25 17:36) Cough zolpidem Adverse Reaction (Severe, Verified 07/03/25 17:36) sleepwalking Medication List - Last Reconciled 09/28/25 by CHAN Sanchez-Abdiel amlodipine 5 mg PO DAILY 90 days [arm rest for toilet As directed] ascorbic acid (vitamin C) (Vitamin C) 500 mg PO DAILY blood pressure test kit-large As directed bupropion HCl XL 150 mg PO QAM buspirone 15 mg PO TID calcipotriene 0.005% 1 appl topical BID cholecalciferol (vitamin D3) 50 mcg PO DAILY 90 days clonazepam 0.5 mg PO BEDTIME CPAP As directed cyclobenzaprine 10 mg PO TID PRN 30 days diphenhydramine-acetaminophen 25-500 mg (Tylenol PM Extra Strength) 1 tab PO BEDTIME PRN duloxetine 30 mg PO DAILY 30 days eszopiclone 2 mg PO BEDTIME PRN furosemide 20 mg PO QAM PRN [HUMIDIFIER As directed] ibuprofen 400 mg PO Q8H PRN 30 days lidocaine 5% (Lidoderm) 1 patch topical DAILY losartan 25 mg PO DAILY multivitamin with folic acid 400 mcg (Daily-Sujey (with folic acid)) 1 tab PO DAILY tramadol 50 mg PO BID-TID PRN triamcinolone acetonide 0.5% 1 appl topical BID walker (Ultra-Light Rollator misc) As directed HPI HPI RECORDS SPECIALIST-Pain in left knee: Details: 55-year-old female presents to the office today for left knee pain. She states over a month ago she fell injuring the left knee. She complains of a pulling sensation along the lateral aspect of the knee especially when she is going up or downstairs. She also has medial joint line tenderness. No previous treatment to the left knee. [facility] Medical History Overweight (BMI 25.0-29.9) GERD without esophagitis Anxiety Benign essential hypertension Abnormal Pap smear of cervix Conversion disorder Posterior circulation stroke Psoriasis Fibromyalgia Shoulder pain, bilateral Neck pain Acute lumbar myofascial strain Cervical myofascial strain BRCA positive Restless legs syndrome Hypersomnia Snoring Cervical disc disease Sleep disorder Spondylosis of cervical spine with radiculopathy Right low back pain Left shoulder pain Breast cancer Insomnia Lymphedema Myalgia Surgical History Hx of colonoscopy (~01/07/20) History of breast surgery History of breast implant removal H/O bilateral oophorectomy Hx of bilateral mastectomy History of tubal ligation History of cholecystectomy H/O breast biopsy Family History Father Diabetes Mother Low blood pressure Family/Other Breast cancer Diabetes Sister Atrial fibrillation Sister Thyroid disease Social History Household Members: Significant Other Housing: House Do you presently have visiting nurse or other home services: No Alcohol intake: current Alcohol intake frequency: holidays/special occasions only Patient Tobacco Use Status: Never used Tobacco e-Cigarette/Vaping Use: Never Used Second Hand Smoke Exposure: No service: No Current occupational status: unemployed and disabled Gender identity: Female Cognitive needs: Yes (cane, walker) Hearing needs: No Vision needs: Yes Female Reproductive History Menstrual Age of Menarche: 10 Physical Exam Vital Signs: BMI result Body Mass Index 27.8 Const General: cooperative and no acute distress Orientation/consciousness: patient oriented x3 Resp Effort & Inspection: normal respiratory effort and able to speak in complete sentences Cardio Peripheral pulses: Peripheral pulses 2+ throughout Neuro General: patient oriented x3 Extrem Other: Left knee normal to inspection. No joint effusion or erythema. She has full range of motion with crepitus. Lateral retropatellar tenderness present with medial joint line tenderness. No ligamentous laxity. Calf supple nontender neurovascularly intact. Results Reviewed Results Reviewed: X-rays of the left knee obtained in the office today and reviewed by me show medial joint space narrowing with patellofemoral arthritis Assessment & Plan Assessment & Plan (1) Patellofemoral disorders, left knee: Code(s): M22.2X2 - Patellofemoral disorders, left knee Category: Medical Plan: We discussed options which include PT, NSAIDs and injections. She will defer on the injection today and proceed with PT and NSAIDs. If symptoms persist she will contact me for an injection, otherwise, prn. Orders: Orders XR knee standing BI Today M25.561 - Pain in right knee, M25.562 - Pain in left knee PT Evaluation and Treatment Today M22.2X2 - Patellofemoral disorders, left knee Medications: New celecoxib (Celebrex) 200 mg PO BID 60 caps 3RF 30 days Coding Level of Care Code Est Pt Level 3 (15652) Complex EM visit Add On G2211 Diagnoses Patellofemoral disorders, left knee M22.2X2
[2025-09-28 10:58] VITALS: BMI 27.8
== END 2025-09-28 11:27 | disposition home or self-care (01) ==
LOC: HO.HOS 10:34
PROVIDERS: PCP Internal Medicine; Visit Provider Physician Assistant
DX: M22.2X2 Patellofemoral disorders, left knee (principal)
CPT/HCPCS: 99204; G2211

== ENCOUNTER → 2025-09-28 10:35 | Outpatient (BNV) | payer OTHER, SELFPAY | PROVIDERS: Visit Provider Radiology Diagnostic Ultrasound | DX: M25.561 Pain in right knee (principal) | CPT/HCPCS: 73565 ==

== ENCOUNTER 2025-10-22 14:25 | Outpatient (REF) | payer OTHER, SELFPAY ==
[2025-10-22 15:19] LABS: Appearance Urine Clear; Glucose Urine UA Negative (Negative); PH 5.5 (5.0-9.0); Specific Gravity - Urine 1.025 (1.005-1.025); UMIC TRIGGER UACC YES
[2025-10-22 15:52] LABS: UACC Culture Trigger YES
--- OUTSIDE RECORDS SUMMARY | 2025-10-22 22:04 | XMS_ITS | Encounter Summary ---
Author Organization [facility] Address [address] 7t [place] [address] Care Team Providers Care Safety Aide Name Role Phone Unavailable Primary Care Provider Unavailabl e Encounter Details Date Type Department Care Team (Latest Contact Info) Description 01/04/2021 Abstract [facility] CONVERSIONS Dental, Provider, DDS Social History Tobacco Use Types Packs/Day Years Used Date Smoking Tobacco: Never Assessed Comments Unknown Sex and Gender Information Value Date Recorded Sex Assigned at Female 09/11/2022 10:14 AM EDT Legal Sex Female 10:14 AM EDT Gender Identity Female 09/11/2022 10:14 AM EDT Sexual Orientation Straight 09/11/2022 10 :14 AM EDT documented as of this encounter Plan of Treatment Upcoming Encounters Date Type Department Care Team (Late st Contact Info) Description 10/29/2025 2:15 PM EST Office Visit [facility] ADULT DENTAL [address] [place] [address] Isiah Lunaaris [address] [place] [address] documented as of this encounter Visit Diagnoses Not on filedocumented in this encounter
--- OUTSIDE RECORDS SUMMARY | 2025-10-22 22:04 | XMS_ITS | Clinical Summary ---
Author Organization [employer] [facility] Address [address] [place] [id number] Care Team Providers Care Manager Delivery Name Role Phone Rod Mathews MD Primary [...] on file Sexual Orientation Not on file Last Filed Vital Signs Vital Sign Reading [...] 2) 2018 Depression Screening 11/12/2024 COVID-19 Vaccine ( - 2024-2 6 season) 2025 Influenza Vaccine (#1) 2025 RSV Immunization Adult Patie nts (1 - 1-dose 75+ series) 2043 HIB [...] age to complete this topic Care Teams Manager Delivery Relationship Specialty Start Date End Date Rod Mathews MD [address] [place] [address] [address] [place] PCP - General Internal Medicine 04/13/22
--- OUTSIDE RECORDS SUMMARY | 2025-10-22 22:04 | XMS_ITS | Encounter Summary ---
Author Organization [facility] Address [address] [facility] [address] [place] [address] Care Team Providers Care Journeyman Painter Name Role Phone Unavailable Primary Care Provider Unavailabl e Reason for Visit * Reason Onset Date Comments appt 01/23/2024 Encounter Details Date Type Department Care Team (Late st Contact Info) Description 01/23/2024 Telephone [facility] [address] [place] [address] Michelle Luna [address] [place] [address] appt Social History Tobacco Use Types Packs/Day [...] EDT Appt was requested for patient in [facility] as new patient with Dr. Pritchard. It was requested incorrectly. I corrected it. It should be with Michelle. She is checking in on status of appt DR documented in this encounter Plan of Treatment Upcoming Encounters Date Type Department Care Team (Late st Contact Info) Description 10/29/2025 2:15 PM EST Office Visit [facility] [address] [place] [address] Michelle Luna [address] [place] [address] documented as of this encounter Visit Diagnoses Not on filedocumented in this encounter
--- OUTSIDE RECORDS SUMMARY | 2025-10-22 22:04 | XMS_ITS | Clinical Summary ---
Author Organization [employer] [facility] Address [address] [place] [address] 7t [place] [address] Care Team Providers Care Biology Research Assistant Name Role Phone Unavailable Primary Care Provider [...] BRCA2 positive 02/20/2025 Deep vein thrombosis (DVT) ([facility]) 02/20/2025 Malignant neoplasm of upper- inner quadrant of female breast ([facility]) 02/20/2025 Encounters Date Type Department Care Team Description 08/06/2025 11:00 AM EDT Office Visit [facility] [address] [place] [address] Michelle Luna Dental calculus (Primary Dx); Advanced periodontitis 07/29/2025 2:00 PM EDT Office Visit [facility] [address] [place] [address] Michelle Luna Advanced periodontitis (Primary Dx); Subgingival dental calculus from Last 3 Months Social History Tobacco [...] Sign Reading Time Taken Comments Blood Pressure 110/70 08/06/2025 10:55 AM EDT Pulse 66 08/06/2025 10:55 AM EDT Temperature - - Respiratory Rate - - Oxygen Saturation - - Inhaled Oxygen Concentration - - Weight - - Height - - Body Mass Index - - Plan of Treatment Upcoming Encounters Date Type Department Care Team (Late st Contact Info) Description 10/29/2025 2:15 PM EST Office Visit [facility] [address] [place] [address] Michelle Luna [address] [place] [address] Health Maintenance Due Date Last Done Comments [...] of 2) 2018 COVID-19 Vaccine (3 - 2024- season) 2025 03/05/2021, 02/11/2021 Influenza Vaccine (#1) 2025 , 09/30/2019, 11/27/2018, Additional history exists Dental Oral Exam 10/23/2025 04/22/2025, , 01/04/2021, Additional history exists Dental Prophylaxis 10/23/2025 04/22/2025, 0 04/08/2024, 03/16/2022, Additional history exists Dental X-Ray: Bitewings 04/23/2026 04/22/20, 02/05/2025, 04/08/2024, Additional history exists Tobacco Screening 08/06/2026 08/06/2025 Dental X-Ray: Full Mouth 04/09/2027 024, 01/04/2021, [...] Procedure Name Priority Date/Time Associated Diagnosis Comments LR PERIODONTAL SCALING AND ROOT PLANING - 4 OR MORE TEETH PER QUADRANT Routine 08/06/2025 11:00 AM EDT Dental calculus Advanced periodontitis UR PERIODONTAL SCALING AND ROOT PLANING - 1 TO 3 TEETH PER QUADRANT Routine 08/06/2025 11:00 AM EDT Dental calculus Advanced periodontitis CASE PRESENTATION, DETAILED AND EXTENSIVE TREATMENT PLANNING Routine 08/06/2025 11:00 AM EDT Dental calculus Advanced periodontitis LL PERIODONTAL SCALING AND ROOT PLANING - 4 OR MORE TEETH PER QUADRANT Routine 07/29/2025 2:00 PM EDT Advanced periodontitis Subgingival dental calculus UL PERIODONTAL SCALING AND ROOT PLANING - 4 OR MORE TEETH PER QUADRANT Routine 07/29/2025 2:00 PM EDT Advanced periodontitis Subgingival dental calculus CASE PRESENTATION, DETAILED AND EXTENSIVE TREATMENT PLANNING Routine 07/29/2025 2:00 PM EDT Advanced periodontitis Subgingival dental calculus Full PROPHYLAXIS - ADULT Routine 04/22/2025 10:00 AM EDT Advanced periodontitis Gingival bleeding Subgingival dental calculus Missing teeth, acquired Localized gingival recession, moderate BITEWINGS - 4 RADIOGRAPHIC IMAGES Routine 04/22/2025 10:00 AM EDT Advanced periodontitis Gingival bleeding Subgingival dental calculus Missing teeth, acquired Localized gingival recession, moderate PERIODIC ORAL EVALUATION - ESTABLISHED PATIENT Routine 04/22/2025 10:00 AM EDT INTRAORAL - COMPLETE SERIES OF RADIOGRAPHIC IMAGES Routine 04/08/2024 1:00 PM EDT from Last 3 Months or Most Recently Relevant to Health Maintenance Insurance DENTAL - [facility]
--- OUTSIDE RECORDS SUMMARY | 2025-10-22 22:04 | XMS_ITS | Encounter Summary ---
Author Organization [employer] [facility] Address [address] [facility] 7t [place] [address] Care Team Providers Care Dater Assembler Name Role Phone Unavailable Primary Care Provider Unavailabl e Reason for Visit * Reason Comments Med Refill Encounter Details Date Type Department Care Team (Late st Contact Info) Description 10/30/2024 Refill [facility] [address] [place] [address] Lindsay Murcia DDS [address] [place] [address] Social History Tobacco Use Types Packs/Day Years [...] Description 10/29/2025 2:15 PM EST Office Visit [facility] [address] [place] [address] Michelle Luna [address] [place] [address] documented as of this encounter Visit Diagnoses Not on filedocumented in this encounter
== END 2025-10-22 14:26 ==
LOC: HO.LAB 14:25
PROVIDERS: PCP Internal Medicine; Visit Provider Internal Medicine
DX: R39.9 Unspecified symptoms and signs involving the genitourinary system (principal); R10.20 Pelvic and perineal pain unspecified side
CPT/HCPCS: 81001; 81003; 87086

== ENCOUNTER 2025-10-27 12:36 | Outpatient (AMB) | payer OTHER, SELFPAY ==
--- NOTE | 2025-10-27 13:01 | MHC.OFFVIS ---
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 C/ O vaginal irritation Soil Fertility Extension Specialist Required: No Information Interpreted: non-clinical & clinical Reproduction Machine Loader: Reproduction Machine Loader Present (Denise) Accompanied by: Self / Same As Patient Allergies lisinopril Allergy (Mild, Verified 10/27/25 13:04) Cough zolpidem Adverse Reaction (Severe, Verified 10/27/25 13:04) sleepwalking Medication List - Last Reconciled 10/27/25 by Sadaf Batres LPN amlodipine 5 mg PO DAILY 90 days [arm rest for toilet As directed] ascorbic acid (vitamin C) (Vitamin C) 500 mg PO DAILY blood pressure test kit-large As directed bupropion HCl XL 150 mg PO QAM buspirone 15 mg PO TID calcipotriene 0.005% 1 appl topical BID celecoxib (Celebrex) 200 mg PO BID 30 days cholecalciferol (vitamin D3) 50 mcg PO DAILY 90 days clonazepam 0.5 mg PO BEDTIME CPAP As directed cyclobenzaprine 10 mg PO TID PRN 30 days diphenhydramine-acetaminophen 25-500 mg (Tylenol PM Extra Strength) 1 tab PO BEDTIME PRN duloxetine 30 mg PO DAILY 30 days eszopiclone 2 mg PO BEDTIME PRN furosemide 20 mg PO QAM PRN [HUMIDIFIER As directed] ibuprofen 400 mg PO Q8H PRN 30 days lidocaine 5% (Lidoderm) 1 patch topical DAILY losartan 25 mg PO DAILY multivitamin with folic acid 400 mcg (Daily-Sujey (with folic acid)) 1 tab PO DAILY nitrofurantoin monohyd/m-cryst 100 mg (Macrobid) 100 mg PO Q12H 7 days tramadol 50 mg PO BID-TID PRN triamcinolone acetonide 0.5% 1 appl topical BID walker (Ultra-Light Rollator misc) As directed Do you need a note to return to daycare/school/sports/work: No HPI Comments Details: Patient 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 Currently has treatment for UTI. Attempting to eat a healthy diet with calcium and vitamin D and stays active with exercise. Last pap smear; 2023, negative. History of bilateral mastectomy with implants, and oophorectomy for risk reduction surgery due to positive BRCA history. Colonoscopy is UTD. [facility] Medical History Overweight (BMI 25.0-29.9) GERD without esophagitis Anxiety Benign essential hypertension Abnormal Pap smear of cervix Conversion disorder Posterior circulation stroke Psoriasis Fibromyalgia Shoulder pain, bilateral Neck pain Acute lumbar myofascial strain Cervical myofascial strain BRCA positive Restless legs syndrome Hypersomnia Snoring Cervical disc disease Sleep disorder Spondylosis of cervical spine with radiculopathy Right low back pain Left shoulder pain Breast cancer Insomnia Lymphedema Myalgia Surgical History Hx of colonoscopy (~01/07/20) History of breast surgery History of breast implant removal H/O bilateral oophorectomy Hx of bilateral mastectomy History of tubal ligation History of cholecystectomy H/O breast biopsy Family History Father Diabetes Mother Low blood pressure Family/Other Breast cancer Diabetes Sister Atrial fibrillation Sister Thyroid disease Social History Household Members: None Housing: House Do you presently have visiting nurse or other home services: No Alcohol intake: current Alcohol intake frequency: holidays/special occasions only Patient Tobacco Use Status: Never used Tobacco e-Cigarette/Vaping Use: Never Used Second Hand Smoke Exposure: No service: No Current occupational status: unemployed and disabled Gender identity: Female Cognitive needs: Yes (cane, walker) Hearing needs: No Vision needs: Yes Female Reproductive History Menstrual Age of Menarche: 10 control method: permanent sterilization Menopause type: natural Total pregnancies: 4 Number of Living Children: 2 Ab induced: 2 Date of last pap smear: 10/22/24 History of abnormal pap smear: Yes (hpv) History of abnormal mammogram: Yes ( breast Cancer, 2017 - mastectomy) Date of last Bone Density Screenin08/10/23 Review of Systems Const All systems reviewed & are unremarkable except as noted in HPI and below Reports as per HPI Eyes Reports no additional complaints ENT Reports no additional complaints Card Reports no additional complaints Resp Reports no additional complaints GI Reports as per HPI and Reports no additional complaints Reports as per HPI Musc Reports no additional complaints Skin/Breast Reports as per HPI Neuro Reports no additional complaints Psych Reports no additional complaints Endo Reports no additional complaints Manish/Lymph Reports no additional complaints Aller/Immun Reports no additional complaints Physical Exam Vital Signs: Last Vital Signs BP 112/68 10/27/25 13:11 BMI result Body Mass Index 27.8 Const General: cooperative, healthy appearing, no acute distress, well developed and alert Orientation/consciousness: patient oriented x3 HEENT Head: Yes normal to inspection Eyes General: appearance normal, both eyes and all related structures Neck Neck: Yes normal visual inspection Thyroid: Thyroid normal Chest Other: Bilateral breast reconstruction and implants Chest palpation & inspection: normal inspection of the chest and other (no puckering, dimpling, peau de orange, retraction, discharge, masses) Breast/axilla inspection: normal inspection of the breasts Breast/axilla palpation: normal palpation of the breasts Resp Effort & Inspection: normal respiratory effort GI Inspection: Yes normal to inspection Palpation (GI): Soft to palpation Rectal Exam - Female: deferred General: Yes bladder normal to palpation External Female Exam: normal external appearance and normal appearance of the urethra Speculum Exam - Vagina: normal appearance of the vagina (Slightly friable posterior fornix with speculum), normal palpation, abnormal vaginal discharge (Watery frothy) and erythematous Speculum Exam - Cervix: normal appearance of the cervix and normal palpation Bimanual exam- vagina & uterus: normal bimanual exam, normal palpation, uterine size normal, bladder normal to palpation, normal palpation and non-tender Bimanual Exam- Adnexa, other: no masses Skin General skin exam: no rashes or lesions noted Rashes: no rashes Neuro General: patient oriented x3 Cognition (Neuro): normal cognition Extrem General: Yes normal to inspection Psych Attitude: cooperative Thought process: Normal thought process present Assessment & Plan Assessment & Plan (1) Encounter for well woman exam with routine gynecological exam: Code(s): Z01.419 - Encounter for gynecological examination (general) (routine) without abnormal findings Category: Medical Plan: Discussed: Current recommendations for pap smears per ASCCP guidelines. Breast awareness, periodic self breast exams and yearly mammogram. Maintain a healthy lifestyle, well balanced diet including Calcium 1,200 mg and Vitamin D 600 IU daily, and routine exercise. Contact the office with any postmenopausal bleeding. Replens moisturizer, vulvar balm, use of website for informational purposes. Patient verbalizes understanding and agrees to the plan of care. She was given opportunity to ask questions and all questions were answered to the best of my ability. RTO in 1 year for annual commissioner of internal revenue exam. This note is constructed using voice recognition software. While every effort has been made to ensure accuracy, grocery clerk stocking errors may have been included. (2) Vaginal irritation: Code(s): N89.8 - Other specified noninflammatory disorders of vagina Category: Medical Plan GC chlamydia and BV panel obtained await results for final plan of care. The patient expressed understanding and agreement with the plan of care. All of her questions and concerns were addressed to the best of my ability. Orders: Orders CT NG by PCR Vag/Cerv Today Z11.3 - Encounter for screening for infections with a predominantly sexual mode of transmission Bacterial Vaginosis Panel Today Z11.3 - Encounter for screening for infections with a predominantly sexual mode of transmission Coding Level of Care Code Est Pt Prev Care 40-64y(23715) Diagnoses Encounter for well woman exam with routine gynecological exam Z01.419 Vaginal irritation N89.8
[2025-10-27 13:11] VITALS: BP 112/68; BMI 27.8
--- OUTSIDE RECORDS SUMMARY | 2025-10-27 16:24 | XMS_ITS | Encounter Summary ---
Author Organization [employer] [facility] Address [address] [facility] [address] [address] [address] [place] [address] Care Team Providers Care Mineral Wool Insulation Supervisor Name Role Phone Unavailable Primary Care Provider Unavailabl e Reason for Visit * Reason Comments Med Refill Encounter Details Date Type Department Care Team (Late st Contact Info) Description 10/30/2024 Refill [facility] [address] [place] [address] Lindsay Murcia DDS [address] [place] [address] Social History Tobacco Use Types Packs/Day Years [...] Description 10/29/2025 2:15 PM EST Office Visit [facility] [address] [place] [address] Michelle Luna [address] [place] [address] documented as of this encounter Visit Diagnoses Not on filedocumented in this encounter
--- OUTSIDE RECORDS SUMMARY | 2025-10-27 16:24 | XMS_ITS | Clinical Summary ---
Author Organization [email or web address] [facility] Address [address] [place] [phone] Care Team Providers Care Cost Clerk Name Role Phone Rod Mathews MD Primary Care Provider [phone] Medical History Medical History Date Comments Anxiety [...] age to complete this topic Care Teams Cost Clerk Relationship Specialty Start Date End Date Rod Mathews MD [address] [place] [address] [address] [place] PCP - General Internal Medicine 04/13/22
--- OUTSIDE RECORDS SUMMARY | 2025-10-27 16:24 | XMS_ITS | Encounter Summary ---
Author Organization [facility] [facility] Address [address] [facility] [address] [place] [address] Care Team Providers Care Collision Center Manager Name Role Phone Unavailable Primary Care Provider Unavailabl e Reason for Visit * Reason Onset Date Comments appt 01/23/2024 Encounter Details Date Type Department Care Team (Late st Contact Info) Description 01/23/2024 Telephone [facility] [address] [place] [address] Michelle Luna [address] [place] [address] appt Social History Tobacco Use Types Packs/Day [...] EDT Appt was requested for patient in [facility] as new patient with Dr. Pritchard. It was requested incorrectly. I corrected it. It should be with Michelle. She is checking in on status of appt DR documented in this encounter Plan of Treatment Upcoming Encounters Date Type Department Care Team (Late st Contact Info) Description 10/29/2025 2:15 PM EST Office Visit [facility] [address] [place] [address] Michelle Luna [address] [place] [address] documented as of this encounter Visit Diagnoses Not on filedocumented in this encounter
--- OUTSIDE RECORDS SUMMARY | 2025-10-27 16:24 | XMS_ITS | Encounter Summary ---
Author Organization [employer] [facility] Address [address] [facility] 7t [place] [address] Care Team Providers Care Vice President Quality Assurance Name Role Phone Unavailable Primary Care Provider Unavailabl e Encounter Details Date Type Department Care Team (Latest Contact Info) Description 01/04/2021 Abstract [facility] CONVERSIONS Dental, Provider, DDS Social History Tobacco [...] Description 10/29/2025 2:15 PM EST Office Visit [facility]ULT D[facility] [address] [place] [address] Isiah Lunaaris [address] [place] [address] documented as of this encounter Visit Diagnoses Not on filedocumented in this encounter
--- OUTSIDE RECORDS SUMMARY | 2025-10-27 16:24 | XMS_ITS | Clinical Summary ---
Author Organization [facility] Address [address] [place] [address] [address] [place] [address] Care Team Providers Care Store Clerk Name Role Phone Unavailable Primary Care [...] BRCA2 positive 02/20/2025 Deep vein thrombosis (DVT) ([facility]) 02/20/2025 Malignant neoplasm of upper- inner quadrant of female breast ([facility]) 02/20/2025 Encounters Date Type Department Care Team Description 08/06/2025 11:00 AM EDT Office Visit [facility] [address] [place] [address] Michelle Luna Dental calculus (Primary Dx); Advanced periodontitis 07/29/2025 2:00 PM EDT Office Visit [facility] [address] [place] [address] Michelle Luna Advanced periodontitis (Primary Dx); Subgingival [...] Description 10/29/2025 2:15 PM EST Office Visit [facility] [address] [place] [address] Michelle Luna [address] [place] [address] Health Maintenance Due Date Last Done Comments [...] Relevant to Health Maintenance Insurance D[facility]AL - [facility]
== END 2025-10-27 13:52 | disposition home or self-care (01) ==
LOC: HO.HWS 12:37
PROVIDERS: PCP Internal Medicine; Visit Provider Advanced Practice Midwife
DX: Z01.419 Encounter for gynecological examination (general) (routine) without abnormal findings (principal); N89.8 Other specified noninflammatory disorders of vagina
CPT/HCPCS: 99396; 99459

== ENCOUNTER 2025-10-27 12:36 | Outpatient (REF) | payer OTHER, SELFPAY ==
[2025-10-28 09:13] LABS: Bacterial Vaginosis PCR NEGATIVE (Negative); Candida Group PCR NOT DETECTED (Not Detect); Candida glab krusei PCR NOT DETECTED (Not Detect); Trichomonas vaginalis PCR NOT DETECTED (Not Detect)
[2025-10-28 09:45] LABS: CT PCR NOT DETECTED (Not Detect.); NG PCR NOT DETECTED (Not Detect.)
== END 2025-10-27 12:37 | disposition home or self-care (01) ==
LOC: HO.LNP 12:36
PROVIDERS: PCP Internal Medicine; Visit Provider Advanced Practice Midwife
DX: Z01.419 Encounter for gynecological examination (general) (routine) without abnormal findings (principal); Z20.2 Contact with and (suspected) exposure to infections with a predominantly sexual mode of transmission; N89.8 Other specified noninflammatory disorders of vagina; Z98.51 Tubal ligation status
CPT/HCPCS: 81515; 87491; 87591